=== PATIENT | male | born 1970 | race Caucasian/White ===

== ENCOUNTER → 2018-01-21 10:54 | Outpatient (CLI) | payer OTHER, SELFPAY ==
[2018-01-20 09:09] VITALS: BMI 31.8
--- NOTE | 2018-01-21 10:57 | ECHOD_ITS ---
Reason For Study: Chest Pain Procedure This was a 2D Doppler, Color Flow transthoracic echocardiogram. Exam performed in department. Left Ventricle Normal LV size. Left ventricular systolic function is normal. The estimated ejection fraction is 55 %. No evidence for diastolic dysfunction. No regional wall motion abnormalities noted. Right Ventricle Normal RV size. Normal systolic function. Atria Normal left atrium. Normal right atrium. Mitral Valve Normal mitral valve. Trivial eccentric mitral valve insufficiency. Tricuspid Valve Normal tricuspid valve. Mild tricuspid valve insufficiency. Aortic Valve Normal aortic valve. Pulmonic Valve Normal pulmonic valve. Great Vessels Normal aortic root. Pericardium/Pleural No pericardial effusion. MMode/2D Measurements & Calculations LVIDd: 5.0 cm IVSd: 0.80 cm Ao root diam: 3.2 cm LVIDs: 3.1 cm LVPWd: 0.81 cm LA dimension: 3.5 cm RVDd: 4.0 cm FS: 37.0 % LAV(MOD-bp): 55.3 ml LA A4 area: 18.2 cm2 RA A4 area: 14.2 cm2 LAV(MOD-sp2): 56.5 ml LAV(MOD-sp4): 48.9 ml Time Measurements MV dec time: 0.19 sec Doppler Measurements & Calculations MV E max randell: 74.4 cm/sec Lat Peak E' Randell: 11.4 cm/sec Med Peak E' Randell: 11.1 cm/sec MV A max randell: 58.7 cm/sec E/E' lat: 6.5 E/E' med: 6.7 MV E/A: 1.3 MV V2 max: 81.0 cm/sec Ao V2 max: 117.6 cm/sec LV V1 max: 108.1 cm/sec MV max P.6 mmHg Ao max P.5 mmHg LV V1 max P.7 mmHg MV V2 mean: 43.5 cm/sec Ao V2 mean: 78.9 cm/sec LV V1 mean P.0 mmHg MV mean P.92 mmHg Ao mean P.8 mmHg LV V1 mean: 65.1 cm/sec MV V2 VTI: 29.4 cm Ao V2 VTI: 22.5 cm LV V1 VTI: 21.2 cm PA V2 max: 95.3 cm/sec Interpretation Summary Normal LV size. Left ventricular systolic function is normal. The estimated ejection fraction is 55 %. No evidence for diastolic dysfunction. Structurally normal valves. Ordering Physician: John Ross Referring Physician: John Ross Performed By: Flavio Diaz RCS
--- OUTSIDE RECORDS SUMMARY | 2018-03-18 13:21 | XMS RPT_ITS ---
:1970 Author Organization OHIP Support Name Relationship Address Phone FAYE ROSEN Unavailable [address] + [place] [address] ABTUCKER CRISTEL Unavailable [address] + [place] [address] KB41 ALONDRA Unavailable [address] + [place] [address] ABER FAYE Unavailable [address] + [place] [address] JESSIKA CRISTEL Unavailable [address] + [place] [address] KB41 ALONDRA Unavailable [address] + [place] [address] ABER, FAYE Unavailable [address] + [place] [address] ABER CRISTEL Unavailable [address] + [place] [address] KB41 ALONDRA Unavailable [address] + [place] [address] ABER, FAYE Unavailable [address] + [place] [address] ABER CRISTEL Unavailable [address] + [place] [address] KB41 ALONDRA Unavailable [address] + [place] [address] ABER FAYE Unavailable [address] + [place] [address] ABER CRISTEL Unavailable [address] + [place] [address] KB41 ALONDRA Unavailable [address] + [place] [address] ABER, FAYE Unavailable [address] + [place] [address] ABCRISTEL CEBALLOS Unavailable [address] + [place] [address] KB41 ALONDRA Unavailable [address] + [place] [address] ABER, FAYE Unavailable . + [place] [address] S Unavailable Unavailable Unavailable Care Team Providers Name Role Yeison Rocael Castillo Attending Unavailable Primay Care Physicia, No Referring Unavailable Cody, [place] Attending Unavailable Cody, John Referring Unavailable Primay Care Physicia, No Primary Care Unavailable Cody, John Attending Unavailable Primay Care Physicia, No Referring Unavailable Cody, John Attending Unavailable Cody, [place] Referring Unavailable Primay Care Physicia, No Primary Care Unavailable Cody, John Attending Unavailable Cody, [place] Referring Unavailable Primay Care Physicia, No Primary Care Unavailable Cody, John Attending Unavailable Cody, John Referring Unavailable Primay Care Physicia, No Primary Care Unavailable Cody, [place] Consulting Unavailable Cody, [place] Attending Unavailable Cody, John Referring Unavailable Primay Care Physicia, No Primary Care Unavailable Cody, [place] Consulting Unavailable PROBLEMS PROBLEMS DATE TYPE CONDITION / CODE ATTENDING STATUS SOURCE 01/26/2018 Unknown R07.9 - Chest pain, Cody, [place] Active [place] unspecified / Community R07.9(ICD-10) Hospital Repository 01/26/2018 Unknown R06.00 - Dyspnea, Cody, [place] Active [place] unspecified / Community R06.00(ICD-10) Hospital Repository 01/26/2018 Unknown F17.200 - Nicotine Cody, [place] Active [place] dependence, Community unspecified, Hospital uncomplicated / Repository F17.200(ICD-10) PROCEDURES PROCEDURES No Procedure Records FoundRESULTS RESULTS CR - HISTORY AND Observed: 02/09/2018 Status: F Source: [place] PH[facility]ICAL 12:53 PM [facility] REPOSITORY [facility] Cardiac Rehab [address] [place] [address] CR - History AND Physical MR#: [id number] Acct: [id number] Name: CHAS VICKERS Rep #: [id number] : 1970 47 From: Yogi Nguyen 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 NO PREVIOUS HISTORY OF CORONARY DISEASE Interventions with present event:: SCHEDULED BY NURSE TO SEE DR. ROSS AND THEN SENT DOWN FOR ECHO HEART CATH. 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 - Medications Home Medications: Ambulatory Orders Medication Instructions Recorded aspirin 81 mg tablet,delayed 81 mg PO QDAY #30 tab 01/20/18 release atorvastatin 40 mg tablet 40 mg PO QPM #90 tab 01/26/18 - Allergies Allergies/Adverse Reactions: Allergies No Known Allergies Allergy (Verified 02/05/18 13:34) - Sleep Disorder Evaluation Hx of Sleep Apnea: No Do you snore loudly (louder than talking or can be heard through closed doors)?: Yes Do you often feel tired/ fatigued/ sleepy during daytime?: No Has anyone observed you stop breathing during sleep?: Yes History of Hypertension (for STOP score): No STOP Results: Positive Advanced Directives - Advanced Directives Power of Learning Engineer: Yes - Cristel [place]; mother Living Will: Yes Advance Directives Information Provided: Yes Advance Directives on File: No DNR Order?:: No - MOLST See MOLST form: No Past Medical History - Past Medical Illness Medical History: Past Medical History (Last Updated 01/25/18 @ 14:10 by Iris Blakely) Atherosclerosis of coronary artery of [place] heart without angina pectoris (Chronic) I25.10 PCI-OMARI-Mid LAD 2.5 x 12 mm Resolute 01/23/18 Unstable angina (Acute) I20.0 Dyspnea (Acute) R06.00 Nicotine dependence (Chronic) F17.200 - Past Surgical History Surgical History: Past Surgical History (Last Updated 01/25/18 @ 14:10 by Iris Blakely) History of coronary artery stent placement (Resolved) Onset Date: 01/23/18 Z95.5 PCI-OMARI-Mid LAD 2.5 x 12 mm Resolute 01/23/18 History of open reduction and internal fixation (ORIF) procedure Z98.890 left hip Social History - Smoking History Smoking Status: Current every day smoker Years Smokin2000-2018 Packs Smoked per Day: 1 - at times more recently last 3 months 1/4 pack (5-cig) Hx Smoking Cessation Date: 01/25/2018 Hx Tobacco Use: Yes Hx Smoking Exposure: No - Alcohol Use Alcohol Usage: Yes - occasionally; - Substance Abuse Hx Substance Use: No - Occupation Occupation (List type of work in comments):: Employed Hours worked per day:: 11 - 8 hours w / break; up to 11 hours Returned to work on:: 02/05/18 - Hobbies, Recreation, Social Activities Hobbies: Other - Race cars; dirt track. Recreational Activities: I am able to engage in most, but not all activities Social Environment - Status Marital Status: Single - Current Living Arrangements Living Environment:: Spouse - Children How many children do you have?: 0 Do any of your children live nearby?: No - Safety Do you feel safe in your surroundings?: Yes - Assistance Do you need any assistance at home?: none Review of Systems - Review of Systems Hints: Right click = Denies (Slash). Left click = Reports ([place]) Review of Present Symptoms: Reports: Shortness of Breath with Exertion, Appetite - Normal, Appetite - Special Diet - 1800 calories diet; low fat, low cholesterol, no added salt., - - when coughs, feels like his head is going to explode.. Denies: Shortness of Breath at Rest, Angina, Dizziness/Lightheadedness, Fatigue, Heart Arrhythmia/Irregularities, Sleep - Normal, Sexual Changes - Pain Is Patient Pain Free?: Yes Risk Factor Assessment - Chief Complaint Chief Complaint: Patient is a very pleasent 47 yr old male of Dr. Ross who presents to cardiac rehab today following recent angioplasty with stent placement the first of this month. 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 On his way back to [place] he experienced the same discomfort and took a 325mg aspiring with relief. He was seen by Dr. Ross and subsequently had an echo and heart cath done resulting in a coronary stent placement. 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 - Blood Cholesterol/Lipids Total Cholesterol (mg/dL) Goal = less than 200 mg/dL: 208 HDL Cholesterol (mg/dL) Goal = less than 40 mg/dL: 42 LDL Cholesterol (mg/dL) Goal = less than 70 mg/dL: 144 Triglycerides (mg/dL) Goal = less than 150 mg/dL: 108 - Diabetes Nutrition Referral for Diabetes: No - Obesity Height: 6 ft Weight:: 235 lb Weight in Pounds: 235.0 lbs Body Mass Index (BMI): 31.8 Nutritional Referral for Obesity: Yes - Patient could benefit from structured weight loss- cardiac diet guidelines - Physical Inactivity Physical Inactivity: None - Risk Stratification Risk Guidelines: Lowest Risk: Risk Factor for Dyslipidemia, Risk Factor for Diabetes, Risk Factor for Hypertension, Risk Factor for Sedentary Lifestyle, Risk Factor for Depression, Highest Risk: Risk Factor for Smoking, Risk Factor for Obesity - For Smoking Smoking Risk Guidelines: Smoking Low Risk: None or quit greater than 6 months ago. Smoking Moderate Risk: Smoker or quit 6 months or less ago. Smoking High Risk: Smoker - For Dyslipidemia Dyslipidemia Risk Guidelines: Low Risk: Moderate Risk: High Risk: 15-25% fat 25.1-29% fat >/= 30% fat. <7% sat fat 7-9% sat fat >9% sat fat. <150 mg chol 150-299 mg chol >/= 300 mg chol. LDL <100 LDL 100-129 LDL >/= 130. Chol/HDL ratio <5.0 Chol/HDL ratio 5.0-6.0 Chol/HDL ratio >6.0. Triglycerides <100 Triglycerides 100-149 Triglycerides >/= 150 - For Diabetes Mellitus Diabetes Risk Guidelines: Diabetes Low Risk: HgA1c <6.5% and/or FBG <120. Diabetes Moderate Risk: HgA1c 6.6-7.9% and/or FBG 120- 180. Diabetes High Risk: HgA1c >/= 8% and/or FBG >180 - For Obesity/Overweight Obesity/Overweight Risk Guidelines: Obesity Low Risk: BMI <25.0. Obesity Moderate Risk: BMI 25-29.9. Obesity High Risk: BMI >/= 30.0 - For Hypertension Hypertension Risk Guidelines: Hypertension Low Risk: Systolic <120 and Diastolic <80. Hypertension Moderate Risk: Systolic 120-139 and Diastolic 80-89. Hypertension High Risk: Systolic >/= 140 and Diastolic >/= 90 - For Sedentary Lifestyle Sedentary Lifestyle Risk Guidelines: Sedentary Lifestyle Low Risk: >/= 1,500 kcal/week. Sedentary Lifestyle Moderate Risk: 700-1,499 kcal/week. Sedentary Lifestyle High Risk: < 700 kcal/week - For Depression Depression Risk Guidelines: Depression Low Risk: Not clinically depressed. Depression Moderate Risk: Mildly depressed. Depression High Risk: Clinically depressed Motivation - Motivation to Participate On a scale of 1 to 10, how prepared are you to commit to attending program?: 10 What do you see as barriers to successfully being able to complete the program?: none What do you see as the benefits of succesfully completing the program? In other words, what do you hope to get out of participating in the program?: learning more about heart disease Are there issues you are dealing with that will interfere with completing the program?: no Do you have a spouse or signficant other, family or friends who will help support you to complete the program?: yes; parents very supportive. 02/09/18 1051 <Electronically signed by Yogi Nguyen CRT, RCP, JUN> Date Yogi Nguyen CRT, RCP, JUN Outcome assessment reviewed. Exercise plan approved as documented. Treatment plan and goals support patient needs/abilities. Continue with current plan. I certify the patient demonstrates improvement and remains willing and capable of participation. the patient continues to benefit from cardiac rehab services/training. The patient may continue at current intensity, endurance and modality and progress per protocol. 02/09/18 1253 <Electronically signed by John Ross MD> Fabbyigner Signature: Date John Ross MD CC: Signed 12 LEAD ELECTROCARDIOGRAM Observed: 01/28/2018 Status: F Source: [place] 2:52 PM [facility] REPOSITORY [facility] Cardiovascular Services [address] [place] [address] 12 Lead EKG 01/26/18 0453 MR#: [id number] Acct: [id number] Name: CHAS VICKERS Rep #: [id number] : 1970 47 From: Candelario Maya MD Attending Dr: John Ross MD Status: [facility] Ordering Dr: Amber Moy MD Date: 01/26/18 Location: [facility] Sex: M C Admitted: Test Reason : MORNING EKG Blood Pressure : / mmHG Vent. Rate : 060 BPM Atrial Rate : 060 BPM P-R Int : 140 ms QRS Dur : 070 ms QT Int : 418 ms P-R-T Axes : 035 038 002 degrees QTc Int : 418 ms Normal sinus rhythm Normal ECG Confirmed by ZULMA BUCK, CANDELARIO ([id number]), editor producer KATHRYN MCCARTHY ([id number]) on 01/28/2018 2:51:31 PM Referred By: John Ross Confirmed By:CANDELARIO MAYA MD 01/28/18 145 Date Candelario Maya MD CC: No Primary Care Physician; Amber Moy MD; John Ross MD Signed 12 LEAD ELECTROCARDIOGRAM Observed: 01/28/2018 Status: F Source: [place] 2:52 PM [facility] REPOSITORY [facility] Cardiovascular Services [address] [place] [address] 12 Lead EKG 01/25/18 1122 MR#: [id number] Acct: [id number] Name: CHAS VICKERS Rep #: [id number] : 1970 47 From: Candelario Maya MD Attending Dr: Cody BUCK,John Status: DEP SDC Ordering Dr: Amber Moy MD Date: 01/25/18 Location: [facility] Sex: M C Admitted: Test Reason : POST PCI Blood Pressure : / mmHG Vent. Rate : 074 BPM Atrial Rate : 074 BPM P-R Int : 146 ms QRS Dur : 072 ms QT Int : 388 ms P-R-T Axes : 035 029 001 degrees QTc Int : 430 ms Normal sinus rhythm Normal ECG Confirmed by ZULMA BUCK, CANDELARIO ([id number]), editor producer KATHRYN MCCARTHY ([id number]) on 01/28/2018 2:51:47 PM Referred By: John Ross Confirmed By:CANDELARIO MAYA MD 01/28/18 1451 Date Candelario Maya MD CC: No Primary Care Physician; Amber Moy MD; John Ross MD Signed DISCHARGE INSTRUCTION Observed: 01/26/2018 Status: F Source: [place] 7:48 AM [facility] REPOSITORY [facility] Medical Records Department [address] [place] [address] Instructions for Home/Discharge Instructions 01/26/18 0745 MR#: [id number] Acct: [id number] Name: CHAS VICKERS Rep #: [id number] : 1970 47 From: John Ross MD PCP: Care Physician, No Primary Status: REG SDC Discharge Diet: Low fat/ Low Cholesterol Discharge Activity: Return to Normal Activity, May Drive Return to work on:: 01/29/18 May resume sexual activity in: 1 week Call your doctor if your incision/area has: Increased Pain/ Swelling, Increased Redness, Foul Smelling Discharge, Swelling at the incision site Call your doctor if you observe: Fever of 101 or Higher Additional Dressing/Incision Instructions:: Keep the dressing (bandage) on until the next morning. You may then shower, but do not take a tub bath for 5 days after your test. It is normal to have some tenderness and discomfort at the puncture site. Sometimes bruising also occurs. However, if pain, numbness, or coldness occurs below the puncture site (in your leg, toes, arms or fingers) call your doctor at once. You may have a small, marble sized knot at the puncture site. This is normal. Do not rub it. It will go away in 4-6 weeks. Bleeding can occur from the area where the puncture was done. Blood may spurt or drip from the site. If blood spurts, apply pressure right away to stop bleeding and call 911. Although rare, bleeding into the tissue (hematoma) can also occur. If this happens, a large, firm area goose egg under the skin will appear. If any of these occur, lie down as flat as you can and have someone apply firm pressure to the cath site with a gauze pad or a clean washcloth for 10-15 minutes. Call 911 or go to the Emergency Department. Allergies/Adverse Reactions: Allergies No Known Allergies Allergy (Verified 01/20/18 08:19) Medications to take at Discharge aspirin 81 mg tablet,delayed release 81 mg PO QDAY #30 tab 01/20/18 clopidogrel 75 mg tablet 75 mg PO DAILY #30 tab 01/20/18 metoprolol succinate ER 25 mg tablet,extended release 24 hr 25 mg PO DAILY #30 tab 01/20/18 Primary Care Physician: Care Physician,No Primary [Primary Care Provider] - Test Results: Test results from this visit will be discussed in further detail at your follow-up appointment, if applicable. When: heart group mid level 1-2 weeks Proposed Discharge Date: 01/26/18 Cardiac Rehabilitation Info Cardiac Rehabilitation Program Information: Cardiac Rehabilitation is important for patients like you who are recovering from a heart problem. Cardiac rehabilitation programs are recognized as integral to the continued care of the patient with coronary heart disease. The cardiac rehabilitation program is designed to optimize a patient's physical, psychological, and social functioning. Health day care worker work in cardiac rehabilitation programs and assist you with getting the treatments you need to get stronger and healthier - like exercise, healthy eating habits, and medications. Cardiac rehabilitation has been show to help people with heart problems live longer and have better life enjoyment than people who do not go to cardiac rehabilitation. Please contact the Cardiac Rehabilitation Program at [facility] at in two weeks if you have not heard from them. 01/26/18 0748 <Electronically signed by John Ross MD> Date John Ross MD CC: No Primary Care Physician CBC-COMPLETE BLOOD CNT Collected: 01/26/2018 Status: F Source: [facility] NO DIFF 5:45 AM [facility] REPOSITORY TYPE CODE TESTS RESULT OUT OF RANGE REFERENCE UNITS LAB L100.1000 4.4-11.0 K/mm3 Normal WBC 8.3 LAB L100.1200 4.6-6.2 M/mm3 Low RBC 4.49 LAB L100.1300 13.0-16.5 g/dl Normal HGB 14.6 LAB L100.1400 40-54 % Normal HCT 41.7 LAB L100.1500 80-94 fL Normal MCV 92.9 LAB L100.1600 27.0-32.0 pg High MCH 32.5 LAB L100.1700 32-36 g/gl Normal MCHC 35.0 LAB L100.1810 11.6-14.6 % Normal RDW CV 13.0 LAB L100.1820 35.1-43.9 fl Normal RDW SD 43.3 LAB L100.1900 150-450 K/mm3 Normal PLT 250 LAB L100.2000 6.2-12.0 fl Normal MPV 10.3 Performed By: #### L100.0500 #### [facility] [address] [place], [address] BASIC METABOLIC Collected: 01/26/2018 Status: F Source: [place] PROFILE (BMP) 5:45 AM [facility] REPOSITORY TYPE CODE TESTS RESULT OUT OF RANGE REFERENCE UNITS LAB L501.0100 74-106 mg/dL Normal GLU 98 Result Comment: Please note revised GLUCOSE reference range effective 2017. LAB L501.1000 7-18 mg/dL High BUN 22 LAB L501.1100 0.70-1.30 mg/dL Normal CREAT,SERUM 0.98 Result Comment: The validity of the calculated GFR AND GFRAA in patients over 70 years has not been determined. Clinical correlation is essential. LAB L501.1110 >60 mL/min Normal EST GFR 87 Result Comment: Non- GFR Calc LAB L501.1115 >60 mL/min Normal EST GFR - AA 105 Result Comment: GFR Calc LAB L501.1255 ml/min Normal Estimated CRCL 102.28 LAB L501.1300 10-20 RATIO High BUN/CRE 22.4 LAB L501.2200 8.5-10 mg/dL .1 CA Normal 8.9 LAB L501.5300 136-14 mmol/L 5 NA Normal 139 LAB L501.5600 3.5-5. mmol/L 1 K Normal 4.5 LAB L501.5900 98-107 mmol/L CL Normal 106 LAB L501.6100 21.0-3 mmol/L 2.0 CO2 Normal 23.0 LAB L501.6200 5-15 GAP Normal 10 Performed By: #### L500.2500 #### [facility] [address] [place], [address] ACT ACTIVATED CLOTTING Collected: 01/25/2018 Status: F Source: [place] TIME 10:55 AM [facility] REPOSITORY TYPE CODE TESTS RESULT OUT OF RANGE REFERENCE UNITS LAB L9100.0100 74-137 sec High ACTk CLOT 257 TIME Performed By: #### L9100.0100 #### [facility] Point of Care [address] [place] [address] ACT ACTIVATED CLOTTING Collected: 01/25/2018 Status: F Source: [place] TIME 10:38 AM [facility] REPOSITORY TYPE CODE TESTS RESULT OUT OF RANGE REFERENCE UNITS LAB L9100.0100 74-137 sec High ACTk CLOT 285 TIME Performed By: #### L9100.0100 #### [facility] Point of Care [address] [place] [address] ECHOCARDIOGRAM COMPLETE Observed: 01/21/2018 Status: F Source: [place] 3:15 PM [facility] REPOSITORY [facility] Cardiovascular Services [address] [place] [address] Echo Complete 01/21/18 1055 MR#: [id number] Acct: [id number] Name: CHAS VICKERS Rep #: [id number] : 1970 47 From: John Ross MD Attending Dr: Cody BUCK,John Status: REG CLI Ordering Dr: John Ross MD Date: 01/21/18 Location: [facility] Sex: M C Admitted: Reason For Study: Chest Pain Procedure This was a 2D Doppler, Color Flow transthoracic echocardiogram. Exam performed in department. Left Ventricle Normal LV size. Left ventricular systolic function is normal. The estimated ejection fraction is 55 %. No evidence for diastolic dysfunction. No regional wall motion abnormalities noted. Right Ventricle Normal RV size. Normal systolic function. Atria Normal left atrium. Normal right atrium. Mitral Valve Normal mitral valve. Trivial eccentric mitral valve insufficiency. Tricuspid Valve Normal tricuspid valve. Mild tricuspid valve insufficiency. Aortic Valve Normal aortic valve. Pulmonic Valve Normal pulmonic valve. Great Vessels Normal aortic root. Pericardium/Pleural No pericardial effusion. MMode/2D Measurements AND Calculations LVIDd: 5.0 cm IVSd: 0.80 cm Ao root diam: 3.2 cm LVIDs: 3.1 cm LVPWd: 0.81 cm LA dimension: 3.5 cm RVDd: 4.0 cm FS: 37.0 % LAV(MOD-bp): 55.3 ml LA A4 area: 18.2 cm2 RA A4 area: 14.2 cm2 LAV(MOD-sp2): 56.5 ml LAV(MOD-sp4): 48.9 ml Time Measurements MV dec time: 0.19 sec Doppler Measurements AND Calculations MV E max randell: 74.4 cm/sec Lat Peak E' Randell: 11.4 cm/sec Med Peak E' Randell: 11.1 cm/sec MV A max randell: 58.7 cm/sec E/E' lat: 6.5 E/E' med: 6.7 MV E/A: 1.3 MV V2 max: 81.0 cm/sec Ao V2 max: 117.6 cm/sec LV V1 max: 108.1 cm/sec MV max P.6 mmHg Ao max P.5 mmHg LV V1 max P.7 mmHg MV V2 mean: 43.5 cm/sec Ao V2 mean: 78.9 cm/sec LV V1 mean P.0 mmHg MV mean P.92 mmHg Ao mean P.8 mmHg LV V1 mean: 65.1 cm/sec MV V2 VTI: 29.4 cm Ao V2 VTI: 22.5 cm LV V1 VTI: 21.2 cm PA V2 max: 95.3 cm/sec Interpretation Summary Normal LV size. Left ventricular systolic function is normal. The estimated ejection fraction is 55 %. No evidence for diastolic dysfunction. Structurally normal valves. 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 Chest pain for 6 months getting worse past 1.5 months. No known injury. TECHNIQUE: PA and lateral views of the chest. COMPARISON: None. FINDINGS: The lungs are clear and expanded. There is no demonstrated pleural abnormality. Normal size heart. Normal mediastinum and zoë. Normal visualized pulmonary arteries. Normal visualized aortic arch and descending thoracic aorta. Normal visualized thoracic spine. Normal visualized ribs, clavicles, and shoulders. There is no demonstrated abnormality of the visualized soft tissue structures of the upper abdomen. RAD/Chest PA and Lateral IMPRESSION: Normal x-ray examination of the chest. Electronically Signed: Nubia Dacosta MD at 6:36 EST , Service support , CC: No Primary Care Physician; John Ross MD Hydraulic Strainer Operator: Signed CBC W/DIFF, AUTOMATED Collected: 01/20/2018 Status: F Source: [place] 10:30 AM [facility] REPOSITORY TYPE CODE TESTS RESULT OUT OF RANGE REFERENCE UNITS LAB L100.1000 4.4-11.0 K/mm3 Normal WBC 8.9 LAB L100.1200 4.6-6.2 M/mm3 Normal RBC 4.80 LAB L100.1300 13.0-16.5 g/dl Normal HGB 15.5 LAB L100.1400 40-54 % Normal HCT 44.7 LAB L100.1500 80-94 fL Normal MCV 93.1 LAB L100.1600 27.0-32.0 pg High MCH 32.3 LAB L100.1700 32-36 g/gl Normal MCHC 34.7 LAB L100.1810 11.6-14.6 % Normal RDW CV 13.0 LAB L100.1820 35.1-43.9 fl Normal RDW SD 43.8 LAB L100.1900 150-450 K/mm3 Normal PLT 271 LAB L100.2000 6.2-12.0 fl Normal MPV 10.2 LAB L100.2100 47-70 % Normal NEUT% 63.8 LAB L100.2200 19-41 % Normal LY% 27.6 LAB L100.2300 0-10 % Normal MONO% 6.6 LAB L100.2400 0-5 % Normal EO% 1.5 LAB L100.2500 0-1 % Normal BASO% 0.1 LAB L100.2550 0.0-0.9 % Normal IM GRAN % 0.400 Result Comment: IG% - Immature Granulocytes (promyelocytes, myelocytes and metamyelocytes) > 1% indicates that a LEFT SHIFT is Present. LAB L100.2620 2.0-7.7 X10 3/uL Normal Absolute Neut 5.7 LAB L100.2720 0.83-4.51 X10 3/ul Normal Absolute Lymph 2.46 Performed By: #### L100.0100 #### [facility] [place] [address], [address] BASIC METABOLIC Collected: 01/20/2018 Status: F Source: ALBERTO PROFILE (BMP) 10:30 AM [facility] REPOSITORY TYPE CODE TESTS RESULT OUT OF RANGE REFERENCE UNITS LAB L501.0100 74-106 mg/dL Normal GLU 82 Result Comment: Please note revised GLUCOSE reference range effective 2017. LAB L501.1000 7-18 mg/dL Normal BUN 16 LAB L501.1100 0.70-1.30 mg/dL Normal CREAT,SERUM 1.11 Result Comment: The validity of the calculated GFR AND GFRAA in patients over 70 years has not been determined. Clinical correlation is essential. LAB L501.1110 >60 mL/min Normal EST GFR 75 Result Comment: Non- GFR Calc LAB L501.1115 >60 mL/min Normal EST GFR - AA 91 Result Comment: GFR Calc LAB L501.1300 10-20 RATIO Normal BUN/CRE 14.4 LAB L501.2200 8.5-10.1 mg/dL CA Normal 9.1 LAB L501.5300 136-145 mmol/L NA Normal 142 LAB L501.5600 3.5-5.1 mmol/L K Normal 4.3 LAB L501.5900 98-107 mmol/L CL Normal 106 LAB L501.6100 21.0-32.0 mmol/L Normal CO2 29.0 LAB L501.6200 5-15 Normal GAP 7 Performed By: #### L500.2500, L500.3400, L500.4100, L501.9520 #### [facility] [address] [place], [address] LIVER PROFILE Collected: 01/20/2018 Status: F Source: ALBERTO 10:30 AM [facility] REPOSITORY TYPE CODE TESTS RESULT OUT OF RANGE REFERENCE UNITS LAB L501.1500 6.4-8.2 g/dL Normal T PROT 7.4 LAB L501.1800 3.2-5.0 g/dL Normal ALB 3.6 LAB L501.1950 2.2-4.2 g/dL Normal GLOB 3.8 LAB L501.4100 15-37 U/L Normal AST 23 LAB L501.4305 45-117 U/L Normal ALK P 74 LAB L501.4405 16-61 U/L Normal ALT 36 LAB L501.4600 0.20-1.00 mg/dL Normal T BILI 0.40 LAB L501.4700 0.00-0.30 mg/dL Normal D BILI 0.09 Performed By: #### L500.2500, L500.3400, L500.4100, L501.9520 #### [facility] [address] [place], [place], [address] LIPID PROFILE Collected: 01/20/2018 Status: F Source: ALBERTO 10:30 AM [facility] REPOSITORY TYPE CODE TESTS RESULT OUT OF RANGE REFERENCE UNITS LAB L501.4900 200 mg/dL High CHOL 208 Result Comment: <200 mg/dL Desirable 200-240 mg/dL Borderline >240 mg/dL High Risk LAB L501.5000 mg/dL Normal TRIG 108 Result Comment: The drugs N-Acetylcysteine and Metamizole may falsely depress this assay. Serum Triglycerides Reference Interval Normal <150 mg/dL Borderline high 150 - 199 mg/dL High 200 - 499 mg/dL Very High > or = 500 mg/dL LAB L501.6400 mg/dL Normal HDL 42 Result Comment: The drugs N-Acetylcysteine and Metamizole may falsely depress this assay. Reference Range HDL <40 mg/dL Low HDL Cholesterol HDL >or= 60 mg/dL High HDL Cholesterol LAB L501.6500 0-130 mg/dL High LDL 144 LAB L501.6600 5-40 mg/dL Normal VLDL 22 Performed By: #### L500.2500, L500.3400, L500.4100, L501.9520 #### [facility] [address] [place], [place], [id number] THYROID STIM HORMONE Collected: 01/20/2018 Status: F Source: ALBERTO (TSH) 10:30 AM [facility] REPOSITORY TYPE CODE TESTS RESULT OUT OF RANGE REFERENCE UNITS LAB L501.9520 0.358-3.74 uIU/mL Normal TSH 1.63 Performed By: #### L500.2500, L500.3400, L500.4100, L501.9520 #### [facility] [address] [place], [place], [address] CARDIOLOGY VISIT Observed: 01/20/2018 Status: F Source: ALBERTO REPORT 9:43 AM [facility] REPOSITORY [facility] [address] [place] [address] OFFICE VISIT Date of Service: 01/20/18 MR#: [id number] Acct: [id number] Name: CHAS VICKERS Rep #: [id number] : 1970 Provider: John Ross MD Age/Sex: 47/M Location: [facility] Status: Signed HPI HPI Chief Complaint: Initial visit Details: CHAS VICKERS, is a 47 M who presents to the office today for an initial visit. 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 A few days ago he had a significant episode associated with nausea and shortness of breath. He took aspirin and it was eventually relieved. He has had no dizziness or diaphoresis no near syncope or syncope though he has had exertional shortness of breath. He is on no medications though he does use tobacco products. His physical exam today demonstrates clear lung wong regular rate and rhythm no pedal edema his blood pressure is under normal control and his EKG demonstrates normal sinus rhythm with a rate of 72 bpm. Intake Vital Signs01/20/18 Height 6 ft 01/20/18 Weight: 235 lb 01/20/18 Body Mass Index (BMI) 31.8 01/20/18 Blood Pressure 120/80 01/20/18 Respiratory Rate 18 01/20/18 Pulse Rate 72 01/20/18 Pulse Ox 98 Intake Visit Reasons: self ref'd for chest pressure Allergies No Known Allergies Allergy (Verified 01/20/18 08:19) Medications aspirin 81 mg tablet,delayed release 81 mg PO QDAY #30 tab 01/20/18 [Rx Confirmed 01/20/18] clopidogrel 75 mg tablet 75 mg PO DAILY #30 tab 01/20/18 [Rx Confirmed 01/20/18] metoprolol succinate ER 25 mg tablet,extended release 24 hr 25 mg PO DAILY #30 tab 01/20/18 [Rx Confirmed 01/20/18] PFSH Medical History Nicotine dependence (Chronic) Surgical History History of open reduction and internal fixation (ORIF) procedure (Acute) Social History Smoking Status: Current every day smoker tobacco type: cigarettes ROS Const Const: Negative for fatigue, weakness, difficulty sleeping, frequent falls, excessive sweating or headache(s) Eyes Eyes: Negative for loss of peripheral vision, transient loss of vision, blurry vision, tunnel vision or double vision ENT ENT: Negative for headache(s), dizziness, Nosebleed/epistaxis or balance problems Cardio Chest Pain: Yes (New onset mid sternal chest pain) Character: tightness, other (Heaviness) Location: mid sternal Duration: minutes, hours Exacerbation: activity, rest Palpitations: No Edema: None Muscle aches with walking: None Additional Details: Had an episode of chest heaviness while driving his truck, became nauseated and fell asleep. Has had several episodes since last week. Resp Respiratory: Positive for SOB with activity (New onset with ambulation); negative for SOB at rest, SOB orthopnea\SOB lying down, paroxysmal nocturnal dyspnea or Cough GI GI: Negative nausea, heartburn, black,tarry stools or vomiting : Negative for hematuria Musc Musc: Negative for balance problems, muscle aches/ myalgia, muscle weakness or joint pain Skin Skin: Negative non-healing lesions, unusual bruising or rash Neuro Neuro: Negative for weakness, frequent falls, headache(s), blurry vision, double vision, dizziness, lightheadedness, orthostatic symptoms, near syncope, syncope or lack of coordination Diony Hematologic/Lymphatic: Negative for easy bruising or easy bleeding Endo Endo: Negative for fatigue, excessive sweating or increased thirst/drinking Psych Psych: Negative for anxiety or depression Allergy Allergy/Immunology: Negative for hives, Negative for rash Cardiology Exam Const Appearance: cooperative, healthy appearing, well developed, well groomed and no acute distress Nutritional Appearance: well nourished and average body habitus Orientation: alert, awake and oriented x3 Head Head: normal to inspection, normocephalic and atraumatic Ears: hearing grossly normal bilaterally and external ears normal Nose: external nose normal, nasal mucous membranes and turbinates normal, nares normal, septum normal, no nasal discharge Face and Sinus: face symmetric Mouth: oral mucosae normal, tongue normal, oropharynx normal and moist mucous membranes Teeth and gingiva: dentition normal Throat: posterior oropharynx normal, tonsils normal and uvula midline Eyes General: appearance normal, both eyes and all related structures Eyelids: eyelids normal Conjunctivae: conjunctivae normal Pupils: PERRL, normal by confrontation and accommodation normal EOM: EOM intact bilaterally Neck Neck: normal visual inspection, trachea midline and no JVD JVD: +5 Carotids: normal carotid upstroke and bounding pulses Chest Chest inspection: normal inspection of the chest, symmetric chest movement and normal respiratory effort Auscultation: Bilateral: Clear to Auscultation Cardio Palpation: normal PMI Rate: regular rate Rhythm: regular rhythm Heart sounds: S1 normal, S2 normal and normal, physiologic split S2; negative rub, gallop or murmur GI GI: normal to inspection, soft, no hepatosplenomegaly and bowel sounds present Neuro General: alert, awake, oriented x3, no focal sensory deficit, gait normal and moves all extremities Skin Skin: no rashes or lesions noted Extremities Pulses: Normal: Right Femoral Pulse, Left Femoral Pulse, Right Dorsalis Pedis Pulse, Left Dorsalis Pedis Pulse, Right Posterior Tibial Pulse, Left Posterior Tibial Pulse, Right Radial Pulse, Left Radial Pulse Lower Extremity Edema: None: Bilateral Musculoskel Musculoskeletal: No joint tenderness Psych Psychological: normal affect Assessment AND Plan 1. 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 He will be preloaded with clopidogrel and aspirin, and a lipid profile would also be obtained. Low-dose beta-willam would be instituted. Thank you for allowing me to participate in the care of your patient. 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) Coding Level of Care Code Off vis,new,level 4 Diagnoses Chest pain R07.9 Ischemic chest pain type: unstable angina pectoris Coding Level of Care Code Off vis,new,level 4 Diagnoses Chest pain R07.9 Ischemic chest pain type: unstable angina pectoris 01/20/18 0943 <Electronically signed by John Ross MD> Date John Ross MD Cosigner Signature: Date (if applicable) CC: 12 LEAD EKG PERFORMED Observed: 01/20/2018 Status: F Source: ALBERTO BY [facility] 8:53 AM [facility] REPOSITORY [facility] [address] [place] [address] 12 Lead EKG performed by [facility] 01/20/18818 MR#: [id number] Acct: [id number] Name: CHAS VICKERS Rep #: [id number] : 1970 47 From: John Ross MD Attending Dr: John Ross MD Status: DEP AMB Ordering Dr: John Ross MD Date: 01/20/18 Location: [facility] Sex: M C Admitted: [facility]/12 Lead EKG performed by [facility] ECG Report Interpretation Sinus Rhythm WITHIN NORMAL LIMITSElectronically signed on 01/27/2018 at 11:30 by John Rosswood Software Version [id number] 01/27/18 1135 Date John Ross MD CC: No Primary Care Physician Date Dictated: 01/20/18818 Date Transcribed: 01/20/18818 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 Signed ALLERGIES ALLERGIES DATE TYPE / CODE NAME / CODE REACTION SEVERITY SOURCE 02/05/2018 Drug No Known Unknown [facility] Allergy/4160 Allergies/F00 [facility] [address]750(SNOMED [id number](RXNOR Repository CT) M) ENCOUNTERS ENCOUNTERS ADMIT/DISCHARGE ACCOUNT ADMITTING ENCOUNTER LOCATION SOURCE NUMBER CLASS 02/09/2018 [id number] Ambulatory [address] ing:CR Repository 02/05/2018/ [id number] Ambulatory BMS[facility]:[place] [facility] 0 [place] Repository 01/26/2018 [id number] Ambulatory BMSBuilding:[facility] [place] 9 [place] Repository 01/25/2018/ [id number] Ambulatory [place] 8 0 [facility] ing:CLSPRoom: Repository [id number] 01/21/2018 [id number] Ambulatory BMSBuilding:B [place] 4 [place] Repository 01/21/2018 [id number] Ambulatory [place] 9 [facility] ing:[facility] Repository 01/20/2018/ [id number] Ambulatory BMSBuilding:[place] 8 2 [facility] Repository PAYERS PAYERS ENCOUNTER GUARANTOR PAYER SUBSCRIBER SOURCE 02/09/2018 CHAS J Primary CHAS J [place] [id number] S Insurance:MEDICAL BEEDOB: [place] [address], [place] Number: Repository [address]Zsx: 330 [id number] [phone] () Date:[id number] [address]IG: 02/09/2018 Secondary NOT GIVENUNK [place] Insurance:SELF PAY [facility] Number: Effective Repository Date:2018-02-01 02/05/2018 CHAS J Primary CHAS J [place] [id number] S Insurance:MEDICAL BEEDOB: [facility] [id number] Number: Repository [address]Zgl: 330 [id number] [phone] (HP) Date:3455-20-40ET[address] [address]JL: 02/05/2018 Secondary NOT GIVENUNK [place] Insurance:SELF PAY [facility] Number: Effective Repository Date:2018-02-05 01/26/2018 CHAS J Primary CHAS J [place] [id number] S Insurance:MEDICAL BEEDOB: [address], [place] Number: Repository [id number]: 330 [id number] [phone] (HP) Date:1211-96-09RU [address] [address]OY: 01/26/2018 Secondary NOT GIVENUNK [place] Insurance:SELF PAY [facility] Number: Effective Repository Date:2018-01-26 01/25/2018 CHAS J Primary CHAS J [place] [id number] S Insurance:MEDICAL BEEDOB: [facility] [id number] Number: Repository [address]Azt: 330 [id number] [phone] (HP) Date:4771-21-47DD [address] [address]NS: 01/25/2018 Secondary NOT GIVENUNK [place] Insurance:SELF PAY [facility] Number: Effective Repository Date:2018-01-20 01/21/2018 CHAS J Primary CHAS J [place] [id number] S Insurance:MEDICAL BEEDOB: [facility] [id number] Number: Repository [address]Rld: 330 [id number] [phone] (HP) Date:0196-14-84IM [address] [address]NG: 01/21/2018 Secondary NOT GIVENUNK [place] Insurance:SELF PAY [facility] Number: Effective Repository Date:2018-01-21 01/21/2018 CHAS J Primary CHAS J [place] [id number] S Insurance:MEDICAL BEEDOB: [address], [place] Number: Repository [id number]: 330 [id number] [phone] (HP) Date:3228-56-81CW [address] [address]YX: 01/21/2018 Secondary NOT GIVENUNK [place] Insurance:SELF PAY [facility] Number: Effective Repository Date:2018-01-20 01/20/2018 CHAS Melvin Primary CHAS Dom[place] [id number] S Insurance:MEDICAL BEEDOB: [facility] [id number] Number: .Effective Repository [id number]: 330) Date:5873-63-55QY [phone] ( [address], [place] [address]YJ: 01/20/2018 Secondary NOT GIVENUNK [place] Insurance:SELF PAY [facility] Number: Effective Repository Date:2018-01-20
== END ==
PROVIDERS: Referring Provider Internal Medicine Cardiovascular Disease; Visit Provider Internal Medicine Cardiovascular Disease
DX: R07.9 Chest pain, unspecified (principal)
CPT/HCPCS: 93306

== ENCOUNTER 2018-01-25 08:50 | Day surgery (SDC) | payer OTHER, SELFPAY ==
[2018-01-20 09:09] VITALS: BMI 31.8
--- NOTE | 2018-01-20 11:00 | RAD_ITS ---
STUDY: X-RAY CHEST REASON FOR EXAM: Male, 47 years old. Chest pain for 6 months getting worse past 1.5 months. No known injury. TECHNIQUE: PA and lateral views of the chest. COMPARISON: None. FINDINGS: The lungs are clear and expanded. There is no demonstrated pleural abnormality. Normal size heart. Normal mediastinum and zoë. Normal visualized pulmonary arteries. Normal visualized aortic arch and descending thoracic aorta. Normal visualized thoracic spine. Normal visualized ribs, clavicles, and shoulders. There is no demonstrated abnormality of the visualized soft tissue structures of the upper abdomen. RAD/Chest PA and Lateral IMPRESSION: Normal x-ray examination of the chest. Electronically Signed: Nubia Dacosta MD at 6:36 EST , Service support ,
[2018-01-20 11:42] LABS: Absolute Lymphocyte Count 2.46 X10^3/ul (0.83-4.51); Absolute Neutrophil Count 5.7 X10^3/uL (2.0-7.7); Basophil# 0.01 X10^3/uL; Basophil% 0.1 % (0-1); Eosinophil# 0.13 X10^3/uL; Eosinophils% 1.5 % (0-5); Hematocrit 44.7 % (40-54); Hemoglobin 15.5 g/dl (13.0-16.5); Lymphocyte # 2.46 X10^3/ul (4.0); Lymphocyte % 27.6 % (19-41); Mean Corp Hgb Conc 34.7 g/gl (32-36); Mean Corpuscular Hgb 32.3 pg (27.0-32.0); Mean Corpuscular Volume 93.1 fL (80-94); Mean Platelet Vol. 10.2 fl (6.2-12.0); Monocyte# 0.59 X10^3/uL; Monocyte% 6.6 % (0-10); Neutrophil # 5.68 X10^3/uL (2.7-7.7); Neutrophil % 63.8 % (47-70); Platelet Count 271 K/mm3 (150-450); RBC Distribution Width SD 43.8 fl (35.1-43.9); White Blood Count 8.9 K/mm3 (4.4-11.0)
[2018-01-20 11:45] LABS: POSITIVE COUNT NO; POSITIVE DIFFERENTIAL NO; POSITIVE MORPHOLOGY NO
[2018-01-20 12:24] LABS: AST(SGOT) 23 U/L (15-37); Alanine Aminotransfer ALT/SGPT 36 U/L (16-61); Albumin, Serum 3.6 g/dL (3.2-5.0); Alkaline Phosphatase 74 U/L (45-117); Anion Gap 7 (5-15); BUN 16 mg/dL (7-18); BUN/Creat Ratio 14.4 RATIO (10-20); Bilirubin, Direct 0.09 mg/dL (0.00-0.30); Calcium,Total 9.1 mg/dL (8.5-10.1); Chloride 106 mmol/L (98-107); Cholesterol 208 mg/dL (200); Creatinine, Serum 1.11 mg/dL (0.70-1.30); EST Glomerular Filtration Rate 75 mL/min (>60); Est Glom Filt Rate - Afr Amer 91 mL/min (>60); Globulin 3.8 g/dL (2.2-4.2); Glucose 82 mg/dL (74-106); High Density Lipoprotein 42 mg/dL; Potassium 4.3 mmol/L (3.5-5.1); Protein, Total 7.4 g/dL (6.4-8.2); Sodium Level 142 mmol/L (136-145); Thyroid Stim Hormone (TSH) 1.63 uIU/mL (0.358-3.74); Triglycerides 108 mg/dL; Very Low Density Lipoprotein 22 mg/dL (5-40)
[2018-01-22 09:07] VITALS: BMI 31.8
[2018-01-25] VITALS (30 sets, daily range): BP systolic 86–143; BP diastolic 54–97; PULSE 61–90; RESP 12–25; TEMP 36.4–36.9; O2SAT 93–998; BMI 32.1; BMI 31.8
--- NOTE | 2018-01-25 10:45 | CL.D_ITS ---
Patient Name: CHAS VICKERS Study Date: 01/25/2018 Performing: John Ross MD Ht: 72.04 inches 183 cm : 1970 Wt: 235.89 lbs 107 kg Age: 47 Gender: male BSA: 2.29 PROCEDURE(S) PERFORMED [id number] CLINICAL PROFILE AND INDICATIONS Indications: Suspected CAD Heart Failure: None Stress/Imaging Stress/Image Study Performed: No Angina Classification Anginal Classification w/in 2 Weeks: CCS III CAD Presentations: Unstable angina. CONCLUSIONS Mid 75 % LAD RECOMMENDATIONS Referred for immediate PCI DESCRIPTION OF PROCEDURE The patient arrived to the procedure lab. The risks and benefits of the procedure as well as a full d escription of our services here and current unavailability of surgical backup were fully explained to the patient and/or their significant other prior to the catheterization. The Timeout was completed, verifying the correct patient and procedure. The patient's procedural site was prepped and draped in the usual fashion. Local anesthetic was given subcutaneously to right radial region with Lidocaine 2% . Using a modified Seldinger technique, arterial access was obtained via the right radial artery, a 6 Fr sheath was inserted. Right Coronary Artery selective angiography was then performed in multiple v iews using a 5 Fr. 4.0 Pinch catheter. Left Coronary Artery selective angiography was performed in mu ltiple views using a 5 Fr. 4.0 Pinch catheter. Left Ventriculography was performed in ALVAREZ projection using a 5 Fr. Pigtail catheter. LV to AO pullback pressures were then recorded. CORONARY ANGIOGRAPHY DOMINANCE: Right Dominant LEFT HEART ASSESSMENT Left Ventricular Ejection Fraction: by LV Gram 60 % Normal LV wall motion Normal Left Ventricular systolic function LEFT MAIN: Angiographically normal LEFT ANTERIOR DECENDING ARTERY: PROX LAD: Angiographically normal MID LAD: 75 % Stenosis RIGHT CORONARY ARTERY: Mild luminal irregularities COMPLICATIONS PROCEDURE MEDICATIONS Fentanyl 50 mcg IV Versed 1 mg IV Fentanyl 25 mcg IV Versed 1 mg IV Fentanyl 25 mcg IV Oxygen: 2 L/min via nasal cannula Heparin 8000 unit(s) IV 01/25/2018 10:29:59 IV Bolus: .9 NaCl 450ml total 01/25/2018 10:30:35 IV Fluids: .9 NaCl IV started @ 150 ml/hr 01/25/2018 10:31:30 SUMMARY OF HEMODYNAMIC DATA Time AIR REST ECG 09:21:16 AO 83/60 (72) SA 10:05:06 AO 114/75 (92) 10:05:29 LV 134/3, 16 10:14:08 LV 136/3, 21 10:14:14 LV 128/5, 23 10:15:53 LVp 118/4, 21 10:16:00 AOp 143/85 (111) 10:16:05 10:38:42 AIR REST AO 134/93 (111) 10:38:44 Signed By John Ross MD On 01/25/2018 10:44:29 AM John Ross MD
--- NOTE | 2018-01-25 11:00 | EKG12_ITS ---
Test Reason : POST PCI Blood Pressure : / mmHG Vent. Rate : 074 BPM Atrial Rate : 074 BPM P-R Int : 146 ms QRS Dur : 072 ms QT Int : 388 ms P-R-T Axes : 035 029 001 degrees QTc Int : 430 ms Normal sinus rhythm Normal ECG Confirmed by ZULMA BUCK, MARTA ([id number]), fashion editor KATHRYN MCCARTHY ([id number] on 01/28/2018 2:51:47 PM Referred By: John Ross Confirmed By:MARTA MAYA MD
--- NOTE | 2018-01-25 11:06 | CL.I_ITS ---
Patient Name: CHAS VICKERS Study Date: 01/25/2018 Performing: Amber Moy MD Ht: 72.04 inches 183 cm : 1970 Wt: 235.89 lbs 107 kg Age: 47 Gender: male BSA: 2.29 PROCEDURE(S) PERFORMED [id number] W OR WO PTCA, SINGLE CORONARY ARTERY CLINICAL PROFILE AND CO-MORBIDITIES Indications: Suspected CAD Heart Failure: None Stress/Imaging Stress/Image Study Performed: No Angina Classification Anginal Classification w/in 2 Weeks: CCS III CAD Presentations: Unstable angina. CONCLUSIONS Successful DESMid LAD using 2.5x12 mm. Post-dilated using 3.0 mm balloon RECOMMENDATIONS ASA Indefinitley Plavix for at least 12 months Follow up with Dr. Ross INTERVENTION INFORMATION LESION SITE: LAD (Mid) Lesion Complexity: Non-High/Non-C, culprit lesion: Yes Pre Stenosis: 80 % Pre intervention RENAE flow: 3 PROCEDURE: Drug Eluting Stent with post dilatation Post Stenosis: 0 % Post intervention RENAE flow: 3 COMPLICATIONS No Complications PROCEDURE MEDICATIONS Fentanyl 50 mcg IV Versed 1 mg IV Fentanyl 25 mcg IV Versed 1 mg IV Fentanyl 25 mcg IV Oxygen: 2 L/min via nasal cannula Heparin 8000 unit(s) IV 01/25/2018 10:29:59 Heparin 1000 unit(s) IV 01/25/2018 10:59:53 Nitro 200 mcg IC 01/25/2018 10:50:33 Plavix 300 mg PO 01/25/2018 11:00:01 IV Bolus: .9 NaCl 450ml total 01/25/2018 10:30:35 IV Fluids: .9 NaCl IV started @ 150 ml/hr 01/25/2018 10:31:30 SUMMARY OF HEMODYNAMIC DATA Time AIR REST ECG 09:21:16 AO 83/60 (72) SA 10:05:06 AO 114/75 (92) 10:05:29 LV 134/3, 16 10:14:08 LV 136/3, 21 10:14:14 LV 128/5, 23 10:15:53 LVp 118/4, 21 10:16:00 AOp 143/85 (111) 10:16:05 RM AIR REST 10:38:42 AIR REST AO 134/93 (111) 10:38:44 Signed By Amber Moy MD On 01/25/2018 11:05:30 AM Amber Moy MD
[2018-01-25 11:16] LABS: ACT Activated Clotting Time 257 sec (74-137)
[2018-01-25 11:16] LABS: ACT Activated Clotting Time 285 sec (74-137)
[2018-01-25] MEDS: 0.9% Normal Saline 1,000 ML 150 ML IV (11:20)
--- NOTE | 2018-01-25 13:13 | CRPHASE1_ITS ---
Patient Data/Charges Architectural Inspector:: Amber Moy Refer Phase II:: Yes Phase II Referral:: [facility] Risk Factors/Lifestyle Height: 1.83 m Weight:: 106.594 kg BMI: 31.8 Laboratory Values: Cardiac Rehab Phase I Labs Triglycerides 108 mg/dL (-199) 01/20/18 10:30 Cholesterol 208 mg/dL (200) H 01/20/18 10:30 LDL Cholesterol 144 mg/dL (0-130) H 01/20/18 10:30 HDL Cholesterol 42 mg/dL (40-) 01/20/18 10:30 Phase I Education Given On:: [place], Nutrition, Antiplatelet medication, CHF, Smoking cessation, Diabetes - Type I, Diabetes - Type II Issues Affecting Care:: None Knowledge of Condition:: Yes Hospital Course Presenting Symptoms:: angina Cardiac Cath Date:: 01/25/18 Medical/Surgical History Angina:: Yes PTCA:: Yes Discharge/Home/Social Eval Discharge Disposition: Home
--- NOTE | 2018-01-25 13:17 | CRPH1.INSTRU ---
General Education CAD and cardiac anatomy and function:: Patient communicates acknowledgment Explanation of diagnoses and procedures:: Patient communicates acknowledgment Sign/Symptoms of MT:: Patient communicates acknowledgment Antiplatelet therapy: Patient communicates acknowledgment Proper use of NTG-SL: Not instructed Emergency procedures and activation of EMS: Patient communicates acknowledgment Compliance of all prescribed medications: Patient communicates acknowledgment Smoking Patient Nicotine/Smoking Risk Factors Are:: Cigarettes Nicotine/Smoking Response Code:: Patient communicates acknowledgment Dyslipidemia Dyslipidemia Response Code:: Patient communicates acknowledgment Overweight/Obesity Patient Overweight/Obesity Risk Factors Are:: Obesity - > or = 30 Recommendations Include:: Weight loss of 5-10%, Reduced calorie diet, Exercise 5-7 times/week Overweight/Obesity:: Patient communicates acknowledgment Hypertension Hypertension:: Patient communicates acknowledgment Heart Disease Patient Heart Disease Risk Factors Are:: Family history of heart disease < 65 years old Heart Disease Response Code:: Patient communicates acknowledgment Diabetes Diabetes:: Patient communicates acknowledgment Metabolic Syndrome Metabolic Syndrome Response Code:: Patient communicates acknowledgment Sedentary Sedentary Response Code:: Patient communicates acknowledgment
[2018-01-25] MEDS: Atorvastatin Calcium 20 MG Tablet PO (21:10)
[2018-01-26] VITALS (14 sets, daily range): BP systolic 99–137; BP diastolic 48–91; PULSE 57–78; RESP 8–23; TEMP 36.4–36.6; O2SAT 96–99
[2018-01-26 06:02] LABS: Hematocrit 41.7 % (40-54); Hemoglobin 14.6 g/dl (13.0-16.5); Mean Corpuscular Hgb 32.5 pg (27.0-32.0); Mean Corpuscular Volume 92.9 fL (80-94); Mean Platelet Vol. 10.3 fl (6.2-12.0); Platelet Count 250 K/mm3 (150-450); RBC Distribution Width SD 43.3 fl (35.1-43.9); Red Blood Count 4.49 M/mm3 (4.6-6.2); White Blood Count 8.3 K/mm3 (4.4-11.0)
[2018-01-26 06:08] LABS: Scan Indicated on CBC? Y/N NO
[2018-01-26 06:12] LABS: Anion Gap 10 (5-15); BUN 22 mg/dL (7-18); BUN/Creat Ratio 22.4 RATIO (10-20); Calcium,Total 8.9 mg/dL (8.5-10.1); Chloride 106 mmol/L (98-107); Creatinine, Serum 0.98 mg/dL (0.70-1.30); EST Glomerular Filtration Rate 87 mL/min (>60); Est Glom Filt Rate - Afr Amer 105 mL/min (>60); Estimated Creatinine Clearance 102.28 ml/min; Glucose 98 mg/dL (74-106); Potassium 4.5 mmol/L (3.5-5.1); Sodium Level 139 mmol/L (136-145)
--- NOTE | 2018-01-26 07:44 | PN.CARD_ITS ---
Subjectve: Patient seen and evaluated. Says he feels 100% better. Objective: Vital Signs Temp Pulse Resp BP Pulse Ox 97.9 F 61 8 L 110/66 99 01/26/18 06:00 01/26/18 07:36 01/26/18 07:00 01/26/18 07:00 01/26/18 07:00 Oxygen Delivery Method Room Air Weight: 233 lb 11.04 oz Body Mass Index (BMI) 32.1 Intake and Output for Last 24 Hours 01/24/18 01/25/18 01/26/18 23:59 23:59 23:59 Intake Total 1740 / 1740 360 / 360 Balance 1740 / 1740 360 / 360 General: Awake, Alert, Oriented x 3 HEENT: PERRL, EOMI, Sclera Non Icteric Neck: Supple, Good ROM, No Lymph Node Enlargement Lungs: Clear to auscultation Cardiovascular: Regular Rhythm, Normal S1, Normal S2, No Murmurs, No Rubs, No Gallops Vascular: No Carotid Bruits, Normal Femoral Pulses, Normal Radial Pulses, Normal Dorsalis Pedal Pulse, Normal Posterior Tibial Pulses Abdomen: Bowel Sounds Present, Soft, Non Tender, No HSM, No Organomegaly Extremities: No Cyanosis, No Clubbing, No edema Neurological: No Focal Motor or Sensory Deficit Psych/Mental Status: Appropriate 01/26/18 05:45: WBC 8.3, RBC 4.49 L, Hgb 14.6, Hct 41.7, MCV 92.9, MCH 32.5 H, MCHC 35.0, RDW 13.0, RDW Differential 43.3, Plt Count 250, MPV 10.3 01/26/18 05:45: Sodium 139, Potassium 4.5, Chloride 106, Carbon Dioxide 23.0, Anion Gap 10, BUN 22 H, Creatinine 0.98, Est GFR (MDRD) Af Amer 105, Est GFR (MDRD) Non-Af 87, BUN/Creatinine Ratio 22.4 H, Glucose 98, Calcium 8.9 Rhythm: EKG: ECHO: Stress Test: Cardiac Cath: PCI: CT Surgery: Holter monitor: EPS: PPM: CXR: Chest CT Scan: Medical Necessity - Tobacco Use Smoking Status: Current every day smoker Assessment/Plan 1. Coronary artery disease * Patient is status post angioplasty and stenting of the mid left anterior descending artery with a drug-eluting stent. He did very well overnight. He has had no rest discomfort and no EKG changes. Hemoglobin has been stable and creatinine has been stable. * Will recommend discharge today on current medications * We will add high intensity statin Lipitor 40 mg the current regimen * Patient to start cardiac rehabilitation * * Thank you for allowing me to participate in the care of your patient. Please don't hesitate to call if any issues arise
--- NOTE | 2018-01-26 07:45 | PCM.DC.CCA ---
Discharge Diet: Low fat/ Low Cholesterol Discharge Activity: Return to Normal Activity, May Drive Return to work on:: 01/29/18 May resume sexual activity in: 1 week Call your doctor if your incision/area has: Increased Pain/ Swelling, Increased Redness, Foul Smelling Discharge, Swelling at the incision site Call your doctor if you observe: Fever of 101 or Higher Additional Dressing/Incision Instructions:: Keep the dressing (bandage) on until the next morning. You may then shower, but do not take a tub bath for 5 days after your test. It is normal to have some tenderness and discomfort at the puncture site. Sometimes bruising also occurs. However, if pain, numbness, or coldness occurs below the puncture site (in your leg, toes, arms or fingers) call your doctor at once. You may have a small, marble sized knot at the puncture site. This is normal. Do not rub it. It will go away in 4-6 weeks. Bleeding can occur from the area where the puncture was done. Blood may spurt or drip from the site. If blood spurts, apply pressure right away to stop bleeding and call 911. Although rare, bleeding into the tissue (hematoma) can also occur. If this happens, a large, firm area goose egg under the skin will appear. If any of these occur, lie down as flat as you can and have someone apply firm pressure to the cath site with a gauze pad or a clean washcloth for 10-15 minutes. Call 911 or go to the Emergency Department. Allergies/Adverse Reactions: Allergies No Known Allergies Allergy (Verified 01/20/18 08:19) Medications to take at Discharge aspirin 81 mg tablet,delayed release 81 mg PO QDAY #30 tab 01/20/18 clopidogrel 75 mg tablet 75 mg PO DAILY #30 tab 01/20/18 metoprolol succinate ER 25 mg tablet,extended release 24 hr 25 mg PO DAILY #30 tab 01/20/18 Primary Care Physician: Care Physician,No Primary [Primary Care Provider] - Test Results: Test results from this visit will be discussed in further detail at your follow-up appointment, if applicable. When: heart group mid level 1-2 weeks Proposed Discharge Date: 01/26/18 Cardiac Rehabilitation Info Cardiac Rehabilitation Program Information: Cardiac Rehabilitation is important for patients like you who are recovering from a heart problem. Cardiac rehabilitation programs are recognized as integral to the continued care of the patient with coronary heart disease. The cardiac rehabilitation program is designed to optimize a patient's physical, psychological, and social functioning. Health animal care giver work in cardiac rehabilitation programs and assist you with getting the treatments you need to get stronger and healthier - like exercise, healthy eating habits, and medications. Cardiac rehabilitation has been show to help people with heart problems live longer and have better life enjoyment than people who do not go to cardiac rehabilitation. Please contact the Cardiac Rehabilitation Program at [facility] at in two weeks if you have not heard from them.
--- NOTE | 2018-01-26 07:48 | DCINST_ITS ---
Discharge Diet: Low fat/ Low Cholesterol Discharge Activity: Return to Normal Activity, May Drive Return to work on:: 01/29/18 May resume sexual activity in: 1 week Call your doctor if your incision/area has: Increased Pain/ Swelling, Increased Redness, Foul Smelling Discharge, Swelling at the incision site Call your doctor if you observe: Fever of 101 or Higher Additional Dressing/Incision Instructions:: Keep the dressing (bandage) on until the next morning. You may then shower, but do not take a tub bath for 5 days after your test. It is normal to have some tenderness and discomfort at the puncture site. Sometimes bruising also occurs. However, if pain, numbness, or coldness occurs below the puncture site (in your leg, toes, arms or fingers) call your doctor at once. You may have a small, marble sized knot at the puncture site. This is normal. Do not rub it. It will go away in 4-6 weeks. Bleeding can occur from the area where the puncture was done. Blood may spurt or drip from the site. If blood spurts, apply pressure right away to stop bleeding and call 911. Although rare, bleeding into the tissue (hematoma) can also occur. If this happens, a large, firm area goose egg under the skin will appear. If any of these occur, lie down as flat as you can and have someone apply firm pressure to the cath site with a gauze pad or a clean washcloth for 10-15 minutes. Call 911 or go to the Emergency Department. Allergies/Adverse Reactions: Allergies No Known Allergies Allergy (Verified 01/20/18 08:19) Medications to take at Discharge aspirin 81 mg tablet,delayed release 81 mg PO QDAY #30 tab 01/20/18 clopidogrel 75 mg tablet 75 mg PO DAILY #30 tab 01/20/18 metoprolol succinate ER 25 mg tablet,extended release 24 hr 25 mg PO DAILY #30 tab 01/20/18 Primary Care Physician: Care Physician,No Primary [Primary Care Provider] - Test Results: Test results from this visit will be discussed in further detail at your follow- up appointment, if applicable. When: heart group mid level 1-2 weeks Proposed Discharge Date: 01/26/18 Cardiac Rehabilitation Info Cardiac Rehabilitation Program Information: Cardiac Rehabilitation is important for patients like you who are recovering from a heart problem. Cardiac rehabilitation programs are recognized as integral to the continued care of the patient with coronary heart disease. The cardiac rehabilitation program is designed to optimize a patient's physical, psychological, and social functioning. Health care aid work in cardiac rehabilitation programs and assist you with getting the treatments you need to get stronger and healthier - like exercise, healthy eating habits, and medications. Cardiac rehabilitation has been show to help people with heart problems live longer and have better life enjoyment than people who do not go to cardiac rehabilitation. Please contact the Cardiac Rehabilitation Program at [facility] at in two weeks if you have not heard from them.
[2018-01-26] MEDS: Isosorbide Mononitrate 30 MG Tablet PO (08:33)
[2018-01-26] MEDS: Aspirin E.C. 81 MG Tablet PO (08:33)
[2018-01-26] MEDS: Metoprolol(XL)Succ 25 MG Tablet PO (08:33)
[2018-01-26] MEDS: Clopidogrel Bisulfate 75 MG Tablet PO (08:40)
--- NOTE | 2018-01-26 10:00 | EKG12_ITS ---
Test Reason : MORNING EKG Blood Pressure : / mmHG Vent. Rate : 060 BPM Atrial Rate : 060 BPM P-R Int : 140 ms QRS Dur : 070 ms QT Int : 418 ms P-R-T Axes : 035 038 002 degrees QTc Int : 418 ms Normal sinus rhythm Normal ECG Confirmed by ZULMA BUCK, MARTA ([id number]), food editor KATHRYN MCCARTHY ([id number]) on 01/28/2018 2:51:31 PM Referred By: John Ross Confirmed By:MARTA MAYA MD
--- OUTSIDE RECORDS SUMMARY | 2018-03-20 10:56 | XMS RPT_ITS ---
:1970 Author Organization OHIP Support Name Relationship Address Phone FAYE ROSEN Unavailable [address] + [place] [address] ABTUCKER CRISTEL Unavailable [address] + [place] [address] KB41 ALONDRA Unavailable [address] + [place] [address] ABER FAYE Unavailable [address] + [place] [address] JESSIKA CRISTEL Unavailable [address] + [place] [address] KB41 ALONDRA Unavailable [address] + [place] [address] ABER, FAYE Unavailable [address] + [place] [address] ABER CRISTEL Unavailable [address] + [place] [address] KB41 ALONDRA Unavailable [address] + [place] [address] ABER, FAYE Unavailable [address] + [place] [address] ABER CRISTEL Unavailable [address] + [place] [address] KB41 ALONDRA Unavailable [address] + [place] [address] ABER FAYE Unavailable [address] + [place] [address] ABER CRISTEL Unavailable [address] + [place] [address] KB41 ALONDRA Unavailable [address] + [place] [address] ABER, FAYE Unavailable [address] + [place] [address] ABCRISTEL CEBALLOS Unavailable [address] + [place] [address] KB41 ALONDRA Unavailable [address] + [place] [address] ABER, FAYE Unavailable . + [place] [address] S Unavailable Unavailable Unavailable Care Team Providers Name Role Yeison Rocael Castillo Attending Unavailable Primay Care Physicia, No Referring Unavailable Cody, [place] Attending Unavailable Cody, John Referring Unavailable Primay Care Physicia, No Primary Care Unavailable Cody, John Attending Unavailable Primay Care Physicia, No Referring Unavailable Cody, John Attending Unavailable Cody, [place] Referring Unavailable Primay Care Physicia, No Primary Care Unavailable Cody, John Attending Unavailable Cody, [place] Referring Unavailable Primay Care Physicia, No Primary Care Unavailable Cody, John Attending Unavailable Cody, John Referring Unavailable Primay Care Physicia, No Primary Care Unavailable Cody, [place] Consulting Unavailable Cody, [place] Attending Unavailable Cody, John Referring Unavailable Primay Care Physicia, No Primary Care Unavailable Cody, [place] Consulting Unavailable PROBLEMS PROBLEMS DATE TYPE CONDITION / CODE ATTENDING STATUS SOURCE 01/26/2018 Unknown R07.9 - Chest pain, Cody, [place] Active [place] unspecified / Community R07.9(ICD-10) Hospital Repository 01/26/2018 Unknown R06.00 - Dyspnea, Cody, [place] Active [place] unspecified / Community R06.00(ICD-10) Hospital Repository 01/26/2018 Unknown F17.200 - Nicotine Cody, [place] Active [place] dependence, Community unspecified, Hospital uncomplicated / Repository F17.200(ICD-10) PROCEDURES PROCEDURES No Procedure Records FoundRESULTS RESULTS CR - HISTORY AND Observed: 02/09/2018 Status: F Source: [place] PHYSICAL 12:53 PM [facility] REPOSITORY [facility] Cardiac Rehab [address] [place] [address] CR - History AND Physical MR#: [id number] Acct: [id number] Name: CHAS VICKERS Rep #: [id number] : 1970 47 From: Yogi Nguyen STOPER, CLAIMS ADJUSTER CROP, BS PCP: Care Physician, No Primary DOS: [...] Advanced Directives - Advanced Directives Power of Nurse Tech: Yes - Cristel Aber; mother Living Will: Yes Advance Directives Information Provided: Yes Advance Directives on File: No DNR Order?:: No - MOLST See MOLST form: No Past Medical History - Past Medical Illness Medical History: Past Medical History (Last Updated 01/25/18 @ 14:10 by Iris Blakely) Atherosclerosis of coronary artery of [place] heart without angina pectoris (Chronic) I25.10 PCI-OMARI-Mid [...] = Denies (Slash). Left click = Reports ([facility]) Review of Present Symptoms: Reports: Shortness of [...] chest discomfort. 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., Home/Family - [...] 01/28/2018 Status: F Source: [place] 2:52 PM [facility] REPOSITORY [facility] Cardiovascular Services [address] [place] [address] 12 Lead EKG 01/26/18 0453 MR#: [id number] Acct: [id number] Name: CHAS VICKERS Rep #: [id number] : 1970 47 From: Candelario Maya MD Attending Dr: John Ross MD Status: [facility] Ordering Dr: Amber Moy MD Date: 01/26/18 Location: [facility] Sex: M C Admitted: Test Reason [...] Confirmed by ZULMA BUCK, CANDELARIO ([id number]), editor trade journal KATHRYN MCCARTHY (56) on 01/28/2018 2:51:31 PM Referred By: John Ross Confirmed By:CANDELARIO MAYA MD 01/28/18 145 Date Candelario Maya MD CC: No Primary Care Physician; Amber Moy MD; John Ross MD Signed 12 LEAD ELECTROCARDIOGRAM Observed: 01/28/2018 Status: F Source: [place] 2:52 PM [facility] REPOSITORY [facility] Cardiovascular Services [address] [place] [address] 12 Lead EKG 01/25/18 1122 MR#: [id number] Acct: [id number] Name: CHAS VICKERS Rep #: [id number] : 1970 47 From: Candelario Maya MD Attending Dr: [place] BUCK,John Status: DEP SDC Ordering Dr: Amber Moy MD Date: 01/25/18 Location: [facility] Sex: M C Admitted: Test Reason [...] Confirmed by ZULMA BUCK, CANDELARIO ([id number]), editor trade journal KATHRYN MCCARTHY (56) on 01/28/2018 2:51:47 PM Referred By: John Ross Confirmed By:CANDELARIO MAYA MD 01/28/18 1451 Date Candelario Maya MD CC: No Primary Care Physician; Amber Moy MD; John Ross MD Signed DISCHARGE INSTRUCTION Observed: 01/26/2018 Status: F Source: [place] 7:48 AM [facility] REPOSITORY [facility] Medical Records Department [address] [place] [address] Instructions for Home/Discharge Instructions 01/26/18 0745 MR#: [id number] Acct: [id number] Name: CHAS VICKERS Rep #: [id number] : 1970 47 From: John oRss MD PCP: Care Physician, No Primary Status: [...] patient's physical, psychological, and social functioning. Health animal care technician work in cardiac rehabilitation programs and assist you with getting the treatments you need to get stronger and healthier - like exercise, healthy eating habits, and medications. Cardiac rehabilitation has been show to help people with heart problems live longer and have better life enjoyment than people who do not go to cardiac rehabilitation. Please contact the Cardiac Rehabilitation Program at [facility] at in two weeks if you have not heard from them. 01/26/18 0748 <Electronically signed by John Ross MD> Date John Ross MD CC: No Primary Care Physician CBC-COMPLETE BLOOD CNT Collected: 01/26/2018 Status: F Source: [place] NO DIFF 5:45 AM [facility] REPOSITORY TYPE CODE TESTS RESULT OUT OF [...] MPV 10.3 Performed By: #### L100.0500 #### [facility] Laboratory [address] [place], [address] BASIC METABOLIC Collected: 01/26/2018 Status: F Source: [place] PROFILE (BMP) 5:45 AM [facility] REPOSITORY TYPE CODE TESTS RESULT OUT OF [...] Normal 10 Performed By: #### L500.2500 #### [facility] [address] [place], [address] ACT ACTIVATED CLOTTING Collected: 01/25/2018 Status: F Source: [place] TIME 10:55 AM [facility] REPOSITORY TYPE CODE TESTS RESULT OUT OF RANGE REFERENCE UNITS LAB L9100.0100 74-137 sec High ACTk CLOT 257 TIME Performed By: #### L9100.0100 #### [facility] Point of Care [address] [place] [address] ACT ACTIVATED CLOTTING Collected: 01/25/2018 Status: F Source: [place] TIME 10:38 AM [facility] REPOSITORY TYPE CODE TESTS RESULT OUT OF RANGE REFERENCE UNITS LAB L9100.0100 74-137 sec High ACTk CLOT 285 TIME Performed By: #### L9100.0100 #### [facility] Point of Care [address] [place] [address] ECHOCARDIOGRAM COMPLETE Observed: 01/21/2018 Status: F Source: [place] 3:15 PM [facility] REPOSITORY [facility] Cardiovascular Services [address] [place] [address] Echo Complete 01/21/18 1055 MR#: [id number] Acct: [id number] Name: CHAS VICKERS Rep #: [id number] : 1970 47 From: John Ross MD Attending Dr: Cody BUCK,John Status: REG CLI Ordering Dr: John Ross MD Date: 01/21/18 Location: [facility] Sex: M C Admitted: Reason For Study: [...] Date Dictated: 01/21/18 1055 Date Transcribed: 01/21/181514 Websphere Consultant: Signed CHEST PA AND LATERAL Observed: 01/20/2018 Status: F Source: [place] 10:45 AM [facility] REPOSITORY [facility] Imaging Services [address] [place] [address] Chest PA and Lateral MR#: [id number] Acct: [id number] Name: CHAS VICKERS Rep #: [id number] : 1970 M 47 From: Nubia Dacosta MD PCP: Care Physician, No Primary Status: PRE SDC Study: Chest PA and Lateral Date of Exam: 01/20/18 Exam# [id number] Ordering Dr: John Ross MD STUDY: X-RAY [...] No Primary Care Physician; John Ross MD Websphere Consultant: Signed CBC W/DIFF, AUTOMATED Collected: 01/20/2018 Status: F Source: [place] 10:30 AM [facility] REPOSITORY TYPE CODE TESTS RESULT OUT OF [...] Lymph 2.46 Performed By: #### L100.0100 #### [facility] [place], [address] BASIC METABOLIC Collected: 01/20/2018 Status: F Source: [place] PROFILE (BMP) 10:30 AM [facility] REPOSITORY TYPE CODE TESTS RESULT OUT OF [...] By: #### L500.2500, L500.3400, L500.4100, L501.9520 #### [facility] [address] [place], [address] LIVER PROFILE Collected: 01/20/2018 Status: F Source: [place] 10:30 AM [facility] REPOSITORY TYPE CODE TESTS RESULT OUT OF [...] By: #### L500.2500, L500.3400, L500.4100, L501.9520 #### [facility] [address] [place], [place], [address] LIPID PROFILE Collected: 01/20/2018 Status: F Source: [place] 10:30 AM [facility] REPOSITORY TYPE CODE TESTS RESULT OUT OF [...] By: #### L500.2500, L500.3400, L500.4100, L501.9520 #### [facility] [address] [place], [place], [address] THYROID STIM HORMONE Collected: 01/20/2018 Status: F Source: [place] (TSH) 10:30 AM [facility] REPOSITORY TYPE CODE TESTS RESULT OUT OF RANGE REFERENCE UNITS LAB L501.9520 0.358-3.74 uIU/mL Normal TSH 1.63 Performed By: #### L500.2500, L500.3400, L500.4100, L501.9520 #### [facility] [address] [place], [place], [address] CARDIOLOGY VISIT Observed: 01/20/2018 Status: F Source: [place] REPORT 9:43 AM [facility] REPOSITORY [facility] [address] [place] [address] OFFICE VISIT Date of Service: 01/20/18 MR#: [id number] Acct: [id number] Name: CHAS VICKERS Rep #: [id number] : 1970 Provider: John Ross MD Age/Sex: 47/M Location: [facility] Status: Signed HPI HPI Chief Complaint: Initial visit Details: CHAS VICKERS, is a 47 M who presents to the office today for an initial visit. 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) Coding Level of Care Code Off vis,new,level [...] Observed: 01/20/2018 Status: F Source: [place] BY [facility] 8:53 AM [facility] REPOSITORY [facility] [address] [place] [address] 12 Lead EKG performed by [facility] 01/20/18818 MR#: [id number] Acct: [id number] Name: CHAS VICKERS Rep #: [id number] : 1970 47 From: John Ross MD Attending Dr: John Ross MD Status: DEP AMB Ordering Dr: John Ross MD Date: 01/20/18 Location: [facility] Sex: M C Admitted: [facility]/12 Lead EKG performed by [facility] ECG Report Interpretation Sinus Rhythm WITHIN NORMAL LIMITSElectronically signed on 01/27/2018 at 11:30 by John Rosswood Software Version 8610 01/27/18 1135 Date John Ross MD CC: No Primary Care Physician Date Dictated: 01/20/18818 Date Transcribed: 01/20/18818 Websphere Consultant: [place] Signed ALLERGIES ALLERGIES DATE TYPE / CODE NAME / CODE REACTION SEVERITY SOURCE 02/05/2018 Drug No Known Unknown [facility] Allergy/4160 Allergies/[facility](SNOMED 7764975(RXNOR Repository CT) M) ENCOUNTERS ENCOUNTERS ADMIT/DISCHARGE ACCOUNT ADMITTING ENCOUNTER LOCATION SOURCE NUMBER CLASS 02/09/2018 [id number] Ambulatory [address] ing:CR Repository 02/05/2018/ [id number] Ambulatory BMSBuilding:B [place] 8 0 [facility] Repository 01/26/2018 [id number] Ambulatory BMSBuilding:B [place] 9 [place] Repository 01/25/2018/ [id number] Ambulatory [place] 8 0 [facility] ing:CLSPRoom: Repository [id number] 01/21/2018 [id number] Ambulatory BMSBuilding:B [place] 4 [place] Repository 01/21/2018 [id number] Ambulatory [place] 9 [facility] ing:[facility] Repository 01/20/2018/ [id number] Ambulatory BMSBuilding:B [place] 8 2 [facility] Repository PAYERS PAYERS ENCOUNTER GUARANTOR PAYER SUBSCRIBER SOURCE 02/09/2018 CHAS J Primary CHAS J [place] [id number] S Insurance:MEDICAL BEEDOB: [place] [address], [place] Number: Repository [address]Eik: 330 [id number] [phone] () Date:[id number] [address]QW: 02/09/2018 Secondary NOT GIVENUNK [place] Insurance:SELF PAY [facility] Number: Effective Repository Date:2018-02-01 02/05/2018 CHAS J Primary CHAS J [place] [id number] S Insurance:MEDICAL BEEDOB: [facility] 8145-41-[place] Number: Repository [address]Vdh: 330 [id number] [phone] (HP) Date:2027-70-15UK[address] [address]QO: 02/05/2018 Secondary NOT GIVENUNK [place] Insurance:SELF PAY [facility] Number: Effective Repository Date:2018-02-05 01/26/2018 CHAS J Primary CHAS J [place] [id number] S Insurance:MEDICAL BEEDOB: [address], [place] Number: Repository [id number]: 330 [id number] [phone] (HP) Date:5716-37-54QW [address] [address]UE: 01/26/2018 Secondary NOT GIVENUNK [place] Insurance:SELF PAY [facility] Number: Effective Repository Date:2018-01-26 01/25/2018 CHAS J Primary CHAS J [place] [id number] S Insurance:MEDICAL BEEDOB: [facility] 4602-11-[place] Number: Repository [id number]: 330 [id number] [phone] (HP) Date:2977-67-70BE [address] [address]AF: 01/25/2018 Secondary NOT GIVENUNK [place] Insurance:SELF PAY [facility] Number: Effective Repository Date:2018-01-20 01/21/2018 CHAS J Primary CHAS J [place] [id number] S Insurance:MEDICAL BEEDOB: [facility] 2118-02-[place] Number: Repository [id number]: 330 [id number] [phone] (HP) Date:0844-30-88TA [address] [address]EQ: 01/21/2018 Secondary NOT GIVENUNK [place] Insurance:SELF PAY [facility] Number: Effective Repository Date:2018-01-21 01/21/2018 CHAS J Primary CHAS J [place] [id number] S Insurance:MEDICAL BEEDOB: [address], [place] Number: Repository [id number]: 330 [id number] [phone] (HP) Date:2727-70-37VZ [address] [address]TH: 01/21/2018 Secondary NOT GIVENUNK [place] Insurance:SELF PAY [facility] Number: Effective Repository Date:2018-01-20 01/20/2018 CHAS Melvin Primary CHAS [place] [id number] S Insurance:MEDICAL BEEDOB: [facility] [id number] Number: .Effective Repository [address]Kiw: 330) Date:4873-43-33MT [phone] ( [address] [address]BR: 01/20/2018 Secondary NOT GIVENUNK [place] Insurance:SELF PAY [facility] Number: Effective Repository Date:2018-01-20
== END 2018-01-26 07:47 | disposition home or self-care (01) ==
LOC: CLSP 08:55 → ICU 11:25
PROVIDERS: Internal Medicine Cardiovascular Disease; Referring Provider Internal Medicine Cardiovascular Disease; Visit Provider Internal Medicine Cardiovascular Disease
DX: I25.10 Atherosclerotic heart disease of native coronary artery without angina pectoris (principal); F17.200 Nicotine dependence, unspecified, uncomplicated; Z79.82 Long term (current) use of aspirin; R07.9 Chest pain, unspecified
CPT/HCPCS: 36415; 71046; 80048; 80061; 80076; 84443; 85025; 85027; 85347; 92928; 93005; 93458; 99152; 99153; J7030; J7040; Q9967; 90686; C1725; C1769; C1874; C1887; C1894; C9600

== ENCOUNTER → 2018-02-09 09:37 | Outpatient (CLI) | payer OTHER, SELFPAY ==
[2018-01-25 11:31] VITALS: BMI 32.1
[2018-01-25 13:16] VITALS: BMI 31.8
[2018-02-05 13:35] VITALS: BMI 32.1
--- NOTE | 2018-02-09 10:14 | PCM.CR.HP2 ---
CR - History & Physical - General Arrival date:: 02/09/18 Arrival time:: 09:30 Date of Referral:: 01/28/18 Date of CR Evaluation:: 02/09/18 - 11 DAYS POST EVENT Referring Physician: ANITA Primary Diagnosis: UNSTABLE ANGINA, PCI W/CORONARY STENT PLACEMENT - History of Present Cardiac Event Onset Date: Enter Onset Date of cardiac illnesses in Comment field below PTCA or coronary stenting:: Yes - 01/25/2018 Type of Symptoms:: CHEST DISCOMFORT-PAIN OVER THE PAST 6 MONTHS WHICH APPEARED TO OCCUR DURING EXERTION. NO PREVIOUS HISTORY OF CORONARY DISEASE Interventions with present event:: SCHEDULED BY NURSE TO SEE DR. HOWARD AND THEN SENT DOWN FOR ECHO HEART CATH. 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 - Medications Home Medications: Ambulatory Orders Medication Instructions Recorded aspirin 81 mg tablet,delayed 81 mg PO QDAY #30 tab 01/20/18 release atorvastatin 40 mg tablet 40 mg PO QPM #90 tab 01/26/18 clopidogrel 75 mg tablet 75 mg PO DAILY #90 tab 02/05/18 metoprolol succinate ER 25 mg 25 mg PO DAILY #90 tab 02/05/18 tablet,extended release 24 hr - Allergies Allergies/Adverse Reactions: Allergies No Known Allergies Allergy (Verified 02/05/18 13:34) - Sleep Disorder Evaluation Hx of Sleep Apnea: No Do you snore loudly (louder than talking or can be heard through closed doors)?: Yes Do you often feel tired/ fatigued/ sleepy during daytime?: No Has anyone observed you stop breathing during sleep?: Yes History of Hypertension (for STOP score): No STOP Results: Positive Advanced Directives - Advanced Directives Power of Floor Covering Printer: Yes - Cristel Lainez; mother Living Will: Yes Advance Directives Information Provided: Yes Advance Directives on File: No DNR Order?:: No - MOLST See MOLST form: No Past Medical History - Past Medical Illness Medical History: Past Medical History (Last Updated 01/25/18 @ 14:10 by Iris Blakely) Atherosclerosis of coronary artery of [place] heart without angina pectoris (Chronic) I25.10 PCI-OMARI-Mid LAD 2.5 x 12 mm Resolute 01/23/18 Unstable angina (Acute) I20.0 Dyspnea (Acute) R06.00 Nicotine dependence (Chronic) F17.200 - Past Surgical History Surgical History: Past Surgical History (Last Updated 01/25/18 @ 14:10 by Iris Blakely) History of coronary artery stent placement (Resolved) Onset Date: 01/23/18 Z95.5 PCI-OMARI-Mid LAD 2.5 x 12 mm Resolute 01/23/18 History of open reduction and internal fixation (ORIF) procedure Z98.890 left hip Social History - Smoking History Smoking Status: Current every day smoker Years Smokin2000-2018 Packs Smoked per Day: 1 - at times more recently last 3 months 1/4 pack (5-cig) Hx Smoking Cessation Date: 01/25/2018 Hx Tobacco Use: Yes Hx Smoking Exposure: No - Alcohol Use Alcohol Usage: Yes - occasionally; - Substance Abuse Hx Substance Use: No - Occupation Occupation (List type of work in comments):: Employed Hours worked per day:: 11 - 8 hours w 1/2 break; up to 11 hours Returned to work on:: 02/05/18 - Hobbies, Recreation, Social Activities Hobbies: Other - Race cars; dirt track. Recreational Activities: I am able to engage in most, but not all activities Social Environment - Status Marital Status: Single - Current Living Arrangements Living Environment:: Spouse - Children How many children do you have?: 0 Do any of your children live nearby?: No - Safety Do you feel safe in your surroundings?: Yes - Assistance Do you need any assistance at home?: none Review of Systems - Review of Systems Hints: Right click = Denies ([place]ash). Left click = Reports ([place]) Review of Present Symptoms: Reports: Shortness of Breath with Exertion, Appetite - Normal, Appetite - Special Diet - 1800 calories diet; low fat, low cholesterol, no added salt., - - when coughs, feels like his head is going to explode.. Denies: Shortness of Breath at Rest, Angina, Dizziness/Lightheadedness, Fatigue, Heart Arrhythmia/Irregularities, Sleep - Normal, Sexual Changes - Pain Is Patient Pain Free?: Yes Risk Factor Assessment - Chief Complaint Chief Complaint: Patient is a very pleasent 47 yr old male of Dr. Howard who presents to cardiac rehab today following recent angioplasty with stent placement the first of this month. 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 On his way back to [place] he experienced the same discomfort and took a 325mg aspiring with relief. He was seen by Dr. Howard and subsequently had an echo and heart cath done resulting in a coronary stent placement. 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 - Blood Cholesterol/Lipids Total Cholesterol (mg/dL) Goal = less than 200 mg/dL: 208 HDL Cholesterol (mg/dL) Goal = less than 40 mg/dL: 42 LDL Cholesterol (mg/dL) Goal = less than 70 mg/dL: 144 Triglycerides (mg/dL) Goal = less than 150 mg/dL: 108 - Diabetes Nutrition Referral for Diabetes: No - Obesity Height: 6 ft Weight:: 235 lb Weight in Pounds: 235.0 lbs Body Mass Index (BMI): 31.8 Nutritional Referral for Obesity: Yes - Patient could benefit from structured weight loss- cardiac diet guidelines - Physical Inactivity Physical Inactivity: None - Risk Stratification Risk Guidelines: Lowest Risk: Risk Factor for Dyslipidemia, Risk Factor for Diabetes, Risk Factor for Hypertension, Risk Factor for Sedentary Lifestyle, Risk Factor for Depression, Highest Risk: Risk Factor for Smoking, Risk Factor for Obesity - For Smoking Smoking Risk Guidelines: Smoking Low Risk: None or quit greater than 6 months ago. Smoking Moderate Risk: Smoker or quit 6 months or less ago. Smoking High Risk: Smoker - For Dyslipidemia Dyslipidemia Risk Guidelines: Low Risk: Moderate Risk: High Risk: 15-25% fat 25.1-29% fat >/= 30% fat. <7% sat fat 7-9% sat fat >9% sat fat. <150 mg chol 150-299 mg chol >/= 300 mg chol. LDL <100 LDL 100-129 LDL >/= 130. Chol/HDL ratio <5.0 Chol/HDL ratio 5.0-6.0 Chol/HDL ratio >6.0. Triglycerides <100 Triglycerides 100-149 Triglycerides >/= 150 - For Diabetes Mellitus Diabetes Risk Guidelines: Diabetes Low Risk: HgA1c <6.5% and/or FBG <120. Diabetes Moderate Risk: HgA1c 6.6-7.9% and/or FBG 120-180. Diabetes High Risk: HgA1c >/= 8% and/or FBG >180 - For Obesity/Overweight Obesity/Overweight Risk Guidelines: Obesity Low Risk: BMI <25.0. Obesity Moderate Risk: BMI 25-29.9. Obesity High Risk: BMI >/= 30.0 - For Hypertension Hypertension Risk Guidelines: Hypertension Low Risk: Systolic <120 and Diastolic <80. Hypertension Moderate Risk: Systolic 120-139 and Diastolic 80-89. Hypertension High Risk: Systolic >/= 140 and Diastolic >/= 90 - For Sedentary Lifestyle Sedentary Lifestyle Risk Guidelines: Sedentary Lifestyle Low Risk: >/= 1,500 kcal/week. Sedentary Lifestyle Moderate Risk: 700-1,499 kcal/week. Sedentary Lifestyle High Risk: < 700 kcal/week - For Depression Depression Risk Guidelines: Depression Low Risk: Not clinically depressed. Depression Moderate Risk: Mildly depressed. Depression High Risk: Clinically depressed Motivation - Motivation to Participate On a scale of 1 to 10, how prepared are you to commit to attending program?: 10 What do you see as barriers to successfully being able to complete the program?: none What do you see as the benefits of succesfully completing the program? In other words, what do you hope to get out of participating in the program?: learning more about heart disease Are there issues you are dealing with that will interfere with completing the program?: no Do you have a spouse or signficant other, family or friends who will help support you to complete the program?: yes; parents very supportive.
[2018-02-09 10:49] VITALS: BP 118/68; PULSE 66; RESP 14; TEMP 37.1; O2SAT 97; BMI 31.8
--- NOTE | 2018-02-09 11:04 | CR.ITP_ITS ---
General Information - General Information Admitting Diagnosis: PCI W/CORONARY STENT PLACEMENT - Education/Goals Barriers to Learning: None Individual Counseling: Initial Assessment: Nicotine/Smoking, Abnormal Cholesterol Levels, Overweight/Obesity Cardiac Rehabilitation Goals: 1. Maintain the individual as the primary focus of care. 2. To improve the patient's quality of life. 3. Identification of cardiac risk factors and provide cardiac risk factor management. 4. Enhance the psychosocial status of the patient. 5. Reconditioning enough to allow the patient to resume customary activities. 6. Control symptoms of cardiac disease Scale for measuring improvement of personal goals: Enter appropriate number in Comments. 2 = Unchanged. 3 = Slightly Better. 4 = Moderate Improvement. 5 = Met my Goal Personal Goals: Initial Assessment: Quit smoking (participate in smoking cessation, Improve management of stress and emotions, Improve energy level, Improve knowledge of cardiac disease, Improve muscle strength and endurance, Improve diet and eating habits (eat healthier), Control risk factors (learn risk factor modification) Exercise - Initial Assessment - Visit Date of Eval: 02/09/18 Session #:: 0 - Stages of Change Stages of Change:: Action - Exercise Prescription Mode:: Treadmill, Rower, Airdyne Angina with exercise?: No Target Heart Rate:: 121-129 - Hypertension Do any of the following apply?: No Resting Blood Pressure:: 118/66 - Intervention Home Exercise/Activity Goal:: Sitting Time <3 hrs/day - Education Goals:: Warm-up, RPE CLAIRE Scale, S/S, Safe Exercise, Self-Monitoring - Exercise Program Goals Exercise Program Goals: Aerobic Activity >30 min Nutrition - Initial Assessment - Program Goals Nutrition Program Goals: LDL <70. Total Cholesterol <200. HDL >45. Triglycerides <150. HgbA1C <7%. BMI <25 - Visit Date of Assessment:: 02/09/18 - Stages of Change Stages of Change:: Action - Lipids Total Cholesterol (mg/dL) Goal = less than 200 mg/dL: 208 HDL Cholesterol (mg/dL) Goal = less than 45 mg/dL: 42 LDL Cholesterol (mg/dL) Goal = less than 70 mg/dL: 144 Triglycerides (mg/dL) Goal = less than 150 mg/dL: 108 - Diabetes Diabetes:: No Do you monitor your blood sugar at home?: No - Weight Management Height: 6 ft Weight:: 235 lb - Target weight 217 Body Fat %:: 31.8 - Intervention Referral to dietitian:: Yes Referral to Diabetic Clinic:: No Will attend diet classes:: Yes - Education Gave educational materials for:: Healthy eating Tobacco - Initial Assessment - Program Goals Tobacco Program Goals: Complete smoking cessation. Attend education classes. Improve Knowledge Test score - Stage of Change Stages of Change:: Action - Learning Barriers Learning Barriers: Ready to Learn - Family Support Do you have family support?: Yes - Tobacco Use Tobacco Use: Cigarettes How long ago did you quit using tobacco products?: Less than 6 months ago How many cigarettes do you smoke per day?: 0 - hasnt smoked since 01/25/18 Years Smokin - [id number] Do you use smokeless tobacco?: No - Intervention Smoking Cessation Referral:: Yes Individual Education/Counseling:: No Education Schedule Given:: Yes - Education Gave educational material for:: Tobacco triggers, Coronary artery disease, Risk factors, Sexuality, Medical compliance, Cardiac A&P, Angina signs & symptoms Psychosocial - Initial Assess - Target Goals Target Goals: Assess presence or absence of depression. Using a valid screening tool, maximizes coping skills. Positive support system - Stages of Change Stages of Change:: Action - Psychosocial Test Tool Used:: HANDS Depression Questionnaire - Intervention PS - Interventions: Yes Attend Stress Management Classes, No Referral to Mental Health, No Referral to [facility] Case Management, No Referral to Physician, No Uses Stress Management Skills - Education Gave educational materials for:: Coping techniques, Signs & symptoms of depression, Stress management, Relaxation techniques - Patient/Program Goal Preventative Medication(s):: Aspirin, Clopidogrel, Beta willam - Assistive Devices Assistive Devices:: None Fall Risk Assessed:: Yes Patient Health Questionnaire Initial Assessment 1. Little interest or pleasure in doing things: Not at all 2. Feeling down, depressed, or hopeless: Not at all 3. Trouble falling or staying asleep, or sleeping too much: Not at all 4. Feeling tired or having little energy: Not at all 5. Poor appetite or overeating: Not at all 6. Feeling bad about yourself -- or that you are a failure or have let yourself or your family down: Several days 7. Trouble concentrating on things, such as reading the newspaper or watching television: Not at all 8. Moving or speaking so slowly that other people could have noticed. Or the opposite - being so fidgety or restless that you have been moving around a lot more than usual: Not at all 9. Thoughts that you would be better off , or of hurting yourself in some way: Not at all How difficult have these problems made it for you to do your work, take care of things at home, or get along with other people?: Not difficult at all Total Score: 1 BENJAMÍN-Q SV Test - Statements CAD is a disease of the arteries in the heart: False Examples of risk factors for heart disease: I Don't Know Angina is chest pain or discomfort: I Don't Know The benefits of resistance training include: I Don't Know Eating more meat and dairy products: False Anti-platelet medications such as aspirin are important: True The only effective way to manage stress: True An exercise warm-up slowly increases heart rate: I Don't Know Prepared, processed foods usually have high sodium: I Don't Know Depression is common after a heart attack: True The statin medications lower cholesterol: I Don't Know To control blood pressure, lower the amount of sodium: I Don't Know If someone gets chest discomfort during walking: I Don't Know Transfats are partially hydrogenated vegetable oils: I Don't Know Sleep apnea that is not treated increases the risk: I Don't Know To control cholesterol, one should become a vegetarian: I Don't Know Someone knows if he/she is exercising at the right level: I Don't Know Diabetes cannot be prevented with exercise & health eating: I Don't Know Stress is a large risk for heart attack: I Don't Know A diet that can help lower blood pressure is rich in: I Don't Know - Total Score Total Correct Responses: 4 Self-Efficacy Initial Assessment We would like to know how confident you are in doing certain activities. Please select your confidence level for:: Select your confidence level for the following using the scale 1-10 where 1 is not at all confident and 10 is totally confident. Your score is the average of all 6 responses. Fatigue: How confident are you that you can keep the fatigue caused by your disease from interfering with the things you want to do? Select Number: 7 Physical Discomfort or Pain: How confident are you that you can keep the physical discomfort or pain of your disease from interfering with the things you want to do? Select Number: 7 Emotional Distress: How confident are you that you can keep the emotional distress caused by your disease from interfering with the things you want to do? Select Number: 7 Other Symptoms or Health Problems: How confident are you that you can keep other symptoms or health problems from interfering with the things you want to do? Select Number: 7 Different Tasks and Activities: How confident are you that you can do the different tasks and activities needed to manage your health condition so as to reduce your need to see a doctor? Select Number: 8 Medication: How confident are you that you can do things other than just taking medication to reduce how much your illness affects your everyday life? Select Number: 8 Total Score:: 7 Nutrition Survey - Nutrition Survey Instructions Scoring Instructions: Scoring is as follows: Yes = 1 points. No = 0 point. Patient score that is >/=12 is considered to be at potential nutritional risk and could benefit from a referral to a registered dietitian. - Nutrition Survey Initial Have you lost >10 lbs over the past 2 months without trying?: No Are you following a special diet at home for diabetes, low fat, or low salt?: Yes Are you interested in meeting with a dietitian for help understanding your diet?: Yes Do you eat less than 3 meals a day?: No Do you eat fatty meats (stephenson, sausage, ribs, etc), fried foods, desserts, large amounts of salad dressings, margarine, butter, or cheese most days?: No Do you have food allergies? [Enter types in comment field]: No Do you eat in restaurants more than 3 times a week?: Yes Do you season food with salt, seasoning salt, or garlic salt?: No Do you used canned, boxed, frozen meals, or soups, seasoning packets?: No Total Score:: 3
[2018-02-09 11:14] VITALS: BP 118/66
--- OUTSIDE RECORDS SUMMARY | 2018-05-13 16:35 | XMS RPT_ITS ---
:1970 Author Organization OHIP Support Name Relationship Address Phone FAYE ROSEN Unavailable [address] + [place] [address] ABTUCKER CRISTEL Unavailable [address] + [place] [address] KB41 ALONDRA Unavailable [address] + [place] [address] ABER FAYE Unavailable [address] + [place] [address] JESSIKA CRISTEL Unavailable [address] + [place] [address] KB41 ALONDRA Unavailable [address] + [place] [address] ABER, FAYE Unavailable [address] + [place] [address] ABER CRISTEL Unavailable [address] + [place] [address] KB41 ALONDRA Unavailable [address] + [place] [address] ABER, FAYE Unavailable [address] + [place] [address] ABER CRISTEL Unavailable [address] + [place] [address] KB41 ALONDRA Unavailable [address] + [place] [address] ABER FAYE Unavailable [address] + [place] [address] ABER CRISTEL Unavailable [address] + [place] [address] KB41 ALONDRA Unavailable [address] + [place] [address] ABER, FAYE Unavailable [address] + [place] [address] ABER, CRISTEL Unavailable [address] + [place] [address] KB41 ALONDRA Unavailable [address] + [place] [address] ABER, FAYE Unavailable [address] + [place] [address] ABER, CRISTEL Unavailable [address] + [place] [address] KB41 ALONDRA Unavailable [address] + [place] [address] ABER, FAYE Unavailable [address] + [place] [address] ABER, CRISTEL Unavailable [address] + [place] [address] KB41 ALONDRA Unavailable [address] + [place] [address] ABER, FAYE Unavailable [address] + [place] [address] ABER, CRISTEL Unavailable [address] + [place] [address] KB41 ALONDRA Unavailable [address] + [place] [address] ABER, FAYE Unavailable . + [place] [address] S Unavailable Unavailable Unavailable Care Team Providers Name Role Phone Cody, John Attending Unavailable Cody, John Referring Unavailable Primay Care Physicia, No Primary Care Unavailable Cody, John Attending Unavailable Primay Care Physicia, No Referring Unavailable Cody, [place] Attending Unavailable Cody, John Referring Unavailable Primay Care Physicia, No Primary Care Unavailable Cody, John Attending Unavailable Cody, John Referring Unavailable Primay Care Physicia, No Primary Care Unavailable Cody, John Attending Unavailable Cody, [place] Referring Unavailable Primay Care Physicia, No Primary Care Unavailable Cody, John Attending Unavailable Cody, [place] Referring Unavailable Primay Care Physicia, No Primary Care Unavailable Cody, [place] Consulting Unavailable Rocael Castillo Attending Unavailable Primay Care Physicia, No Referring Unavailable Cody, John Attending Unavailable Cody, John Referring Unavailable Primay Care Physicia, No Primary Care Unavailable Cody, [place] Consulting Unavailable Cody, John Attending Unavailable Cody, John Referring Unavailable Primay Care Physicia, No Primary Care Unavailable Cody, John Attending Unavailable Cody, [place] Referring Unavailable PROBLEMS PROBLEMS DATE TYPE CONDITION / CODE ATTENDING STATUS SOURCE 03/12/2018 Unknown Z95.5 - Presence of Cody, [place] Active [place] [facility] angioplasty implant Hospital and graft / Repository Z95.5(ICD-10) 01/26/2018 Unknown R07.9 - Chest pain, Cody, John Active [facility] unspecified / Community R07.9(ICD-10) Hospital Repository 01/26/2018 Unknown R06.00 - Dyspnea, Cody, John Active [facility] unspecified / Community R06.00(ICD-10) Hospital Repository 01/26/2018 Unknown F17.200 - Nicotine Cody, John Active [facility] dependence, Community unspecified, Hospital uncomplicated / Repository F17.200(ICD-10) PROCEDURES PROCEDURES No Procedure Records FoundRESULTS RESULTS CR - HISTORY AND Observed: 02/09/2018 Status: F Source: [facility] PHYSICAL 12:53 PM [facility] REPOSITORY [facility] Cardiac Rehab [address] [place] [address] CR - History AND Physical MR#: [id number] Acct: [id number] Name: CHAS VICKERS Rep #: [id number] : 1970 47 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, 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, BS PCP: Care Physician, No Primary DOS: [...] Advanced Directives - Advanced Directives Power of Hunter Skin Diver: Yes - Cristelfranny Rosen; mother Living Will: Yes Advance Directives Information Provided: Yes Advance Directives on File: No DNR Order?:: No - MOLST See MOLST form: No Past Medical History - Past Medical Illness Medical History: Past Medical History (Last Updated 01/25/18 @ 14:10 by Iris Blakely) Atherosclerosis of coronary artery of [place] heart without angina pectoris (Chronic) I25.10 PCI-OMARI-Mid [...] Smoking Status: Current every day smoker Years Smokin - 0053-0860 Packs Smoked per Day: 1 - at times more recently last 3 months 1/4 pack (5-cig) Hx Smoking Cessation Date: 01/25/2018 Hx Tobacco Use: Yes Hx Smoking Exposure: No - Alcohol Use Alcohol Usage: Yes - occasionally; - Substance Abuse Hx Substance Use: No - Occupation Occupation (List type of work in comments):: Employed Hours worked per day:: 11 - 8 hours w 1/2 break; up to 11 hours Returned to [...] = Denies (Slash). Left click = Reports ([place]) Review of Present Symptoms: Reports: Shortness of [...] chest discomfort. 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 Exercise plan approved as documented. Treatment plan and goals support patient needs/abilities. Continue with current plan. I certify the patient demonstrates improvement and remains willing and capable of participation. the patient continues to benefit from cardiac rehab services/training. The patient may continue at current intensity, endurance and modality and progress per protocol. 02/09/18 1253 <Electronically signed by John Ross MD> Cosigner Signature: Date John Ross MD CC: Signed 12 LEAD ELECTROCARDIOGRAM Observed: 01/28/2018 Status: F Source: [facility] 2:52 PM [facility] REPOSITORY [facility] Cardiovascular Services [address] [place] [address] 12 Lead EKG 01/26/18 0453 MR#: [id number] Acct: [id number] Name: CHAS VICKERS Rep #: [id number] : 1970 47 From: Candelario Maya MD Attending Dr: John Ross MD Status: DEP SDC Ordering Dr: Amber Moy MD Date: 01/26/18 Location: [facility] Sex: M C Admitted: Test Reason [...] Confirmed by ZULMA BUCK, CANDELARIO ([id number]), [place] KATHRYN MCCARTHY (56) on 01/28/2018 2:51:31 PM Referred By: John Ross Confirmed By:CANDELARIO MAYA MD 01/28/18 1451 Date Candelario Maya MD CC: No Primary Care Physician; Amber Moy MD; John Ross MD Signed 12 LEAD ELECTROCARDIOGRAM Observed: 01/28/2018 Status: F Source: RAM[facility] 2:52 PM [facility] REPOSITORY [facility] Cardiovascular Services [address] [place] [address] 12 Lead EKG 01/25/18 1122 MR#: [id number] Acct: [id number] Name: CHAS VICKERS Rep #: [id number] : 1970 47 From: Candelario Maya MD Attending Dr: John Ross MD Status: DEP SDC Ordering Dr: Amber Moy MD Date: 01/25/18 Location: [facility] Sex: M C Admitted: Test Reason : POST PCI Blood Pressure : / mmHG Vent. Rate : 074 BPM Atrial Rate : 074 BPM P-R Int : 146 ms QRS Dur : 072 ms QT Int : 388 ms P-R-T Axes : 035 029 001 degrees QTc Int : 430 ms Normal sinus rhythm Normal ECG Confirmed by ZULMA BUCK, CANDELARIO ([id number]), [place] KATHRYN MCCARTHY (56) on 01/28/2018 2:51:47 PM Referred By: John Ross Confirmed By:CANDELARIO MAYA MD 01/28/18 1451 Date Candelario Maya MD CC: No Primary Care Physician; Amber Moy MD; John Ross MD Signed DISCHARGE INSTRUCTION Observed: 01/26/2018 Status: F Source: [facility] 7:48 AM [facility] REPOSITORY [facility] Medical Records Department [address] [place] [address] [place] [address] Instructions for Home/Discharge Instructions 01/26/18 0745 MR#: [id number] Acct: [id number] Name: CHAS VICKERS Rep #: [id number] : 1970 47 From: John Ross MD [...] patient's physical, psychological, and social functioning. Health rn wound care work in cardiac rehabilitation programs and assist you with getting the treatments you need to get stronger and healthier - like exercise, healthy eating habits, and medications. Cardiac rehabilitation has been show to help people with heart problems live longer and have better life enjoyment than people who do not go to cardiac rehabilitation. Please contact the Cardiac Rehabilitation Program at [facility] at in two weeks if you have not heard from them. 01/26/18 0748 <Electronically signed by John Ross MD> Date John Ross MD CC: No Primary Care Physician CBC-COMPLETE BLOOD CNT Collected: 01/26/2018 Status: F Source: [facility] NO DIFF 5:45 AM [facility] REPOSITORY TYPE CODE TESTS RESULT OUT [...] MPV 10.3 Performed By: #### L100.0500 #### [facility] Laboratory [facility] [place], [address] BASIC METABOLIC Collected: 01/26/2018 Status: F Source: [facility] PROFILE (BMP) 5:45 AM [facility] REPOSITORY TYPE CODE TESTS RESULT OUT [...] Normal 10 Performed By: #### L500.2500 #### [facility] Laboratory [address] [place], [address] ACT ACTIVATED CLOTTING Collected: 01/25/2018 Status: F Source: [facility] TIME 10:55 AM [facility] REPOSITORY TYPE CODE TESTS RESULT OUT OF RANGE REFERENCE UNITS LAB L9100.0100 74-137 sec High ACTk CLOT 257 TIME Performed By: #### L9100.0100 #### [facility] Laboratory Point of Care [address] [place] [address] ACT ACTIVATED CLOTTING Collected: 01/25/2018 Status: F Source: [facility] TIME 10:38 AM [facility] REPOSITORY TYPE CODE TESTS RESULT OUT OF RANGE REFERENCE UNITS LAB L9100.0100 74-137 sec High ACTk CLOT 285 TIME Performed By: #### L9100.0100 #### [facility] Laboratory Point of Care [address] [place] [address] ECHOCARDIOGRAM COMPLETE Observed: 01/21/2018 Status: F Source: [place] 3:15 PM [facility] REPOSITORY [facility] Cardiovascular Services [address] [place] [address] Echo Complete 01/21/18 1055 MR#: [id number] Acct: [id number] Name: CHAS VICKERS Rep #: [id number] : 1970 47 From: John Ross MD Attending Dr: Cody BUCK,John Status: REG CLI Ordering Dr: John Ross MD Date: 01/21/18 Location: [facility] Sex: M C Admitted: Reason [...] E' Randell: 11.1 cm/sec MV A max ranedll: 58.7 cm/sec E/E' lat: 6.5 E/E' med: [...] Date Dictated: 01/21/18 1055 Date Transcribed: 01/21/181514 Sheet Metal Duct Installer: Signed CHEST PA AND LATERAL Observed: 01/20/2018 Status: F Source: [place] 10:45 AM [facility] REPOSITORY [facility] Imaging Services [address] [place], [place] [address] [address] Chest PA and Lateral MR#: [id number] Acct: [id number] Name: CHAS VICKERS Rep #: [id number] : 1970 M 47 From: Nubia Dacosta MD PCP: Care Physician, No Primary Status: [facility] Study: Chest PA and Lateral Date of Exam: 01/20/18 Exam# [id number] Ordering Dr: John Ross MD STUDY: X-RAY [...] No Primary Care Physician; John Ross MD Sheet Metal Duct Installer: Signed CBC W/DIFF, AUTOMATED Collected: 01/20/2018 Status: F Source: [place] 10:30 AM [facility] REPOSITORY TYPE CODE TESTS RESULT OUT [...] Lymph 2.46 Performed By: #### L100.0100 #### [facility] [address] [place], [place], [address] BASIC METABOLIC Collected: 01/20/2018 Status: F Source: [facility] PROFILE ([facility]) 10:30 AM [facility] REPOSITORY TYPE CODE TESTS RESULT OUT [...] By: #### L500.2500, L500.3400, L500.4100, L501.9520 #### [facility] Laboratory [address] [place], [address] LIVER PROFILE Collected: 01/20/2018 Status: F Source: [facility] 10:30 AM [facility] REPOSITORY TYPE CODE TESTS RESULT OUT [...] By: #### L500.2500, L500.3400, L500.4100, L501.9520 #### [facility] [address] [place], [address] LIPID PROFILE Collected: 01/20/2018 Status: F Source: [facility] 10:30 AM [facility] REPOSITORY TYPE CODE TESTS RESULT OUT [...] By: #### L500.2500, L500.3400, L500.4100, L501.9520 #### [facility] Laboratory [address] [place], [address] THYROID STIM HORMONE Collected: 01/20/2018 Status: F Source: [facility] ([facility]SH) 10:30 AM [facility] REPOSITORY TYPE CODE TESTS RESULT OUT OF RANGE REFERENCE UNITS LAB L501.9520 0.358-3.74 uIU/mL Normal TSH 1.63 Performed By: #### L500.2500, L500.3400, L500.4100, L501.9520 #### [facility] Laboratory [address] [place], [address] CARDIOLOGY VISIT Observed: 01/20/2018 Status: F Source: [facility] REPORT 9:43 AM [facility] REPOSITORY [facility] [address] [place] [address] OFFICE VISIT Date of Service: 01/20/18 MR#: [id number] Acct: [id number] Name: CHAS VICKERS Rep #: [id number] : 1970 Provider: John Ross MD Age/Sex: 47/M Location: [facility] Status: Signed HPI HPI Chief Complaint: Initial visit Details: CHAS VICKERS, is a 47 M who presents to the office today for an initial visit. 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) Coding Level of Care Code Off vis,new,level [...] PERFORMED Observed: 01/20/2018 Status: F Source: [place] ANAYA 8:53 AM [facility] REPOSITORY [address] [place] [address] 12 Lead EKG performed by JACLYN 01/20/18818 MR#: [id number] Acct: [id number] Name: CHAS VICKERS Rep #: [id number] : 1970 47 From: John Ross MD Attending Dr: Cody BUCK,John Status: DEP AMB Ordering Dr: John Ross MD Date: 01/20/18 Location: [facility] Sex: M C Admitted: [facility]/12 Lead EKG performed by [facility] ECG Report Interpretation Sinus Rhythm WITHIN NORMAL LIMITSElectronically signed on 01/27/2018 at 11:30 by John Ross [employer] Version 8610 01/27/18 1135 Date John Ross MD CC: No Primary Care Physician Date Dictated: 01/20/18818 Date Transcribed: 01/20/18818 Sheet Metal Duct Installer: [place] Signed ALLERGIES ALLERGIES DATE TYPE / CODE NAME / CODE REACTION SEVERITY SOURCE 02/05/2018 Drug No Known Unknown [place] [facility] Allergy/4160 Allergies/F00 Hospital 12239(SNOMED 5077258(RXNOR Repository CT) M) ENCOUNTERS ENCOUNTERS ADMIT/DISCHARGE ACCOUNT ADMITTING ENCOUNTER LOCATION SOURCE NUMBER CLASS 03/12/2018 [id number] Amb[place] [facility] ing:CR Repository 02/22/2018/ [id number] Ambulatory [place] 8 1 [facility] ing:CR Repository 02/09/2018 [id number] Amb[place] [facility] ing:CR Repository 02/05/2018/ [id number] Ambulatory BMSBuilding:B [place] 8 0 [facility] Repository 01/26/2018 [id number] Ambulatory BMSBuilding:B [place] 9 MS.[facility] Repository 01/25/2018/ [id number] Ambulatory [place] 8 0 [facility] ing:CLSPRoom: Repository [id number] 01/25/2018 [id number] Ambulatory BMSBuilding:W [place] 1 [facility] Repository 01/21/2018 [id number] Ambulatory BMSBuilding:B [place] 4 MS.CF.[facility] Repository 01/21/2018 [id number] Amb[place] [facility] ing:[facility]S Repository 01/20/2018/ [id number] Ambulatory BMSBuilding:B [place] 8 2 [facility] Repository PAYERS PAYERS ENCOUNTER GUARANTOR PAYER SUBSCRIBER SOURCE 03/12/2018 CHAS J Primary CHAS J [place] [id number] S Insurance:MEDICAL BEEDOB: [address] Number: Repository [id number]: 330 [id number] [phone] () Date:[id number] [address]VO: 03/12/2018 Secondary NOT GIVENUNK [place] Insurance:SELF PAY [facility] Number: Effective Repository Date:2018-02-23 02/22/2018 CHAS J Primary CHAS J [place] [id number] S Insurance:MEDICAL BEEDOB: [address] Number: Repository [address]Loc: 330 [id number] [phone] () Date:0295-03-70Q[address] [address]BD: 02/22/2018 Secondary NOT GIVENUNK [place] Insurance:SELF PAY [facility] Number: Effective Repository Date:2018-02-09 02/09/2018 CHAS J Primary CHAS J [place] [id number] S Insurance:MEDICAL BEEDOB: [address] Number: Repository [id number]: 330 [id number] [phone] () Date:[id number] [address]VG: 02/09/2018 Secondary NOT GIVENUNK [place] Insurance:SELF PAY [facility] Number: Effective Repository Date:2018-02-01 02/05/2018 CHAS J Primary CHAS J [place] [id number] S Insurance:MEDICAL BEEDOB: [address], [place] Number: Repository [address]Hpa: 330 [id number] [phone] (HP) Date:1082-74-95WO [address] [address]IG: 02/05/2018 Secondary NOT GIVENUNK [place] Insurance:SELF PAY [facility] Number: Effective Repository Date:2018-02-05 01/26/2018 CHAS J Primary CHAS J [place] [id number] S Insurance:MEDICAL BEEDOB: [facility] [place] Number: Repository [address]Gmm: 330 [id number] [phone] () Date:6615-83-08ZH [address] [address]NK: 01/26/2018 Secondary NOT GIVENUNK [place] Insurance:SELF PAY [facility] Number: Effective Repository Date:2018-01-26 01/25/2018 CHAS J Primary CHAS J [place] [id number] S Insurance:MEDICAL BEEDOB: [place] [address]-03-[address], [place] Number: Repository [address]Hwy: 330 [id number] [phone] () Date:0587-49-75YA [address] [address]IM: 01/25/2018 Secondary NOT GIVENUNK [place] Insurance:SELF PAY [facility] Number: Effective Repository Date:2018-01-20 01/25/2018 CHAS J Primary CHAS J [place] [id number] S Insurance:MEDICAL BEEDOB: [address], [place] Number: Repository [address]Udy: 330 [id number] [phone] (HP) Date:7903-73-54VC [address] [address]TY: 01/25/2018 Secondary NOT GIVENUNK [place] Insurance:SELF PAY [facility] Number: Effective Repository Date:2018-01-25 01/21/2018 CHAS J Primary CHAS J [place] [id number] S Insurance:MEDICAL BEEDOB: [facility] 2797[place] Number: Repository [address]Xkv: 330 [id number] [phone] (HP) Date:6234-72-39DZ [address] [address]FI: 01/21/2018 Secondary NOT GIVENUNK [place] Insurance:SELF PAY [facility] Number: Effective Repository Date:2018-01-21 01/21/2018 CHAS J Primary CHAS J [place] [id number] S Insurance:MEDICAL BEEDOB: [facility] 0312[place] Number: Repository [address]Auj: 330 [id number] [phone] (HP) Date:9028-31-93FA [address] [address]AQ: 01/21/2018 Secondary NOT GIVENUNK [place] Insurance:SELF PAY [facility] Number: Effective Repository Date:2018-01-20 01/20/2018 CHAS J Primary CHAS J [place] [id number] S Insurance:MEDICAL BEEDOB: [facility] 6914[place]72-[place] Number: .Effective Repository [address]Dnd: 330) Date:6206-27-13[phone] (HP) [address] [place] [address]BV: 01/20/2018 Secondary NOT GIVENUNK [place] Insurance:SELF PAY [facility] Number: Effective Repository Date:2018-01-20
== END ==
PROVIDERS: Referring Provider Internal Medicine Cardiovascular Disease; Visit Provider Internal Medicine Cardiovascular Disease
DX: I25.119 Atherosclerotic heart disease of native coronary artery with unspecified angina pectoris (principal); R06.00 Dyspnea, unspecified

== ENCOUNTER 2018-02-22 06:30 | Outpatient (RCR) | payer OTHER, SELFPAY ==
[2018-01-25 13:16] VITALS: BMI 31.8
[2018-02-09 10:49] VITALS: BMI 31.8
== END 2018-02-22 23:59 ==
LOC: CR 06:30
PROVIDERS: Referring Provider Internal Medicine Cardiovascular Disease; Visit Provider Internal Medicine Cardiovascular Disease
DX: I25.110 Atherosclerotic heart disease of native coronary artery with unstable angina pectoris (principal); Z95.5 Presence of coronary angioplasty implant and graft; R06.00 Dyspnea, unspecified; F17.200 Nicotine dependence, unspecified, uncomplicated
CPT/HCPCS: 93798

== ENCOUNTER 2018-03-24 06:30 | Outpatient (RCR) | payer OTHER, SELFPAY ==
[2018-01-25 13:16] VITALS: BMI 31.8
[2018-02-09 10:49] VITALS: BMI 31.8
--- NOTE | 2018-03-12 13:20 | CR.ITP_ITS ---
General Information - General Information Admitting Diagnosis: PCI with stenting - Education/Goals Cardiac Rehabilitation Goals: 1. Maintain the individual as the primary focus of care. 2. To improve the patient's quality of life. 3. Identification of cardiac risk factors and provide cardiac risk factor management. 4. Enhance the psychosocial status of the patient. 5. Reconditioning enough to allow the patient to resume customary activities. 6. Control symptoms of cardiac disease Scale for measuring improvement of personal goals: Enter appropriate number in Comments. 2 = Unchanged. 3 = Slightly Better. 4 = Moderate Improvement. 5 = Met my Goal Exercise - 30-day Assessment - Visit Date of Eval: 03/12/18 Session #:: 11 - Stages of Change Stages of Change:: Action - Exercise Prescription Mode:: Treadmill, Rower, Airdyne Frequency (x/week): 3 Duration:: 30-45 METs - Progression: 0.5-1 MET as tolerated: 5.1 Target Heart Rate:: 129-138 Max HR 134 - Hypertension Resting Blood Pressure:: 112/64 Peak Exercise Blood Pressure:: 148/74 - Education Goals:: Warm-up, RPE CLAIRE Scale, S/S, Safe Exercise, Self-Monitoring - Exercise Program Goals Exercise Program Goals: Aerobic Activity >30 min, B/P <130/80 Nutrition - Initial Assessment - Program Goals Nutrition Program Goals: LDL <70. Total Cholesterol <200. HDL >45. Triglycerides <150. HgbA1C <7%. BMI <25 - Diabetes Do you monitor your blood sugar at home?: No Nutrition - 30-Day Assessment - Program Goals Nutrition Program Goals: LDL <70. Total Cholesterol <200. HDL >45. Triglycerides <150. HgbA1C <7%. BMI <25 - Visit Date of Eval: 03/12/18 - Stages of Change Stages of Change:: Action - Weight Management Weight:: 105.233 kg - Intervention Referral to dietitian:: Yes Referral to Diabetic Clinic:: No Will attend diet classes:: Yes - Education Attended class for:: Signs & symptoms of hypoglycemia, Signs & symptoms of hyperglycemia, Relate diabetes to coronary artery disease, Healthy eating Tobacco - Initial Assessment - Program Goals Tobacco Program Goals: Complete smoking cessation. Attend education classes. Improve Knowledge Test score - Learning Barriers Learning Barriers: Ready to Learn Tobacco - 30-Day Assessment - Program Goals Tobacco Program Goals: Complete smoking cessation. Attend education classes. Improve Knowledge Test score - Stage of Change Stages of Change:: Action - Learning Barriers Learning Barriers: Participates in education - Family Support Do you have family support?: Yes - Tobacco Use Tobacco Use: Non-smoker Date quit:: 01/25/18 Do you use smokeless tobacco?: No - Intervention Smoking Cessation Referral:: Yes Individual Education/Counseling:: No Education Schedule Given:: Yes - Education Attended class for:: Tobacco triggers, Coronary artery disease, Risk factors, Sexuality, Medical compliance, Cardiac A&P, Angina signs & symptoms Psychosocial - Initial Assess - Target Goals Target Goals: Assess presence or absence of depression. Using a valid screening tool, maximizes coping skills. Positive support system - Psychosocial Test Tool Used:: HANDS Depression Questionnaire - Assistive Devices Fall Risk Assessed:: Yes Psychosocial - 30-Day Assess - Target Goals Target Goals: Assess presence or absence of depression. Using a valid screening tool, maximizes coping skills. Positive support system - Stages of Change Stages of Change:: Action - Psychosocial Test Tool Used:: HANDS Depression Questionnaire - Intervention PS - Interventions: Yes Attend Stress Management Classes, Yes Uses Stress Management Skills, No Referral to Mental Health, No Referral to [facility] Case Management, No Referral to Physician - Education Attended classes for:: Coping techniques, Signs & symptoms of depression, Stress management, Relaxation techniques - Assistive Devices Assistive Devices:: None Fall Risk Assessed:: Yes Patient Health Questionnaire 30-Day Re-eval Assessment 1. Little interest or pleasure in doing things: Not at all 2. Feeling down, depressed, or hopeless: Not at all 3. Trouble falling or staying asleep, or sleeping too much: Not at all 4. Feeling tired or having little energy: Not at all 5. Poor appetite or overeating: Not at all 6. Feeling bad about yourself -- or that you are a failure or have let yourself or your family down: Several days 7. Trouble concentrating on things, such as reading the newspaper or watching television: Not at all 8. Moving or speaking so slowly that other people could have noticed. Or the opposite - being so fidgety or restless that you have been moving around a lot more than usual: Not at all 9. Thoughts that you would be better off , or of hurting yourself in some way: Not at all How difficult have these problems made it for you to do your work, take care of things at home, or get along with other people?: Not difficult at all Total Score: 1 Self-Efficacy 30-Day Re-eval Assessment We would like to know how confident you are in doing certain activities. Please select your confidence level for:: Select your confidence level for the following using the scale 1-10 where 1 is not at all confident and 10 is totally confident. Your score is the average of all 6 responses. Fatigue: How confident are you that you can keep the fatigue caused by your disease from interfering with the things you want to do? Select Number: 7 Physical Discomfort or Pain: How confident are you that you can keep the physical discomfort or pain of your disease from interfering with the things you want to do? Select Number: 7 Emotional Distress: How confident are you that you can keep the emotional distress caused by your disease from interfering with the things you want to do? Select Number: 7 Other Symptoms or Health Problems: How confident are you that you can keep other symptoms or health problems from interfering with the things you want to do? Select Number: 7 Different Tasks and Activities: How confident are you that you can do the different tasks and activities needed to manage your health condition so as to reduce your need to see a doctor? Select Number: 8 Medication: How confident are you that you can do things other than just taking medication to reduce how much your illness affects your everyday life? Select Number: 8 Total Score:: 7
[2018-03-12 13:21] VITALS: BP 112/64; BP 148/74
== END 2018-03-25 23:59 ==
LOC: CR 06:30
PROVIDERS: Referring Provider Internal Medicine Cardiovascular Disease; Visit Provider Internal Medicine Cardiovascular Disease
DX: I25.10 Atherosclerotic heart disease of native coronary artery without angina pectoris (principal); R06.00 Dyspnea, unspecified; F17.200 Nicotine dependence, unspecified, uncomplicated; Z95.5 Presence of coronary angioplasty implant and graft
CPT/HCPCS: 93798

== ENCOUNTER 2018-04-19 06:30 | Outpatient (RCR) | payer OTHER, SELFPAY ==
[2018-01-25 13:16] VITALS: BMI 31.8
[2018-02-09 10:49] VITALS: BMI 31.8
[2018-03-26 01:34] VITALS: BP 112/64; BP 148/74
--- NOTE | 2018-04-12 11:37 | CR.ITP_ITS ---
General Information - General Information Admitting Diagnosis: PCI w/stenting - Education/Goals Cardiac Rehabilitation Goals: 1. Maintain the individual as the primary focus of care. 2. To improve the patient's quality of life. 3. Identification of cardiac risk factors and provide cardiac risk factor management. 4. Enhance the psychosocial status of the patient. 5. Reconditioning enough to allow the patient to resume customary activities. 6. Control symptoms of cardiac disease Scale for measuring improvement of personal goals: Enter appropriate number in Comments. 2 = Unchanged. 3 = Slightly Better. 4 = Moderate Improvement. 5 = Met my Goal Exercise - 60-Day Assessment - Visit Date of Eval: 04/12/18 Session #:: 23 - Stages of Change Stages of Change:: Action - Exercise Prescription Mode:: Treadmill, Rower, Airdyne Frequency (x/week): 3 Duration:: 30-45 METs: 6 Target Heart Rate:: 129-138 Max HR 122 - Hypertension Resting Blood Pressure:: 122/84 Peak Exercise Blood Pressure:: 148/84 - Intervention Home Exercise/Activity Goal:: Sitting Time <3 hrs/day - Education Goals:: Warm-up, RPE CLAIRE Scale, S/S, Safe Exercise, Self-Monitoring - Exercise Program Goals Exercise Program Goals: Aerobic Activity >30 min, B/P <130/80 Nutrition - Initial Assessment - Program Goals Nutrition Program Goals: LDL <70. Total Cholesterol <200. HDL >45. Triglycerides <150. HgbA1C <7%. BMI <25 - Diabetes Do you monitor your blood sugar at home?: No Nutrition - 60-Day Assessment - Program Goals Nutrition Program Goals: LDL <70. Total Cholesterol <200. HDL >45. Triglycerides <150. HgbA1C <7%. BMI <25 - Visit Date of Eval: 04/12/18 - Stages of Change Stages of Change:: Action - Lipids Has the patient seen the dietitian?: No - Intervention Referral to dietitian:: Yes Referral to Diabetic Clinic:: No Will attend diet classes:: Yes - Education Attended class for:: Signs & symptoms of hypoglycemia, Signs & symptoms of hyperglycemia, Relate diabetes to coronary artery disease, Healthy eating Tobacco - Initial Assessment - Program Goals Tobacco Program Goals: Complete smoking cessation. Attend education classes. Improve Knowledge Test score - Learning Barriers Learning Barriers: Ready to Learn Tobacco - 60-Day Assessment - Program Goals Tobacco Program Goals: Complete smoking cessation. Attend education classes. Improve Knowledge Test score - Stage of Change Stages of Change:: Action - Learning Barriers Learning Barriers: Participates in education - Family Support Do you have family support?: Yes - Tobacco Use Tobacco Use: Non-smoker Do you use smokeless tobacco?: No - Intervention Education Schedule Given:: Yes - Education Attended class for:: Tobacco triggers, Coronary artery disease, Risk factors, Sexuality, Medical compliance, Cardiac A&P, Angina signs & symptoms Psychosocial - Initial Assess - Target Goals Target Goals: Assess presence or absence of depression. Using a valid screening tool, maximizes coping skills. Positive support system - Psychosocial Test Tool Used:: HANDS Depression Questionnaire - Assistive Devices Fall Risk Assessed:: Yes Psychosocial - 60-Day Assess - Target Goals Target Goals: Assess presence or absence of depression. Using a valid screening tool, maximizes coping skills. Positive support system - Stages of Change Stages of Change:: Action - Psychosocial Test Tool Used:: HANDS Depression Questionnaire - Intervention PS - Interventions: Yes Attend Stress Management Classes, Yes Uses Stress Management Skills, No Referral to Mental Health, No Referral to [facility] Case Management, No Referral to Physician - Education Attended classes for:: Coping techniques, Signs & symptoms of depression, Stress management, Relaxation techniques - Assistive Devices Assistive Devices:: None Fall Risk Assessed:: Yes Patient Health Questionnaire 60-Day Re-eval Assessment 1. Little interest or pleasure in doing things: Not at all 2. Feeling down, depressed, or hopeless: Not at all 3. Trouble falling or staying asleep, or sleeping too much: Not at all 4. Feeling tired or having little energy: Not at all 5. Poor appetite or overeating: Not at all 6. Feeling bad about yourself -- or that you are a failure or have let yourself or your family down: Not at all 7. Trouble concentrating on things, such as reading the newspaper or watching television: Not at all 8. Moving or speaking so slowly that other people could have noticed. Or the opposite - being so fidgety or restless that you have been moving around a lot more than usual: Not at all 9. Thoughts that you would be better off , or of hurting yourself in some way: Not at all How difficult have these problems made it for you to do your work, take care of things at home, or get along with other people?: Not difficult at all Total Score: 0 Self-Efficacy 60-Day Re-eval Assessment We would like to know how confident you are in doing certain activities. Please select your confidence level for:: Select your confidence level for the followin g using the scale 1-10 where 1 is not at all confident and 10 is totally confident. Your score is the average of all 6 responses. Fatigue: How confident are you that you can keep the fatigue caused by your disease from interfering with the things you want to do? Select Number: 7 Physical Discomfort or Pain: How confident are you that you can keep the physical discomfort or pain of your disease from interfering with the things you want to do? Select Number: 7 Emotional Distress: How confident are you that you can keep the emotional distress caused by your disease from interfering with the things you want to do? Select Number: 7 Other Symptoms or Health Problems: How confident are you that you can keep other symptoms or health problems from interfering with the things you want to do? Select Number: 7 Different Tasks and Activities: How confident are you that you can do the different tasks and activities needed to manage your health condition so as to reduce your need to see a doctor? Select Number: 8 Medication: How confident are you that you can do things other than just taking medication to reduce how much your illness affects your everyday life? Select Number: 8 Total Score:: 7
[2018-04-12 11:39] VITALS: BP 122/84; BP 148/84
== END 2018-04-22 23:59 ==
LOC: CR 06:30
PROVIDERS: Referring Provider Internal Medicine Cardiovascular Disease; Visit Provider Internal Medicine Cardiovascular Disease
DX: I25.110 Atherosclerotic heart disease of native coronary artery with unstable angina pectoris (principal); Z95.5 Presence of coronary angioplasty implant and graft; R06.00 Dyspnea, unspecified; F17.200 Nicotine dependence, unspecified, uncomplicated
CPT/HCPCS: 93798

== ENCOUNTER → 2018-05-07 07:36 | Outpatient (CLI) | payer OTHER, SELFPAY ==
[2018-01-25 13:16] VITALS: BMI 31.8
[2018-05-06 14:34] VITALS: BMI 31.7
[2018-05-07 09:48] LABS: AST(SGOT) 22 U/L (15-37); Alanine Aminotransfer ALT/SGPT 36 U/L (16-61); Albumin, Serum 3.7 g/dL (3.2-5.0); Alkaline Phosphatase 86 U/L (45-117); Bilirubin, Direct 0.14 mg/dL (0.00-0.30); Cholesterol 118 mg/dL (200); Globulin 3.7 g/dL (2.2-4.2); High Density Lipoprotein 35 mg/dL; Protein, Total 7.4 g/dL (6.4-8.2); Triglycerides 87 mg/dL; Very Low Density Lipoprotein 17 mg/dL (5-40)
== END ==
PROVIDERS: Referring Provider Nurse Practitioner Family; Visit Provider Nurse Practitioner Family
DX: E78.2 Mixed hyperlipidemia (principal)
CPT/HCPCS: 36415; 80061; 80076

== ENCOUNTER 2018-05-19 06:30 | Outpatient (RCR) | payer OTHER, SELFPAY ==
[2018-01-25 13:16] VITALS: BMI 31.8
[2018-02-09 10:49] VITALS: BMI 31.8
[2018-04-23 01:14] VITALS: BP 122/84; BP 148/84
--- NOTE | 2018-05-10 13:12 | PCM.CR.ITP ---
General Information - General Information Admitting Diagnosis: PCI W/stenting - Education/Goals Barriers to Learning: None Cardiac Rehabilitation Goals: 1. Maintain the individual as the primary focus of care. 2. To improve the patient's quality of life. 3. Identification of cardiac risk factors and provide cardiac risk factor management. 4. Enhance the psychosocial status of the patient. 5. Reconditioning enough to allow the patient to resume customary activities. 6. Control symptoms of cardiac disease Scale for measuring improvement of personal goals: Enter appropriate number in Comments. 2 = Unchanged. 3 = Slightly Better. 4 = Moderate Improvement. 5 = Met my Goal Exercise - 90-Day Assessment - Visit Date of Eval: 05/10/18 Session #:: 35 - Stages of Change Stages of Change:: Action - Physician Prescribed Exercise Modalities: Treadmill, Rower, Airdyne Frequency (days/week): 3 Duration (Minutes):: 30-45 Intensity: 60-80% age predicted maximum heart rate reserve METs - Progression: 0.5-1.0 MET, RPE 11-14 WEEK: 6 Target Heart Rate:: 129-138 Max HR 129 - Hypertension Resting Blood Pressure:: 110/68 Peak Exercise Blood Pressure:: 150/100 - Intervention Home Exercise/Activity Goal:: Sitting Time <3 hrs/day - Education Goals:: Warm-up, RPE CLAIRE Scale, S/S, Safe Exercise, Self-Monitoring - Exercise Program Goals Exercise Program Goals: Aerobic Activity >30 min, B/P <130/80 Nutrition - Initial Assessment - Program Goals Nutrition Program Goals: LDL <70. Total Cholesterol <200. HDL >45. Triglycerides <150. HgbA1C <7%. BMI <25 - Diabetes Do you monitor your blood sugar at home?: No Nutrition - 90-Day Assessment - Program Goals Nutrition Program Goals: LDL <70. Total Cholesterol <200. HDL >45. Triglycerides <150. HgbA1C <7%. BMI <25 - Visit Date of Eval: 05/10/18 - Stages of Change Stages of Change:: Action - Lipids Has the patient seen the dietitian?: No - Intervention Referral to dietitian:: Yes Referral to Diabetic Clinic:: No Will attend diet classes:: Yes - Education Attended class for:: Signs & symptoms of hypoglycemia, Signs & symptoms of hyperglycemia, Relate diabetes to coronary artery disease, Healthy eating Tobacco - Initial Assessment - Program Goals Tobacco Program Goals: Complete smoking cessation. Attend education classes. Improve Knowledge Test score - Learning Barriers Learning Barriers: Ready to Learn Tobacco - 90-Day Assessment - Program Goals Tobacco Program Goals: Complete smoking cessation. Attend education classes. Improve Knowledge Test score - Stage of Change Stages of Change:: Action - Learning Barriers Learning Barriers: Participates in education - Family Support Do you have family support?: Yes - Tobacco Use Tobacco Use: Non-smoker - Intervention Smoking Cessation Referral:: No Individual Education/Counseling:: No Education Schedule Given:: Yes - Education Attended class for:: Tobacco triggers, Coronary artery disease, Risk factors, Sexuality, Medical compliance, Cardiac A&P, Angina signs & symptoms Psychosocial - Initial Assess - Target Goals Target Goals: Assess presence or absence of depression. Using a valid screening tool, maximizes coping skills. Positive support system - Psychosocial Test Tool Used:: HANDS Depression Questionnaire - Assistive Devices Fall Risk Assessed:: Yes Psychosocial - 90-Day Assess - Target Goals Target Goals: Assess presence or absence of depression. Using a valid screening tool, maximizes coping skills. Positive support system - Stages of Change Stages of Change:: Action - Psychosocial Test Tool Used:: HANDS Depression Questionnaire - Intervention PS - Interventions: Yes Attend Stress Management Classes, Yes Uses Stress Management Skills, No Referral to Mental Health, No Referral to [facility] Case Management, No Referral to Physician - Education Attended classes for:: Coping techniques, Signs & symptoms of depression, Stress management, Relaxation techniques - Assistive Devices Assistive Devices:: None Fall Risk Assessed:: Yes Patient Health Questionnaire 90-Day Re-eval Assessment 1. Little interest or pleasure in doing things: Not at all 2. Feeling down, depressed, or hopeless: Not at all 3. Trouble falling or staying asleep, or sleeping too much: Not at all 4. Feeling tired or having little energy: Not at all 5. Poor appetite or overeating: Not at all 6. Feeling bad about yourself -- or that you are a failure or have let yourself or your family down: Not at all 7. Trouble concentrating on things, such as reading the newspaper or watching television: Not at all 8. Moving or speaking so slowly that other people could have noticed. Or the opposite - being so fidgety or restless that you have been moving around a lot more than usual: Not at all 9. Thoughts that you would be better off , or of hurting yourself in some way: Not at all How difficult have these problems made it for you to do your work, take care of things at home, or get along with other people?: Not difficult at all Total Score: 0 Self-Efficacy 90-Day Re-eval Assessment We would like to know how confident you are in doing certain activities. Please select your confidence level for:: Select your confidence level for the following using the scale 1-10 where 1 is not at all confident and 10 is totally confident. Your score is the average of all 6 responses. Fatigue: How confident are you that you can keep the fatigue caused by your disease from interfering with the things you want to do? Select Number: 7 Physical Discomfort or Pain: How confident are you that you can keep the physical discomfort or pain of your disease from interfering with the things you want to do? Select Number: 7 Emotional Distress: How confident are you that you can keep the emotional distress caused by your disease from interfering with the things you want to do? Select Number: 7 Other Symptoms or Health Problems: How confident are you that you can keep other symptoms or health problems from interfering with the things you want to do? Select Number: 7 Different Tasks and Activities: How confident are you that you can do the different tasks and activities needed to manage your health condition so as to reduce your need to see a doctor? Select Number: 8 Medication: How confident are you that you can do things other than just taking medication to reduce how much your illness affects your everyday life? Select Number: 8 Total Score:: 7
[2018-05-10 13:18] VITALS: BP 110/68; BP 150/100
== END 2018-05-23 23:59 ==
LOC: CR 06:30
PROVIDERS: Referring Provider Internal Medicine Cardiovascular Disease; Visit Provider Internal Medicine Cardiovascular Disease
DX: I25.110 Atherosclerotic heart disease of native coronary artery with unstable angina pectoris (principal); Z95.5 Presence of coronary angioplasty implant and graft; R06.00 Dyspnea, unspecified; F17.200 Nicotine dependence, unspecified, uncomplicated
CPT/HCPCS: 93798

== ENCOUNTER 2018-11-05 05:48 | Day surgery (SDC) | payer OTHER, SELFPAY ==
[2018-01-25 13:16] VITALS: BMI 31.8
--- NOTE | 2018-11-04 03:29 | HP_ITS ---
HPI HPI History of Present Illness Surgical H&P: Yes Details: CHAS VICKERS, is a 48 M who presents to the office today for a cardiovascular outpatient follow-up. He has a history of coronary artery disease status post OMARI to LAD in January 2018. He also has a history of tobacco abuse. He tells me that he has recently started experiencing the chest burning again his exertional level of exercise is much diminished. He experiences this on a daily basis and it goes away when he rests. He has not taken any nitroglycerin recently.. Pt. denies symptoms of CHF, palpitations, lightheadedness, dizziness, near syncope, or syncopal episodes. Pt. denies edema or claudication issues. Pt. denies orthopnea, or PND. He has been compliant with his medications. 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 His physical exam today demonstrates clear lung wong regular rate and rhythm and no pedal edema. Intake Vital Signs 11/04/18 Body Mass Index (BMI) 31.7 11/04/18 Height 6 ft 11/04/18 Weight: 234 lb 11/04/18 Body Mass Index (BMI) 31.7 11/04/18 Blood Pressure 139/94 H 11/04/18 Respiratory Rate 18 11/04/18 Pulse Rate 78 11/04/18 Pulse Ox 98 Intake Visit Reasons: 6 M FU Allergies No Known Allergies Allergy (Verified 02/05/18 13:34) Medications albuterol sulfate HFA 90 mcg/actuation aerosol inhaler 2 puff INHALATION Q6H PRN #18 g 05/06/18 [Rx Confirmed 11/04/18] metoprolol succinate ER 25 mg tablet,extended release 24 hr 12.5 mg PO DAILY #45 tab 05/06/18 [Rx Confirmed 11/04/18] aspirin 81 mg tablet,delayed release 81 mg PO QDAY #90 tab 05/07/18 [Rx Confirmed 11/04/18] atorvastatin 40 mg tablet 40 mg PO QPM #90 tab 05/07/18 [Rx Confirmed 11/04/18] clopidogrel 75 mg tablet 75 mg PO DAILY #90 tab 05/07/18 [Rx Confirmed 11/04/18] PFSH Medical History Atherosclerosis of coronary artery of hoh heart without angina pectoris (Chronic) Nicotine dependence (Chronic) IBS (irritable bowel syndrome) (Chronic) Obesity (Chronic) Dyspnea (Resolved) Unstable angina (Resolved) Surgical History History of coronary artery stent placement (Resolved 01/23/18) History of open reduction and internal fixation (ORIF) procedure (Resolved) Social History (Updated 11/04/18 @ 15:30 by John Ross MD) Smoking Status: Current every day smoker tobacco type: cigarettes ROS Const Const: Positive for other (Admits to 3 smoking cigareetes a day); negative for fatigue, weakness, headache(s), frequent falls, difficulty sleeping or excessive sweating Eyes Eyes: Negative for loss of peripheral vision, transient loss of vision, blurry vision, double vision or tunnel vision ENT ENT: Negative for headache(s), dizziness, Nosebleed/epistaxis or balance problems Cardio Chest Pain: Yes Frequency: daily Character: other (burning) Onset: exercise Location: mid sternal Duration: minutes Exacerbation: activity Relieving: rest Recurrence: activity Palpitations: No Edema: None Muscle aches with walking: None Additional Details: Becomes nauseated and SOB with chest burning. Says it reminds him of when his stent was placed. Resp Respiratory: Positive for SOB with activity; negative for SOB at rest, SOB orthopnea\SOB lying down, Cough or paroxysmal nocturnal dyspnea GI GI: Negative nausea, vomiting, heartburn or black,tarry stools : Negative for hematuria Musc Musc: Negative for muscle aches/ myalgia, muscle weakness, joint pain or balance problems Skin Skin: Negative non-healing lesions, rash or unusual bruising Neuro Neuro: Negative for dizziness, lightheadedness, near syncope, syncope, orthostatic symptoms, frequent falls, headache(s), weakness, blurry vision, double vision or lack of coordination Diony Hematologic/Lymphatic: Negative for easy bleeding or easy bruising Endo Endo: Negative for fatigue, excessive sweating or increased thirst/drinking Psych Psych: Negative for anxiety or depression Allergy Allergy/Immunology: Negative for hives, Negative for rash Cardiology Exam Const Appearance: cooperative, healthy appearing, no acute distress, well developed and well groomed Nutritional Appearance: average body habitus and well nourished Orientation: alert, awake and oriented x3 Head Head: normal to inspection, normocephalic and atraumatic Ears: hearing grossly normal bilaterally and external ears normal Nose: external nose normal, nares normal, nasal mucous membranes and turbinates normal, septum normal, no nasal discharge Face and Sinus: face symmetric Mouth: oral mucosae normal, tongue normal, oropharynx normal and moist mucous membranes Teeth and gingiva: dentition normal Throat: posterior oropharynx normal, tonsils normal and uvula midline Eyes General: appearance normal, both eyes and all related structures Eyelids: eyelids normal Conjunctivae: conjunctivae normal Pupils: PERRL, normal by confrontation and accommodation normal EOM: EOM intact bilaterally Neck Neck: normal visual inspection, trachea midline and no JVD JVD: +5 Carotids: normal carotid upstroke and bounding pulses Chest Chest inspection: normal inspection of the chest, symmetric chest movement and normal respiratory effort Auscultation: Bilateral: Clear to Auscultation Cardio Palpation: normal PMI Rate: regular rate Rhythm: regular rhythm Heart sounds: S1 normal, S2 normal and normal, physiologic split S2; negative rub, gallop or murmur GI GI: normal to inspection, soft, no hepatosplenomegaly and bowel sounds present Neuro General: alert, awake, oriented x3, gait normal, moves all extremities and no focal sensory deficit Skin Skin: no rashes or lesions noted Extremities Pulses: Normal: Right Femoral Pulse, Left Femoral Pulse, Right Dorsalis Pedis Pulse, Left Dorsalis Pedis Pulse, Right Posterior Tibial Pulse, Left Posterior Tibial Pulse, Right Radial Pulse, Left Radial Pulse Lower Extremity Edema: None: Bilateral Musculoskel Musculoskeletal: No joint tenderness Psych Psychological: normal affect Assessment & Plan 1. Atherosclerotic heart disease hoh coronary artery w/angina pectoris I25.119 Plan He does have a history of atherosclerotic cardiovascular disease and currently appears to have accelerating angina. Though he has been compliant with his medications he has unfortunately continued to use tobacco products. My recommendation at this time would be for us to proceed with a left heart catheterization. The risk benefits and alternatives have been explained to him he understands and agrees to proceed. He previously did have a 2.5?12 resolute drug-eluting stent placed in the mid left anterior descending artery. Orders Orders: Left Heart Cath/COR/LV Percut Today Basic Metabolic Profile (BMP) Today CBC W/Diff, Automated Today 2. Cigarette nicotine dependence without complication F17.210 Plan This has been strongly emphasized. He promises to do a better job with this. Thank you for allowing me to participate in the care of your patient. Please don't hesitate to call if any issues arise Plan Detail Other Orders Orders: 12 Lead EKG performed by BMS Today F17.200, I25.10, Z95.5 Follow Up 3 Months (corporate planner) Coding Level of Care Code Off vis,est,level 4 Diagnoses Atherosclerotic heart disease hoh coronary artery w/angina pectoris I25.119 Cigarette nicotine dependence without complication F17.210 ??Nicotine product type: cigarettes ??Substance use status: uncomplicated Coding Level of Care Code Off vis,est,level 4 Diagnoses Atherosclerotic heart disease hoh coronary artery w/angina pectoris I25.119 Cigarette nicotine dependence without complication F17.210 ??Nicotine product type: cigarettes ??Substance use status: uncomplicated Supplemental Info Supplemental Information Labs LDL Cholesterol 66 mg/dL (0-130) 05/07/18 HDL Cholesterol 35 mg/dL (40-) L 05/07/18 Triglycerides 87 mg/dL (-199) 05/07/18 VLDL Cholesterol 17 mg/dL (5-40) 05/07/18 Diagnostics Electrocardiogram 01/26/18 Cardiac Catheterization 01/25/18 Chest X-Ray 01/20/18 11/04/18 1530 <Electronically signed by John Ellis> Date _ John Ross MD
[2018-11-04 15:20] VITALS: BMI 31.7
[2018-11-04 15:32] VITALS: BMI 31.7
--- NOTE | 2018-11-04 15:45 | RAD_ITS ---
HISTORY: CAD, STENTS, UNSTABLE ANGINA ADDITIONAL HISTORY: None provided. COMPARISON: 01/20/2018 TECHNIQUE: Frontal and lateral chest radiographs. Number of images including paperwork: 2 FINDINGS: LUNGS AND PLEURA: No consolidation, mass or pleural effusion. CARDIAC SILHOUETTE: Unremarkable. MEDIASTINUM AND BERNARD: Unremarkable. UPPER ABDOMEN: Unremarkable. SKELETON AND SOFT TISSUES: No acute findings. Degenerative changes. OTHER DEVICES AND HARDWARE: None. RAD/Chest PA and Lateral IMPRESSION: No acute cardiopulmonary abnormality. at 0702 Reported and signed by: Lisa Nicole MD Electronically Signed: Lisa Nicole MD at 7:01 EDT Tel , Service support ,
[2018-11-05] VITALS (26 sets, daily range): BP systolic 100–152; BP diastolic 41–106; PULSE 55–90; RESP 13–23; TEMP 36.3–36.7; O2SAT 58–99; BMI 32.1
[2018-11-05 06:19] LABS: Absolute Lymphocyte Count 2.79 X10^3/uL (0.83-4.51); Absolute Neutrophil Count 4.3 X10^3/uL (2.0-7.7); Eosinophil# 0.16 X10^3/uL; Hematocrit 42.4 % (40-54); Hemoglobin 14.3 g/dL (13.0-16.5); Lymphocyte # 2.79 X10^3/ul (4.0); Lymphocyte % 35.2 % (19-41); Mean Corp Hgb Conc 33.7 g/dL (32-36); Mean Corpuscular Hgb 31.6 pg (27.0-32.0); Mean Corpuscular Volume 93.6 fL (80-94); Mean Platelet Vol. 9.9 fl (6.2-12.0); Monocyte# 0.65 X10^3/uL; Monocyte% 8.2 % (0-10); NRBC Flagged by Analyzer 0 % (0-5); Neutrophil # 4.29 X10^3/uL (2.7-7.7); Neutrophil % 54.1 % (47-70); Platelet Count 259 K/mm3 (150-450); RBC Distribution Width CV 12.4 % (11.6-14.6); RBC Distribution Width SD 43.1 fl (35.1-43.9); Red Blood Count 4.53 M/mm3 (4.6-6.2); White Blood Count 7.9 K/mm3 (4.4-11.0)
[2018-11-05 06:31] LABS: Anion Gap 6 (5-15); BUN 18 mg/dL (7-18); Calcium,Total 8.7 mg/dL (8.5-10.1); Chloride 110 mmol/L (98-107); EST Glomerular Filtration Rate 85 mL/min (>60); Est Glom Filt Rate - Afr Amer 103 mL/min (>60); Estimated Creatinine Clearance 99.16 ml/min; Glucose 95 mg/dL (74-106); Potassium 3.9 mmol/L (3.5-5.1); Sodium Level 142 mmol/L (136-145)
[2018-11-05 06:51] LABS: AST(SGOT) 22 U/L (15-37); Alanine Aminotransfer ALT/SGPT 33 U/L (16-61); Albumin, Serum 3.2 g/dL (3.2-5.0); Alkaline Phosphatase 91 U/L (45-117); Bilirubin, Direct 0.06 mg/dL (0.00-0.30); Cholesterol 127 mg/dL (200); Globulin 3.6 g/dL (2.2-4.2); High Density Lipoprotein 42 mg/dL; Protein, Total 6.8 g/dL (6.4-8.2); Triglycerides 98 mg/dL; Very Low Density Lipoprotein 20 mg/dL (5-40)
--- NOTE | 2018-11-05 08:29 | CL.D_ITS ---
Patient Name: CHAS VICKERS Study Date: 11/05/2018 Performing: John Ross MD Ht: 72.04 inches 183 cm : 1970 Wt: 233.69 lbs 106 kg Age: 48 Gender: male BSA: 2.28 PROCEDURE(S) PERFORMED NE17-KQC/COR/LV CLINICAL PROFILE AND INDICATIONS Indications: New Onset Angina <= 2 months Heart Failure: None Stress/Imaging Stress/Image Study Performed: No Angina Classification Anginal Classification w/in 2 Weeks: CCS III CAD Presentations: Unstable angina. CONCLUSIONS High-grade in-stent stenosis noted in the left anterior descending artery. RECOMMENDATIONS Referred for immediate PCI DESCRIPTION OF PROCEDURE The patient arrived to the procedure lab. The risks and benefits of the procedure as well as a full d escription of our services here and current unavailability of surgical backup were fully explained to the patient and/or their significant other prior to the catheterization. The Timeout was completed, verifying the correct patient and procedure. The patient's procedural site was prepped and draped in the usual fashion. Local anesthetic was given subcutaneously to right radial region with Lidocaine 2% . Using a modified Seldinger technique, arterial access was obtained via the right radial artery, a 6 Fr sheath was inserted. Right Coronary Artery selective angiography was then performed in multiple v iews using a 5 Fr. 4.0 [place] catheter. Left Coronary Artery selective angiography was performed in mu ltiple views using a 5 Fr. 4.0 G[place]on catheter. Left Ventriculography was performed in ALVAREZ projection using a 5 Fr. Pigtail catheter. LV to AO pullback pressures were then recorded. CORONARY ANGIOGRAPHY DOMINANCE: Right Dominant LEFT HEART ASSESSMENT Left Ventricular Ejection Fraction: by LV Gram 60 % Normal Left Ventricular systolic function LEFT MAIN: Angiographically normal LEFT ANTERIOR DESCENDING ARTERY: MID LAD: Previously placed stent has an instent 95 % restenosis CIRCUMFLEX ARTERY: No significant disease noted RIGHT CORONARY ARTERY: Mild luminal irregularities COMPLICATIONS PROCEDURE MEDICATIONS Versed 1 mg IV Fentanyl 50 mcg IV Oxygen: 2 L/min via nasal cannula Heparin diluted in 23cc Heparinized saline. Patient given 10cc IA of this solution. 11/05/2018 08:09: 55 Heparin 6000 unit(s) IV 11/05/2018 08:26:35 Verapamil 2.5mg, Ntg 100mcgs, 2000 units of Heparin diluted in 23cc Heparinized saline. Patient give n 10cc IA of this solution. 11/05/2018 08:09:55 SUMMARY OF HEMODYNAMIC DATA Time AIR REST ECG 07:01:32 AO 111/78 (93) SA 08:11:10 LV 99/7, 12 08:18:23 LV 103/7, 12 08:18:29 LV 103/9, 14 08:19:12 LVp 111/11, 15 08:19:18 AOp 115/79 (97) 08:19:23 Signed By John Ross MD On 11/05/2018 08:28:41 John Ross MD
--- NOTE | 2018-11-05 09:30 | EKG12_ITS ---
Test Reason : AM EKG Blood Pressure : / mmHG Vent. Rate : 052 BPM Atrial Rate : 052 BPM P-R Int : 132 ms QRS Dur : 074 ms QT Int : 428 ms P-R-T Axes : 016 036 001 degrees QTc Int : 398 ms Sinus bradycardia Otherwise normal ECG Confirmed by ZULMA BUCK, MARTA ([id number]), newspaper managing editor LORENZO MUÑIZ ([id number]) on 11/10/2018 2:35:05 PM Referred By: John Ross Confirmed By:MARTA MAYA MD
[2018-11-05] MEDS: 0.9% Normal Saline 1,000 ML 60 ML IV (09:54)
--- NOTE | 2018-11-05 10:00 | EKG12_ITS ---
Test Reason : POST STENT Blood Pressure : / mmHG Vent. Rate : 054 BPM Atrial Rate : 054 BPM P-R Int : 130 ms QRS Dur : 076 ms QT Int : 418 ms P-R-T Axes : 030 024 -07 degrees QTc Int : 396 ms Sinus bradycardia Low Volage QRS (Limb Leads) Confirmed by ZULMA BUCK, MARTA ([id number]), loan expeditor LORENZO MUÑIZ ([id number]) on 11/10/2018 2:35:41 PM Referred By: John Ross Confirmed By:MARTA MAYA MD
--- NOTE | 2018-11-05 10:14 | CRPHASE1_ITS ---
Patient Communication Former Patient:: Phase I, Phase II - Former Ph I and Ph II CR pt at [facility] recently. PHII Cardiac Rehab Discussed with Patient:: Yes Risk Factors/Lifestyle Laboratory Values: Cardiac Rehab Phase I Labs Triglycerides 98 mg/dL (-199) 11/05/18 06:00 Cholesterol 127 mg/dL (200) 11/05/18 06:00 LDL Cholesterol 65 mg/dL (0-130) 11/05/18 06:00 HDL Cholesterol 42 mg/dL (40-) 11/05/18 06:00 Cardiac Rehabilitation Info Cardiac Rehabilitation Program Information: Cardiac Rehabilitation is important for patients like you who are recovering from a heart problem. Cardiac rehabilitation programs are recognized as integral to the continued care of the patient with coronary heart disease. The cardiac rehabilitation program is designed to optimize a patient's physical, psychological, and social functioning. Health auto care center manager work in cardiac rehabilitation programs and assist you with getting the treatments you need to get stronger and healthier - like exercise, healthy eating habits, and medications. Cardiac rehabilitation has been show to help people with heart problems live longer and have better life enjoyment than people who do not go to cardiac rehabilitation. Please contact the Cardiac Rehabilitation Program at [facility] at in two weeks if you have not heard from them.
--- NOTE | 2018-11-05 10:20 | CRPH1.INSTRU ---
General Education CAD and cardiac anatomy and function:: Patient communicates acknowledgment - Pt recent former PH I and PH II CR pt at [facility]
[2018-11-05] MEDS: Metoprolol(XL)Succ 25 MG Tablet 12.5 MG PO (11:15)
--- NOTE | 2018-11-05 16:48 | PCM.DC.CCA ---
Discharge Diet: Low fat/ Low Cholesterol Discharge Activity: Return to Normal Activity May shower in (days): 1 - No tub baths for 5 days May resume sexual activity in: 1-2 weeks Lifting Restrictions: Do not lift anything greater than 10 pounds for 3 days Call your doctor if your incision/area has: Continuous Slow Oozing, Sudden Increased Bleeding, Increased Pain/ Swelling, Increased Redness, Foul Smelling Discharge, Swelling at the incision site Call your doctor if you observe: Fever of 101 or Higher, Shortness of breath, Chest pain Remove Dressing in (days):: 1 Cleanse incision/area with: Soap & Water Additional Instructions: He will continue with Aspirin and Plavix therapy. If anyone asks you to stop your Plavix therapy please call the [facility] office at [phone]. You are scheduled for an office appointment Dr. Ross on November 19, 2018 at 1:45. If you have any questions or concerns please call the [facility] Office. Allergies/Adverse Reactions: Allergies No Known Allergies Allergy (Verified 02/05/18 13:34) Medications to take at Discharge albuterol sulfate HFA 90 mcg/actuation aerosol inhaler 2 puff INHALATION Q6H PRN #18 g 05/06/18 metoprolol succinate ER 25 mg tablet,extended release 24 hr 12.5 mg PO DAILY #45 tab 05/06/18 aspirin 81 mg tablet,delayed release 81 mg PO QDAY #90 tab 05/07/18 atorvastatin 40 mg tablet 40 mg PO QPM #90 tab 05/07/18 clopidogrel 75 mg tablet 75 mg PO DAILY #90 tab 05/07/18 Orders to be completed after discharge: Phase II, Outpatient Cardiac Rehab Location: None Selected Primary Care Physician: Care Physician,No Primary [Primary Care Provider] - Test Results: Test results from this visit will be discussed in further detail at your follow-up appointment, if applicable. Please Follow Up With: Dr. Ross When: 11/19/2018 at 1:45 Cardiac Rehabilitation Info Cardiac Rehabilitation Program Information: Cardiac Rehabilitation is important for patients like you who are recovering from a heart problem. Cardiac rehabilitation programs are recognized as integral to the continued care of the patient with coronary heart disease. The cardiac rehabilitation program is designed to optimize a patient's physical, psychological, and social functioning. Health manager intensive care unit work in cardiac rehabilitation programs and assist you with getting the treatments you need to get stronger and healthier - like exercise, healthy eating habits, and medications. Cardiac rehabilitation has been show to help people with heart problems live longer and have better life enjoyment than people who do not go to cardiac rehabilitation. Please contact the Cardiac Rehabilitation Program at [facility] at in two weeks if you have not heard from them.
--- NOTE | 2018-11-05 16:54 | PCM.PN.BLA ---
Progress Note Patient is not discharged on an KELLIE inhibitor or ARB due to lower blood pressure readings. This will be assessed on an outpatient basis.
[2018-11-05] MEDS: Atorvastatin Calcium 40 MG Tablet PO (21:17)
[2018-11-06] VITALS (13 sets, daily range): BP systolic 94–139; BP diastolic 40–102; PULSE 56–77; RESP 11–20; TEMP 36.4–36.7; O2SAT 94–98
[2018-11-06 05:18] LABS: Hematocrit 42.7 % (40-54); Hemoglobin 14.6 g/dL (13.0-16.5); Mean Corp Hgb Conc 34.2 g/dL (32-36); Mean Corpuscular Hgb 32.3 pg (27.0-32.0); Mean Corpuscular Volume 94.5 fL (80-94); Mean Platelet Vol. 9.6 fl (6.2-12.0); Platelet Count 225 K/mm3 (150-450); RBC Distribution Width CV 12.2 % (11.6-14.6); RBC Distribution Width SD 42.5 fl (35.1-43.9); Red Blood Count 4.52 M/mm3 (4.6-6.2); White Blood Count 9.3 K/mm3 (4.4-11.0)
[2018-11-06 05:34] LABS: ALB/GLOB Ratio 0.9 RATIO (0.9-2.4); AST(SGOT) 21 U/L (15-37); Alanine Aminotransfer ALT/SGPT 32 U/L (16-61); Albumin, Serum 3.1 g/dL (3.2-5.0); Alkaline Phosphatase 81 U/L (45-117); Anion Gap 6 (5-15); BUN 16 mg/dL (7-18); BUN/Creat Ratio 16.4 RATIO (10-20); Calcium,Total 8.7 mg/dL (8.5-10.1); Chloride 107 mmol/L (98-107); Creatinine, Serum 0.98 mg/dL (0.70-1.30); EST Glomerular Filtration Rate 87 mL/min (>60); Est Glom Filt Rate - Afr Amer 105 mL/min (>60); Estimated Creatinine Clearance 101.18 ml/min; Globulin 3.5 g/dL (2.2-4.2); Glucose 100 mg/dL (74-106); Potassium 4.1 mmol/L (3.5-5.1); Protein, Total 6.6 g/dL (6.4-8.2); Sodium Level 141 mmol/L (136-145)
[2018-11-06] MEDS: Metoprolol(XL)Succ 25 MG Tablet 12.5 MG PO (09:00)
[2018-11-06] MEDS: Aspirin E.C. 81 MG Tablet PO (09:00)
[2018-11-06] MEDS: Clopidogrel Bisulfate 75 MG Tablet PO (09:00)
--- NOTE | 2018-11-18 09:58 | CL.I_ITS ---
Patient Name: CHAS VICKERS Study Date: 11/05/2018 Performing: Tanisha Ornelas MD Ht: 72.05 inches 183 cm : 1970 Wt: 233.69 lbs 106 kg Age: 48 Gender: male BSA: 2.28 PROCEDURE(S) PERFORMED [id number] W OR WO PTCA, SINGLE CORONARY ARTERY [id number], EACH ADD'L CORONARY ART, SAME MAJOR CLINICAL PROFILE AND CO-MORBIDITIES Indications: New Onset Angina <= 2 months Heart Failure: None Stress/Imaging Stress/Image Study Performed: No Angina Classification Anginal Classification w/in 2 Weeks: CCS III CAD Presentations: Unstable angina. CONCLUSIONS Successful PTCA/OMARI of LAD/D2 bifurcation with OMARI to LAD and PTCA alone of D2 RECOMMENDATIONS Follow up with Dr. Cody NICHOLS Indefinitley Routine post interventional care Plavix for at least 12 months DESCRIPTION OF PROCEDURE The patient arrived to the procedure lab. The risks and benefits of the procedure as well as a full d escription of our services here and current unavailability of surgical backup were fully explained to the patient and/or their significant other prior to the catheterization. The Timeout was completed, verifying the correct patient and procedure. The patient's procedural site was prepped and draped in the usual fashion. Local anesthetic was given subcutaneously to right radial region with Lidocaine 2% Using a modified Seldinger technique,arterial access was obtained via the right radial artery, a 6Fr sheath was inserted. Right Coronary Artery selective angiography was then performed in multiple view s using a 5 Fr. 4.0 [place] catheter. Left Coronary Artery selective angiography was performed in multi ple views using a 5 Fr. 4.0 [place] catheter. Left Ventriculography was performed in ALVAREZ projection usi ng a 5 Fr. Pigtail catheter. LV to AO pullback pressures were then recorded.The images were reviewed and options discussed. A decision was then made to proceed with an Intervention, IVUS o r other adjunct procedure. XB 3.0 Guide catheter was inserted and engaged into the LCA. BMW Guide wire was advanced to the L AD. emerge 2.50 x8 Balloon catheter was inserted. PTCA balloon inflated at 6 atms for 7 secs. PTCA ba lloon inflated at 6 atms for 8 secs. Angiogram performed post balloon dilatation. Whisper Guide wire was inserted as a sridevi wire Emerge 1.20x8 Balloon catheter was inserted. PTCA balloon inflated at 12 atms for 16 secs. PTCA balloon inflated at 12 atms for 40 secs. Elunir 2.5x12 Drug Eluting stent was inserted. Angiogram performed post stent deployment. Emerge 1.50x8 Balloon catheter was inserted. PT CA balloon inflated at 10 atms for 12 secs. PTCA balloon inflated at 10 atms for 10 secs. PTCA balloo n inflated at 10 atms for 6 secs. Angiogram performed post balloon dilatation. The arterial sheath was pulled and a TR Band was applied for hemostasis w/ 10ml air INTERVENTION INFORMATION LESION SITE: LAD (Mid) Lesion Complexity: High/C, chronic total occlusion: No, lesion at bifurcation: Yes, thrombus present: No, lesion length: 5 mm, culprit lesion: Yes, Previously treated lesion: Yes, In-stent restenosis: Y es, Timeframe of previous treatment: 6-12 months, Previously treated with a stent: Yes Stent Type: wi th OMARI Pre Stenosis: 95 % Pre intervention RENAE flow: 3 PROCEDURE: Drug Eluting Stent with pre dilatation. Post Stenosis: 0 % Post intervention RENAE flow: 3 Lesion Devices: Cordis 6 Fr XB3.0 100cm Guide Catheter Terry Sci EMERGE MR 2.50x08 BALLOON Cardinal Elunir OMARI RX 2.5x12 LESION SITE: 2nd Diagonal (Ostial) Lesion Complexity: High/C, chronic total occlusion: No, lesion at bifurcation: Yes, thrombus present: No, lesion length: 4 mm, culprit lesion: Yes, In-stent restenosis: No Pre Stenosis: 80 % Pre intervention RENAE flow: 3 PROCEDURE: Balloon Angioplasty Post Stenosis: 60 % Post intervention RENAE flow: 3 Lesion Devices: Cordis 6 Fr XB3.0 100cm Guide Catheter Salter .014 HT Whisper MS Straight 190cm Terry Sci EMERGE MR 1.20x08 BALLOON Terry Sci EMERGE MR 1.50x08 BALLOON COMPLICATIONS No Complications PROCEDURE MEDICATIONS Versed 1 mg IV Fentanyl 50 mcg IV Oxygen: 2 L/min via nasal cannula Heparin diluted in 23cc Heparinized saline. Patient given 10cc IA of this solution. 11/05/2018 08:09: 55 Heparin 6000 unit(s) IV 11/05/2018 08:26:35 Nitro 200 mcg IC 11/05/2018 08:40:32 Verapamil 2.5mg, Ntg 100mcgs, 2000 units of Heparin diluted in 23cc Heparinized saline. Patient give n 10cc IA of this solution. 11/05/2018 08:09:55 SUMMARY OF HEMODYNAMIC DATA Time AIR REST ECG 07:01:32 AO 111/78 (93) SA 08:11:10 LV 99/7, 12 08:18:23 LV 103/7, 12 08:18:29 LV 103/9, 14 08:19:12 LVp 111/11, 15 08:19:18 AOp 115/79 (97) 08:19:23 Signed By Tanisha Ornelas MD On 11/05/2018 9:39:27 AM Tanisha Ornelas MD
== END 2018-11-06 10:53 | disposition home or self-care (01) ==
LOC: CLSP 05:50 → ICU 08:34
PROVIDERS: Nurse Practitioner Family; Specialist; Referring Provider Internal Medicine Cardiovascular Disease; Visit Provider Internal Medicine Cardiovascular Disease
DX: I25.119 Atherosclerotic heart disease of native coronary artery with unspecified angina pectoris (principal); T82.855A Stenosis of coronary artery stent, initial encounter; F17.210 Nicotine dependence, cigarettes, uncomplicated; Z95.5 Presence of coronary angioplasty implant and graft; K58.9 Irritable bowel syndrome, unspecified; Z79.82 Long term (current) use of aspirin; Z79.899 Other long term (current) drug therapy
CPT/HCPCS: 36415; 71046; 80048; 80053; 80061; 80076; 85025; 85027; 92921; 92928; 93005; 93458; 99152; 99153; J7040; Q9967; C1725; C1769; C1874; C1887; C1894; C9600

== ENCOUNTER 2019-01-21 19:43 | Emergency (ER) | payer OTHER, SELFPAY ==
[2018-01-25 13:16] VITALS: BMI 31.8
[2018-11-19 13:41] VITALS: BMI 31.7
[2019-01-21 19:44] VITALS: BP 164/87; PULSE 91; RESP 16; TEMP 36.7; O2SAT 96; BMI 32.1
[2019-01-21 20:04] VITALS: BP 105/70; PULSE 88; RESP 25; O2SAT 94
--- NOTE | 2019-01-21 20:21 | EKG12_ITS ---
Test Reason : CP Blood Pressure : / mmHG Vent. Rate : 085 BPM Atrial Rate : 085 BPM P-R Int : 134 ms QRS Dur : 072 ms QT Int : 354 ms P-R-T Axes : 045 048 026 degrees QTc Int : 421 ms Normal sinus rhythm Normal ECG Confirmed by ANITA BUCK, KYLER ([id number]), film editor supervisor KATHRYN MCCARTHY ([id number] on 01/24/2019 11:39:11 AM Referred By: YADIRA Confirmed By:KYLER HOWARD MD
--- NOTE | 2019-01-21 20:25 | RAD_ITS ---
STUDY: X-RAY CHEST REASON FOR EXAM: Male, 48 years old. Chest pain and lightheadedness. TECHNIQUE: 2 views COMPARISON: Prior chest radiograph of November 04, 2018 FINDINGS: The lungs are clear and expanded. There is no demonstrated pleural abnormality. Normal size heart. Normal mediastinum and zoë. Normal visualized pulmonary arteries. Normal visualized aortic arch and descending thoracic aorta. Mild degenerative changes of the thoracic spine. Normal visualized ribs, clavicles, and shoulders. There is no demonstrated abnormality of the visualized soft tissue structures of the upper abdomen. RAD/Chest PA and Lateral IMPRESSION: No acute cardiopulmonary findings or changes. Electronically Signed: Beti Sibley MD at 20:58 EST , Service support ,
--- NOTE | 2019-01-21 20:29 | ED.DCSUM_ITS ---
- ER Visit Summary Date of Service: 01/21/19 Chief Complaint: Chest pain History of Present Illness: The patient is a 48 M who presents with chest pain that is been waxing and waning throughout the day today. Patient describes the pain as a pressure. Patient states the pain is different than the pain he had prior to his stents. Patient states the pain is over the substernal area. Patient states nothing makes it better or worse. Patient admits to some nausea and shortness of breath with the pain. Patient also admits to some lightheadedness and states he felt like he might pass out. Patient admits to some palpitations where he felt like his heart was beating hard. Patient denies any diaphoresis. Patient denies any cough. Patient denies any fevers or chills. Patient denies any heartburn or reflux. Physical Examination: Vital signs are stable. Patient is afebrile. Patient is in no acute distress. Oral mucosa is pink and moist. Neck is supple. Trachea is midline. There is no JVD. Heart was regular rate and rhythm. Lungs are clear and equal bilaterally. Abdomen is soft and nontender. Remedies are intact. There is no calf tenderness or edema. Cranial nerves II through XII are intact. There are no focal motor or sensory deficits noted. Test Results: EKG showed a normal sinus rhythm with a rate of 85. There are no acute ST or T wave changes. CBC shows slight leukocytosis of 11.1. Basic metabolic profile and troponin were within normal limits. PA and lateral chest x-ray was obtained and was normal. This was interpreted by the radiologist and myself. Emergency Department Course and Treatment: Patient was given aspirin here. Patient states his pain has been intermittent. Patient states his pain is different than the pain he had prior to his cardiac stents. Patient has a HEART score of 3. Patient was advised that this is low risk for acute cardiac event. Patient was instructed to follow-up with his primary care physician in 3 to 5 days. Patient understood and was agreeable with the plan. Patient was instructed return if worse in any way especially if he had the burning sensation that he had similar to his stent placement. Disposition: Discharge home Impression: Chest pain This note was generated with [employer] dictation software. It may contain incorrect words, spelling, and punctuation that were not noted in review of the chart prior to signing ED Disposition - Plan for ED Patient: Disposition: Home or Assisted Living Diagnosis: Chest pain Instructions: CHEST PAIN, Uncertain Cause Referrals: Care Physician,No Primary [Primary Care Provider] -
[2019-01-21] MEDS: Aspirin 81 MG TAB.CHEW 324 MG PO (20:32)
[2019-01-21 20:54] LABS: Absolute Lymphocyte Count 2.74 X10^3/uL (0.83-4.51); Absolute Neutrophil Count 7.3 X10^3/uL (2.0-7.7); Basophil# 0.02 X10^3/uL; Basophil% 0.2 % (0-1); Eosinophil# 0.14 X10^3/uL; Eosinophils% 1.3 % (0-5); Hematocrit 41.3 % (40-54); Hemoglobin 14.5 g/dL (13.0-16.5); Lymphocyte # 2.74 X10^3/ul (4.0); Lymphocyte % 24.7 % (19-41); Mean Corp Hgb Conc 35.1 g/dL (32-36); Mean Corpuscular Hgb 32.9 pg (27.0-32.0); Mean Corpuscular Volume 93.7 fL (80-94); Mean Platelet Vol. 10.2 fl (6.2-12.0); Monocyte# 0.89 X10^3/uL; NRBC Flagged by Analyzer 0 % (0-5); Neutrophil # 7.27 X10^3/uL (2.7-7.7); Neutrophil % 65.3 % (47-70); Platelet Count 270 K/mm3 (150-450); RBC Distribution Width CV 12.3 % (11.6-14.6); RBC Distribution Width SD 42.7 fl (35.1-43.9); Red Blood Count 4.41 M/mm3 (4.6-6.2); White Blood Count 11.1 K/mm3 (4.4-11.0)
[2019-01-21 20:55] LABS: Anion Gap 7 (5-15); BUN 16 mg/dL (7-18); BUN/Creat Ratio 14.7 RATIO (10-20); Chloride 104 mmol/L (98-107); Creatinine, Serum 1.09 mg/dL (0.70-1.30); EST Glomerular Filtration Rate 77 mL/min (>60); Est Glom Filt Rate - Afr Amer 93 mL/min (>60); Estimated Creatinine Clearance 88.27 ml/min; Glucose 137 mg/dL (74-106); Potassium 3.4 mmol/L (3.5-5.1); Sodium Level 141 mmol/L (136-145)
[2019-01-21 21:59] VITALS: BP 101/66; PULSE 78; RESP 19; O2SAT 93
[2019-01-21 22:07] VITALS: BP 101/66; PULSE 85; O2SAT 94
--- NOTE | 2019-01-21 22:09 | ED.RN ---
nitro not given to low bp with systolic in low 100's. dr. huynh aware
== END 2019-01-21 22:09 | disposition home or self-care (01) ==
PROVIDERS: Emergency Provider Emergency Medicine
DX: R07.9 Chest pain, unspecified (principal); I25.10 Atherosclerotic heart disease of native coronary artery without angina pectoris; I10 Essential (primary) hypertension; E78.00 Pure hypercholesterolemia, unspecified; Z82.49 Family history of ischemic heart disease and other diseases of the circulatory system; Z95.5 Presence of coronary angioplasty implant and graft; R42 Dizziness and giddiness; R11.0 Nausea; R06.02 Shortness of breath
CPT/HCPCS: 71046; 80048; 84484; 85025; 93005; 99285; A4216

== ENCOUNTER → 2019-02-04 09:37 | Outpatient (CLI) | payer OTHER, SELFPAY ==
[2018-01-25 13:16] VITALS: BMI 31.8
[2019-02-04 08:27] VITALS: BMI 33.7
== END ==
PROVIDERS: Referring Provider Internal Medicine Cardiovascular Disease; Visit Provider Internal Medicine Cardiovascular Disease
DX: I25.10 Atherosclerotic heart disease of native coronary artery without angina pectoris (principal); R00.2 Palpitations; F17.200 Nicotine dependence, unspecified, uncomplicated; Z95.5 Presence of coronary angioplasty implant and graft
CPT/HCPCS: 93225; 93226

== ENCOUNTER 2019-02-07 07:37 | Day surgery (SDC) | payer OTHER, SELFPAY ==
[2018-01-25 13:16] VITALS: BMI 31.8
[2019-02-04 08:27] VITALS: BMI 33.7
[2019-02-04 10:41] LABS: International Normalized Ratio 1.1; Prothrombin Time (Protime)PT. 13.6 SECONDS (11.7-14.9)
[2019-02-04 11:02] LABS: AST(SGOT) 26 U/L (15-37); Alanine Aminotransfer ALT/SGPT 39 U/L (16-61); Albumin, Serum 3.8 g/dL (3.2-5.0); Alkaline Phosphatase 88 U/L (45-117); Bilirubin, Direct 0.19 mg/dL (0.00-0.30); Cholesterol 129 mg/dL (200); Globulin 3.9 g/dL (2.2-4.2); High Density Lipoprotein 43 mg/dL; Protein, Total 7.7 g/dL (6.4-8.2); Triglycerides 96 mg/dL; Very Low Density Lipoprotein 19 mg/dL (5-40)
[2019-02-07 08:08] VITALS: BMI 31.6
[2019-02-07 08:12] LABS: Anion Gap 4 (5-15); BUN 19 mg/dL (7-18); Calcium,Total 8.7 mg/dL (8.5-10.1); Chloride 105 mmol/L (98-107); Creatinine, Serum 1.12 mg/dL (0.70-1.30); EST Glomerular Filtration Rate 74 mL/min (>60); Est Glom Filt Rate - Afr Amer 90 mL/min (>60); Estimated Creatinine Clearance 88.53 ml/min; Glucose 112 mg/dL (74-106); Potassium 4.1 mmol/L (3.5-5.1); Sodium Level 138 mmol/L (136-145)
--- NOTE | 2019-02-07 09:25 | CL.D_ITS ---
Patient Name: CHAS VICKERS Study Date: 02/07/2019 Performing: John Ross MD Ht: 72.04 inches 183 cm : 1970 Wt: 233.69 lbs 106 kg Age: 48 Gender: male BSA: 2.28 PROCEDURE(S) PERFORMED [id number]/COR/LV CLINICAL PROFILE AND INDICATIONS Indications: Suspected CAD Heart Failure: None Stress/Imaging Stress/Image Study Performed: No CAD Presentations: Stable angina. CONCLUSIONS No obstructive CAD; previously placed stent patent RECOMMENDATIONS Medical therapy DESCRIPTION OF PROCEDURE The patient arrived to the procedure lab. The risks and benefits of the procedure as well as a full d escription of our services here and current unavailability of surgical backup were fully explained to the patient and/or their significant other prior to the catheterization. The Timeout was completed, verifying the correct patient and procedure. The patient's procedural site was prepped and draped in the usual fashion. Local anesthetic was given subcutaneously to right groin region with Lidocaine 2%. Using a modified Seldinger technique, arterial access was obtained via the right femoral artery, a 5 Fr sheath was inserted. Left Coronary Artery selective angiography was performed in multiple views u sing a 5 Fr. JL4 catheter. Right Coronary Artery selective angiography was then performed in multiple views using a 5 Fr. 3DRC (Laron) catheter. Left Ventriculography was performed in ALVAREZ projection using a 5 Fr. Pigtail catheter. LV to AO pullback pressures were then recorded.Contrast was injected through the sheath and the Right Iliac and Femoral artery were assessed for possible coleen sure device.The arterial sheath was pulled and a Mynx closure device was deployed for hemostasis CORONARY ANGIOGRAPHY DOMINANCE: Right Dominant LEFT HEART ASSESSMENT Left Ventricular Ejection Fraction: by LV Gram 60 % Normal LV wall motion Normal Left Ventricular systolic function LEFT MAIN: Angiographically normal LEFT ANTERIOR DESCENDING ARTERY: MID LAD: Previously placed stent is patent CIRCUMFLEX ARTERY: Angiographically normal RIGHT CORONARY ARTERY: No significant disease noted COMPLICATIONS No Complications PROCEDURE MEDICATIONS Versed 1 mg IV Oxygen: 2 L/min via nasal cannula SUMMARY OF HEMODYNAMIC DATA Time AIR REST ECG 08:13:21 AO 101/69 (84) SA 09:01:49 LV 106/3, 10 09:08:03 LV 103/3, 10 09:08:09 LV 113/8, 16 09:09:00 LVp 114/8, 16 09:09:03 AOp 0/0 (47) 09:09:08 Signed By John Ross MD On 02/07/2019 09:24:34 John Ross MD
== END 2019-02-07 12:30 | disposition home or self-care (01) ==
PROVIDERS: Physician Assistant Medical; Referring Provider Internal Medicine Cardiovascular Disease; Visit Provider Internal Medicine Cardiovascular Disease
DX: R07.9 Chest pain, unspecified (principal); I25.10 Atherosclerotic heart disease of native coronary artery without angina pectoris; K58.9 Irritable bowel syndrome, unspecified; Z95.5 Presence of coronary angioplasty implant and graft; F17.210 Nicotine dependence, cigarettes, uncomplicated; R53.83 Other fatigue
CPT/HCPCS: 36415; 80048; 80061; 80076; 85610; 85730; 93458; 99152; C1760; J7040; Q9967; C1769

== ENCOUNTER 2019-02-08 21:12 | Emergency (ER) | payer OTHER, SELFPAY ==
[2018-01-25 13:16] VITALS: BMI 31.8
[2019-02-07 08:08] VITALS: BMI 31.6
[2019-02-08 21:13] VITALS: BP 151/71; PULSE 87; RESP 15; TEMP 36.2; O2SAT 96; BMI 34.1
--- NOTE | 2019-02-08 21:29 | CT_ITS ---
STUDY: CT ABDOMEN AND PELVIS WITH CONTRAST REASON FOR EXAM: Male, 48 years old. Heart catheter yesterday, swelling at the axial axis site RADIATION DOSAGE (If Supplied By Facility): CTDIvol = ( 21.55 ) mGy, DLP = ( 1810.38 ) mGycm TECHNIQUE: Transaxial images were obtained from the dome of the diaphragm to the symphysis pubis without oral contrast. IV 100mL Isovue-370 was administered. Sagittal and coronal images were reconstructed. Individualized dose optimization techniques were used for this CT. COMPARISON: 08/14/2016 FINDINGS: The visualized lung bases are unremarkable. The visualized portions of the heart are within normal limits. Normal liver. The gallbladder is contracted. Normal spleen. Normal pancreas. Normal bilateral adrenal glands. Normal right kidney. Normal left kidney. Normal visualized stomach. Normal small intestine. Normal colon. The appendix is visualized and appears normal. Normal abdominal aorta. Normal inferior vena cava. Normal variant circumaortic left renal vein. Poorly distended and evaluated urinary bladder. Mild soft tissue stranding in the right inguinal region but no discrete focal fluid collection or active extravasation. There operative changes of the left posterior acetabulum. CT/Abdomen/Pelvis W IV Cont ONLY IMPRESSION: 1. No retroperitoneal hematoma. 2. Mild stranding of the right inguinal region. No active extravasation. Electronically Signed: Slade Bear MD (Brooks) at 22:20 EST , Service support ,
--- NOTE | 2019-02-08 21:45 | ED.VIS.GEN ---
History of Present Illness Chief Complaint: Wound Check Informant: Patient Onset: Today Context: Gradual Onset Timing: Continuous Current Severity: Mild Maximum Severity: Mild Narrative: The patient presents to the emergency department with groin pain. The patient had outpatient cardiac cath done yesterday. He states today, he noted some bruising and a palpable lump in his groin. He denies any fevers or chills. He states that he called Dr. Paez who referred him to the emergency department. He said no chest pain or shortness of breath. He is otherwise been in his normal state of health. Prior similar symptoms: Yes Recent Illness/Hospitalization: No Past Medical History - Allergies and Home Meds Allergies/Adverse Reactions: Allergies No Known Allergies Allergy (Verified 02/08/19 21:12) Primary Care Physician: Care Physician,No Primary [Primary Care Provider] - Prior records reviewed: Yes Past Medical History: - - Cardiovascular disease, hypertension Smoking Status: Current every day smoker Review of Systems General: Denies: Chills, Fever, Sweats Eyes: Denies: Visual changes - bilaterally, Diplopia ENT: Denies: Rhinorrhea, Sore throat Cardiovascular: Denies: Chest pain, Palpitations Respiratory: Denies: Dyspnea, Cough, Dyspnea on exertion Gastrointestinal: Denies: Abdominal pain, Nausea, Vomiting, Diarrhea, Melena, Hematochezia Genitourinary: Denies: Dysuria, Hematuria, Frequency Musculoskeletal: Denies: Back pain, Extremity Pain Skin: Denies: Rash, Wounds Neurological: Denies: Headache, Weakness, Numbness Physical Exam Vital Signs/Narrative: Vital Signs Temp Pulse Resp BP Pulse Ox 02/08/19 21:13 97.2 F L 87 15 151/71 H 96 Inital Vital Signs reviewed: Yes General: Well nourished, Well developed, No Acute Distress Head: Normocephalic, Atraumatic Eyes: Perrl, EOMI ENT: Moist mucous membranes, No rhinorrhea Neck: Supple, Nontender Cardiovascular: Regular rate, Regular rhythm, No murmurs Respiratory: No distress, CTA bilaterally, Chest nontender Abdomen: Soft, Nontender, Nondistended, Normal bowel sounds Back: Nontender, Normal Inspection Extremities: No edema, Tenderness - Tenderness in the right groin. No thrill. No bruit. Pulses normal. Small hematoma. Skin: Normal color, No rash Neurological: Alert, Oriented x3, Cranial nerves II-XII grossly intact, Normal Strength, Normal Sensation Psychological: Normal affect, Normal Mood Diagnostic/Tx/Re-eval Clinical Impression(s) from Imaging Studies Abdomen/Pelvis CT 02/08/19 21:29 IMPRESSION: 1. No retroperitoneal hematoma. 2. Mild stranding of the right inguinal region. No active extravasation. Electronically Signed: Slade Bear MD (Brooks) at 22:20 EST , Service support , Abnormal Lab Results 02/08/19 02/08/19 21:39 21:39 WBC 7.9 RBC 4.22 L Hgb 13.7 Hct 40.1 MCV 95.0 H MCH 32.5 H MCHC 34.2 RDW Std Deviation 42.9 RDW Coeff of Tennille 12.5 Plt Count 245 MPV 9.8 Immature Gran % (Auto) 0.400 Neut % (Auto) 55.6 Lymph % (Auto) 34.4 [place] % (Auto) 7.3 Eos % (Auto) 2.0 Baso % (Auto) 0.3 Absolute Neuts (auto) 4.4 Absolute Lymphs (auto) 2.70 Nucleated RBC % 0 Sodium 141 Potassium 3.9 Chloride 109 H Carbon Dioxide 28.0 Anion Gap 4 L BUN 21 H Creatinine 1.09 Estim Creat Clear Calc 88.27 Est GFR (MDRD) Af Amer 93 Est GFR (MDRD) Non-Af 77 BUN/Creatinine Ratio 19.3 Glucose 158 H Calcium 8.8 - Medical Decision Making Patient symptoms do seem consistent with a contusion or small hematoma after his procedure. However, given his history I did obtain imaging. There is no evidence of retroperitoneal hematoma. His pulses are normal. I do not suspect vascular compromise. I did discuss the patient with Dr. Paez who had spoken to the patient earlier today. He will continue his outpatient follow-up and take it easy for couple days. He will be discharged home. Impression 1. Post cath hematoma ED Disposition - Plan for ED Patient: Instructions: POST OP WOUND CHECK, General Referrals: Care Physician,No Primary [Primary Care Provider] -
[2019-02-08 21:48] LABS: Absolute Neutrophil Count 4.4 X10^3/uL (2.0-7.7); Basophil# 0.02 X10^3/uL; Basophil% 0.3 % (0-1); Eosinophil# 0.16 X10^3/uL; Hematocrit 40.1 % (40-54); Hemoglobin 13.7 g/dL (13.0-16.5); Lymphocyte % 34.4 % (19-41); Mean Corp Hgb Conc 34.2 g/dL (32-36); Mean Corpuscular Hgb 32.5 pg (27.0-32.0); Mean Platelet Vol. 9.8 fl (6.2-12.0); Monocyte# 0.57 X10^3/uL; Monocyte% 7.3 % (0-10); NRBC Flagged by Analyzer 0 % (0-5); Neutrophil # 4.37 X10^3/uL (2.7-7.7); Neutrophil % 55.6 % (47-70); Platelet Count 245 K/mm3 (150-450); RBC Distribution Width CV 12.5 % (11.6-14.6); RBC Distribution Width SD 42.9 fl (35.1-43.9); Red Blood Count 4.22 M/mm3 (4.6-6.2); White Blood Count 7.9 K/mm3 (4.4-11.0)
[2019-02-08 22:02] LABS: Anion Gap 4 (5-15); BUN 21 mg/dL (7-18); BUN/Creat Ratio 19.3 RATIO (10-20); Calcium,Total 8.8 mg/dL (8.5-10.1); Chloride 109 mmol/L (98-107); Creatinine, Serum 1.09 mg/dL (0.70-1.30); EST Glomerular Filtration Rate 77 mL/min (>60); Est Glom Filt Rate - Afr Amer 93 mL/min (>60); Estimated Creatinine Clearance 88.27 ml/min; Glucose 158 mg/dL (74-106); Potassium 3.9 mmol/L (3.5-5.1); Sodium Level 141 mmol/L (136-145)
[2019-02-08 22:37] VITALS: PULSE 79; RESP 16; O2SAT 98
== END 2019-02-08 22:37 | disposition home or self-care (01) ==
PROVIDERS: Emergency Provider Emergency Medicine
DX: K66.1 Hemoperitoneum (principal); I10 Essential (primary) hypertension; I25.10 Atherosclerotic heart disease of native coronary artery without angina pectoris; F17.200 Nicotine dependence, unspecified, uncomplicated
CPT/HCPCS: 74177; 80048; 85025; 99284; Q9967; A4216

== ENCOUNTER → 2019-08-04 06:58 | Outpatient (CLI) | payer OTHER, SELFPAY ==
[2018-01-25 13:16] VITALS: BMI 31.8
[2019-08-02 17:07] VITALS: BMI 33.5
--- NOTE | 2019-08-04 12:42 | STRESSREP ---
Stress Test Report Exercise myocardial perfusion stress test. 49-year-old man with a history of previous angioplasty and stenting of the left anterior descending artery. Stress protocol: Resting EKG demonstrates normal sinus rhythm with a rate of 67 bpm T wave inversions noted in lead III. The patient exercised according to the regular Darwin protocol for a total duration of 9 minutes and 45 seconds. The maximum heart rate attained was 148 bpm which was 86% of maximum predicted heart rate the maximum workload was 11.3 metabolic equivalents. The patient maintained sinus rhythm throughout the recording. The test was terminated due to the target heart rate being achieved and dyspnea. The resting blood pressure was 128/78 with a peak blood pressure 172/88 mmHg. The peak blood pressure 172/88. No clinical angina was noted. Myocardial perfusion protocol. 15.0 mCi of technetium 99m sestamibi was injected at rest. The patient exercised according to the Darwin protocol at peak exercise 45.0 mCi of technetium 99m sestamibi was injected stress images were obtained stress and rest images were reconstructed and compared in the short axis vertical long horizontal long axis. Gated images were also obtained Perfusion SPECT analysis: Review of the stress images demonstrate normal uptake of tracer noted in all areas of the myocardium the resting images similar demonstrate normal uptake of tracer noted in all areas of the myocardium. No reversibility is noted to suggest ischemia no previous infarct is noted. Gated SPECT analysis: The gated ejection fraction is 53%. Conclusion: Normal exercise myocardial perfusion stress test at a high workload. Preserved ejection fraction. Excellent functional capacity. No clinical angina.
== END ==
PROVIDERS: Referring Provider Internal Medicine Cardiovascular Disease; Visit Provider Internal Medicine Cardiovascular Disease
DX: R07.9 Chest pain, unspecified (principal); R06.00 Dyspnea, unspecified; F17.200 Nicotine dependence, unspecified, uncomplicated; I25.10 Atherosclerotic heart disease of native coronary artery without angina pectoris; Z95.5 Presence of coronary angioplasty implant and graft
CPT/HCPCS: 78452; 93017; A9500

== ENCOUNTER → 2020-03-16 07:13 | Outpatient (CLI) | payer OTHER, SELFPAY ==
[2018-01-25 13:16] VITALS: BMI 31.8
[2020-02-06 08:29] VITALS: BMI 34.7
--- NOTE | 2020-03-16 07:31 | MRI_ITS ---
STUDY: MRI BRAIN WITH AND WITHOUT CONTRAST (ATTENTION INTERNAL AUDITORY CANALS - I.A.C.''s) REASON FOR EXAM: Male, 49 years old. Hearing loss TECHNIQUE: Standardized multiplanar fat and water weighted pulse sequences were obtained. IV 21ml Dotarem was administered for the contrast portion of the examination. COMPARISON: CT to FINDINGS: Normal bilateral temporal bones. Normal bilateral internal auditory canals. There is no demonstrated intracanalicular or cisternal vestibular schwannoma (acoustic neuroma). There is no enhancement of the bilateral VIIth or VIIIth cranial nerves. Normal bilateral cochlea, vestibules and semicircular canals. Normal size of the ventricles and extra-axial spaces for the patient''s age. Normal white matter tracts of the supratentorial brain. There is no evidence for recent intracranial ischemia or other cause of cytotoxic edema on diffusion weighted imaging (DWI). Normal bilateral basal ganglia. Normal thalami. Normal flow voids within the major intracranial circulation suggesting patency by spin echo criteria. Normal venous enhancement. There is no enhancing intra-axial or extra-axial abnormality. There is no extra-axial fluid accumulation. Normal sella turcica, pituitary gland, infundibular stalk, optic chiasm and hypothalamus. Normal tectal plate and pineal gland. Normal midbrain, farzaneh and medulla. Normal cerebellum. Normal basal cisterns. No demonstrated orbital abnormality, within the constraints of a routine brain study. Mucosal thickening of the left maxillary sinus with an air-fluid level consistent with acute on chronic sinusitis. Normal calvarium and skull base. Normal visualized soft tissue structures. Normal visualized upper cervical spine. MRI/Brain W/WO Contrast IMPRESSION: Normal unenhanced and enhanced MRI of the bilateral internal auditory canals (I.A.C''s). Electronically Signed: Roland Ly MD at 10:59 EST Tel , Service support ,
== END ==
PROVIDERS: Referring Provider Otolaryngology; Visit Provider Otolaryngology
DX: H91.92 Unspecified hearing loss, left ear (principal)
CPT/HCPCS: 70553; A9575

== ENCOUNTER → 2020-03-26 14:44 | Outpatient (CLI) | payer OTHER, SELFPAY ==
[2018-01-25 13:16] VITALS: BMI 31.8
[2020-02-06 08:29] VITALS: BMI 34.7
[2020-03-29 12:07] LABS: QNTFERON TB Mitogen Value > 10.00 IU/mL (.); QNTFERON TB Nil Value 0.02 IU/mL (.); QNTFERON TB1+ Ag Value 0.03 IU/mL (.); QNTFERON TB2+ Ag Value 0.02 IU/mL (.)
[2020-03-29 20:39] LABS: QNTIFERON TB Positive Criteria Negative (Negative)
== END ==
PROVIDERS: Referring Provider Internal Medicine Rheumatology; Visit Provider Internal Medicine Rheumatology
DX: M06.4 Inflammatory polyarthropathy (principal); I25.10 Atherosclerotic heart disease of native coronary artery without angina pectoris; K58.9 Irritable bowel syndrome, unspecified; E78.5 Hyperlipidemia, unspecified; N32.81 Overactive bladder; K21.9 Gastro-esophageal reflux disease without esophagitis
CPT/HCPCS: 36415; 86480

== ENCOUNTER → 2020-04-05 10:28 | Outpatient (CLI) | payer OTHER, SELFPAY ==
[2018-01-25 13:16] VITALS: BMI 31.8
[2020-02-06 08:29] VITALS: BMI 34.7
[2020-04-05 12:42] LABS: Erythrocyte Sedimentation Rate 23 mm/hr (0-20)
[2020-04-05 12:50] LABS: Absolute Lymphocyte Count 3.28 X10^3/uL (0.83-4.51); Absolute Neutrophil Count 8.5 X10^3/uL (2.0-7.7); Basophil# 0.05 X10^3/uL; Basophil% 0.4 % (0-1); Eosinophil# 0.07 X10^3/uL; Eosinophils% 0.5 % (0-5); Hematocrit 46.3 % (40-54); Hemoglobin 15.7 g/dL (13.0-16.5); Lymphocyte # 3.28 X10^3/ul (4.0); Lymphocyte % 25.4 % (19-41); Mean Corp Hgb Conc 33.9 g/dL (32-36); Mean Corpuscular Hgb 31.8 pg (27.0-32.0); Mean Corpuscular Volume 93.9 fL (80-94); Mean Platelet Vol. 10.3 fl (6.2-12.0); Monocyte# 0.89 X10^3/uL; Monocyte% 6.9 % (0-10); NRBC Flagged by Analyzer 0 % (0-5); Neutrophil # 8.49 X10^3/uL (2.7-7.7); Neutrophil % 65.8 % (47-70); Platelet Count 284 K/mm3 (150-450); RBC Distribution Width CV 12.9 % (11.6-14.6); RBC Distribution Width SD 44.6 fl (35.1-43.9); Red Blood Count 4.93 M/mm3 (4.6-6.2); White Blood Count 12.9 K/mm3 (4.4-11.0)
[2020-04-05 12:51] LABS: AST(SGOT) 17 U/L (15-37); Alanine Aminotransfer ALT/SGPT 38 U/L (16-61); Albumin, Serum 3.8 g/dL (3.2-5.0); Alkaline Phosphatase 105 U/L (45-117); Anion Gap 4 (5-15); BUN 22 mg/dL (7-18); BUN/Creat Ratio 21.4 RATIO (10-20); Calcium,Total 9.3 mg/dL (8.5-10.1); Chloride 106 mmol/L (98-107); Creatinine, Serum 1.03 mg/dL (0.70-1.30); EST Glomerular Filtration Rate 81 mL/min (>60); Est Glom Filt Rate - Afr Amer 98 mL/min (>60); Globulin 3.9 g/dL (2.2-4.2); Glucose 92 mg/dL (74-106); Potassium 4.1 mmol/L (3.5-5.1); Protein, Total 7.7 g/dL (6.4-8.2); Rheumatoid Factor < 10.0 IU/mL (<15); Sodium Level 137 mmol/L (136-145)
[2020-04-05 13:27] LABS: Hepatitis B Surface Antibody Non-Reactive; Hepatitis B Surface Antigen Non-Reactive (Nonreactive); Hepatitis C Antibody Non-Reactive (Nonreactive)
[2020-04-06 13:47] LABS: ANTINUCLEAR ANTIBODIES DIRECT Negative (Negative)
[2020-04-07 11:48] LABS: CCP IgG Antibodies 49 units (0-19)
== END ==
PROVIDERS: Referring Provider Internal Medicine Rheumatology; Visit Provider Internal Medicine Rheumatology
DX: M06.4 Inflammatory polyarthropathy (principal); I25.10 Atherosclerotic heart disease of native coronary artery without angina pectoris; K58.9 Irritable bowel syndrome, unspecified; E78.5 Hyperlipidemia, unspecified; N32.81 Overactive bladder; K21.9 Gastro-esophageal reflux disease without esophagitis
CPT/HCPCS: 36415; 80053; 85025; 85652; 86038; 86140; 86200; 86431; 86706; 86803; 87340

== ENCOUNTER → 2020-06-06 16:49 | Outpatient (CLI) | payer OTHER, SELFPAY ==
[2018-01-25 13:16] VITALS: BMI 31.8
[2020-02-06 08:29] VITALS: BMI 34.7
[2020-06-06 17:56] LABS: Absolute Lymphocyte Count 2.97 X10^3/uL (0.83-4.51); Absolute Neutrophil Count 8.7 X10^3/uL (2.0-7.7); Basophil# 0.02 X10^3/uL; Basophil% 0.2 % (0-1); Eosinophil# 0.09 X10^3/uL; Eosinophils% 0.7 % (0-5); Hematocrit 42.2 % (40-54); Hemoglobin 14.1 g/dL (13.0-16.5); Lymphocyte # 2.97 X10^3/ul (0.83-4.51); Lymphocyte % 23.4 % (19-41); Mean Corp Hgb Conc 33.4 g/dL (32-36); Mean Corpuscular Hgb 31.8 pg (27.0-32.0); Mean Corpuscular Volume 95.3 fL (80-94); Mean Platelet Vol. 10.2 fl (6.2-12.0); Monocyte# 0.77 X10^3/uL; Monocyte% 6.1 % (0-10); NRBC Flagged by Analyzer 0 % (0-5); Neutrophil # 8.68 X10^3/uL (2.7-7.7); Neutrophil % 68.3 % (47-70); Platelet Count 278 K/mm3 (150-450); RBC Distribution Width CV 13.4 % (11.6-14.6); RBC Distribution Width SD 47.3 fl (35.1-43.9); Red Blood Count 4.43 M/mm3 (4.6-6.2); White Blood Count 12.7 K/mm3 (4.4-11.0)
[2020-06-06 18:43] LABS: AST(SGOT) 16 U/L (15-37); Alanine Aminotransfer ALT/SGPT 39 U/L (16-61); Albumin, Serum 3.5 g/dL (3.2-5.0); Alkaline Phosphatase 91 U/L (45-117); Anion Gap 5 (5-15); BUN 15 mg/dL (7-18); BUN/Creat Ratio 13.4 RATIO (10-20); Calcium,Total 8.9 mg/dL (8.5-10.1); Chloride 107 mmol/L (98-107); Creatinine, Serum 1.12 mg/dL (0.70-1.30); EST Glomerular Filtration Rate 74 mL/min (>60); Est Glom Filt Rate - Afr Amer 89 mL/min (>60); Globulin 3.4 g/dL (2.2-4.2); Glucose 160 mg/dL (74-106); Potassium 3.6 mmol/L (3.5-5.1); Protein, Total 6.9 g/dL (6.4-8.2); Sodium Level 139 mmol/L (136-145)
== END ==
PROVIDERS: Referring Provider Internal Medicine Rheumatology; Visit Provider Internal Medicine Rheumatology
DX: M06.09 Rheumatoid arthritis without rheumatoid factor, multiple sites (principal); Z79.899 Other long term (current) drug therapy; I25.10 Atherosclerotic heart disease of native coronary artery without angina pectoris; K58.9 Irritable bowel syndrome, unspecified; E78.5 Hyperlipidemia, unspecified; N32.81 Overactive bladder; K21.9 Gastro-esophageal reflux disease without esophagitis
CPT/HCPCS: 36415; 80053; 85025

== ENCOUNTER → 2020-08-07 16:07 | Outpatient (CLI) | payer OTHER, SELFPAY ==
[2018-01-25 13:16] VITALS: BMI 31.8
[2020-02-06 08:29] VITALS: BMI 34.7
[2020-08-07 17:53] LABS: Absolute Lymphocyte Count 1.91 X10^3/uL (0.83-4.51); Absolute Neutrophil Count 8.2 X10^3/uL (2.0-7.7); Basophil# 0.01 X10^3/uL; Basophil% 0.1 % (0-1); Eosinophil# 0.05 X10^3/uL; Eosinophils% 0.5 % (0-5); Hematocrit 39.5 % (40-54); Hemoglobin 13.6 g/dL (13.0-16.5); Lymphocyte # 1.91 X10^3/ul (0.83-4.51); Lymphocyte % 17.9 % (19-41); Mean Corp Hgb Conc 34.4 g/dL (32-36); Mean Corpuscular Volume 95.9 fL (80-94); Mean Platelet Vol. 10.5 fl (6.2-12.0); Monocyte# 0.48 X10^3/uL; Monocyte% 4.5 % (0-10); NRBC Flagged by Analyzer 0 % (0-5); Neutrophil # 8.15 X10^3/uL (2.7-7.7); Neutrophil % 76.5 % (47-70); Platelet Count 267 K/mm3 (150-450); RBC Distribution Width CV 12.9 % (11.6-14.6); RBC Distribution Width SD 45.1 fl (35.1-43.9); Red Blood Count 4.12 M/mm3 (4.6-6.2); White Blood Count 10.7 K/mm3 (4.4-11.0)
[2020-08-07 18:15] LABS: AST(SGOT) 21 U/L (15-37); Alanine Aminotransfer ALT/SGPT 39 U/L (16-61); Albumin, Serum 3.5 g/dL (3.2-5.0); Alkaline Phosphatase 94 U/L (45-117); Anion Gap 6 (5-15); BUN 18 mg/dL (7-18); BUN/Creat Ratio 14.2 RATIO (10-20); Calcium,Total 8.9 mg/dL (8.5-10.1); Chloride 106 mmol/L (98-107); Creatinine, Serum 1.27 mg/dL (0.70-1.30); EST Glomerular Filtration Rate 64 mL/min (>60); Est Glom Filt Rate - Afr Amer 77 mL/min (>60); Globulin 3.5 g/dL (2.2-4.2); Glucose 163 mg/dL (74-106); Potassium 3.9 mmol/L (3.5-5.1); Sodium Level 138 mmol/L (136-145)
[2020-08-10 03:07] LABS: QNTFERON TB Mitogen Value > 10.00 IU/mL (.); QNTFERON TB Nil Value 0 IU/mL (.); QNTFERON TB1+ Ag Value 0 IU/mL (.); QNTFERON TB2+ Ag Value 0 IU/mL (.)
[2020-08-10 08:02] LABS: QNTIFERON TB Positive Criteria Negative (Negative)
== END ==
PROVIDERS: Referring Provider Internal Medicine Rheumatology; Visit Provider Internal Medicine Rheumatology
DX: M06.09 Rheumatoid arthritis without rheumatoid factor, multiple sites (principal); Z79.899 Other long term (current) drug therapy; I25.10 Atherosclerotic heart disease of native coronary artery without angina pectoris; K58.9 Irritable bowel syndrome, unspecified; E78.5 Hyperlipidemia, unspecified; N32.81 Overactive bladder; K21.9 Gastro-esophageal reflux disease without esophagitis
CPT/HCPCS: 36415; 80053; 85025; 86480

== ENCOUNTER → 2020-08-14 11:47 | Outpatient (CLI) | payer OTHER, SELFPAY ==
[2018-01-25 13:16] VITALS: BMI 31.8
[2020-02-06 08:29] VITALS: BMI 34.7
--- NOTE | 2020-08-14 11:50 | RAD_ITS ---
STUDY: X-RAY CHEST REASON FOR EXAM: Male, 50 years old. PAIN/ MEDS TECHNIQUE: 2 views COMPARISON: January 12 2019. FINDINGS: The lungs are clear and expanded. There is no demonstrated pleural abnormality. Normal size heart. Normal mediastinum and zoë. Normal visualized pulmonary arteries. Normal visualized aortic arch and descending thoracic aorta. Normal visualized thoracic spine. Normal visualized ribs, clavicles, and shoulders. There is no demonstrated abnormality of the visualized soft tissue structures of the upper abdomen. RAD/Chest PA and Lateral IMPRESSION: Normal x-ray examination of the chest. Unchanged since December 2018. Electronically Signed: Esequiel Goodwin, at 8:42 EDT Tel , Service support ,
== END ==
PROVIDERS: Referring Provider Internal Medicine Rheumatology; Visit Provider Internal Medicine Rheumatology
DX: M06.09 Rheumatoid arthritis without rheumatoid factor, multiple sites (principal); Z79.899 Other long term (current) drug therapy; I25.10 Atherosclerotic heart disease of native coronary artery without angina pectoris; K58.9 Irritable bowel syndrome, unspecified; E78.5 Hyperlipidemia, unspecified; N32.81 Overactive bladder; K21.9 Gastro-esophageal reflux disease without esophagitis
CPT/HCPCS: 71046

== ENCOUNTER → 2020-10-03 16:33 | Outpatient (CLI) | payer OTHER, SELFPAY ==
[2018-01-25 13:16] VITALS: BMI 31.8
[2020-09-24 17:15] VITALS: BMI 33.6
[2020-10-03 17:45] LABS: Absolute Lymphocyte Count 2.98 X10^3/uL (0.83-4.51); Absolute Neutrophil Count 5.3 X10^3/uL (2.0-7.7); Basophil# 0.02 X10^3/uL; Basophil% 0.2 % (0-1); Eosinophil# 0.17 X10^3/uL; Eosinophils% 1.9 % (0-5); Hematocrit 41.1 % (40-54); Hemoglobin 14.3 g/dL (13.0-16.5); Lymphocyte # 2.98 X10^3/ul (0.83-4.51); Lymphocyte % 32.8 % (19-41); Mean Corp Hgb Conc 34.8 g/dL (32-36); Mean Corpuscular Hgb 33.5 pg (27.0-32.0); Mean Corpuscular Volume 96.3 fL (80-94); Mean Platelet Vol. 10.4 fl (6.2-12.0); Monocyte# 0.61 X10^3/uL; Monocyte% 6.7 % (0-10); NRBC Flagged by Analyzer 0 % (0-5); Neutrophil # 5.26 X10^3/uL (2.7-7.7); Neutrophil % 57.8 % (47-70); Platelet Count 269 K/mm3 (150-450); RBC Distribution Width CV 12.5 % (11.6-14.6); RBC Distribution Width SD 44.4 fl (35.1-43.9); Red Blood Count 4.27 M/mm3 (4.6-6.2); White Blood Count 9.1 K/mm3 (4.4-11.0)
[2020-10-03 18:18] LABS: ALB/GLOB Ratio 1.1 RATIO (0.9-2.4); AST(SGOT) 22 U/L (15-37); Alanine Aminotransfer ALT/SGPT 49 U/L (16-61); Albumin, Serum 3.7 g/dL (3.2-5.0); Alkaline Phosphatase 68 U/L (45-117); Anion Gap 7 (5-15); BUN 18 mg/dL (7-18); BUN/Creat Ratio 16.7 RATIO (10-20); Chloride 103 mmol/L (98-107); Creatinine, Serum 1.08 mg/dL (0.70-1.30); EST Glomerular Filtration Rate 77 mL/min (>60); Est Glom Filt Rate - Afr Amer 93 mL/min (>60); Globulin 3.4 g/dL (2.2-4.2); Glucose 96 mg/dL (74-106); Potassium 3.7 mmol/L (3.5-5.1); Protein, Total 7.1 g/dL (6.4-8.2); Sodium Level 138 mmol/L (136-145)
== END ==
PROVIDERS: Referring Provider Internal Medicine Rheumatology; Visit Provider Internal Medicine Rheumatology
DX: M06.09 Rheumatoid arthritis without rheumatoid factor, multiple sites (principal); Z79.899 Other long term (current) drug therapy; I25.10 Atherosclerotic heart disease of native coronary artery without angina pectoris; K58.9 Irritable bowel syndrome, unspecified; E78.5 Hyperlipidemia, unspecified; N32.81 Overactive bladder; K21.9 Gastro-esophageal reflux disease without esophagitis
CPT/HCPCS: 36415; 80053; 85025

== ENCOUNTER → 2020-12-04 15:34 | Outpatient (CLI) | payer OTHER, SELFPAY ==
[2018-01-25 13:16] VITALS: BMI 31.8
[2020-12-04 17:54] LABS: Absolute Lymphocyte Count 2.21 X10^3/uL (0.83-4.51); Absolute Neutrophil Count 1.9 X10^3/uL (2.0-7.7); Basophil# 0.01 X10^3/uL; Basophil% 0.2 % (0-1); Eosinophil# 0.12 X10^3/uL; Eosinophils% 2.5 % (0-5); Hematocrit 41.9 % (40-54); Hemoglobin 14.8 g/dL (13.0-16.5); Lymphocyte # 2.21 X10^3/ul (0.83-4.51); Lymphocyte % 46.3 % (19-41); Mean Corp Hgb Conc 35.3 g/dL (32-36); Mean Corpuscular Hgb 33.5 pg (27.0-32.0); Mean Corpuscular Volume 94.8 fL (80-94); Mean Platelet Vol. 10.4 fl (6.2-12.0); Monocyte# 0.57 X10^3/uL; Monocyte% 11.9 % (0-10); NRBC Flagged by Analyzer 0 % (0-5); Neutrophil # 1.85 X10^3/uL (2.7-7.7); Neutrophil % 38.9 % (47-70); Platelet Count 196 K/mm3 (150-450); RBC Distribution Width CV 12.8 % (11.6-14.6); RBC Distribution Width SD 44.4 fl (35.1-43.9); Red Blood Count 4.42 M/mm3 (4.6-6.2); White Blood Count 4.8 K/mm3 (4.4-11.0)
[2020-12-04 18:11] LABS: AST(SGOT) 31 U/L (15-37); Alanine Aminotransfer ALT/SGPT 52 U/L (16-61); Albumin, Serum 3.6 g/dL (3.2-5.0); Alkaline Phosphatase 72 U/L (45-117); Anion Gap 7 (5-15); BUN 15 mg/dL (7-18); BUN/Creat Ratio 14.7 RATIO (10-20); Chloride 106 mmol/L (98-107); Creatinine, Serum 1.02 mg/dL (0.70-1.30); EST Glomerular Filtration Rate 82 mL/min (>60); Est Glom Filt Rate - Afr Amer 99 mL/min (>60); Globulin 3.7 g/dL (2.2-4.2); Glucose 75 mg/dL (74-106); Potassium 3.7 mmol/L (3.5-5.1); Protein, Total 7.3 g/dL (6.4-8.2); Sodium Level 141 mmol/L (136-145)
== END ==
PROVIDERS: Referring Provider Internal Medicine Rheumatology; Visit Provider Internal Medicine Rheumatology
DX: M06.09 Rheumatoid arthritis without rheumatoid factor, multiple sites (principal); Z79.899 Other long term (current) drug therapy; I25.10 Atherosclerotic heart disease of native coronary artery without angina pectoris; K58.9 Irritable bowel syndrome, unspecified; E78.5 Hyperlipidemia, unspecified; N32.81 Overactive bladder; K21.9 Gastro-esophageal reflux disease without esophagitis
CPT/HCPCS: 36415; 80053; 85025

== ENCOUNTER → 2021-02-21 10:20 | Outpatient (CLI) | payer OTHER, SELFPAY ==
[2018-01-25 13:16] VITALS: BMI 31.8
--- NOTE | 2021-02-21 10:22 | CDU_ITS ---
Reason For Study: Family history carotid artery stenosis, CAD Rt. Velocities/BP Lt. Velocities/BP Prox CCA 113.8/33.4 cm/sec. Prox CCA 137.5/38.9 cm/sec. Mid CCA 110.1/37.1 cm/sec. Mid CCA 124.7/42.6 cm/sec. Dist CCA 91.9/31.6 cm/sec. Dist CCA 112/44.4 cm/sec. Prox ICA 63/24.9 cm/sec. Prox ICA 102.8/37.1 cm/sec. Mid ICA 91.2/39.7 cm/sec. Mid ICA 106.5/53.5 cm/sec. Dist ICA 103.5/45.8 cm/sec. Dist ICA 75.3/39.7 cm/sec. Rt. ICA/CCA = 0.9. Lt. ICA/CCA = 0.9. Prox ECA 171.8/38 cm/sec. Prox ECA 148.5/31.6 cm/sec. Rt. Vert. 33.4/13.3 cm/sec. Lt. Vert. 35.2/17.7 cm/sec. Right Extracranial There is homogeneous, smooth atherosclerotic plaque noted in the right common carotid artery. There is homogeneous, smooth atherosclerotic plaque noted in the right internal carotid artery. There is intimal thickening but no significant atherosclerotic plaque noted in the right external carotid artery. Antegrade flow is noted in the right vertebral artery. Left Extracranial There is homogeneous, smooth atherosclerotic plaque noted in the left common carotid artery. There is heterogeneous, smooth atherosclerotic plaque noted in the left internal carotid artery. There is intimal thickening but no significant atherosclerotic plaque noted in the left external carotid artery. Antegrade flow is noted in the left vertebral artery. Procedure Carotid Duplex 98433. This is a Carotid Duplex examination using B-mode, color flow and specral Doppler. Exam performed in department. VL/Carotid Duplex Ultrasound Interpretation Summary Minimal smooth plaque at the proximal right internal carotid artery with less t muller 50% stenosis Less than 50% stenosis right external carotid artery Minimal calcific plaque at the proximal left internal carotid artery with less than 50% stenosis Less than 50% stenosis left external carotid artery Patent and antegrade vertebral arteries bilaterally Ordering Physician: Rocael Castillo Performed By: Cassidy Hamm RVT
[2021-02-21 13:02] LABS: AST(SGOT) 29 U/L (15-37); Alanine Aminotransfer ALT/SGPT 49 U/L (16-61); Albumin, Serum 3.8 g/dL (3.2-5.0); Alkaline Phosphatase 70 U/L (45-117); Bilirubin, Direct 0.12 mg/dL (0.00-0.30); Cholesterol 142 mg/dL (200); Globulin 3.5 g/dL (2.2-4.2); High Density Lipoprotein 37 mg/dL; Protein, Total 7.3 g/dL (6.4-8.2); Triglycerides 82 mg/dL; Very Low Density Lipoprotein 16 mg/dL (5-40)
== END ==
PROVIDERS: Referring Provider Nurse Practitioner Family; Visit Provider Nurse Practitioner Family
DX: I65.22 Occlusion and stenosis of left carotid artery (principal); I25.10 Atherosclerotic heart disease of native coronary artery without angina pectoris; Z95.5 Presence of coronary angioplasty implant and graft
CPT/HCPCS: 36415; 80061; 80076; 93880

== ENCOUNTER 2021-04-10 07:18 | Outpatient (CLI) | payer OTHER, SELFPAY ==
[2018-01-25 13:16] VITALS: BMI 31.8
[2021-04-10 10:33] LABS: Absolute Lymphocyte Count 2.38 X10^3/uL (0.83-4.51); Absolute Neutrophil Count 4.3 X10^3/uL (2.0-7.7); Basophil# 0.01 X10^3/uL; Basophil% 0.1 % (0-1); Eosinophils% 2.6 % (0-5); Hemoglobin 14.6 g/dL (13.0-16.5); Lymphocyte # 2.38 X10^3/ul (0.83-4.51); Lymphocyte % 31.1 % (19-41); Mean Corpuscular Hgb 32.7 pg (27.0-32.0); Mean Corpuscular Volume 96.2 fL (80-94); Mean Platelet Vol. 10.5 fl (6.2-12.0); Monocyte# 0.74 X10^3/uL; Monocyte% 9.7 % (0-10); NRBC Flagged by Analyzer 0 % (0-5); Neutrophil # 4.31 X10^3/uL (2.7-7.7); Neutrophil % 56.2 % (47-70); Platelet Count 239 K/mm3 (150-450); RBC Distribution Width CV 12.3 % (11.6-14.6); RBC Distribution Width SD 43.9 fl (35.1-43.9); Red Blood Count 4.47 M/mm3 (4.6-6.2); White Blood Count 7.7 K/mm3 (4.4-11.0)
[2021-04-10 10:56] LABS: ALB/GLOB Ratio 1.1 RATIO (0.9-2.4); AST(SGOT) 21 U/L (15-37); Alanine Aminotransfer ALT/SGPT 38 U/L (16-61); Albumin, Serum 3.5 g/dL (3.2-5.0); Alkaline Phosphatase 68 U/L (45-117); Anion Gap 8 (5-15); BUN 17 mg/dL (7-18); BUN/Creat Ratio 15.9 RATIO (10-20); Calcium,Total 8.9 mg/dL (8.5-10.1); Chloride 104 mmol/L (98-107); Creatinine, Serum 1.07 mg/dL (0.70-1.30); EST Glomerular Filtration Rate 78 mL/min (>60); Est Glom Filt Rate - Afr Amer 94 mL/min (>60); Globulin 3.2 g/dL (2.2-4.2); Glucose 157 mg/dL (74-106); Potassium 3.5 mmol/L (3.5-5.1); Protein, Total 6.7 g/dL (6.4-8.2); Sodium Level 138 mmol/L (136-145)
== END 2021-04-10 23:59 | disposition home or self-care (01) ==
LOC: MTLAB 07:19
PROVIDERS: Referring Provider Internal Medicine Rheumatology; Visit Provider Internal Medicine Rheumatology
DX: I25.10 Atherosclerotic heart disease of native coronary artery without angina pectoris (principal); K58.9 Irritable bowel syndrome, unspecified; E78.5 Hyperlipidemia, unspecified; N32.81 Overactive bladder; K21.9 Gastro-esophageal reflux disease without esophagitis; Z79.899 Other long term (current) drug therapy
CPT/HCPCS: 36415; 80053; 85025

== ENCOUNTER 2021-05-09 07:05 | Outpatient (CLI) | payer OTHER, SELFPAY ==
[2018-01-25 13:16] VITALS: BMI 31.8
[2021-05-09 08:35] LABS: AST(SGOT) 20 U/L (15-37); Alanine Aminotransfer ALT/SGPT 36 U/L (16-61); Albumin, Serum 3.6 g/dL (3.2-5.0); Alkaline Phosphatase 73 U/L (45-117); Bilirubin, Direct 0.12 mg/dL (0.00-0.30); Cholesterol 148 mg/dL (200); Globulin 3.4 g/dL (2.2-4.2); High Density Lipoprotein 37 mg/dL; Triglycerides 121 mg/dL; Very Low Density Lipoprotein 24 mg/dL (5-40)
== END 2021-05-09 23:59 | disposition home or self-care (01) ==
LOC: LAB 07:06
PROVIDERS: Visit Provider Nurse Practitioner Family
DX: E78.00 Pure hypercholesterolemia, unspecified (principal); I25.10 Atherosclerotic heart disease of native coronary artery without angina pectoris
CPT/HCPCS: 36415; 80061; 80076

== ENCOUNTER → 2021-07-03 | Outpatient (CLI) | payer OTHER, SELFPAY ==
[2018-01-25 13:16] VITALS: BMI 31.8
[2021-07-03 10:13] LABS: Absolute Lymphocyte Count 2.29 X10^3/uL (0.83-4.51); Absolute Neutrophil Count 4.7 X10^3/uL (2.0-7.7); Basophil# 0.02 X10^3/uL; Basophil% 0.3 % (0-1); Eosinophil# 0.16 X10^3/uL; Hematocrit 43.9 % (40-54); Hemoglobin 15.3 g/dL (13.0-16.5); Lymphocyte # 2.29 X10^3/ul (0.83-4.51); Lymphocyte % 29.1 % (19-41); Mean Corp Hgb Conc 34.9 g/dL (32-36); Mean Corpuscular Hgb 33.5 pg (27.0-32.0); Mean Corpuscular Volume 96.1 fL (80-94); Mean Platelet Vol. 10.1 fl (6.2-12.0); Monocyte# 0.69 X10^3/uL; Monocyte% 8.8 % (0-10); NRBC Flagged by Analyzer 0 % (0-5); Neutrophil # 4.67 X10^3/uL (2.7-7.7); Neutrophil % 59.4 % (47-70); Platelet Count 253 K/mm3 (150-450); RBC Distribution Width CV 12.5 % (11.6-14.6); RBC Distribution Width SD 44.1 fl (35.1-43.9); Red Blood Count 4.57 M/mm3 (4.6-6.2); White Blood Count 7.9 K/mm3 (4.4-11.0)
[2021-07-03 10:28] LABS: AST(SGOT) 26 U/L (15-37); Alanine Aminotransfer ALT/SGPT 40 U/L (16-61); Albumin, Serum 3.6 g/dL (3.2-5.0); Alkaline Phosphatase 68 U/L (45-117); Anion Gap 4 (5-15); BUN 19 mg/dL (7-18); Calcium,Total 9.4 mg/dL (8.5-10.1); Chloride 106 mmol/L (98-107); Creatinine, Serum 1.19 mg/dL (0.70-1.30); EST Glomerular Filtration Rate 69 mL/min (>60); Est Glom Filt Rate - Afr Amer 83 mL/min (>60); Globulin 3.5 g/dL (2.2-4.2); Glucose 170 mg/dL (74-106); Potassium 4.2 mmol/L (3.5-5.1); Protein, Total 7.1 g/dL (6.4-8.2); Sodium Level 137 mmol/L (136-145)
== END | disposition home or self-care (01) ==
LOC: MTLAB 09:04
PROVIDERS: PCP Family Medicine; Referring Provider Internal Medicine Rheumatology; Visit Provider Internal Medicine Rheumatology
DX: M06.00 Rheumatoid arthritis without rheumatoid factor, unspecified site (principal); Z79.899 Other long term (current) drug therapy; I25.10 Atherosclerotic heart disease of native coronary artery without angina pectoris; K58.9 Irritable bowel syndrome, unspecified; E78.5 Hyperlipidemia, unspecified; N32.81 Overactive bladder; K21.9 Gastro-esophageal reflux disease without esophagitis
CPT/HCPCS: 36415; 80053; 85025

== ENCOUNTER 2021-09-16 08:06 | Outpatient (RCR) | payer OTHER, SELFPAY ==
[2018-01-25 13:16] VITALS: BMI 31.8
--- NOTE | 2021-09-16 09:45 | HP.PTEVAL_ITS ---
Patient's Visit Information CHAS VICKERS is a 51 year old M referred to Physical Therapy by Dr. Wili Estevez MD with a diagnosis of Dr Estevez. Date of Evaluation: 09/16/21 Physical Therapist: BAY Gupat - Visit Plan Frequency: 1x/Week Duration: 3 Months Plan: 1X/ week for 12 weeks for smooth pursuit (horizontal and vertical), head movements (horizontal and vertical), VOR habituation, testing and treatment of balance with and without head movements, functional and dynamic balance with HEP. HEP GIVEN: smooth pursuit horizontal and vertical and VOR CX in SITTING - Subjective Pt gets dizzy all the time. On his L ear he feels like someone is standing on his head. He has an MRI on Thu. The Dr thinks that he has some kind of infection because a year ago he had an MRI and there was a pocket of fluid and its getting worse. His L ear is the worst. If he gets stressed or worked up his L ear feels like it gets closed up. His L ear rings all the time. It is a constant dizziness and it is getting worse. standing up from laying down he is dizzy and that lasts about 5 minutes. He will stand up at times and he will fall over. He can not walk fast cause he will get dizzy. He is to the point that he does not want to move his eyes or head especially to the Left. He goes back to see the Dr in 3 months. 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 The sun feels like it is going through the L side. It's not pain, its an intense feeling in there and his vision gets blurry in the sun and even headlights. Pt can not turn his head quick and has to turn his whole body to prevent dizziness. - Pain L side of his head Pain Intensity (Out of 10): 3 Comment: can go up to 8 or 9 - Objective Gait: walks with decrease stride with no head movement (pt has old L hip injury). Had patient walk and turn his head to the R and therapist had to grab the patient to prevent him from falling over and therapist had him grab the wall. Horizontal smooth pursuit: 8 seconds. good tracking but increase dizziness. Vertical smooth pursuit: 15 seconds. good tracking but increase dizziness. Seated horizontal head turns... increase sitting LOB after one turn and pt had to grab mat table to not fall over. Head and eyes move together 20 seconds, 17 seconds, 16 seconds. Head does not want to move as quick as the eyes and very small ROM for rotation of c-spine. Really increases dizziness. Observed pt standing up too quick to grab something off the chair and had LOB and had to grab a hold of something to catch himself. At the end of the session, pt had to stop several times to catch his balance with increase hard veering. Stressed the importance of HEP!! - Balance/Special Test Scores Dizziness Score: 44 - Goals Goal 1:: I HEP Goal Time Frame: 8-12 Weeks Goal 2:: Be able to stand and turn head R and L for 1 min without having dizziness and LOB Goal Time Frame: 8-12 Weeks Goal 3:: Be able to complete VOR CX X 60 seconds in sitting without having to stop due to dizziness and rate dizziness to 1/10 or less Goal Time Frame: 8-12 Weeks Goal 4:: Be able to drive his truck and look out the side mirrors with turning his head instead of his body without having dizziness. - Rehabilitation Potential Rehabilitation Potential: Good - Anticipated Interventions Patient/Client Instruction: Educate patient on: Condition, Plan of Care For the Purpose of:: To increase ROM, To improve nutrient delivery to tissue, To improve muscle performance and motor function, To improve ability to perform ADL's, To increase tolerance to activity/condition/position, To improve performance and independence with ADL's, To decrease level of supervision to perform tasks, To improve ability of physical actions for home/community/work/leisure, To improve gait and locomotor functions, To increase flexibility/ROM, To improve endurance, To improve balance, To improve safety with gait Therapeutic Exercise to Include: Strength training, Balance training, Coordination, Postural training, Flexibilty training, Gait and locomotor training, Neuromotor development, via Neurocom Balance Mas, Active ROM For the Purpose of:: To improve nutrient delivery to tissue, To improve muscle performance and motor function, To improve ability to perform ADL's, To increase tolerance to activity/condition/position, To improve performance and independence with ADL's, To decrease level of supervision to perform tasks, To improve ability of physical actions for home/community/work/leisure, To improve gait and locomotor functions, To improve health of tissue, To increase flexibility/ROM, To improve balance, To improve safety with gait Functional Training to Include: Gait training For the Purpose of:: To improve gait and locomotor functions, To improve safety with gait Thank you for the opportunity to evaluate your patient. For Medicare and Medicare HMO plans, please review the plan of care and approve it. It will need to be FAXED BACK to us at [phone] for Medicare purposes. For Medicare only, by signing this I certify the plan of care. Please let me know if there are questions or concerns regarding this plan of care. Physician Signature: Date:
--- NOTE | 2021-11-11 09:24 | HP.PT.NRP ---
CHAS VICKERS was seen in my office for initial evaluation on 09/16/21. The following Plan of Care was established for this patient: Initial Frequency: 1x/Week Initial Duration: 3 Months Patient/Client Instruction: Educate patient on: Condition, Plan of Care For the Purpose of:: To increase ROM, To improve nutrient delivery to tissue, To improve muscle performance and motor function, To improve ability to perform ADL's, To increase tolerance to activity/condition/position, To improve performance and independence with ADL's, To decrease level of supervision to perform tasks, To improve ability of physical actions for home/community/work/leisure, To improve gait and locomotor functions, To increase flexibility/ROM, To improve endurance, To improve balance, To improve safety with gait Therapeutic Exercise to Include: Strength training, Balance training, Coordination, Postural training, Flexibilty training, Gait and locomotor training, Neuromotor development, via [employer] Balance Mas, Active ROM For the Purpose of:: To improve nutrient delivery to tissue, To improve muscle performance and motor function, To improve ability to perform ADL's, To increase tolerance to activity/condition/position, To improve performance and independence with ADL's, To decrease level of supervision to perform tasks, To improve ability of physical actions for home/community/work/leisure, To improve gait and locomotor functions, To improve health of tissue, To increase flexibility/ROM, To improve balance, To improve safety with gait Functional Training to Include: Gait training For the Purpose of:: To improve gait and locomotor functions, To improve safety with gait This patient was last seen in our office 09/16/21. Pertinent comments regarding their Physical therapy will appear below: [facility] PT as pt no showed for his follow up appointment. At this point I will be discontinuing this patient from physical therapy. I would be happy to see this patient again in the future if found appropriate by the physician. Thank you! Zuleyka Murillo, MPT Balance/Gait/Functional tests - Balance/Special Test Scores Dizziness Score: 44
== END 2021-09-16 19:00 | disposition home or self-care (01) ==
LOC: PT 08:06
PROVIDERS: PCP Family Medicine; Referring Provider Psychiatry & Neurology Neurology; Visit Provider Psychiatry & Neurology Neurology
DX: H81.90 Unspecified disorder of vestibular function, unspecified ear (principal); R42 Dizziness and giddiness
CPT/HCPCS: 97162

== ENCOUNTER → 2021-09-18 | Outpatient (CLI) | payer OTHER, SELFPAY ==
[2018-01-25 13:16] VITALS: BMI 31.8
--- NOTE | 2021-09-18 12:25 | MRI_ITS ---
STUDY: MRI BRAIN WITH AND WITHOUT CONTRAST REASON FOR EXAM: Male, 51 years old. Peripheral vestibulopathy -- Performed with attention to the internal auditory, left greater than right. Pain and tenderness, hearing loss TECHNIQUE: Standardized multiplanar fat and water weighted pulse sequences were obtained. Dotarem 22ml IV was administered for the contrast portion of the examination. Thin images were obtained through the internal auditory canals in axial and coronal planes. COMPARISON: 03/16/2020 FINDINGS: Normal bilateral temporal bones. Normal bilateral internal auditory canals. There is no demonstrated intracanalicular or cisternal vestibular schwannoma (acoustic neuroma). There is no enhancement of the bilateral VIIth or VIIIth cranial nerves. Normal bilateral cochlea, vestibules and semicircular canals. Normal size of the ventricles and extra-axial spaces for the patient''s age. Normal white matter tracts of the supratentorial brain. There is no evidence for recent intracranial ischemia or other cause of cytotoxic edema on diffusion weighted imaging (DWI). Normal bilateral basal ganglia. Normal thalami. There is no extra-axial fluid accumulation. Normal flow voids within the major intracranial circulation suggesting patency by spin echo criteria. Normal venous enhancement. There is no enhancing intra-axial or extra-axial abnormality. Normal sella turcica, pituitary gland, infundibular stalk, optic chiasm and hypothalamus. Normal tectal plate and pineal gland. Normal midbrain, farzaneh and medulla. Normal cerebellum. Normal basal cisterns. Normal bilateral temporal bones. No demonstrated orbital abnormality, within the constraints of a routine brain study. Normal visualized paranasal sinuses. Normal calvarium and skull base. Normal visualized soft tissue structures. Normal visualized upper cervical spine. MRI/Brain W/WO Contrast IMPRESSION: Normal unenhanced and enhanced MRI of the brain. No abnormal finding in either internal auditory canal. Electronically Signed: Candelario Coffman MD at 3:47 EDT ,
[2021-09-18 12:51] LABS: EGFR FINGERSTICK > 60.0000 mL/min (>60)
== END | disposition home or self-care (01) ==
LOC: MRI 12:11
PROVIDERS: PCP Family Medicine; Visit Provider Psychiatry & Neurology Neurology
DX: H81.90 Unspecified disorder of vestibular function, unspecified ear (principal)
CPT/HCPCS: 70553; A9575

== ENCOUNTER → 2021-09-24 | Outpatient (CLI) | payer OTHER, SELFPAY ==
[2018-01-25 13:16] VITALS: BMI 31.8
--- NOTE | 2021-09-24 12:18 | STRESSREP ---
Stress Test Report Exercise mild perfusion stress test. 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 Stress protocol: Resting KG demonstrates normal sinus rhythm with a rate of 60 bpm normal intervals are noted. The patient exercised according to regular Darwin protocol for total duration of 9 minutes completing stage III of the Darwin protocol the maximum heart rate attained was 148 bpm which was 87% of max impacted heart rate the maximum workload was 10.1 metabolic equivalents. At rest there were no ST or T wave changes noted to suggest abnormal flow reserve or ischemia and at peak exercise upsloping ST changes were noted the test was terminated due to dyspnea. The peak blood pressure was 180/74 mmHg which was a good blood pressure response to exercise. Myocardial perfusion protocol. 14.1 mCi of technetium 99m sestamibi was injected at rest. The patient exercised according to regular Darwin protocol and at peak exercise 44.3 mCi of technetium 99m sestamibi was injected stress images were obtained stress and rest images were reconstructed and compared in the short axis vertical long and horizontal long axis. Gated images were also obtained. Perfusion SPECT analysis: Review of the stress images demonstrate normal uptake of tracer noted in all areas of the myocardium. The resting images similarly demonstrate normal uptake of tracer noted in all areas of the myocardium. No areas of reversibility are noted suggest ischemia no previous infarct is noted. Gated SPECT analysis: The gated ejection fraction is over 55%. Conclusion: Normal exercise myocardial perfusion stress test at a high workload. Preserved ejection fraction.
[2021-09-24 12:40] LABS: Absolute Lymphocyte Count 2.09 X10^3/uL (0.83-4.51); Absolute Neutrophil Count 4.6 X10^3/uL (2.0-7.7); Basophil# 0.02 X10^3/uL; Basophil% 0.3 % (0-1); Eosinophils% 2.7 % (0-5); Hematocrit 42.2 % (40-54); Hemoglobin 14.7 g/dL (13.0-16.5); Lymphocyte # 2.09 X10^3/ul (0.83-4.51); Lymphocyte % 28.2 % (19-41); Mean Corp Hgb Conc 34.8 g/dL (32-36); Mean Corpuscular Hgb 33.1 pg (27.0-32.0); Mean Platelet Vol. 10.2 fl (6.2-12.0); Monocyte# 0.46 X10^3/uL; Monocyte% 6.2 % (0-10); NRBC Flagged by Analyzer 0 % (0-5); Neutrophil # 4.62 X10^3/uL (2.7-7.7); Neutrophil % 62.3 % (47-70); Platelet Count 218 K/mm3 (150-450); RBC Distribution Width SD 41.8 fl (35.1-43.9); Red Blood Count 4.44 M/mm3 (4.6-6.2); White Blood Count 7.4 K/mm3 (4.4-11.0)
[2021-09-24 12:51] LABS: ALB/GLOB Ratio 1.1 RATIO (0.9-2.4); AST(SGOT) 21 U/L (15-37); Alanine Aminotransfer ALT/SGPT 36 U/L (16-61); Albumin, Serum 3.5 g/dL (3.2-5.0); Alkaline Phosphatase 64 U/L (45-117); Anion Gap 3 (5-15); BUN 17 mg/dL (7-18); BUN/Creat Ratio 15.3 RATIO (10-20); Calcium,Total 8.9 mg/dL (8.5-10.1); Chloride 106 mmol/L (98-107); Creatinine, Serum 1.11 mg/dL (0.70-1.30); EST Glomerular Filtration Rate 74 mL/min (>60); Est Glom Filt Rate - Afr Amer 90 mL/min (>60); Globulin 3.2 g/dL (2.2-4.2); Glucose 146 mg/dL (74-106); Potassium 4.3 mmol/L (3.5-5.1); Protein, Total 6.7 g/dL (6.4-8.2); Sodium Level 137 mmol/L (136-145)
== END | disposition home or self-care (01) ==
PROVIDERS: PCP Family Medicine; Referring Provider Nurse Practitioner Family; Visit Provider Nurse Practitioner Family
DX: I25.10 Atherosclerotic heart disease of native coronary artery without angina pectoris (principal); M06.00 Rheumatoid arthritis without rheumatoid factor, unspecified site; E78.5 Hyperlipidemia, unspecified; N32.81 Overactive bladder; K21.9 Gastro-esophageal reflux disease without esophagitis; K58.9 Irritable bowel syndrome, unspecified; Z79.899 Other long term (current) drug therapy
CPT/HCPCS: 36415; 78452; 80053; 85025; 93017; A9500; A4216

== ENCOUNTER → 2021-12-11 | Outpatient (CLI) | payer OTHER, SELFPAY ==
[2018-01-25 13:16] VITALS: BMI 31.8
[2021-12-11 12:03] LABS: Hematocrit 42.9 % (40-54); Hemoglobin 14.8 g/dL (13.0-16.5); Mean Corp Hgb Conc 34.5 g/dL (32-36); Mean Corpuscular Hgb 32.3 pg (27.0-32.0); Mean Corpuscular Volume 93.7 fL (80-94); Mean Platelet Vol. 10.5 fl (6.2-12.0); Platelet Count 253 K/mm3 (150-450); RBC Distribution Width CV 12.2 % (11.6-14.6); RBC Distribution Width SD 42.2 fl (35.1-43.9); Red Blood Count 4.58 M/mm3 (4.6-6.2)
[2021-12-11 12:42] LABS: AST(SGOT) 27 U/L (15-37); Alanine Aminotransfer ALT/SGPT 37 U/L (16-61); Albumin, Serum 3.5 g/dL (3.2-5.0); Alkaline Phosphatase 71 U/L (45-117); Bilirubin, Direct 0.12 mg/dL (0.00-0.30); Cholesterol 143 mg/dL (200); Globulin 3.5 g/dL (2.2-4.2); High Density Lipoprotein 38 mg/dL; Triglycerides 105 mg/dL; Very Low Density Lipoprotein 21 mg/dL (5-40)
[2021-12-11 12:43] LABS: Vitamin B12 803 pg/mL (211-911)
[2021-12-11 13:03] LABS: Anion Gap 5 (5-15); BUN 14 mg/dL (7-18); BUN/Creat Ratio 12.5 RATIO (10-20); Calcium,Total 9.4 mg/dL (8.5-10.1); Chloride 106 mmol/L (98-107); Creatinine, Serum 1.12 mg/dL (0.70-1.30); EST Glomerular Filtration Rate 73 mL/min (>60); Est Glom Filt Rate - Afr Amer 89 mL/min (>60); Glucose 177 mg/dL (74-106); Potassium 4.2 mmol/L (3.5-5.1); Sodium Level 137 mmol/L (136-145); Thyroid Stim Hormone (TSH) 1.25 uIU/mL (0.358-3.74)
[2021-12-11 13:31] LABS: Hemoglobin A1c 6.2 % (3.8-5.6)
[2021-12-13 04:07] LABS: Free Kappa Light Chains 20.8 mg/L (3.3-19.4); Free Lambda Light Chains 15.2 mg/L (5.7-26.3)
[2021-12-13 13:08] LABS: Vitamin B1, Thiamine 133.9 nmol/L (66.5-200.0)
== END | disposition home or self-care (01) ==
LOC: BIMLAB 09:41
PROVIDERS: Nurse Practitioner Family; Psychiatry & Neurology Neurology; PCP Family Medicine; Referring Provider Family Medicine; Visit Provider Family Medicine
DX: G62.9 Polyneuropathy, unspecified (principal); R73.9 Hyperglycemia, unspecified; E78.00 Pure hypercholesterolemia, unspecified; I25.10 Atherosclerotic heart disease of native coronary artery without angina pectoris
CPT/HCPCS: 36415; 80048; 80061; 80076; 82607; 82746; 83036; 83883; 84403; 84425; 84443; 85027

== ENCOUNTER → 2022-01-07 | Outpatient (CLI) | payer OTHER, SELFPAY ==
[2018-01-25 13:16] VITALS: BMI 31.8
[2022-01-09 14:09] LABS: Albumin 3.6 g/dL (2.9-4.4); Alpha-1-Globulins 0.3 g/dL (0.0-0.4); Alpha-2-Globulins 0.9 g/dL (0.4-1.0); Gamma Globulin 0.9 g/dL (0.4-1.8); Immunoglobulin A 220 mg/dL (90-386); Immunoglobulin G 841 mg/dL (603-1613); Immunoglobulin M 36 mg/dL (20-172); PROEL- TOTAL PROTEIN 6.8 g/dL (6.0-8.5)
== END | disposition home or self-care (01) ==
LOC: MTLAB 09:14
PROVIDERS: PCP Family Medicine; Referring Provider Psychiatry & Neurology Neurology; Visit Provider Psychiatry & Neurology Neurology
DX: G62.9 Polyneuropathy, unspecified (principal); R73.9 Hyperglycemia, unspecified
CPT/HCPCS: 36415; 82784; 84165; 86334; 86335

== ENCOUNTER → 2022-03-21 | Outpatient (CLI) | payer OTHER, SELFPAY ==
[2018-01-25 13:16] VITALS: BMI 31.8
[2022-03-21 09:57] LABS: Absolute Lymphocyte Count 2.25 X10^3/uL (0.83-4.51); Absolute Neutrophil Count 3.5 X10^3/uL (2.0-7.7); Basophil# 0.02 X10^3/uL; Basophil% 0.3 % (0-1); Eosinophil# 0.12 X10^3/uL; Eosinophils% 1.8 % (0-5); Hematocrit 43.6 % (40-54); Hemoglobin 14.9 g/dL (13.0-16.5); Lymphocyte # 2.25 X10^3/ul (0.83-4.51); Lymphocyte % 33.9 % (19-41); Mean Corp Hgb Conc 34.2 g/dL (32-36); Mean Corpuscular Hgb 32.2 pg (27.0-32.0); Mean Corpuscular Volume 94.2 fL (80-94); Mean Platelet Vol. 9.8 fl (6.2-12.0); Monocyte# 0.71 X10^3/uL; Monocyte% 10.7 % (0-10); NRBC Flagged by Analyzer 0 % (0-5); Neutrophil # 3.52 X10^3/uL (2.7-7.7); Platelet Count 277 K/mm3 (150-450); RBC Distribution Width CV 12.7 % (11.6-14.6); RBC Distribution Width SD 43.7 fl (35.1-43.9); Red Blood Count 4.63 M/mm3 (4.6-6.2); White Blood Count 6.6 K/mm3 (4.4-11.0)
[2022-03-21 10:08] LABS: ALB/GLOB Ratio 0.9 RATIO (0.9-2.4); AST(SGOT) 23 U/L (15-37); Alanine Aminotransfer ALT/SGPT 42 U/L (16-61); Albumin, Serum 3.3 g/dL (3.2-5.0); Alkaline Phosphatase 72 U/L (45-117); Anion Gap 9 (5-15); BUN 21 mg/dL (7-18); BUN/Creat Ratio 20.8 RATIO (10-20); Calcium,Total 8.9 mg/dL (8.5-10.1); Chloride 106 mmol/L (98-107); Creatinine, Serum 1.01 mg/dL (0.70-1.30); EST Glomerular Filtration Rate 83 mL/min (>60); Est Glom Filt Rate - Afr Amer 100 mL/min (>60); Globulin 3.7 g/dL (2.2-4.2); Glucose 87 mg/dL (74-106); Potassium 4.2 mmol/L (3.5-5.1); Sodium Level 139 mmol/L (136-145)
== END | disposition home or self-care (01) ==
LOC: MTLAB 08:09
PROVIDERS: PCP Family Medicine; Referring Provider Internal Medicine Rheumatology; Visit Provider Internal Medicine Rheumatology
DX: M06.09 Rheumatoid arthritis without rheumatoid factor, multiple sites (principal); Z79.899 Other long term (current) drug therapy
CPT/HCPCS: 36415; 80053; 85025

== ENCOUNTER → 2022-05-14 | Outpatient (CLI) | payer OTHER, SELFPAY ==
[2018-01-25 13:16] VITALS: BMI 31.8
[2022-05-14 10:06] LABS: Absolute Lymphocyte Count 2.43 X10^3/uL (0.83-4.51); Absolute Neutrophil Count 4.8 X10^3/uL (2.0-7.7); Basophil# 0.02 X10^3/uL; Basophil% 0.2 % (0-1); Eosinophil# 0.18 X10^3/uL; Eosinophils% 2.2 % (0-5); Hematocrit 45.6 % (40-54); Hemoglobin 15.3 g/dL (13.0-16.5); Lymphocyte # 2.43 X10^3/ul (0.83-4.51); Mean Corp Hgb Conc 33.6 g/dL (32-36); Mean Corpuscular Hgb 32.3 pg (27.0-32.0); Mean Corpuscular Volume 96.2 fL (80-94); Mean Platelet Vol. 10.1 fl (6.2-12.0); Monocyte# 0.63 X10^3/uL; Monocyte% 7.8 % (0-10); NRBC Flagged by Analyzer 0 % (0-5); Neutrophil # 4.82 X10^3/uL (2.7-7.7); Neutrophil % 59.6 % (47-70); Platelet Count 230 K/mm3 (150-450); RBC Distribution Width CV 12.9 % (11.6-14.6); RBC Distribution Width SD 46.2 fl (35.1-43.9); Red Blood Count 4.74 M/mm3 (4.6-6.2); White Blood Count 8.1 K/mm3 (4.4-11.0)
[2022-05-14 10:22] LABS: ALB/GLOB Ratio 1.1 RATIO (0.9-2.4); AST(SGOT) 25 U/L (15-37); Alanine Aminotransfer ALT/SGPT 38 U/L (16-61); Albumin, Serum 3.5 g/dL (3.2-5.0); Alkaline Phosphatase 62 U/L (45-117); Anion Gap 3 (5-15); BUN 19 mg/dL (7-18); BUN/Creat Ratio 17.4 RATIO (10-20); Calcium,Total 9.2 mg/dL (8.5-10.1); Chloride 107 mmol/L (98-107); Creatinine, Serum 1.09 mg/dL (0.70-1.30); EST Glomerular Filtration Rate 76 mL/min (>60); Est Glom Filt Rate - Afr Amer 91 mL/min (>60); Globulin 3.1 g/dL (2.2-4.2); Glucose 104 mg/dL (74-106); Potassium 4.1 mmol/L (3.5-5.1); Protein, Total 6.6 g/dL (6.4-8.2); Sodium Level 138 mmol/L (136-145)
== END | disposition home or self-care (01) ==
LOC: MTLAB 08:21
PROVIDERS: PCP Family Medicine; Referring Provider Internal Medicine Rheumatology; Visit Provider Internal Medicine Rheumatology
DX: M06.09 Rheumatoid arthritis without rheumatoid factor, multiple sites (principal); Z79.899 Other long term (current) drug therapy
CPT/HCPCS: 36415; 80053; 85025

== ENCOUNTER → 2022-07-01 | Outpatient (CLI) | payer OTHER, SELFPAY ==
[2018-01-25 13:16] VITALS: BMI 31.8
[2022-07-01 17:50] LABS: Absolute Lymphocyte Count 3.32 X10^3/uL (0.83-4.51); Absolute Neutrophil Count 5.7 X10^3/uL (2.0-7.7); Basophil# 0.02 X10^3/uL; Basophil% 0.2 % (0-1); Eosinophil# 0.17 X10^3/uL; Eosinophils% 1.7 % (0-5); Hematocrit 44.5 % (40-54); Hemoglobin 14.9 g/dL (13.0-16.5); Lymphocyte # 3.32 X10^3/ul (0.83-4.51); Lymphocyte % 32.9 % (19-41); Mean Corp Hgb Conc 33.5 g/dL (32-36); Mean Corpuscular Hgb 32.4 pg (27.0-32.0); Mean Corpuscular Volume 96.7 fL (80-94); Mean Platelet Vol. 10.1 fl (6.2-12.0); Monocyte# 0.72 X10^3/uL; Monocyte% 7.1 % (0-10); NRBC Flagged by Analyzer 0 % (0-5); Neutrophil # 5.69 X10^3/uL (2.7-7.7); Neutrophil % 56.4 % (47-70); Platelet Count 237 K/mm3 (150-450); RBC Distribution Width CV 12.6 % (11.6-14.6); RBC Distribution Width SD 44.6 fl (35.1-43.9); White Blood Count 10.1 K/mm3 (4.4-11.0)
[2022-07-01 18:15] LABS: ALB/GLOB Ratio 1.1 RATIO (0.9-2.4); AST(SGOT) 22 U/L (15-37); Alanine Aminotransfer ALT/SGPT 33 U/L (16-61); Albumin, Serum 3.6 g/dL (3.2-5.0); Alkaline Phosphatase 73 U/L (45-117); Anion Gap 7 (5-15); BUN 20 mg/dL (7-18); BUN/Creat Ratio 19.6 RATIO (10-20); Chloride 107 mmol/L (98-107); Creatinine, Serum 1.02 mg/dL (0.70-1.30); EST Glomerular Filtration Rate 82 mL/min (>60); Est Glom Filt Rate - Afr Amer 99 mL/min (>60); Globulin 3.4 g/dL (2.2-4.2); Glucose 94 mg/dL (74-106); Sodium Level 138 mmol/L (136-145)
[2022-07-01 18:36] LABS: AST(SGOT) 22 U/L (15-37); Alanine Aminotransfer ALT/SGPT 31 U/L (16-61); Albumin, Serum 3.6 g/dL (3.2-5.0); Alkaline Phosphatase 73 U/L (45-117); Cholesterol 119 mg/dL (200); Globulin 3.3 g/dL (2.2-4.2); High Density Lipoprotein 45 mg/dL; Protein, Total 6.9 g/dL (6.4-8.2); Triglycerides 104 mg/dL; Very Low Density Lipoprotein 21 mg/dL (5-40)
== END | disposition home or self-care (01) ==
LOC: MTLAB 16:33
PROVIDERS: Nurse Practitioner Family; PCP Family Medicine; Referring Provider Internal Medicine Rheumatology; Visit Provider Internal Medicine Rheumatology
DX: M06.09 Rheumatoid arthritis without rheumatoid factor, multiple sites (principal); Z79.899 Other long term (current) drug therapy; E78.00 Pure hypercholesterolemia, unspecified; I25.10 Atherosclerotic heart disease of native coronary artery without angina pectoris
CPT/HCPCS: 36415; 80053; 80061; 80076; 85025

== ENCOUNTER → 2022-09-01 | Outpatient (CLI) | payer OTHER, SELFPAY ==
[2018-01-25 13:16] VITALS: BMI 31.8
[2022-09-01 18:06] LABS: Absolute Lymphocyte Count 3.11 X10^3/uL (0.83-4.51); Absolute Neutrophil Count 5.5 X10^3/uL (2.0-7.7); Basophil# 0.02 X10^3/uL; Basophil% 0.2 % (0-1); Eosinophil# 0.24 X10^3/uL; Eosinophils% 2.5 % (0-5); Hematocrit 43.9 % (40-54); Hemoglobin 14.9 g/dL (13.0-16.5); Lymphocyte # 3.11 X10^3/ul (0.83-4.51); Lymphocyte % 32.6 % (19-41); Mean Corp Hgb Conc 33.9 g/dL (32-36); Mean Corpuscular Hgb 32.5 pg (27.0-32.0); Mean Corpuscular Volume 95.9 fL (80-94); Mean Platelet Vol. 9.9 fl (6.2-12.0); Monocyte# 0.63 X10^3/uL; Monocyte% 6.6 % (0-10); NRBC Flagged by Analyzer 0 % (0-5); Neutrophil % 57.6 % (47-70); Platelet Count 255 K/mm3 (150-450); RBC Distribution Width CV 12.4 % (11.6-14.6); RBC Distribution Width SD 43.8 fl (35.1-43.9); Red Blood Count 4.58 M/mm3 (4.6-6.2); White Blood Count 9.6 K/mm3 (4.4-11.0)
[2022-09-01 18:35] LABS: AST(SGOT) 26 U/L (15-37); Alanine Aminotransfer ALT/SGPT 37 U/L (16-61); Albumin, Serum 3.5 g/dL (3.2-5.0); Alkaline Phosphatase 71 U/L (45-117); Anion Gap 7 (5-15); BUN 24 mg/dL (7-18); BUN/Creat Ratio 22.4 RATIO (10-20); Calcium,Total 9.1 mg/dL (8.5-10.1); Chloride 107 mmol/L (98-107); Creatinine, Serum 1.07 mg/dL (0.70-1.30); EST Glomerular Filtration Rate 77 mL/min (>60); Est Glom Filt Rate - Afr Amer 93 mL/min (>60); Globulin 3.4 g/dL (2.2-4.2); Glucose 115 mg/dL (74-106); Potassium 3.5 mmol/L (3.5-5.1); Protein, Total 6.9 g/dL (6.4-8.2); Sodium Level 138 mmol/L (136-145)
== END | disposition home or self-care (01) ==
LOC: MTLAB 14:18
PROVIDERS: PCP Family Medicine; Referring Provider Internal Medicine Rheumatology; Visit Provider Internal Medicine Rheumatology
DX: M06.09 Rheumatoid arthritis without rheumatoid factor, multiple sites (principal); Z79.899 Other long term (current) drug therapy; I25.10 Atherosclerotic heart disease of native coronary artery without angina pectoris
CPT/HCPCS: 36415; 80053; 85025

== ENCOUNTER → 2022-11-28 | Outpatient (CLI) | payer OTHER, SELFPAY ==
[2018-01-25 13:16] VITALS: BMI 31.8
[2022-11-28 10:15] LABS: Absolute Lymphocyte Count 2.55 X10^3/uL (0.83-4.51); Absolute Neutrophil Count 6.4 X10^3/uL (2.0-7.7); Basophil# 0.03 X10^3/uL; Basophil% 0.3 % (0-1); Eosinophil# 0.19 X10^3/uL; Eosinophils% 1.9 % (0-5); Hematocrit 46.1 % (40-54); Hemoglobin 15.4 g/dL (13.0-16.5); Lymphocyte # 2.55 X10^3/ul (0.83-4.51); Mean Corp Hgb Conc 33.4 g/dL (32-36); Mean Corpuscular Hgb 32.4 pg (27.0-32.0); Mean Corpuscular Volume 97.1 fL (80-94); Monocyte# 0.64 X10^3/uL; Monocyte% 6.5 % (0-10); NRBC Flagged by Analyzer 0 % (0-5); Neutrophil # 6.35 X10^3/uL (2.7-7.7); Neutrophil % 64.8 % (47-70); Platelet Count 238 K/mm3 (150-450); RBC Distribution Width CV 12.6 % (11.6-14.6); RBC Distribution Width SD 44.7 fl (35.1-43.9); Red Blood Count 4.75 M/mm3 (4.6-6.2); White Blood Count 9.8 K/mm3 (4.4-11.0)
[2022-11-28 10:58] LABS: ALB/GLOB Ratio 1.1 RATIO (0.9-2.4); AST(SGOT) 20 U/L (15-37); Alanine Aminotransfer ALT/SGPT 33 U/L (16-61); Albumin, Serum 3.5 g/dL (3.2-5.0); Alkaline Phosphatase 67 U/L (45-117); Anion Gap 5 (5-15); BUN 19 mg/dL (7-18); BUN/Creat Ratio 16.4 RATIO (10-20); Calcium,Total 8.8 mg/dL (8.5-10.1); Chloride 108 mmol/L (98-107); Creatinine, Serum 1.16 mg/dL (0.70-1.30); EST Glomerular Filtration Rate 70 mL/min (>60); Est Glom Filt Rate - Afr Amer 85 mL/min (>60); Globulin 3.2 g/dL (2.2-4.2); Glucose 97 mg/dL (74-106); Potassium 4.1 mmol/L (3.5-5.1); Protein, Total 6.7 g/dL (6.4-8.2); Sodium Level 138 mmol/L (136-145)
== END | disposition home or self-care (01) ==
LOC: MTLAB 08:27
PROVIDERS: PCP Family Medicine; Referring Provider Internal Medicine Rheumatology; Visit Provider Internal Medicine Rheumatology
DX: M06.09 Rheumatoid arthritis without rheumatoid factor, multiple sites (principal); Z79.899 Other long term (current) drug therapy
CPT/HCPCS: 36415; 80053; 85025

== ENCOUNTER → 2023-02-24 | Outpatient (CLI) | payer OTHER, SELFPAY ==
[2018-01-25 13:16] VITALS: BMI 31.8
[2023-02-24 10:23] LABS: Absolute Lymphocyte Count 2.81 X10^3/uL (0.83-4.51); Absolute Neutrophil Count 4.7 X10^3/uL (2.0-7.7); Basophil# 0.05 X10^3/uL; Basophil% 0.6 % (0-1); Eosinophils% 2.4 % (0-5); Hematocrit 47.4 % (40-54); Hemoglobin 15.7 g/dL (13.0-16.5); Lymphocyte # 2.81 X10^3/ul (0.83-4.51); Lymphocyte % 33.1 % (19-41); Mean Corp Hgb Conc 33.1 g/dL (32-36); Mean Corpuscular Hgb 32.1 pg (27.0-32.0); Mean Corpuscular Volume 96.9 fL (80-94); Mean Platelet Vol. 10.3 fl (6.2-12.0); Monocyte# 0.59 X10^3/uL; NRBC Flagged by Analyzer 0 % (0-5); Neutrophil # 4.74 X10^3/uL (2.7-7.7); Neutrophil % 55.8 % (47-70); Platelet Count 241 K/mm3 (150-450); RBC Distribution Width CV 12.6 % (11.6-14.6); RBC Distribution Width SD 45.3 fl (35.1-43.9); Red Blood Count 4.89 M/mm3 (4.6-6.2); White Blood Count 8.5 K/mm3 (4.4-11.0)
[2023-02-24 11:00] LABS: ALB/GLOB Ratio 0.8 RATIO (0.9-2.4); AST(SGOT) 25 U/L (15-37); Alanine Aminotransfer ALT/SGPT 42 U/L (16-61); Albumin, Serum 3.3 g/dL (3.2-5.0); Alkaline Phosphatase 70 U/L (45-117); Anion Gap 8 (5-15); BUN 21 mg/dL (7-18); BUN/Creat Ratio 18.8 RATIO (10-20); Calcium,Total 9.1 mg/dL (8.5-10.1); Chloride 106 mmol/L (98-107); Creatinine, Serum 1.12 mg/dL (0.70-1.30); EST Glomerular Filtration Rate 73 mL/min (>60); Est Glom Filt Rate - Afr Amer 88 mL/min (>60); Glucose 114 mg/dL (74-106); Potassium 3.7 mmol/L (3.5-5.1); Protein, Total 7.3 g/dL (6.4-8.2); Sodium Level 140 mmol/L (136-145)
== END | disposition home or self-care (01) ==
LOC: MTLAB 07:53
PROVIDERS: PCP Family Medicine; Referring Provider Internal Medicine Rheumatology; Visit Provider Internal Medicine Rheumatology
DX: M06.09 Rheumatoid arthritis without rheumatoid factor, multiple sites (principal); Z79.899 Other long term (current) drug therapy
CPT/HCPCS: 36415; 80053; 85025

== ENCOUNTER → 2023-05-26 | Outpatient (CLI) | payer OTHER, SELFPAY ==
[2018-01-25 13:16] VITALS: BMI 31.8
[2023-05-26 17:43] LABS: Absolute Lymphocyte Count 2.94 X10^3/uL (0.83-4.51); Basophil# 0.02 X10^3/uL; Basophil% 0.2 % (0-1); Eosinophil# 0.09 X10^3/uL; Eosinophils% 0.8 % (0-5); Hematocrit 43.9 % (40-54); Lymphocyte # 2.94 X10^3/ul (0.83-4.51); Lymphocyte % 26.9 % (19-41); Mean Corp Hgb Conc 34.2 g/dL (32-36); Mean Corpuscular Hgb 32.8 pg (27.0-32.0); Mean Corpuscular Volume 95.9 fL (80-94); Mean Platelet Vol. 9.7 fl (6.2-12.0); Monocyte# 0.81 X10^3/uL; Monocyte% 7.4 % (0-10); NRBC Flagged by Analyzer 0 % (0-5); Neutrophil # 6.97 X10^3/uL (2.7-7.7); Neutrophil % 63.9 % (47-70); Platelet Count 304 K/mm3 (150-450); RBC Distribution Width CV 12.5 % (11.6-14.6); RBC Distribution Width SD 44.3 fl (35.1-43.9); Red Blood Count 4.58 M/mm3 (4.6-6.2); White Blood Count 10.9 K/mm3 (4.4-11.0)
[2023-05-26 18:08] LABS: ALB/GLOB Ratio 0.9 RATIO (0.9-2.4); AST(SGOT) 20 U/L (15-37); Alanine Aminotransfer ALT/SGPT 31 U/L (16-61); Albumin, Serum 3.5 g/dL (3.2-5.0); Alkaline Phosphatase 73 U/L (45-117); Anion Gap 5 (5-15); BUN 23 mg/dL (7-18); BUN/Creat Ratio 16.9 RATIO (10-20); Calcium,Total 9.6 mg/dL (8.5-10.1); Chloride 105 mmol/L (98-107); Creatinine, Serum 1.36 mg/dL (0.70-1.30); EST Glomerular Filtration Rate 58 mL/min (>60); Est Glom Filt Rate - Afr Amer 71 mL/min (>60); Globulin 3.7 g/dL (2.2-4.2); Glucose 102 mg/dL (74-106); Potassium 3.8 mmol/L (3.5-5.1); Protein, Total 7.2 g/dL (6.4-8.2); Sodium Level 139 mmol/L (136-145)
== END | disposition home or self-care (01) ==
LOC: MTLAB 15:42
PROVIDERS: PCP Family Medicine; Referring Provider Internal Medicine Rheumatology; Visit Provider Internal Medicine Rheumatology
DX: M06.09 Rheumatoid arthritis without rheumatoid factor, multiple sites (principal); Z79.899 Other long term (current) drug therapy
CPT/HCPCS: 36415; 80053; 85025

== ENCOUNTER → 2023-08-10 | Outpatient (CLI) | payer OTHER, SELFPAY ==
[2018-01-25 13:16] VITALS: BMI 31.8
[2023-08-10 18:32] LABS: Absolute Lymphocyte Count 3.56 X10^3/uL (0.83-4.51); Absolute Neutrophil Count 4.4 X10^3/uL (2.0-7.7); Basophil# 0.03 X10^3/uL; Basophil% 0.3 % (0-1); Eosinophil# 0.26 X10^3/uL; Eosinophils% 2.9 % (0-5); Hematocrit 44.6 % (40-54); Hemoglobin 14.9 g/dL (13.0-16.5); Lymphocyte # 3.56 X10^3/ul (0.83-4.51); Lymphocyte % 39.6 % (19-41); Mean Corp Hgb Conc 33.4 g/dL (32-36); Mean Corpuscular Hgb 31.6 pg (27.0-32.0); Mean Corpuscular Volume 94.5 fL (80-94); Mean Platelet Vol. 9.9 fl (6.2-12.0); Monocyte# 0.76 X10^3/uL; Monocyte% 8.5 % (0-10); NRBC Flagged by Analyzer 0 % (0-5); Neutrophil # 4.35 X10^3/uL (2.7-7.7); Neutrophil % 48.4 % (47-70); Platelet Count 278 K/mm3 (150-450); RBC Distribution Width CV 12.5 % (11.6-14.6); RBC Distribution Width SD 43.6 fl (35.1-43.9); Red Blood Count 4.72 M/mm3 (4.6-6.2)
[2023-08-10 19:19] LABS: ALB/GLOB Ratio 1.1 RATIO (0.9-2.4); AST(SGOT) 28 U/L (15-37); Alanine Aminotransfer ALT/SGPT 38 U/L (16-61); Albumin, Serum 3.7 g/dL (3.2-5.0); Alkaline Phosphatase 76 U/L (45-117); Anion Gap 6 (5-15); BUN 28 mg/dL (7-18); Calcium,Total 9.5 mg/dL (8.5-10.1); Chloride 105 mmol/L (98-107); Creatinine, Serum 1.12 mg/dL (0.70-1.30); EST Glomerular Filtration Rate 73 mL/min (>60); Est Glom Filt Rate - Afr Amer 88 mL/min (>60); Globulin 3.4 g/dL (2.2-4.2); Glucose 131 mg/dL (74-106); Potassium 3.8 mmol/L (3.5-5.1); Protein, Total 7.1 g/dL (6.4-8.2); Sodium Level 136 mmol/L (136-145)
== END | disposition home or self-care (01) ==
LOC: MTLAB 16:25
PROVIDERS: PCP Family Medicine; Referring Provider Internal Medicine Rheumatology; Visit Provider Internal Medicine Rheumatology
DX: M06.09 Rheumatoid arthritis without rheumatoid factor, multiple sites (principal); Z79.899 Other long term (current) drug therapy
CPT/HCPCS: 36415; 80053; 85025

== ENCOUNTER → 2023-09-16 | Outpatient (CLI) | payer OTHER, SELFPAY ==
[2018-01-25 13:16] VITALS: BMI 31.8
[2023-09-16 11:44] LABS: Absolute Lymphocyte Count 2.57 X10^3/uL (0.83-4.51); Absolute Neutrophil Count 5.3 X10^3/uL (2.0-7.7); Basophil# 0.02 X10^3/uL; Basophil% 0.2 % (0-1); Eosinophil# 0.18 X10^3/uL; Hematocrit 44.6 % (40-54); Lymphocyte # 2.57 X10^3/ul (0.83-4.51); Lymphocyte % 29.2 % (19-41); Mean Corp Hgb Conc 33.6 g/dL (32-36); Mean Corpuscular Hgb 31.8 pg (27.0-32.0); Mean Corpuscular Volume 94.5 fL (80-94); Mean Platelet Vol. 9.7 fl (6.2-12.0); Monocyte# 0.65 X10^3/uL; Monocyte% 7.4 % (0-10); NRBC Flagged by Analyzer 0 % (0-5); Neutrophil # 5.34 X10^3/uL (2.7-7.7); Neutrophil % 60.7 % (47-70); Platelet Count 271 K/mm3 (150-450); RBC Distribution Width CV 12.5 % (11.6-14.6); RBC Distribution Width SD 43.5 fl (35.1-43.9); Red Blood Count 4.72 M/mm3 (4.6-6.2); White Blood Count 8.8 K/mm3 (4.4-11.0)
[2023-09-16 13:20] LABS: AST(SGOT) 19 U/L (15-37); Alanine Aminotransfer ALT/SGPT 26 U/L (16-61); Albumin, Serum 3.5 g/dL (3.2-5.0); Alkaline Phosphatase 70 U/L (45-117); Anion Gap 9 (5-15); BUN 20 mg/dL (7-18); BUN/Creat Ratio 21.3 RATIO (10-20); Bilirubin, Direct 0.12 mg/dL (0.00-0.30); Calcium,Total 9.4 mg/dL (8.5-10.1); Chloride 105 mmol/L (98-107); Cholesterol 153 mg/dL (200); Creatinine, Serum 0.94 mg/dL (0.70-1.30); EST Glomerular Filtration Rate 89 mL/min (>60); Est Glom Filt Rate - Afr Amer 108 mL/min (>60); Globulin 3.6 g/dL (2.2-4.2); Glucose 110 mg/dL (74-106); High Density Lipoprotein 44 mg/dL; Magnesium 2.1 mg/dL (1.6-2.6); Potassium 4.2 mmol/L (3.5-5.1); Protein, Total 7.1 g/dL (6.4-8.2); Sodium Level 138 mmol/L (136-145); T4 Free Direct 0.82 ng/dL (0.76-1.46); Thyroid Stim Hormone (TSH) 2.02 uIU/mL (0.358-3.74); Triglycerides 142 mg/dL; Very Low Density Lipoprotein 28 mg/dL (5-40)
== END | disposition home or self-care (01) ==
LOC: LAB 10:49
PROVIDERS: PCP Family Medicine; Visit Provider Nurse Practitioner Family
DX: I49.3 Ventricular premature depolarization (principal); E78.00 Pure hypercholesterolemia, unspecified; Z95.5 Presence of coronary angioplasty implant and graft
CPT/HCPCS: 36415; 80053; 80061; 82248; 83735; 84439; 84443; 85025

== ENCOUNTER → 2023-09-30 | Outpatient (CLI) | payer OTHER, SELFPAY ==
[2018-01-25 13:16] VITALS: BMI 31.8
--- NOTE | 2023-09-30 13:42 | STRESSREP ---
Stress Test Report Exercise myocardial perfusion stress test. 53-year-old man with a history of coronary artery disease Stress protocol: Resting EKG demonstrates sinus bradycardia with a rate of 56 bpm resting blood pressure is 138/80 mmHg. The patient exercised according to the regular Darwin protocol for a total duration of 9 minutes attaining a maximum heart rate of 146 bpm which was 87% of maximum predicted heart rate; the maximum workload was 10.1 metabolic equivalents. At rest there were no ST or T wave changes noted to suggest ischemia and at peak exercise upsloping ST changes only were noted which did not meet the criteria for ischemia. No clinical angina was noted the test was terminated due to the target heart rate being achieved/fatigue. The peak blood pressure was 200/88 mmHg. Rate-pressure product was 29,200. Myocardial perfusion protocol. 14.3 mCi of technetium 99m sestamibi was injected at rest. The patient exercised according to regular Darwin protocol for total duration of 9 minutes and at peak exercise 45 mCi of technetium 99m sestamibi was injected stress images were obtained stress and rest images were reconstructed in comparing the short axis vertical long and horizontal long axis. Gated images were also obtained. Perfusion SPECT analysis: Review of the stress images demonstrate normal uptake of tracer noted in all areas of the myocardium. The resting images similarly demonstrate normal uptake of tracer noted in all areas of the myocardium. No areas of reversibility are noted to suggest ischemia no previous infarct was noted. Gated SPECT analysis: The gated ejection fraction is 67%. Conclusion: Normal exercise myocardial perfusion stress test at a high workload Preserved ejection fraction.
== END | disposition home or self-care (01) ==
LOC: CVS 06:43
PROVIDERS: PCP Family Medicine; Referring Provider Nurse Practitioner Family; Visit Provider Nurse Practitioner Family
DX: Z02.89 Encounter for other administrative examinations (principal); I25.10 Atherosclerotic heart disease of native coronary artery without angina pectoris; Z95.5 Presence of coronary angioplasty implant and graft
CPT/HCPCS: 78452; 93017; A9500; A4216

== ENCOUNTER → 2023-11-09 | Outpatient (CLI) | payer OTHER, SELFPAY ==
[2018-01-25 13:16] VITALS: BMI 31.8
[2023-11-09 17:42] LABS: Absolute Lymphocyte Count 3.17 X10^3/uL (0.83-4.51); Basophil# 0.01 X10^3/uL; Basophil% 0.1 % (0-1); Eosinophils% 3.7 % (0-5); Hematocrit 44.2 % (40-54); Hemoglobin 14.9 g/dL (13.0-16.5); Lymphocyte # 3.17 X10^3/ul (0.83-4.51); Lymphocyte % 38.9 % (19-41); Mean Corp Hgb Conc 33.7 g/dL (32-36); Mean Corpuscular Hgb 31.9 pg (27.0-32.0); Mean Corpuscular Volume 94.6 fL (80-94); Mean Platelet Vol. 9.5 fl (6.2-12.0); Monocyte# 0.63 X10^3/uL; Monocyte% 7.7 % (0-10); NRBC Flagged by Analyzer 0 % (0-5); Neutrophil % 49.2 % (47-70); Platelet Count 250 K/mm3 (150-450); RBC Distribution Width CV 12.6 % (11.6-14.6); RBC Distribution Width SD 43.7 fl (35.1-43.9); Red Blood Count 4.67 M/mm3 (4.6-6.2); White Blood Count 8.1 K/mm3 (4.4-11.0)
[2023-11-09 18:27] LABS: ALB/GLOB Ratio 1.1 RATIO (0.9-2.4); AST(SGOT) 15 U/L (15-37); Alanine Aminotransfer ALT/SGPT 21 U/L (16-61); Albumin, Serum 3.5 g/dL (3.2-5.0); Alkaline Phosphatase 77 U/L (45-117); Anion Gap 6 (5-15); BUN 25 mg/dL (7-18); BUN/Creat Ratio 23.8 RATIO (10-20); Calcium,Total 9.2 mg/dL (8.5-10.1); Chloride 106 mmol/L (98-107); Creatinine, Serum 1.05 mg/dL (0.70-1.30); EST Glomerular Filtration Rate 78 mL/min (>60); Est Glom Filt Rate - Afr Amer 95 mL/min (>60); Globulin 3.3 g/dL (2.2-4.2); Glucose 151 mg/dL (74-106); Potassium 3.8 mmol/L (3.5-5.1); Protein, Total 6.8 g/dL (6.4-8.2); Sodium Level 138 mmol/L (136-145)
== END | disposition home or self-care (01) ==
PROVIDERS: PCP Family Medicine; Referring Provider Internal Medicine Rheumatology; Visit Provider Internal Medicine Rheumatology
DX: M06.09 Rheumatoid arthritis without rheumatoid factor, multiple sites (principal); Z79.899 Other long term (current) drug therapy
CPT/HCPCS: 36415; 80053; 85025

== ENCOUNTER → 2024-02-04 | Outpatient (CLI) | payer OTHER, SELFPAY ==
[2018-01-25 13:16] VITALS: BMI 31.8
[2024-02-04 15:26] LABS: Absolute Lymphocyte Count 3.15 X10^3/uL (0.83-4.51); Absolute Neutrophil Count 5.4 X10^3/uL (2.0-7.7); Basophil# 0.02 X10^3/uL; Basophil% 0.2 % (0-1); Eosinophil# 0.24 X10^3/uL; Eosinophils% 2.5 % (0-5); Hemoglobin 14.3 g/dL (13.0-16.5); Lymphocyte # 3.15 X10^3/ul (0.83-4.51); Lymphocyte % 32.8 % (19-41); Mean Corp Hgb Conc 33.3 g/dL (32-36); Mean Corpuscular Hgb 31.7 pg (27.0-32.0); Mean Corpuscular Volume 95.3 fL (80-94); Mean Platelet Vol. 10.2 fl (6.2-12.0); Monocyte# 0.69 X10^3/uL; Monocyte% 7.2 % (0-10); NRBC Flagged by Analyzer 0 % (0-5); Neutrophil # 5.44 X10^3/uL (2.7-7.7); Neutrophil % 56.7 % (47-70); Platelet Count 270 K/mm3 (150-450); RBC Distribution Width CV 12.7 % (11.6-14.6); RBC Distribution Width SD 44.9 fl (35.1-43.9); Red Blood Count 4.51 M/mm3 (4.6-6.2); White Blood Count 9.6 K/mm3 (4.4-11.0)
[2024-02-04 15:51] LABS: AST(SGOT) 15 U/L (15-37); Alanine Aminotransfer ALT/SGPT 28 U/L (16-61); Albumin, Serum 3.5 g/dL (3.2-5.0); Alkaline Phosphatase 76 U/L (45-117); Anion Gap 7 (5-15); BUN 20 mg/dL (7-18); BUN/Creat Ratio 20.2 RATIO (10-20); Calcium,Total 9.4 mg/dL (8.5-10.1); Chloride 105 mmol/L (98-107); Creatinine, Serum 0.99 mg/dL (0.70-1.30); EST Glomerular Filtration Rate 84 mL/min (>60); Est Glom Filt Rate - Afr Amer 102 mL/min (>60); Globulin 3.5 g/dL (2.2-4.2); Glucose 132 mg/dL (74-106); Potassium 3.9 mmol/L (3.5-5.1); Sodium Level 136 mmol/L (136-145)
== END | disposition home or self-care (01) ==
LOC: MTLAB 13:06
PROVIDERS: PCP Family Medicine; Referring Provider Internal Medicine Rheumatology; Visit Provider Internal Medicine Rheumatology
DX: M06.09 Rheumatoid arthritis without rheumatoid factor, multiple sites (principal); Z79.899 Other long term (current) drug therapy
CPT/HCPCS: 36415; 80053; 85025

== ENCOUNTER → 2024-05-02 | Outpatient (CLI) | payer OTHER, SELFPAY ==
[2018-01-25 13:16] VITALS: BMI 31.8
[2024-05-02 11:14] LABS: Absolute Lymphocyte Count 2.57 X10^3/uL (0.83-4.51); Absolute Neutrophil Count 4.5 X10^3/uL (2.0-7.7); Basophil# 0.03 X10^3/uL; Basophil% 0.4 % (0-1); Eosinophil# 0.17 X10^3/uL; Eosinophils% 2.1 % (0-5); Hematocrit 45.6 % (40-54); Hemoglobin 15.9 g/dL (13.0-16.5); Lymphocyte # 2.57 X10^3/ul (0.83-4.51); Lymphocyte % 32.4 % (19-41); Mean Corp Hgb Conc 34.9 g/dL (32-36); Mean Corpuscular Hgb 32.5 pg (27.0-32.0); Mean Corpuscular Volume 93.3 fL (80-94); Mean Platelet Vol. 10.7 fl (6.2-12.0); Monocyte# 0.61 X10^3/uL; Monocyte% 7.7 % (0-10); NRBC Flagged by Analyzer 0 % (0-5); Neutrophil # 4.51 X10^3/uL (2.7-7.7); Neutrophil % 56.9 % (47-70); Platelet Count 241 K/mm3 (150-450); RBC Distribution Width CV 12.4 % (11.6-14.6); RBC Distribution Width SD 42.6 fl (35.1-43.9); Red Blood Count 4.89 M/mm3 (4.6-6.2); White Blood Count 7.9 K/mm3 (4.4-11.0)
[2024-05-02 11:56] LABS: ALB/GLOB Ratio 1.4 RATIO (0.9-2.4); AST(SGOT) 25 U/L (<=37); Alanine Aminotransfer ALT/SGPT 23 U/L (<=46); Albumin, Serum 4.3 g/dL (3.5-5.0); Alkaline Phosphatase 67 U/L (40-129); Anion Gap 14 (5-15); BUN 23 mg/dL (4-19); BUN/Creat Ratio 22.5 RATIO (10-20); Calcium,Total 9.7 mg/dL (7.6-11.0); Carbon Dioxide 22.4 mmol/L (21.0-32.0); Chloride 102 mmol/L (98-108); Creatinine, Serum 1.03 mg/dL (0.70-1.20); EST Glomerular Filtration Rate 87 (>60); Globulin 3.1 g/dL (2.2-4.2); Glucose 106 mg/dL (70-99); Potassium 4.4 mmol/L (3.3-5.1); Protein, Total 7.3 g/dL (5.9-8.4); Sodium Level 138 mmol/L (133-145); Total Bilirubin 0.43 mg/dL (0.00-1.30)
[2024-05-02 12:52] LABS: Cholesterol 145 mg/dL (<=200); High Density Lipoprotein 44 mg/dL; Low Density Lipoprotein Calc. 84 mg/dL; Triglycerides 85 mg/dL; Very Low Density Lipoprotein 17 mg/dL (5-40); cholesterol:hdl ratio screen 3.33
[2024-05-02 15:01] LABS: Bilirubin, Direct 0.19 mg/dL (0.00-0.30)
== END | disposition home or self-care (01) ==
LOC: MTLAB 08:08
PROVIDERS: PCP Family Medicine; Referring Provider Nurse Practitioner Family; Visit Provider Nurse Practitioner Family
DX: M06.09 Rheumatoid arthritis without rheumatoid factor, multiple sites (principal); Z79.899 Other long term (current) drug therapy; E78.2 Mixed hyperlipidemia; Z95.5 Presence of coronary angioplasty implant and graft
CPT/HCPCS: 36415; 80053; 80061; 82248; 85025

== ENCOUNTER → 2024-07-22 | Outpatient (CLI) | payer OTHER, SELFPAY ==
[2018-01-25 13:16] VITALS: BMI 31.8
[2024-07-22 10:55] LABS: Absolute Lymphocyte Count 2.46 X10^3/uL (0.83-4.51); Absolute Neutrophil Count 5.4 X10^3/uL (2.0-7.7); Basophil# 0.02 X10^3/uL; Basophil% 0.2 % (0-1); Eosinophil# 0.31 X10^3/uL; Eosinophils% 3.5 % (0-5); Hematocrit 42.2 % (40-54); Hemoglobin 14.3 g/dL (13.0-16.5); Lymphocyte # 2.46 X10^3/ul (0.83-4.51); Lymphocyte % 27.8 % (19-41); Mean Corp Hgb Conc 33.9 g/dL (32-36); Mean Corpuscular Hgb 32.1 pg (27.0-32.0); Mean Corpuscular Volume 94.8 fL (80-94); Mean Platelet Vol. 10.1 fl (6.2-12.0); Monocyte# 0.63 X10^3/uL; Monocyte% 7.1 % (0-10); NRBC Flagged by Analyzer 0 % (0-5); Neutrophil % 61.1 % (47-70); Platelet Count 250 K/mm3 (150-450); RBC Distribution Width CV 12.9 % (11.6-14.6); RBC Distribution Width SD 45.1 fl (35.1-43.9); Red Blood Count 4.45 M/mm3 (4.6-6.2); White Blood Count 8.9 K/mm3 (4.4-11.0)
[2024-07-22 11:21] LABS: ALB/GLOB Ratio 1.4 RATIO (0.9-2.4); AST(SGOT) 24 U/L (<=37); Alanine Aminotransfer ALT/SGPT 23 U/L (<=46); Albumin, Serum 3.9 g/dL (3.5-5.0); Alkaline Phosphatase 67 U/L (40-129); Anion Gap 10 (5-15); BUN 16 mg/dL (4-19); BUN/Creat Ratio 14.8 RATIO (10-20); Calcium,Total 9.2 mg/dL (7.6-11.0); Carbon Dioxide 22.6 mmol/L (21.0-32.0); Chloride 102 mmol/L (98-108); Creatinine, Serum 1.07 mg/dL (0.70-1.20); EST Glomerular Filtration Rate 82 (>60); Globulin 2.7 g/dL (2.2-4.2); Glucose 130 mg/dL (70-99); Protein, Total 6.6 g/dL (5.9-8.4); Sodium Level 134 mmol/L (133-145); Total Bilirubin 0.41 mg/dL (0.00-1.30)
== END | disposition home or self-care (01) ==
LOC: MTLAB 08:34
PROVIDERS: PCP Family Medicine; Referring Provider Internal Medicine Rheumatology; Visit Provider Internal Medicine Rheumatology
DX: M06.09 Rheumatoid arthritis without rheumatoid factor, multiple sites (principal); Z79.899 Other long term (current) drug therapy
CPT/HCPCS: 36415; 80053; 85025

== ENCOUNTER → 2024-09-06 | Outpatient (CLI) | payer OTHER, SELFPAY ==
[2024-09-01 16:04] VITALS: BMI 31.8
== END | disposition home or self-care (01) ==
LOC: MTLAB 08:47
PROVIDERS: PCP Family Medicine; Referring Provider Psychiatry & Neurology Neurology; Visit Provider Psychiatry & Neurology Neurology
DX: R73.03 Prediabetes (principal)
CPT/HCPCS: 36415; 83036

== ENCOUNTER → 2024-10-17 | Outpatient (CLI) | payer OTHER, SELFPAY ==
[2024-09-01 16:04] VITALS: BMI 31.8
[2024-10-17 10:59] LABS: Hematocrit 43.6 % (40-54); Hemoglobin 15.2 g/dL (13.0-16.5); Immature Granulocytes Count 0.020 X10^3/uL (0.0-0.0); Mean Corp Hgb Conc 34.9 g/dL (32-36); Mean Corpuscular Volume 94.0 fL (80-94); Mean Platelet Vol. 10.2 fl (6.2-12.0); NRBC Flagged by Analyzer 0 % (0-5); Platelet Count 235 K/mm3 (150-450); RBC Distribution Width CV 12.7 % (11.6-14.6); RBC Distribution Width SD 44.0 fl (35.1-43.9); Red Blood Count 4.64 M/mm3 (4.6-6.2); White Blood Count 7.6 K/mm3 (4.4-11.0)
[2024-10-17 11:27] LABS: AST(SGOT) 26 U/L (<=37); Alanine Aminotransfer ALT/SGPT 24 U/L (<=46); Albumin, Serum 4.1 g/dL (3.5-5.0); Alkaline Phosphatase 66 U/L (40-129); Anion Gap 12 (5-15); BUN 21 mg/dL (4-19); BUN/Creat Ratio 19.6 RATIO (10-20); Calcium,Total 9.4 mg/dL (7.6-11.0); Carbon Dioxide 23.4 mmol/L (21.0-32.0); Chloride 102 mmol/L (98-108); Globulin 2.8 g/dL (2.2-4.2); Glucose 89 mg/dL (70-99); Potassium 4.1 mmol/L (3.3-5.1)
== END | disposition home or self-care (01) ==
LOC: MTLAB 08:44
PROVIDERS: PCP Family Medicine; Referring Provider Internal Medicine Rheumatology; Visit Provider Internal Medicine Rheumatology
DX: M06.09 Rheumatoid arthritis without rheumatoid factor, multiple sites (principal); Z79.899 Other long term (current) drug therapy
CPT/HCPCS: 36415; 80053; 85025

== ENCOUNTER → 2025-01-11 | Outpatient (CLI) | payer OTHER, SELFPAY ==
[2024-09-01 16:04] VITALS: BMI 31.8
--- OUTSIDE RECORDS SUMMARY | 2025-01-11 07:48 | XMS RPT_ITS | CCD ---
Author Organization [facility] Care Team Providers Care Cast Associate Name Role Phone Care Physician, No Primary Primary Care Provider Unavailable Care Physician, No Primary Referring Provider Un available Roof TIRE VULCANIZER, TIRE VULCANIZER-C Rocael H Attending Provider Dr. Jose Camarillo Attending Provider Roof TIRE VULCANIZER, TIRE VULCANIZER-C Rocael H Referring Provider Care Physician, No Primary Primary Care Provider Unavailable Care Physician, No Primary Referring Provider Un available Roof TIRE VULCANIZER, TIRE VULCANIZER-C Rocael H Attending Provider Dr. Alfred Gonzalez Attending Provider Care Physician, No Primary Primary Care Provider Unavailable Care Physician, No Primary Referring Provider Un available Dr. Wili Estevez Attending Provider Dr. Alfred Gonzalez Primary Care Provider [phone] Dr. Alfred Gonzalez Referring Provider ADEN Barr Attending Provider Roof TIRE VULCANIZER, TIRE VULCANIZER-C Rocael H Referring Provider Roof TIRE VULCANIZER, TIRE VULCANIZER-C Rocael H Other Provider Dr. Swati Burris Other Provider Dr. John Ross Attending Provider Care Physician, No Primary Referring Provider Un available Dr. Alfred Gonzalez Attending Provider [phone] Dr. Alfred Gonzalez Primary Care Provider Dr. Alfred Gonzalez Referring Provider Monroe MARTINS PA Niko Hassan Attending Provider Roof TIRE VULCANIZER, TIRE VULCANIZER-C Rocael H Referring Provider Roof TIRE VULCANIZER, TIRE VULCANIZER-C Rocael Eaton Other Provider Dr. Swati Burris Other Provider Dr. John Ross Attending Provider Care Physician, No Primary Referring Provider Un available Dr. Alfred Gonzalez Attending Provider Dr. Wili Estevez Attending Provider Dr. Alfred Gonzalez Primary Care Provider Dr. Alfred Gonzalez Referring Provider Dr. Jonh Ross Attending Provider Dr. Alfred Gonzalez Primary Care Provider Dr. Alfred Gonzalez Referring Provider Dr. John Ross Attending Provider Dr. Alfred Gonzalez Primary Care Provider Dr. Wili Estevez Attending Provider Dr. Alfred Gonzalez Primary Care Provider Dr. Alfred Gonzalez Referring Provider Dr. Wili Estevez Attending Provider Dr. Alfred Gonzalez Primary Care Provider Dr. Alfred Gonzalez Referring Provider Dr. Wili Estevez Attending Provider Roof TIRE VULCANIZER, TIRE VULCANIZER-[place] Eaton Attending Provider Dr. Alfred Gonzalez Primary Care Provider Dr. Alfred Gonzalez Referring Provider Roof TIRE VULCANIZER, TIRE VULCANIZER-C Rocael Eaton Attending Provider Dr. Alfred Gonzalez Attending Provider Dr. Alfred Gonzalez DO Primary Care Provider [phone] Dr. Swati Burris MD Attending Provider Dayton BUCK, Dr. Longoria Referring Provider Carlos VICK, Dr. Alfred Diego Referring Provider [phone] Roof TIRE VULCANIZER-C, Rocael Eaton Attending Provider [phone] Jonathan TIRE VULCANIZER-C, Rocael Eaton Referring Provider [phone] Dayton BUCK, Dr. Longoria Other Provider Carlos VICK, Dr. Alfred Diego Primary Care Provider Dayton BUCK, Dr. Longoria Attending Provider Dayton BUCK, Dr. Longoria Referring Provider Carlos VICK, Dr. Alfred Diego Primary Care Provider Carlos VICK, Dr. Alfred Diego Referring Provider [phone] Zenaida BUCK, Dr. Rasheed Attending Provider Zenaida BUCK, Dr. Rasheed Referring Provider Vellanki, Sawti Attending Unavailable Vellanki, Swati Referring Unavailable Brown, Alfred R Primary Care Unavailable Vellanki, Swati Attending Unavailable Vellanki, Swati Referring Unavailable Brown, Alfred R Primary Care Unavailable Brown, Alfred R Referring Unavailable Brown, Alfred R Primary Care Unavailable Roof TIRE VULCANIZER, Rocael Eaton Attending Unavailable Brown, Alfred R Referring Unavailable Brown, Alfred R Primary Care Unavailable Wili Estevez Attending Unavailable Brown, Alfred R Primary Care Unavailable Vellanki, Swati Referring Unavailable Velabner, Swati Attending Unavailable Carlos, Alfred R Primary Care Unavailable Wili Estevez Attending Unavailable Wili Esteevz Referring Unavailable Vellanki, Swati Attending Unavailable Vellanki, Swati Referring Unavailable Brown, Alfred R Primary Care Unavailable Roof TIRE VULCANIZER, Rocael Eaton Referring Unavailable Vellanki, Swati Consulting Unavailable Brown, Alfred R Primary Care Unavailable Roof TIRE VULCANIZER, Rocael Eaton Attending Unavailable Medications Current Medications Medication Drug Class(es) Dates Sig (Normalized) Sig (Original) 1 ml etanercept 50 mg/ml prefilled syringe (17 sources) Tumor Necrosis Factor Alvino Start: 08-16-2020 Etanercept (Enbrel) 50 mg/mL (1 mL) syringe Active 50 mg SC EVERY WEEK August 16, 2020 12:00am folic acid 1 mg oral tablet (17 sources) Start: 08-16-2020 take 1 tablet by mouth once daily Folic Acid 1 mg tablet Active 1 mg PO DAILY August 16, 2020 12:00am leucovorin 15 mg oral tablet (20 sources) Folate Analog Start: 04-12-2024 take 1 tablet by mouth every week Leucovorin Calcium 15 mg tablet Active 15 mg PO EVERY WEEK April 12, 2024 1:00am Start: 05-13-2021 End: 12-11-2021 take 1 tablet by mouth every week Leucovorin Calcium 15 mg tablet Discontinued 15 mg PO EVERY WEEK May 13, 2021 12:00am December 11, 2021 9:14am meclizine hydrochloride 25 mg oral tablet (20 sources) Antiemetic Start: 09-06-2024 take 1 tablet by mouth once daily Meclizine 25 mg tablet Active 25 mg PO daily 90 September 06, 2024 8:28am dizziness Start: 06-26-2022 End: 09-06-2024 take 1 tablet by mouth three times daily as needed for dizziness Meclizine 25 mg tablet Discontinued 25 mg PO THREE TIMES A DAY as needed for dizziness 90 November 06, 2022 8:58am September 06, 2024 8:29am Start: 01-07-2022 End: 06-26-2022 take 1 tablet by mouth once daily Meclizine 25 mg tablet Discontinued 25 mg PO DAILY 30 January 07, 2022 10:12am June 26, 2022 9:04am dizziness Start: 09-03-2021 End: 01-07-2022 take 1 tablet by mouth twice daily Meclizine 25 mg tablet Discontinued 25 mg PO TWICE A DAY 60 September 03, 2021 12:00am January 07, 2022 10:13am dizziness nitroglycerin 0.4 mg sublingual tablet (20 sources) Nitrate Vasodilator Start: 02-04-2019 End: 02-12-2021 Nitroglycerin 0.4 mg tablet, sublingual Active 0.4 mg SL every 5 to 15 minutes as needed for chest pain 17 05February 12, 2021 10:43am until response; do not exceed 3 doses per episode Start: 02-04-2019 End: 02-12-2021 Nitroglycerin Active 0.4 MG SL every 5 to 15 minutes February 12, 2021 10:43am until response; do not exceed 3 doses per episode predniSONE 10 mg oral tablet (20 sources) Start: 09-16-2023 take 1 tablet by mouth once daily as needed Prednisone 10 mg tablet Active 10 mg PO daily as needed September 16, 2023 12:00am Start: 08-16-2020 End: 05-13-2021 Prednisone 10 mg tablet Disc ontinued 5 mg PO .PRN February 12, 2021 10:42am May 13, 2021 8:39am Arthritis Start: 08-16-2020 End: 05-13-2021 Prednisone Discontinued 5 MG PO .PRN February 12, 2021 10:42am May 13, 2021 8:39am Completed/Discontinued Medications Medication Drug Class(es) Dates Sig (Normalized) Sig (Original) Albuterol Sulfate (17 sources) beta2-Adrenergic Agonist Start: 05-06-2018 End: 06-07-2019 take 1 puff(s) by inhalation every six hours Albuterol Sulfate (Ventolin Hfa) 90 mcg/actuation HFA aerosol inhaler Discontinued 2 PUFF INHALATION EVERY 6 HOURS May 06, 2018 3:12pm June 07, 2019 9:55am Start: 05-06-2018 End: 06-07-2019 Albuterol Sulfate (Ventolin Hfa) 90 mcg/actuation HFA aerosol inhaler Discontinued 2 NMA INHALATION EVERY 6 HOURS as needed for shortness of breath 18 May 06, 2018 12:00am June 07, 2019 9:55am Start: 05-06-2018 End: 06-07-2019 take 1 puff(s) by inhalation every six hours Albuterol Sulfate (Ventolin Hfa) 90 mcg/actuation HFA aerosol inhaler Discontinued 2 PUFF INHALATION EVERY 6 HOURS May 06, 2018 12:00am June 07, 2019 9:55am aspirin 81 mg delayed release oral tablet (20 sources) Platelet Aggregation Inhibitor, Nonsteroidal Anti-inflammatory Drug Start: 01-20-2018 End: 08-01-2024 take 1 tablet by mouth once daily Aspirin 81 mg tablet,delayed release (DR/EC) Discontinued 81 mg PO DAILY 90 3 August 11, 2023 9:10am August 01, 2024 10:01am atorvastatin 40 mg oral tablet (20 sources) HMG-CoA Reductase Inhibitor Start: 01-26-2018 End: 05-31-2024 take 1 tablet by mouth once daily in the evening Atorvastatin (Lipitor) 40 mg tablet Discontinued 40 mg PO EVERY EVENING 90 3 June 08, 2023 8:10am May 31, 2024 10:24am clopidogrel 75 mg oral tablet (20 sources) [id number] Platelet Inhibitor Start: 01-20-2018 End: 02-10-2023 take 1 tablet by mouth once daily Clopidogrel 75 mg tablet Discontinued 75 mg PO DAILY 90 3 May 27, 2022 11:33am February 10, 2023 2:36pm dicyclomine hydrochloride 10 mg oral capsule (17 sources) Anticholinergic Start: 08-14-2016 End: 01-20-2018 take 2 capsules by mouth three times daily before mealtime Dicyclomine 10 MG capsule Discontinued 20 mg PO THREE TIMES DAILY BEFORE MEALS August 14, 2016 12:00am January 20, 2018 9:19am causess drowsiness Start: 08-14-2016 End: 01-20-2018 take 20 mg by mouth three times daily before mealtime Dicyclomine Discontinued 20 MG PO THREE TIMES DAILY BEFORE MEALS August 14, 2016 12:00am January 20, 2018 9:19am causess drowsiness fluticasone propionate 0.05 mg/actuat metered dose nasal spray (17 sources) Corticosteroid Start: 05-13-2021 End: 04-12-2024 Fluticasone Propionate 50 mcg/actuation spray,suspension Discontinued 2 NMA INTRANASAL DAILY as needed May 13, 2021 12:00am April 12, 2024 3:18pm Start: 05-13-2021 Fluticasone Pr opionate Active 2 SPRAY INTRANASAL DAILY May 13, 2021 12:00am hydroCHLOROthiazide 25 mg oral tablet (20 sources) Thiazide Diuretic Start: 06-26-2022 End: 09-06-2024 take 1 tablet by mouth once daily in the morning Hydrochlorothiazide 25 mg tablet Discontinued 25 mg PO EVERY MORNING 30 November 06, 2022 8:58am September 06, 2024 8:29am 24 hr isosorbide mononitrate 30 mg extended release oral tablet (20 sources) Nitrate Vasodilator Start: 02-04-2019 End: 06-07-2019 take 1 tablet by mouth once daily, then take 1 tablet by mouth every twenty-four hours Isosorbide Mononitrate 30 mg tablet extended release 24 hr Discontinued 30 mg PO DAILY 90 March 07, 2019 9:26am June 07, 2019 9:56am loratadine 10 mg oral tablet (20 sources) Start: 09-03-2021 End: 09-06-2024 take 1 tablet by mouth once daily Loratadine 10 mg tablet Discontinued 10 mg PO DAILY 30 6 November 06, 2022 8:58am September 06, 2024 8:29am losartan potassium 25 mg oral tablet (20 sources) Angiotensin 2 Receptor Alvino Start: 02-12-2021 End: 09-16-2023 take 1 tablet by mouth once daily Losartan 25 mg tablet Discontinued 25 mg PO DAILY 90 3 February 25, 2022 6:02pm September 16, 2023 9:59am On Hold: Possible dizziness 02/10/2023 metFORMIN hydrochloride 500 mg oral tablet (20 sources) Biguanide Start: 12-11-2021 End: 11-06-2022 take 1 tablet by mouth once daily as needed Metformin 500 mg tablet Discontinued 500 mg PO DAILY as needed February 10, 2022 3:13pm November 06, 2022 8:59am Doesn't always take it due to side effects methotrexate 2.5 mg oral tablet (20 sources) Folate Analog Metabolic Inhibitor Start: 09-16-2023 End: 04-12-2024 Methotrexate Sodium 2.5 mg tablet Discontinued 17.5 mg PO as needed September 16, 2023 10:00am April 12, 2024 3:20pm Start: 02-10-2023 End: 09-16-2023 Methotrexate Sodium 2.5 mg t ablet Discontinued mg PO February 10, 2023 1:00am September 16, 2023 10:04am Start: 02-10-2023 Methotrexate S odium Active MG PO February 10, 2023 1:00am Start: 04-16-2020 End: 12-11-2021 take 4 tablets by mouth every week Methotrexate Sodium 2.5 mg tablet Discontinued 10 mg PO EVERY WEEK April 16, 2020 1:00am December 11, 2021 9:14am Start: 04-16-2020 End: 12-11-2021 take 10 mg by mouth every week Methotrexate Sodium Dis continued 10 MG PO EVERY WEEK April 16, 2020 1:00am December 11, 2021 9:14am 24 hr metoprolol succinate 25 mg extended release oral tablet (20 sources) beta-Adrenergic Alvino Start: 05-06-2018 End: 12-11-2021 take 2 tablets by mouth once daily Metoprolol Succinate (Toprol Xl) 25 mg tablet extended release 24 hr Discontinued 12.5 mg PO DAILY 15 April 16, 2020 3:10pm May 13, 2021 9:09am Start: 01-20-2018 End: 05-06-2018 take 1 tablet by mouth once daily Metoprolol Succinate (Toprol Xl) 25 mg tablet extended release 24 hr Discontinued 25 mg PO DAILY 90 February 05, 2018 3:02pm May 06, 2018 3:05pm omeprazole 40 mg delayed release oral capsule (20 sources) Proton Pump Inhibitor Start: 08-02-2019 End: 12-28-2023 take 1 capsule by mouth once daily Omeprazole 40 mg capsule,delayed release(DR/EC) Discontinued 40 mg PO DAILY 90 December 08, 2022 10:04am December 28, 2023 11:25am ondansetron 4 mg oral tablet (9 sources) Serotonin-3 Receptor Antagonist Start: 06-26-2022 End: 11-06-2022 take 1 tablet by mouth three times daily as needed for nausea and vomiting Ondansetron Hcl 4 mg tablet Discontinued 4 mg PO THREE TIMES A DAY as needed for nausea and vomiting 90 June 26, 2022 12:00am November 06, 2022 8:59am potassium chloride 10 meq extended release oral tablet (20 sources) Start: 02-04-2019 End: 05-27-2022 take 1 tablet by mouth once daily Potassium Chloride 10 mEq tablet extended release Discontinued 10 meq PO DAILY 90 May 09, 2021 11:48am May 27, 2022 11:33am wheat dextrin 3000 mg powder for oral solution (17 sources) Start: 08-02-2019 End: 04-12-2024 take 4 [oz_av] by mouth twice daily Wheat Dextrin (Best Fiber) 3 gram/3.5 gram powder Discontinued 1.5 g PO TWICE A DAY August 02, 2019 12:00am April 12, 2024 3:21pm mix into at least 4 oz water or juice before administering Problems Active Problems Problem Classification Problem Date Documented Da te Episodic/Chronic Administrative/social admission (20 sources) Administrative reason for encounter; Translations: [Encounter for other administrative examinations] Episodic Cardiac dysrhythmias (7 sources) Multiple premature ventricular complexes; Translations: [Ventricular premature depolarization] 09-16-2023 Chronic Conditions associated with dizziness or vertigo (14 sources) Meniere's disease; Translations: [Meniere's disease, unspecified ear] 06-26-2022 Chronic Conditions associated with dizziness or vertigo (20 sources) Vertigo; Translations: [Dizziness and giddiness] Episodic Coronary atherosclerosis and other heart disease (20 sources) Preinfarction syndrome; Translations: [Unstable angina] Chronic Diabetes mellitus without complication (20 sources) Hyperglycemia; Translations: [Hyperglycemia, unspecified] Onset: 09-10-2024 Episodic Disorders of lipid metabolism (18 sources) Hyperlipidemia; Translations: [Hyperlipidemia, unspecified] Onset: 04-12-2024 02-10-2022 Chronic Essential hypertension (17 sources) Essential hypertension; Translations: [Essential (primary) hypertension] 02-07-2022 Chronic Malaise and fatigue (16 sources) Fatigue; Translations: [Other fatigue] Episodic Nonspecific chest pain (20 sources) Chest pain; Translations: [Chest pain, unspecified] 02-08-2019 Episodic Osteoarthritis (20 sources) Arthritis; Translations: [Unspecified osteoarthritis, unspecified site] Chronic Comment on above: 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 Other lower respiratory disease (17 sources) Dyspnea; Translations: [Dyspnea, unspecified] 02-08-2019 Episodic Other male genital disorders (16 sources) Male erectile dysfunction, unspecified; Translations: [Erectile dysfunction] Chronic Other nervous system disorders (17 sources) Polyneuropathy; Translations: [Polyneuropathy, unspecified] 02-07-2022 Chronic Other nervous system disorders (4 sources) Polyneuropathy, unspecified; Translations: [Unspecified hereditary and idiopathic peripheral neuropathy] Chronic Rheumatoid arthritis and related disease (1 source) Rheumatoid arthritis without rheumatoid factor, multiple sites; Translations: [Rheumatoid arthritis without rheumatoid factor, multiple sites] Onset: 10-21-2024 Chronic Substance-related disorders (20 sources) Nicotine dependence; Translations: [Nicotine dependence, unspecified, uncomplicated] Chronic Past or Other Problems Problem Classification Problem Date Documented Da te Episodic/Chronic Coronary atherosclerosis and other heart disease (13 sources) Presence of coronary angioplasty implant and graft; Translations: [Percutaneous transluminal coronary angioplasty status] Onset: 11-18-2018 Episodic Results Test Name Value Interpretation Reference Range Facility Absolute lymphocyte countOrd ered By: Swati Burris on 10-17-2024 Lymphocytes Auto (Unsp spec) [#/Vol] 2.60 10*3/uL 0.83-4.51 [facility] Absolute neutrophil countOrd ered By: Swatisantosh Burris on 10-17-2024 Neutrophils (Bld) [#/Vol] 4.2 10*3/uL 2.0-7.7 [facility] Anion gap in Serum or Plasma Ordered By: Swati Burris on 10-17-2024 Anion gap [Moles/Vol] 12 mmol/L 5- [facility] Automated lymphocyte count a s percentage of total leukocytesOrdered By: Swati Burris on 10-17-2024 Lymphocytes/100 WBC Auto (Unsp spec) 34.3 % - [facility] BUN/creatinine ratioOrdered By: Swatisantosh Burris on 10-17-2024 Urea nitrogen/Creatinine [Mass ratio] 19.6 mg/mg 10- [facility] Basophil percentageOrdered B y: Swati Burris on 10-17-2024 Basophils/100 WBC (Bld) 0.3 % 0-1 [facility] Bilirubin, totalOrdered By: Swati Burris on 10-17-2024 Bilirubin [Mass/Vol] 0.51 mg/dL 0.00-1.30 [facility] CBC W/Diff, Automatedon 09-24 Absolute Lymph 2.60 X10 3/uL Normal 0.83-4.51 [facility] Comment on above: Performed By: #### L [id number], L100.0100 #### [facility] [address] [place], [address] Absolute Neut 4.2 X10 3/uL Normal 2.0-7.7 [facility] Comment on above: Performed By: #### L [id number], L100.0100 #### [facility] [address] [place], [address] Basophils/100 WBC (Bld) 0.3 % Normal 0-1 [facility] Comment on above: Performed By: #### L [id number], L100.0100 #### [facility] [address] [place], [address] Eosinophils/100 WBC (Bld) 2.2 % Normal 0-5 [facility] Comment on above: Performed By: #### L [id number], L100.0100 #### [facility] [address] [place], [address] Erythrocyte distribution width (RBC) [Ratio] 12.7 % Normal 11.6-14.6 [facility] Comment on above: Performed By: #### L [id number], L100.0100 #### [facility] [address] [place], [address] Hematocrit (Bld) [Volume fraction] 43.6 % Normal 40-54 [facility] Comment on above: Performed By: #### L [id number], L100.0100 #### [facility] [address] [place], [address] Hemoglobin (Bld) [Mass/Vol] 15.2 g/dL Normal 13.0-16.5 [facility] Comment on above: Performed By: #### L [id number], L100.0100 #### [facility] [address] [place], [address] IG% 0.300 Normal 0.0-0.9 [facility] Comment on above: Result Comment: IG% - Immature Granulocytes (promyelocytes, myelocytes and metamyelocytes) > 1% indicates that a LEFT SHIFT is Present. Performed By: #### L [id number], L100.0100 #### [facility] [address] [place], [address] Lymphocytes/100 WBC (Bld) 34.3 % Normal 19-41 [facility] Comment on above: Performed By: #### L [id number], L100.0100 #### [facility] [address] [place], [address] MCH (RBC) [Entitic mass] 32.8 pg High 27.0-32.0 [facility] Comment on above: Performed By: #### L [id number], L100.0100 #### [facility] [address] [place], [address] MCHC (RBC) [Mass/Vol] 34.9 g/dL Normal 32-36 [facility] Comment on above: Performed By: #### L [id number], L100.0100 #### [facility] [address] [place], [address] MCV (RBC) [Entitic vol] 94.0 fL Normal 80-94 [facility] Comment on above: Performed By: #### L [id number], L100.0100 #### [facility] [address] [place], [address] Monocytes/100 WBC (Bld) 7.1 % Normal 0-10 [facility] Comment on above: Performed By: #### L [id number], L100.0100 #### [facility] [address] [place], [address] Neutrophils/100 WBC (Bld) 55.8 % Normal 47-70 [facility] Comment on above: Performed By: #### L [id number], L100.0100 #### [facility] [address] [place], [address] Nucleated RBC (Bld) [#/Vol] 0 10*3/uL Normal 0-5 [facility] Comment on above: Performed By: #### L [id number], L100.0100 #### [facility] [address] [place], [address] Platelet mean volume (Bld) [Entitic vol] 10.2 fL Normal 6.2-12.0 [facility] Comment on above: Performed By: #### L [id number], L100.0100 #### [facility] [address] [place], [address] Platelets (Bld) [#/Vol] 235 10*3/uL Normal 150-450 [facility] Comment on above: Performed By: #### L [id number], L100.0100 #### [facility] [address] [place], [address] RBC (Bld) [#/Vol] 4.64 10*6/uL Normal 4.6-6.2 [facility] Comment on above: Performed By: #### L [id number], L100.0100 #### [facility] [address] [place], [address] RDW SD 44.0 fl High 35.1-43.9 [facility] Comment on above: Performed By: #### L [id number], L100.0100 #### [facility] [address] [place], [address] WBC (Bld) [#/Vol] 7.6 10*3/uL Normal 4.4-11.0 [facility] Comment on above: Performed By: #### L [id number], L100.0100 #### [facility] [address] [place], [address] Carbon dioxide, total [Moles /volume] in Central venous bloodOrdered By: Swati Burris on 10-17-2024 CO2 [Moles/Vol] 23.4 mmol/L 21.0-32.0 [facility] Chloride assayOrdered By: Aden Burris on 10-17-2024 Chloride [Moles/Vol] 102 mmol/L 98-108 [facility] Comprehensive Metabolic Prof ilon 10-17-2024 Albumin [Mass/Vol] 4.1 g/dL Normal 3.5-5.0 [facility] Comment on above: Performed By: #### L [id number], L100.0100 #### [facility] [address] [place], [address] Albumin/Globulin [Mass ratio] 1.5 {ratio} Normal 0.9-2.4 [facility] Comment on above: Performed By: #### L [id number], L100.0100 #### [facility] [address] [place], [address] ALK PHOS 66 U/L Normal 40-129 [facility] Comment on above: Performed By: #### L [id number], L100.0100 #### [facility] [address] [place], [address] ALT [Catalytic activity/Vol] 24 U/L Normal <=46 [facility] Comment on above: Performed By: #### L [id number], L100.0100 #### [facility] [address] [place], [address] AST [Catalytic activity/Vol] 26 U/L Normal <=37 [facility] Comment on above: Performed By: #### L [id number], L100.0100 #### [facility] [address] [place], [address] Bilirubin [Mass/Vol] 0.51 mg/dL Normal 0.00-1.30 [facility] Comment on above: Performed By: #### L [id number], L100.0100 #### [facility] [address] [place], [address] BUN/CRE 19.6 RATIO Normal 10-20 [facility] Comment on above: Performed By: #### L 500.4050, L100.0100 #### [facility] [address] [place], [address] Calcium [Mass/Vol] 9.4 mg/dL Normal 7.6-11.0 [facility] Comment on above: Performed By: #### L 500.4050, L100.0100 #### [facility] [address] [place], [address] Chloride [Moles/Vol] 102 mmol/L Normal 98-108 [facility] Comment on above: Performed By: #### L 500.4050, L100.0100 #### [facility] [address] [place], [address] CO2 [Moles/Vol] 23.4 mmol/L Normal 21.0-32.0 [facility] Comment on above: Performed By: #### L 500.4050, L100.0100 #### [facility] [address] [place], [address] Creatinine [Mass/Vol] 1.05 mg/dL Normal 0.70-1.20 [facility] Comment on above: Performed By: #### L 500.4050, L100.0100 #### [facility] [address] [place], [address] GAP 12 Normal 5-15 [facility] Comment on above: Performed By: #### L 500.4050, L100.0100 #### [facility] [address] [place], [address] GFR/1.73 sq M.predicted among non-blacks MDRD (S/P/Bld) [Vol rate/Area] 84 mL/min/{1.73_m2} Normal >60 [facility] Comment on above: Result Comment: mL/m in/1.73m2 CKD-EPI Creatinine Equation (2020) Performed By: #### L 500.4050, L100.0100 #### [facility] [address] [place], [address] Globulin (S) [Mass/Vol] 2.8 g/dL Normal 2.2-4.2 [facility] Comment on above: Performed By: #### L 500.4050, L100.0100 #### [facility] [address] [place], [address] Glucose [Mass/Vol] 89 mg/dL Normal 70-99 [facility] Comment on above: Performed By: #### L 500.4050, L100.0100 #### [facility] [address] [place], [address] Potassium [Moles/Vol] 4.1 mmol/L Normal 3.3-5.1 [facility] Comment on above: Performed By: #### L 500.4050, L100.0100 #### [facility] [address] [place], [address] Sodium [Moles/Vol] 138 mmol/L Normal 133-145 [facility] Comment on above: Performed By: #### L 500.4050, L100.0100 #### [facility] [address] [place], [address] T PROT 6.9 g/dL Normal 5.9-8.4 [facility] Comment on above: Performed By: #### L 500.4050, L100.0100 #### [facility] [address] [place], [address] Urea nitrogen [Mass/Vol] 21 mg/dL High 4-19 [facility] Comment on above: Performed By: #### L 500.4050, L100.0100 #### [facility] [address] [place], [address] Eosinophil percentageOrdered By: Swati Burris on 10-17-2024 Eosinophils/100 WBC (Bld) 2.2 % 0-5 [facility] Erythrocyte distribution wid th ratioOrdered By: Swati Burris on 10-17-2024 Erythrocyte distribution width (RBC) [Ratio] 12.7 % 11.6-14.6 [facility] Erythrocyte distribution wid th standard deviationOrdered By: Swati Burris on 10-17-2024 Erythrocyte distribution width (RBC) [Ratio] 44.0 fl High 35.1-43.9 [facility] Glomerular filtration rate ( GFR) estimation/1.73 sq m using serum, plasma, or whole bOrdered By: Swati Burris on 10-17-2024 GFR/1.73 sq M.predicted among non-blacks MDRD (S/P/Bld) [Vol rate/Area] 84 mL/min/{1.73_m2} >60 [facility] Comment on above: mL/min/1.73m2 CKD-EP I Creatinine Equation (2020) Hematocrit Auto (Bld) [Volum e fraction]Ordered By: Swati Burris on 10-17-2024 Hematocrit (Bld) [Volume fraction] 43.6 % 40-54 [facility] Hemoglobin measurementOrdere d By: Swati Burris on 10-17-2024 Hemoglobin (Bld) [Mass/Vol] 15.2 g/dL 13.0-16.5 [facility] Immature granulocytes/100 WB C Auto (Bld)Ordered By: Swati Burris on 10-17-2024 Immature granulocytes/100 WBC (Bld) 0.300 % 0.0-0.9 [facility] Comment on above: IG% - Immature Granu locytes (promyelocytes, myelocytes and metamyelocytes) > 1% indicates that a LEFT SHIFT is Present. Laboratory - Chemistry and C hemistry - challengeOrdered By: Swati Burris on 10-17-2024 AST [Catalytic activity/Vol] 26 U/L <38 [facility] MCV (mean corpuscular volume ) determinationOrdered By: Swati Burris 10-17-2024 MCV (RBC) [Entitic vol] 94.0 fL 80-94 [facility] Mean corpuscular hemoglobin (MCH) determinationOrdered By: Swati Burris 10-17-2024 MCH (RBC) [Entitic mass] 32.8 pg High 27.0-32.0 [facility] Mean corpuscular hemoglobin concentration (MCHC) determinationOrdered By: Swati Burris on 10-17-2024 MCHC (RBC) [Mass/Vol] 34.9 g/dL 32-36 [facility] Mean platelet volume determi nationOrdered By: Swati Burris on 10-17-2024 Platelet mean volume (Bld) [Entitic vol] 10.2 fL 6.2-12.0 [facility] Monocyte percentageOrdered B y: Swati Burris on 10-17-2024 Monocytes/100 WBC (Bld) 7.1 % 0-10 [facility] Neutrophil percentageOrdered By: Swati Burris on 10-17-2024 Neutrophils/100 WBC (Bld) 55.8 % 47-70 [facility] Nucleated red blood cell per centageOrdered By: Swati Burris on 10-17-2024 Nucleated RBC/100 WBC (Bld) [Ratio] 0 % 0-5 [facility] Platelet countOrdered By: Aden Burris on 10-17-2024 Platelets (Bld) [#/Vol] 235 10*3/uL 150-450 [facility] Potassium measurement (mass/ volume)Ordered By: Swati Burris on 10-17-2024 Potassium (Unsp spec) [Mass/Vol] 4.1 mmol/L 3.3-5.1 [facility] RBC Auto (Bld) [#/Vol]Ordere d By: Swati Burris on 10-17-2024 RBC (Bld) [#/Vol] 4.64 10*6/uL 4.6-6.2 [facility] Serum creatinine measurement (mass/volume)Ordered By: Swati Burris on 10-17-2024 Creatinine [Mass/Vol] 1.05 mg/dL 0.70-1.20 [facility] Serum globulin measurementOr dered By: Swati Burris on 10-17-2024 Globulin (S) [Mass/Vol] 2.8 g/dL 2.2-4.2 [facility] Serum glucose measurement (m ass/volume)Ordered By: Swati Burris on 10-17-2024 Glucose [Mass/Vol] 89 mg/dL 70-99 [facility] Serum or plasma alanine niño otransferase (ALT) measurementOrdered By: Swati Burris on 10-17-2024 ALT [Catalytic activity/Vol] 24 U/L <47 [facility] Serum or plasma albumin shade urement (mass/volume)Ordered By: Swati Burris on 10-17-2024 Albumin [Mass/Vol] 4.1 g/dL 3.5-5.0 [facility] Serum or plasma albumin/glob ulin mass ratioOrdered By: Swati Burris on 10-17-2024 Albumin/Globulin [Mass ratio] 1.5 {ratio} 0.9-2.4 [facility] Serum or plasma alkaline trevor sphatase measurementOrdered By: Swati Burris on 10-17-2024 ALP [Catalytic activity/Vol] 66 U/L 40-129 [facility] Serum or plasma calcium shade urement (mass/volume)Ordered By: Swati Burris on 10-17-2024 Calcium [Mass/Vol] 9.4 mg/dL 7.6-11.0 [facility] Serum or plasma urea nitroge n measurement (mass/volume)Ordered By: Swati Burris on 10-17-2024 Urea nitrogen [Mass/Vol] 21 mg/dL High 4-19 [facility] Sodium levelOrdered By: Amarilis Burris on 10-17-2024 Sodium [Moles/Vol] 138 mmol/L 133-145 [facility] Total proteinOrdered By: Adilene Burris on 10-17-2024 Protein [Mass/Vol] 6.9 g/dL 5.9-8.4 [facility] White blood cell (WBC) count Ordered By: Swati Burris on 10-17-2024 WBC (Bld) [#/Vol] 7.6 10*3/uL 4.4-11.0 [facility] Hemoglobin A1con 09-06-2024 HbA1c (Bld) [Mass fraction] 6.0 % High <=5.6 [facility] Comment on above: Result Comment: Norm al < 5.7 % Prediabetic 5.7 - 6.4 % Diabetic >or= 6.5 % Please note range changes. Performed By: #### L 500.4050, L100.0100 #### [facility] [address], [address] Hemoglobin A1c percentageOrd ered By: Wili Estevez on 09-06-2024 HbA1c (Bld) [Mass fraction] 6.0 % High <5.7 [facility] Comment on above: Normal < 5.7 % Predi abetic 5.7 - 6.4 % Diabetic >or= 6.5 % Please note range changes. Neurology Visit Reporton Neurology Visit Report [facility] [address], [address] [place], [place] [address] OFFICE VISIT Date of Service: 09/06/24 MR#: [id number] Acct: [id number] Name: CHAS VICKERS Rep #: [id number] : 1970 Provider: Dr. Wili currie MD Age/Sex: 54/M Location: [facility]. Status: Signed HPI HPI Chief Complaint: Details: Interim History: Chas returns for follow-up visit. He has a history of hypertension, borderline diabetes mellitus, hyperlipidemia, rheumatoid arthritis, coronary artery disease status post coronary artery stent placements in 2017 and 2018 and squamous cell skin cancer status post excision. He began having dizziness in 2019. His dizziness had been episodic and occurred about twice per week then increased in frequency beginning around January 2021 to once or twice per day. He described the dizziness as vertigo and disequilibrium. He has had a feeling of transient left ear pressure pain which, at times, also has a sharp component that radiates over the left side of the calvarium with his episodes of dizziness. His episodes lasted 5 to 10 minutes each. These episodes are commonly triggered by head movement or body position change. He was evaluated by an ENT specialist and a head MRI in February 2020 revealed left maxillary sinusitis. He was treated with fluticasone; this was not of benefit. He has chronic left-sided hearing loss (this does not fluctuate). He has had bilateral tinnitus that has been present since around 2006 (this fluctuates in intensity and is more prominent on the left side). He was exposed to loud automotive noses in the past. In 2021, he had vestibular rehabilitation (and is now performing exercises on his own) and started meclizine and loratadine and with these treatments, his dizziness subsided for a period of time however in 2022, he had an increase of his vertigo/disequilibrium and at one point his vertigo/disequilibrium was nearly continuous. Meclizine dosing was switched to a scheduled dose of 25 mg 3 times daily and hydrochlorothiazide 25 mg every morning was initiated in June 2022 and his dizziness subsequently gradually subsided. He then he reduced his dose of meclizine to 25 mg daily and his symptoms were well-controlled until he ran out of meclizine and hydrochlorothiazide earlier in 2024. He has now had recurrence of his disequilibrium, left ear pressure type sensation and tinnitus. He has tolerated hydrochlorothiazide and meclizine well. He had some nausea in the past; this has subsided and he did not feel the need to try ondansetron. He stated that his dizziness is worsened with barometric pressure changes that he noticed when when [place]. He has taken a potassium supplement. He has intermittent clear nasal discharge. Loratadine is been of benefit. He has a history of neck pain and arthritic pain in the shoulders, knees, hips, hands and feet. He had a left hip fracture in 1999 for which he underwent surgical repair and has since had a left limp. His joint pain symptoms diminished significantly following treatment with Enbrel and methotrexate for his rheumatoid arthritis. He previously reported that he snorted night and did not feel well rested but later reported that he felt well rested when he awakens in the morning. He stated that a sleep study performed in years past did not reveal sleep apnea (an official report is presently not available). Physical Exam: Neuro: The patient is awake and alert and responds appropriately; speech is fluent; EOMI; no nystagmus Heart: Regular rate and rhythm HEENT: Tympanic membranes are clear Supplemental Info EKG (01/21/2019): Normal sinus rhythm. Normal EKG. Head MRI (03/16/2020): FINDINGS: Normal bilateral temporal bones. Normal bilateral internal auditory canals. There is no demonstrated intracanalicular or cisternal vestibular schwannoma (acoustic neuroma). There is no enhancement of the bilateral VIIth or VIIIth cranial nerves. Normal bilateral cochlea, vestibules and semicircular canals. Normal size of the ventricles and extra-axial spaces for the patient''s age. Normal white matter tracts of the supratentorial brain. There is no evidence for recent intracranial ischemia or other cause of cytotoxic edema on diffusion weighted imaging (DWI). Normal bilateral basal ganglia. Normal thalami. Normal flow voids within the major intracranial circulation suggesting patency by spin echo criteria. Normal venous enhancement. There is no enhancing intra-axial or extra-axial abnormality. There is no extra-axial fluid accumulation. Normal sella turcica, pituitary gland, infundibular stalk, optic chiasm and hypothalamus. Normal tectal plate and pineal gland. Normal midbrain, farzaneh and medulla. Normal cerebellum. Normal basal cisterns. No demonstrated orbital abnormality, within the constraints of a routine brain study. Mucosal thickeni (more content not included)... Normal [facility] Absolute lymphocyte countOrd ered By: Swatisantosh Burris on 07-22-2024 Lymphocytes Auto (Unsp spec) [#/Vol] 2.46 10*3/uL 0.83-4.51 [facility] Absolute neutrophil countOrd ered By: [facility] on 07-22-2024 Neutrophils (Bld) [#/Vol] 5.4 10*3/uL 2.0-7.7 [facility] Anion gap in Serum or Plasma Ordered By: Swati Burris on 07-22-2024 Anion gap [Moles/Vol] 10 mmol/L 5-15 [facility] Automated lymphocyte count a s percentage of total leukocytesOrdered By: Swati Burris on 07-22-2024 Lymphocytes/100 WBC Auto (Unsp spec) 27.8 % 19-41 [facility] BUN/creatinine ratioOrdered By: [facility] on 07-22-2024 Urea nitrogen/Creatinine [Mass ratio] 14.8 mg/mg 10-20 [facility] Basophil percentageOrdered B y: Swati Burris on 07-22-2024 Basophils/100 WBC (Bld) 0.2 % 0-1 [facility] Bilirubin, totalOrdered By: Swatisantosh Burris on 07-22-2024 Bilirubin [Mass/Vol] 0.41 mg/dL 0.00-1.30 [facility] CBC W/Diff, Automatedon 05-3 0-2024 Absolute Lymph 2.46 X10 3/uL Normal 0.83-4.51 [facility] Comment on above: Performed By: #### L 100.0100, L500.4050 #### [facility] [address] [place], [address] Absolute Neut 5.4 X10 3/uL Normal 2.0-7.7 [facility] Comment on above: Performed By: #### L 100.0100, L500.4050 #### [facility] [address] [place], [address] Basophils/100 WBC (Bld) 0.2 % Normal 0-1 [facility] Comment on above: Performed By: #### L 100.0100, L500.4050 #### [facility] [address] [place], [address] Eosinophils/100 WBC (Bld) 3.5 % Normal 0-5 [facility] Comment on above: Performed By: #### L 100.0100, L500.4050 #### [facility] [address] [place], [address] Erythrocyte distribution width (RBC) [Ratio] 12.9 % Normal 11.6-14.6 [facility] Comment on above: Performed By: #### L 100.0100, L500.4050 #### [facility] [address] [place], [address] Hematocrit (Bld) [Volume fraction] 42.2 % Normal 40-54 [facility] Comment on above: Performed By: #### L 100.0100, L500.4050 #### [facility] [address] [place], [address] Hemoglobin (Bld) [Mass/Vol] 14.3 g/dL Normal 13.0-16.5 [facility] Comment on above: Performed By: #### L 100.0100, L500.4050 #### [facility] [address] [place], [address] IG% 0.300 Normal 0.0-0.9 [facility] Comment on above: Result Comment: IG% - Immature Granulocytes (promyelocytes, myelocytes and metamyelocytes) > 1% indicates that a LEFT SHIFT is Present. Performed By: #### L 100.0100, L500.4050 #### [facility] [address] [place], [address] Lymphocytes/100 WBC (Bld) 27.8 % Normal 19-41 [facility] Comment on above: Performed By: #### L 100.0100, L500.4050 #### [facility] [address] [place], [address] MCH (RBC) [Entitic mass] 32.1 pg High 27.0-32.0 [facility] Comment on above: Performed By: #### L 100.0100, L500.4050 #### [facility] [address] [place], [address] MCHC (RBC) [Mass/Vol] 33.9 g/dL Normal 32-36 [facility] Comment on above: Performed By: #### L 100.0100, L500.4050 #### [facility] [address] [place], [address] MCV (RBC) [Entitic vol] 94.8 fL High 80-94 [facility] Comment on above: Performed By: #### L 100.0100, L500.4050 #### [facility] [address] [place], [address] Monocytes/100 WBC (Bld) 7.1 % Normal 0-10 [facility] Comment on above: Performed By: #### L 100.0100, L500.4050 #### [facility] [address] [place], [address] Neutrophils/100 WBC (Bld) 61.1 % Normal 47-70 [facility] Comment on above: Performed By: #### L 100.0100, L500.4050 #### [facility] [address] [place], [address] Nucleated RBC (Bld) [#/Vol] 0 10*3/uL Normal 0-5 [facility] Comment on above: Performed By: #### L 100.0100, L500.4050 #### [facility] [address] [place], [address] Platelet mean volume (Bld) [Entitic vol] 10.1 fL Normal 6.2-12.0 [facility] Comment on above: Performed By: #### L 100.0100, L500.4050 #### [facility] [address] [place], [address] Platelets (Bld) [#/Vol] 250 10*3/uL Normal 150-450 [facility] Comment on above: Performed By: #### L 100.0100, L500.4050 #### [facility] [address] [place], [address] RBC (Bld) [#/Vol] 4.45 10*6/uL Low 4.6-6.2 [facility] Comment on above: Performed By: #### L 100.0100, L500.4050 #### [facility] [address] [place], [address] RDW SD 45.1 fl High 35.1-43.9 [facility] Comment on above: Performed By: #### L 100.0100, L500.4050 #### [facility] [address] [place], [address] WBC (Bld) [#/Vol] 8.9 10*3/uL Normal 4.4-11.0 [facility] Comment on above: Performed By: #### L 100.0100, L500.4050 #### [facility] [address] [place], [address] Carbon dioxide, total [Moles /volume] in Central venous bloodOrdered By: Swati Burris on 07-22-2024 CO2 [Moles/Vol] 22.6 mmol/L 21.0-32.0 [facility] Chloride assayOrdered By: Aden Burris on 07-22-2024 Chloride [Moles/Vol] 102 mmol/L 98-108 [facility] Comprehensive Metabolic Prof ilon 07-22-2024 Albumin [Mass/Vol] 3.9 g/dL Normal 3.5-5.0 [facility] Comment on above: Performed By: #### L 100.0100, L500.4050 #### [facility] [address] [place], [address] Albumin/Globulin [Mass ratio] 1.4 {ratio} Normal 0.9-2.4 [facility] Comment on above: Performed By: #### L 100.0100, L500.4050 #### [facility] [address] [place], [address] ALK PHOS 67 U/L Normal 40-129 [facility] Comment on above: Performed By: #### L 100.0100, L500.4050 #### [facility] [address] [place], [address] ALT [Catalytic activity/Vol] 23 U/L Normal <=46 [facility] Comment on above: Performed By: #### L 100.0100, L500.4050 #### [facility] [address] [place], [address] AST [Catalytic activity/Vol] 24 U/L Normal <=37 [facility] Comment on above: Performed By: #### L 100.0100, L500.4050 #### [facility] [address] [place], [address] Bilirubin [Mass/Vol] 0.41 mg/dL Normal 0.00-1.30 [facility] Comment on above: Performed By: #### L 100.0100, L500.4050 #### [facility] [address] [place], [address] BUN/CRE 14.8 RATIO Normal 10-20 [facility] Comment on above: Performed By: #### L 100.0100, L500.4050 #### [facility] [address] [place], [address] Calcium [Mass/Vol] 9.2 mg/dL Normal 7.6-11.0 [facility] Comment on above: Performed By: #### L 100.0100, L500.4050 #### [facility] [address] [place], [address] Chloride [Moles/Vol] 102 mmol/L Normal 98-108 [facility] Comment on above: Performed By: #### L 100.0100, L500.4050 #### [facility] [address] [place], [address] CO2 [Moles/Vol] 22.6 mmol/L Normal 21.0-32.0 [facility] Comment on above: Performed By: #### L 100.0100, L500.4050 #### [facility] [address] [place], [address] Creatinine [Mass/Vol] 1.07 mg/dL Normal 0.70-1.20 [facility] Comment on above: Performed By: #### L 100.0100, L500.4050 #### [facility] [address] [place], [address] GAP 10 Normal 5-15 [facility] Comment on above: Performed By: #### L 100.0100, L500.4050 #### [facility] [address] [place], [address] GFR/1.73 sq M.predicted among non-blacks MDRD (S/P/Bld) [Vol rate/Area] 82 mL/min/{1.73_m2} Normal >60 [facility] Comment on above: Result Comment: mL/m in/1.73m2 CKD-EPI Creatinine Equation (2020) Performed By: #### L 100.0100, L500.4050 #### [facility] [address] [place], [address] Globulin (S) [Mass/Vol] 2.7 g/dL Normal 2.2-4.2 [facility] Comment on above: Performed By: #### L 100.0100, L500.4050 #### [facility] [address] [place], [address] Glucose [Mass/Vol] 130 mg/dL High 70-99 [facility] Comment on above: Performed By: #### L 100.0100, L500.4050 #### [facility] [address] [place], [address] Potassium [Moles/Vol] 4.0 mmol/L Normal 3.3-5.1 [facility] Comment on above: Performed By: #### L 100.0100, L500.4050 #### [facility] [address] [place], [address] Sodium [Moles/Vol] 134 mmol/L Normal 133-145 [facility] Comment on above: Performed By: #### L 100.0100, L500.4050 #### [facility] [address] [place], [address] T PROT 6.6 g/dL Normal 5.9-8.4 [facility] Comment on above: Performed By: #### L 100.0100, L500.4050 #### [facility] [address] [place], [place], [id number] Urea nitrogen [Mass/Vol] 16 mg/dL Normal 4-19 [facility] Comment on above: Performed By: #### L 100.0100, L500.4050 #### [facility] [address] [place], [address] Eosinophil percentageOrdered By: Swati Burris on 07-22-2024 Eosinophils/100 WBC (Bld) 3.5 % 0-5 [facility] Erythrocyte distribution wid th ratioOrdered By: Swati Burris on 07-22-2024 Erythrocyte distribution width (RBC) [Ratio] 12.9 % 11.6-14.6 [facility] Erythrocyte distribution wid th standard deviationOrdered By: Swati Burris on 07-22-2024 Erythrocyte distribution width (RBC) [Ratio] 45.1 fl High 35.1-43.9 [facility] Glomerular filtration rate ( GFR) estimation/1.73 sq m using serum, plasma, or whole bOrdered By: Swati Burris on 07-22-2024 GFR/1.73 sq M.predicted among non-blacks MDRD (S/P/Bld) [Vol rate/Area] 82 mL/min/{1.73_m2} >60 [facility] Comment on above: mL/min/1.73m2 CKD-EP I Creatinine Equation (2020) Hematocrit Auto (Bld) [Volum e fraction]Ordered By: Swati Burris on 07-22-2024 Hematocrit (Bld) [Volume fraction] 42.2 % 40-54 [facility] Hemoglobin measurementOrdere d By: Swati Burris on 07-22-2024 Hemoglobin (Bld) [Mass/Vol] 14.3 g/dL 13.0-16.5 [facility] Immature granulocytes/100 WB C Auto (Bld)Ordered By: Swati Burris on 07-22-2024 Immature granulocytes/100 WBC (Bld) 0.300 % 0.0-0.9 [facility] Comment on above: IG% - Immature Granu locytes (promyelocytes, myelocytes and metamyelocytes) > 1% indicates that a LEFT SHIFT is Present. Laboratory - Chemistry and C hemistry - challengeOrdered By: Swati Burris on 07-22-2024 AST [Catalytic activity/Vol] 24 U/L <38 [facility] MCV (mean corpuscular volume ) determinationOrdered By: Swati Burris on 07-22-2024 MCV (RBC) [Entitic vol] 94.8 fL High 80-94 [facility] Mean corpuscular hemoglobin (MCH) determinationOrdered By: Swati Burris on 07-22-2024 MCH (RBC) [Entitic mass] 32.1 pg High 27.0-32.0 [facility] Mean corpuscular hemoglobin concentration (MCHC) determinationOrdered By: Swati Burris on 07-22-2024 MCHC (RBC) [Mass/Vol] 33.9 g/dL 32-36 [facility] Mean platelet volume determi nationOrdered By: Swati Burris on 07-22-2024 Platelet mean volume (Bld) [Entitic vol] 10.1 fL 6.2-12.0 [facility] Monocyte percentageOrdered B y: Swati Burris on 07-22-2024 Monocytes/100 WBC (Bld) 7.1 % 0-10 [facility] Neutrophil percentageOrdered By: Swati Burris on 07-22-2024 Neutrophils/100 WBC (Bld) 61.1 % 47-70 [facility] Nucleated red blood cell per centageOrdered By: Swati Burris on 07-22-2024 Nucleated RBC/100 WBC (Bld) [Ratio] 0 % 0-5 [facility] Platelet countOrdered By: Aden Burris on 07-22-2024 Platelets (Bld) [#/Vol] 250 10*3/uL 150-450 [facility] Potassium measurement (mass/ volume)Ordered By: Swati Burris on 07-22-2024 Potassium (Unsp spec) [Mass/Vol] 4.0 mmol/L 3.3-5.1 [facility] RBC Auto (Bld) [#/Vol]Ordere d By: Swati Burris on 07-22-2024 RBC (Bld) [#/Vol] 4.45 10*6/uL Low 4.6-6.2 [facility] Serum creatinine measurement (mass/volume)Ordered By: Swati Burris on 07-22-2024 Creatinine [Mass/Vol] 1.07 mg/dL 0.70-1.20 [facility] Serum globulin measurementOr dered By: Swati Burris on 07-22-2024 Globulin (S) [Mass/Vol] 2.7 g/dL 2.2-4.2 [facility] Serum glucose measurement (m ass/volume)Ordered By: Swati Burris on 07-22-2024 Glucose [Mass/Vol] 130 mg/dL High 70-99 [facility] Serum or plasma alanine nioñ otransferase (ALT) measurementOrdered By: Swati Burris on 07-22-2024 ALT [Catalytic activity/Vol] 23 U/L <47 [facility] Serum or plasma albumin shade urement (mass/volume)Ordered By: Swati Burris on 07-22-2024 Albumin [Mass/Vol] 3.9 g/dL 3.5-5.0 [facility] Serum or plasma albumin/glob ulin mass ratioOrdered By: Swati Burris on 07-22-2024 Albumin/Globulin [Mass ratio] 1.4 {ratio} 0.9-2.4 [facility] Serum or plasma alkaline trevor sphatase measurementOrdered By: Swati Burris on 07-22-2024 ALP [Catalytic activity/Vol] 67 U/L 40-129 [facility] Serum or plasma calcium shade urement (mass/volume)Ordered By: Swati Burris on 07-22-2024 Calcium [Mass/Vol] 9.2 mg/dL 7.6-11.0 [facility] Serum or plasma urea nitroge n measurement (mass/volume)Ordered By: Swati Burris on 07-22-2024 Urea nitrogen [Mass/Vol] 16 mg/dL 4-19 [facility] Sodium levelOrdered By: Amarilis Burris on 05-30-2025 Sodium [Moles/Vol] 134 mmol/L 133-145 [facility] Total proteinOrdered By: Adilene Burris on 07-22-2024 Protein [Mass/Vol] 6.6 g/dL 5.9-8.4 [facility] White blood cell (WBC) count Ordered By: Swati Burris on 07-22-2024 WBC (Bld) [#/Vol] 8.9 10*3/uL 4.4-11.0 [facility] Absolute lymphocyte countOrd ered By: Rocael Castillo on 05-02-2024 Lymphocytes Auto (Unsp spec) [#/Vol] 2.57 10*3/uL 0.83-4.51 [facility] Absolute neutrophil countOrd ered By: Rocael Castillo on 05-02-2024 Neutrophils (Bld) [#/Vol] 4.5 10*3/uL 2.0-7.7 [facility] Anion gap in Serum or Plasma Ordered By: Rocael Castillo on 05-02-2024 Anion gap [Moles/Vol] 14 mmol/L 5-15 [facility] Automated lymphocyte count a s percentage of total leukocytesOrdered By: Rocael Castillo on 05-02-2024 Lymphocytes/100 WBC Auto (Unsp spec) 32.4 % 19-41 [facility] BUN/creatinine ratioOrdered By: Rocael Castillo on 05-02-2024 Urea nitrogen/Creatinine [Mass ratio] 22.5 mg/mg High 10- [facility] Basophil percentageOrdered B y: Rocael Castillo on 05-02-2024 Basophils/100 WBC (Bld) 0.4 % 0-1 [facility] Bilirubin directOrdered By: Rocael Castillo on 05-02-2024 Bilirubin.direct [Mass/Vol] 0.19 mg/dL 0.00-0.30 [facility] Bilirubin, Directon 05-03-19 25 Bilirubin.direct [Mass/Vol] 0.19 mg/dL Normal 0.00-0.30 [facility] Comment on above: Order Comment: ADD B JAZ Performed By: #### L 500.4050, L100.0100, L500.4100, [id number] #### [facility] [place], [address] Bilirubin, totalOrdered By: Rocael Castillo on 05-02-2024 Bilirubin [Mass/Vol] 0.43 mg/dL 0.00-1.30 [facility] CBC W/Diff, Automatedon 04-23 Absolute Lymph 2.57 X10 3/uL Normal 0.83-4.51 [facility] Comment on above: Order Comment: DR. Kyle SOTO GETS RESULTS FROM CMP AND CBCD DR. CASTILLO GETS RESULTS FROM LIVER LIPID Performed By: #### L 500.4050, L100.0100, L500.4100, [id number] #### [facility] [address] [place], [address] Absolute Neut 4.5 X10 3/uL Normal 2.0-7.7 [facility] Comment on above: Order Comment: DR. Kyle SOTO GETS RESULTS FROM CMP AND CBCD DR. CASTILLO GETS RESULTS FROM LIVER LIPID Performed By: #### L 500.4050, L100.0100, L500.4100, [id number] #### [facility] [address] [place], [address] Basophils/100 WBC (Bld) 0.4 % Normal 0-1 [facility] Comment on above: Order Comment: DR. Kyle SOTO GETS RESULTS FROM CMP AND CBCD DR. CASTILLO GETS RESULTS FROM LIVER LIPID Performed By: #### L 500.4050, L100.0100, L500.4100, [id number] #### [facility] [address] [place], [address] Eosinophils/100 WBC (Bld) 2.1 % Normal 0-5 [facility] Comment on above: Order Comment: DR. Kyle SOTO GETS RESULTS FROM CMP AND CBCD DR. CASTILLO GETS RESULTS FROM LIVER LIPID Performed By: #### L 500.4050, L100.0100, L500.4100, [id number] #### [facility] [address] [place], [address] Erythrocyte distribution width (RBC) [Ratio] 12.4 % Normal 11.6-14.6 [facility] Comment on above: Order Comment: DR. Kyle SOTO GETS RESULTS FROM CMP AND CBCD DR. CASTILLO GETS RESULTS FROM LIVER LIPID Performed By: #### L 500.4050, L100.0100, L500.4100, [id number] #### [facility] [address] [place], [address] Hematocrit (Bld) [Volume fraction] 45.6 % Normal 40-54 [facility] Comment on above: Order Comment: DR. Kyle SOTO GETS RESULTS FROM CMP AND CBCD DR. CASTILLO GETS RESULTS FROM LIVER LIPID Performed By: #### L 500.4050, L100.0100, L500.4100, [id number] #### [facility] [address] [place], [address] Hemoglobin (Bld) [Mass/Vol] 15.9 g/dL Normal 13.0-16.5 [facility] Comment on above: Order Comment: DR. Kyle SOTO GETS RESULTS FROM CMP AND CBCD DR. CASTILLO GETS RESULTS FROM LIVER LIPID Performed By: #### L 500.4050, L100.0100, L500.4100, [id number] #### [facility] [address] [place], [address] IG% 0.500 Normal 0.0-0.9 [facility] Comment on above: Order Comment: DR. Kyle SOTO GETS RESULTS FROM CMP AND CBCD DR. CASTILLO GETS RESULTS FROM LIVER LIPID Result Comment: IG% - Immature Granulocytes (promyelocytes, myelocytes and metamyelocytes) > 1% indicates that a LEFT SHIFT is Present. Performed By: #### L 500.4050, L100.0100, L500.4100, [id number] #### [facility] [address] [place], [address] Lymphocytes/100 WBC (Bld) 32.4 % Normal 19-41 [facility] Comment on above: Order Comment: DR. Kyle SOTO GETS RESULTS FROM CMP AND CBCD DR. CASTILLO GETS RESULTS FROM LIVER LIPID Performed By: #### L 500.4050, L100.0100, L500.4100, [id number] #### [facility] [address] [place], [address] MCH (RBC) [Entitic mass] 32.5 pg High 27.0-32.0 [facility] Comment on above: Order Comment: DR. Kyle SOTO GETS RESULTS FROM CMP AND CBCD DR. CASTILLO GETS RESULTS FROM LIVER LIPID Performed By: #### L 500.4050, L100.0100, L500.4100, [id number] #### [facility] [address] [place], [address] MCHC (RBC) [Mass/Vol] 34.9 g/dL Normal 32-36 [facility] Comment on above: Order Comment: DR. Kyle SOTO GETS RESULTS FROM CMP AND CBCD DR. CASTILLO GETS RESULTS FROM LIVER LIPID Performed By: #### L 500.4050, L100.0100, L500.4100, [id number] #### [facility] [address] [place], [address] MCV (RBC) [Entitic vol] 93.3 fL Normal 80-94 [facility] Comment on above: Order Comment: DR. Kyle SOTO GETS RESULTS FROM CMP AND CBCD DR. CASTILOL GETS RESULTS FROM LIVER LIPID Performed By: #### L 500.4050, L100.0100, L500.4100, [id number] #### [facility] [address] [place], [address] Monocytes/100 WBC (Bld) 7.7 % Normal 0-10 [facility] Comment on above: Order Comment: DR. Kyle SOTO GETS RESULTS FROM CMP AND CBCD DR. CASTILLO GETS RESULTS FROM LIVER LIPID Performed By: #### L 500.4050, L100.0100, L500.4100, [id number] #### [facility] [address] [place], [address] Neutrophils/100 WBC (Bld) 56.9 % Normal 47-70 [facility] Comment on above: Order Comment: DR. Kyle SOTO GETS RESULTS FROM CMP AND CBCD DR. CASTILLO GETS RESULTS FROM LIVER LIPID Performed By: #### L 500.4050, L100.0100, L500.4100, [id number] #### [facility] [address] [place], [address] Nucleated RBC (Bld) [#/Vol] 0 10*3/uL Normal 0-5 [facility] Comment on above: Order Comment: DR. Kyle SOTO GETS RESULTS FROM CMP AND CBCD DR. CASTILLO GETS RESULTS FROM LIVER LIPID Performed By: #### L 500.4050, L100.0100, L500.4100, [id number] #### [facility] [address] [place], [address] Platelet mean volume (Bld) [Entitic vol] 10.7 fL Normal 6.2-12.0 [facility] Comment on above: Order Comment: DR. Kyle SOTO GETS RESULTS FROM CMP AND CBCD DR. CASTILLO GETS RESULTS FROM LIVER LIPID Performed By: #### L 500.4050, L100.0100, L500.4100, [id number] #### [facility] [address] [place], [address] Platelets (Bld) [#/Vol] 241 10*3/uL Normal 150-450 [facility] Comment on above: Order Comment: DR. Kyle SOTO GETS RESULTS FROM CMP AND CBCD DR. CASTILLO GETS RESULTS FROM LIVER LIPID Performed By: #### L 500.4050, L100.0100, L500.4100, [id number] #### [facility] [address] [place], [address] RBC (Bld) [#/Vol] 4.89 10*6/uL Normal 4.6-6.2 [facility] Comment on above: Order Comment: DR. Kyle SOTO GETS RESULTS FROM CMP AND CBCD DR. CASTILLO GETS RESULTS FROM LIVER LIPID Performed By: #### L 500.4050, L100.0100, L500.4100, [id number] #### [facility] [address] [place], [address] RDW SD 42.6 fl Normal 35.1-43.9 [facility] Comment on above: Order Comment: DR. Kyle SOTO GETS RESULTS FROM CMP AND CBCD DR. CASTILLO GETS RESULTS FROM LIVER LIPID Performed By: #### L 500.4050, L100.0100, L500.4100, [id number] #### [facility] [address] [place], [address] WBC (Bld) [#/Vol] 7.9 10*3/uL Normal 4.4-11.0 [facility] Comment on above: Order Comment: DR. Kyle SOTO GETS RESULTS FROM CMP AND CBCD DR. CASTILLO GETS RESULTS FROM LIVER LIPID Performed By: #### L 500.4050, L100.0100, L500.4100, [id number] #### [facility] [address] [place], [address] Calculated very low density lipoprotein (VLDL) cholesterol measurementOrdered By: Rocael Castillo on 05-02-2024 Calculated very low density lipoprotein (VLDL) cholesterol measurement 17 mg/dL 5-40 [facility] VLDL Cholesterol 17 mg/dL 5-40 [facility] Carbon dioxide, total [Moles /volume] in Central venous bloodOrdered By: Rocael Castillo on 05-02-2024 CO2 [Moles/Vol] 22.4 mmol/L 21.0-32.0 [facility] Chloride assayOrdered By: Jennifer Castillo on 05-02-2024 Chloride [Moles/Vol] 102 mmol/L 98-108 [facility] Comprehensive Metabolic Prof ilon 05-02-2024 Albumin [Mass/Vol] 4.3 g/dL Normal 3.5-5.0 [facility] Comment on above: Performed By: #### L 500.4050, L100.0100, L500.4100, [id number] #### [facility] [address] [place], [address] Albumin/Globulin [Mass ratio] 1.4 {ratio} Normal 0.9-2.4 [facility] Comment on above: Performed By: #### L 500.4050, L100.0100, L500.4100, [id number] #### [facility] [address] [place], [address] ALK PHOS 67 U/L Normal 40-129 [facility] Comment on above: Performed By: #### L 500.4050, L100.0100, L500.4100, [id number] #### [facility] [address] [place], [address] ALT [Catalytic activity/Vol] 23 U/L Normal <=46 [facility] Comment on above: Performed By: #### L 500.4050, L100.0100, L500.4100, [id number] #### [facility] [address] [place], [address] AST [Catalytic activity/Vol] 25 U/L Normal <=37 [facility] Comment on above: Performed By: #### L 500.4050, L100.0100, L500.4100, [id number] #### [facility] [address] [place], [address] Bilirubin [Mass/Vol] 0.43 mg/dL Normal 0.00-1.30 [facility] Comment on above: Performed By: #### L 500.4050, L100.0100, L500.4100, [id number] #### [facility] [address] [place], [address] BUN/CRE 22.5 RATIO High 10-20 [facility] Comment on above: Performed By: #### L 500.4050, L100.0100, L500.4100, [id number] #### [facility] [address] [place], [address] Calcium [Mass/Vol] 9.7 mg/dL Normal 7.6-11.0 [facility] Comment on above: Performed By: #### L 500.4050, L100.0100, L500.4100, [id number] #### [facility] [address] [place], [address] Chloride [Moles/Vol] 102 mmol/L Normal 98-108 [facility] Comment on above: Performed By: #### L 500.4050, L100.0100, L500.4100, [id number] #### [facility] [address] [place], [address] CO2 [Moles/Vol] 22.4 mmol/L Normal 21.0-32.0 [facility] Comment on above: Performed By: #### L 500.4050, L100.0100, L500.4100, [id number] #### [facility] [address] [place], [address] Creatinine [Mass/Vol] 1.03 mg/dL Normal 0.70-1.20 [facility] Comment on above: Performed By: #### L 500.4050, L100.0100, L500.4100, [id number] #### [facility] [address] [place], [address] GAP 14 Normal 5-15 [facility] Comment on above: Performed By: #### L 500.4050, L100.0100, L500.4100, [id number] #### [facility] [address] [place], [address] GFR/1.73 sq M.predicted among non-blacks MDRD (S/P/Bld) [Vol rate/Area] 87 mL/min/{1.73_m2} Normal >60 [facility] Comment on above: Result Comment: mL/m in/1.73m2 CKD-EPI Creatinine Equation (2020) Performed By: #### L 500.4050, L100.0100, L500.4100, [id number] #### [facility] [address] [place], [address] Globulin (S) [Mass/Vol] 3.1 g/dL Normal 2.2-4.2 [facility] Comment on above: Performed By: #### L 500.4050, L100.0100, L500.4100, [id number] #### [facility] [address] [place], [address] Glucose [Mass/Vol] 106 mg/dL High 70-99 [facility] Comment on above: Performed By: #### L 500.4050, L100.0100, L500.4100, [id number] #### [facility] [address] [place], [address] Potassium [Moles/Vol] 4.4 mmol/L Normal 3.3-5.1 [facility] Comment on above: Performed By: #### L 500.4050, L100.0100, L500.4100, [id number] #### [facility] [address] [place], [address] Sodium [Moles/Vol] 138 mmol/L Normal 133-145 [facility] Comment on above: Performed By: #### L 500.4050, L100.0100, L500.4100, [id number] #### [facility] [address] [place], [place], [id number] T PROT 7.3 g/dL Normal 5.9-8.4 [facility] Comment on above: Performed By: #### L 500.4050, L100.0100, L500.4100, [id number] #### [facility] [address] [place], [address] Urea nitrogen [Mass/Vol] 23 mg/dL High 4-19 [facility] Comment on above: Performed By: #### L 500.4050, L100.0100, L500.4100, [id number] #### [facility] [address] [place], [place], [id number] Eosinophil percentageOrdered By: Rocael Castillo on 05-02-2024 Eosinophils/100 WBC (Bld) 2.1 % 0-5 [facility] Erythrocyte distribution wid th ratioOrdered By: Rocael Castillo on 05-02-2024 Erythrocyte distribution width (RBC) [Ratio] 12.4 % 11.6-14.6 [facility] Erythrocyte distribution wid th standard deviationOrdered By: Rocael Castillo on 05-02-2024 Erythrocyte distribution width (RBC) [Entitic vol] 42.6 fL 35.1-43.9 [facility] Erythrocyte distribution width (RBC) [Ratio] 42.6 fl 35.1-43.9 [facility] GFR/1.73 sq M.predicted annika g non-blacks MDRD (S/P/Bld) [Vol rate/Area]Ordered By: Rocael Castillo on 05-02-2024 Estimated GFR (MDRD) Non-Af Amer 87 >60 [facility] Comment on above: mL/min/1.73m2 CKD-EP I Creatinine Equation (2020) Glomerular filtration rate ( GFR) estimation/1.73 sq m using serum, plasma, or whole bOrdered By: Rocael Castillo on 05-02-2024 GFR/1.73 sq M.predicted among non-blacks MDRD (S/P/Bld) [Vol rate/Area] 87 mL/min/{1.73_m2} >60 [facility] Comment on above: mL/min/1.73m2 CKD-EP I Creatinine Equation (2020) Hematocrit Auto (Bld) [Volum e fraction]Ordered By: Rocael Castillo on 05-02-2024 Hematocrit (Bld) [Volume fraction] 45.6 % 40-54 [facility] Hemoglobin measurementOrdere d By: Rocael Castillo on 05-02-2024 Hemoglobin (Bld) [Mass/Vol] 15.9 g/dL 13.0-16.5 [facility] Immature granulocytes/100 WB C Auto (Bld)Ordered By: Rocael Castillo on 05-02-2024 Immature granulocytes/100 WBC (Bld) 0.500 % 0.0-0.9 [facility] Comment on above: IG% - Immature Granu locytes (promyelocytes, myelocytes and metamyelocytes) > 1% indicates that a LEFT SHIFT is Present. LDL calc ser/plasOrdered By: Rocael Castillo on 05-02-2024 Cholesterol in LDL [Mass/Vol] 84 mg/dL [facility] Comment on above: Yukvfvqosx=747-236 m g/dL & Higher Syen=506 mg/dL or greater LDL Cholesterol, Calculated 84 mg/dL [facility] Comment on above: Lposdczokh=370-011 m g/dL & Higher Wkle=927 mg/dL or greater Laboratory - Chemistry and C hemistry - challengeOrdered By: Rocael Castillo on 05-02-2024 AST [Catalytic activity/Vol] 25 U/L <38 [facility] Lipid Profileon 05-02-2024 CHOL:HDL 3.33 Normal [facility] Comment on above: Performed By: #### L 500.4050, L100.0100, L500.4100, L501.4700 #### [facility] [address] [place], [place], [id number] Cholesterol [Mass/Vol] 145 mg/dL Normal <=200 [facility] Comment on above: Result Comment: Chol esterol level, Desirable <200 mg/dL Borderline high cholesterol 200-239 mg/dL High cholesterol >=240 mg/dL Recommendations of the NCEP Adult Treatment Panel for the following risk-cutoff thresholds for the [place] population. Performed By: #### L 500.4050, L100.0100, L500.4100, L501.4700 #### [facility] [address] [place], [address] Cholesterol in HDL [Mass/Vol] 44 mg/dL Normal [facility] Comment on above: Result Comment: Disha onal Cholesterol Education Program (NCEP) guidelines: <40 mg/dL: Low HDL-cholesterol (major risk factor for CHD) >= 60 mg/dL: High HDL-cholesterol (negative risk factor for CHD) HDL-cholesterol is affected by a number of factors, e.g. smoking, exercise, hormones, sex and age. Performed By: #### L 500.4050, L100.0100, L500.4100, L501.4700 #### [facility] [address] [place], [address] Cholesterol in LDL [Mass/Vol] 84 mg/dL Normal [facility] Comment on above: Result Comment: Bord jmttez=740-805 mg/dL Higher Pbtm=257 mg/dL or greater Performed By: #### L 500.4050, L100.0100, L500.4100, L501.4700 #### [facility] [address] [place], [address] Cholesterol in VLDL [Mass/Vol] 17 mg/dL Normal 5-40 [facility] Comment on above: Performed By: #### L 500.4050, L100.0100, L500.4100, L501.4700 #### [facility] [address] [place], [address] Triglyceride [Mass/Vol] 85 mg/dL Normal [facility] Comment on above: Result Comment: The drugs N-Acetylcysteine and Metamizole may falsely depress this assay. Normal range: <150 mg/dL Borderline High: 150-199 mg/dL High: 200-499 mg/dL Very High: >500 mg/dL Performed By: #### L 500.4050, L100.0100, L500.4100, L501.4700 #### [facility] [address] [place], [address] Lymphocytes Auto (Unsp spec) [#/Vol]Ordered By: Rocael Castillo on 05-02-2024 Lymphocytes (Bld) [#/Vol] 2.57 10*3/uL 0.83-4.5 1 [facility] Lymphocytes/100 WBC Auto (Un sp spec)Ordered By: Rocael Castillo on 05-02-2024 Lymphocytes/100 WBC (Bld) 32.4 % 19-41 [facility] MCV (mean corpuscular volume ) determinationOrdered By: Rocael Castillo on 05-02-2024 MCV (RBC) [Entitic vol] 93.3 fL 80-94 [facility] Mean corpuscular hemoglobin (MCH) determinationOrdered By: Rocael Castillo on 05-02-2024 MCH (RBC) [Entitic mass] 32.5 pg High 27.0-32.0 [facility] Mean corpuscular hemoglobin concentration (MCHC) determinationOrdered By: Rocael Castillo on 05-02-2024 MCHC (RBC) [Mass/Vol] 34.9 g/dL 32-36 [facility] Mean platelet volume determi nationOrdered By: Rocael Castillo on 05-02-2024 Platelet mean volume (Bld) [Entitic vol] 10.7 fL 6.2-12.0 [facility] Monocyte percentageOrdered B y: Rocael Castillo on 05-02-2024 Monocytes/100 WBC (Bld) 7.7 % 0-10 [facility] Neutrophil percentageOrdered By: Rocael Castillo on 05-02-2024 Neutrophils/100 WBC (Bld) 56.9 % 47-70 [facility] Nucleated red blood cell per centageOrdered By: Rocael Castillo on 05-02-2024 Nucleated RBC/100 WBC (Bld) [Ratio] 0 % 0-5 [facility] Platelet countOrdered By: Jennifer Castillo on 05-02-2024 Platelets (Bld) [#/Vol] 241 10*3/uL 150-450 [facility] Potassium (Unsp spec) [Mass/ Vol]Ordered By: Rocael Castillo on 05-02-2024 Potassium [Moles/Vol] 4.4 mmol/L 3.3-5.1 [facility] Potassium measurement (mass/ volume)Ordered By: Rocael Castillo on 05-02-2024 Potassium (Unsp spec) [Mass/Vol] 4.4 mmol/L 3.3-5.1 [facility] RBC Auto (Bld) [#/Vol]Ordere d By: Rocael Castillo on 05-02-2024 RBC (Bld) [#/Vol] 4.89 10*6/uL 4.6-6.2 [facility] Screening total cholesterol/ high density lipoprotein (HDL) cholesterol ratioOrdered By: Rocael Castillo on 05-02-2024 Cholesterol.total/Cholest ashwini in HDL [Mass ratio] 3.33 {ratio} [facility] Serum creatinine measurement (mass/volume)Ordered By: Rocael Castillo on 05-02-2024 Creatinine [Mass/Vol] 1.03 mg/dL 0.70-1.20 [facility] Serum globulin measurementOr dered By: Rocael Castillo on 05-02-2024 Globulin (S) [Mass/Vol] 3.1 g/dL 2.2-4.2 [facility] Serum glucose measurement (m ass/volume)Ordered By: Rocael Castillo on 05-02-2024 Glucose [Mass/Vol] 106 mg/dL High 70-99 [facility] Serum or plasma alanine niño otransferase (ALT) measurementOrdered By: Rocael Castillo on 05-02-2024 ALT [Catalytic activity/Vol] 23 U/L <47 [facility] Serum or plasma albumin shade urement (mass/volume)Ordered By: Rocael Castillo on 05-02-2024 Albumin [Mass/Vol] 4.3 g/dL 3.5-5.0 [facility] Serum or plasma albumin/glob ulin mass ratioOrdered By: Rocael Castillo on 05-02-2024 Albumin/Globulin [Mass ratio] 1.4 {ratio} 0.9-2.4 [facility] Serum or plasma alkaline trevor sphatase measurementOrdered By: Rocael Castillo on 05-02-2024 ALP [Catalytic activity/Vol] 67 U/L 40-129 [facility] Serum or plasma calcium shade urement (mass/volume)Ordered By: Rocael Castillo on 05-02-2024 Calcium [Mass/Vol] 9.7 mg/dL 7.6-11.0 [facility] Serum or plasma cholesterol in HDL measurement (mass/volume)Ordered By: Rocael Castillo on 05-02-2024 Cholesterol in HDL [Mass/Vol] 44 mg/dL >40 [facility] Comment on above: National Cholesterol Education Program (NCEP) guidelines:<40 mg/dL: Low HDL-cholesterol (major risk factor for CHD)>= 60 mg/dL: High HDL-cholesterol (negative risk factor for CHD)HDL-cholesterol is affected by a number of factors, e.g. smoking, exercise, hormones, sex and age. Serum or plasma cholesterol measurement (mass/volume)Ordered By: Rocael Castillo on 05-02-2024 Cholesterol [Mass/Vol] 145 mg/dL <201 [facility] Comment on above: Cholesterol level, D esirable <200 mg/dLBorderline high cholesterol 200-239 mg/dLHigh cholesterol >=240 mg/dLRecommendations of the NCEP Adult Treatment Panel for the following risk-cutoff thresholds for the [place] population. Serum or plasma urea nitroge n measurement (mass/volume)Ordered By: Rocael Castillo on 05-02-2024 Urea nitrogen [Mass/Vol] 23 mg/dL High 4-19 [facility] Sodium levelOrdered By: Rocael Castillo on 05-02-2024 Sodium [Moles/Vol] 138 mmol/L 133-145 [facility] Total proteinOrdered By: Bruce Castillo on 05-02-2024 Protein [Mass/Vol] 7.3 g/dL 5.9-8.4 [facility] Triglycerides measurementOrd ered By: Rocael Castillo on 05-02-2024 Triglyceride [Mass/Vol] 85 mg/dL <199 [facility] Comment on above: The drugs N-Acetylcy steine and Metamizole may falsely depress this assay. Normal range: <150 mg/dLBorderline High: 150-199 mg/dLHigh: 200-499 mg/dLVery High: >500 mg/dL White blood cell (WBC) count Ordered By: Rocael Castillo on 05-02-2024 WBC (Bld) [#/Vol] 7.9 10*3/uL 4.4-11.0 [facility] Cardiology Visit Reporton Cardiology Visit Report [facility] [address] [place] [address] OFFICE VISIT Date of Service: 04/12/24 MR#: [id number] Acct: [id number] Name: CHAS VICKERS Rep #: [id number] : 1970 Provider: PRASHANT stark Age/Sex: 53/M Location: [facility] Status: Signed HPI HPI History of Present Illness Details: CHAS VICKERS, is a 53 M who is here today for an outpatient cardiovascular visit. He has a history of coronary artery disease status post OMARI to LAD in January 2018. He also has a history of tobacco abuse. He had presented to see us in the beginning of October 2018 with chest discomfort again and it was felt that he likely had a restenosis. He underwent a cardiac catheterization on 11/05/2018 and he had a high-grade in-stent stenosis of the left anterior descending artery for which he underwent angioplasty and stenting with a drug-eluting stent to the LAD and PCI to the second diagonal branch. In January 2019, he presented with chest discomfort and underwent a repeat cardiac catheterization which demonstrated patency of the previously placed stent. His beta-alvino is disc continue on account of fatigue and bradycardia. He acknowledges mid sternal burning sensation. This is relieved with burping. He also notes this to be improved when he eats small frequent meals. He denies lower extremity edema. He acknowledges palpitations that he describes as thumping. He denies shortness of breath with activity, shortness of breath at rest, or orthopnea. He denies lightheadedness, dizziness, near syncope, or syncope. He state occasional fatigue and occasional weakness. Intake Vital Signs 02/10/23 13:09 09/16/23 09:51 04/12/24 14:11 Height 6 ft 6 ft 6 ft Weight: 234 lb BMI 31.7 BP 136/70 H Blood Pressure Location Lt brachial Position Sitting Respiration 16 Pulse 67 Pulse Source NIBP Intake Visit Reasons: 1 Y [employer] Specialist Required: No Is patient in pain?: No Allergies No Known Allergies Allergy (Verified 09/16/23 09:58) Medications ???Medication ???Instructions ???Recorded ???Confirmed ???Type etanercept 50 mg/mL (1 mL) 50 mg subcut QWEEK 08/16/20 History subcutaneous syringe (Enbrel) folic acid 1 mg tablet 1 mg PO DAILY 08/16/20 09/16/23 Hi story nitroglycerin 0.4 mg sublingual 0.4 mg sublingual Q5-15M PRN chest 02/12/21 09/16/23 Rx tablet pain #25 tabs potassium chloride 10 mEq 10 meq PO DAILY #90 tabs 05/27/22 09/16/23 Rx tablet,extended release hydrochlorothiazide 25 mg tablet 25 mg PO QAM #30 tabs 11/06/22 Rx loratadine 10 mg tablet 10 mg PO DAILY #30 tabs 11/06/22 0 09/16/23 Rx meclizine 25 mg tablet 25 mg PO TID PRN dizziness #90 tab s 11/06/22 04/12/24 Rx atorvastatin 40 mg tablet (Lipitor) 40 mg PO QPM #90 tabs 06/08/23 04/12/24 Rx aspirin 81 mg tablet,delayed 81 mg PO DAILY #90 tabs 08/11/23 0 04/12/24 Rx release prednisone 10 mg tablet 10 mg PO QDAY PRN 09/16/23 5 History omeprazole 40 mg capsule,delayed 40 mg PO DAILY #90 caps 12/28/23 Rx release leucovorin calcium 15 mg tablet 15 mg PO QWEEK 04/12/24 04/12/24 H istory Ejection fraction %: 55 Have you fallen in the past year?: Yes (Trip and fall) [facility] Medical History 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) Hematuria Essential (primary) hypertension Polyneuropathy Peripheral vestibulopathy Rheumatoid arthritis Heart disease Hearing problem Skin cancer Bone fracture History of back problems Alcohol abuse Vertigo Arthritis IBS (irritable bowel syndrome) Obesity Atherosclerosis of coronary artery of [place] heart without angina pectoris Unstable angina Dyspnea Nicotine dependence Surgical History History of left heart catheterization (02/07/19) History of coronary artery stent placement (11/18/18) History of open reduction and internal fixation (ORIF) procedure Family History Mother Fibromyalgia Arthritis Osteoporosis Social History Smoking Status: Light Smoker (<10/day) Tobacco: How many years used: 12 second hand exposure: Yes alcohol intake: never substance use type: does not use caffeine: No what type of physical activity do you participate in: none seatbelt use: always ROS Const Const: Positive for fatigue (Occasionally) and weakness (Occasionally) Eyes Eyes: Negative for change in vision ENT ENT: Negative for dizziness or balance problems Cardio Chest Pain: Yes (Burning type pain mid sternal, relieved by burping.) Relieving: eating (Needs small frequent meals) Palpitations: Yes feels like its: (more content not included)... Normal [facility] Absolute neutrophil countOrd ered By: Swati Burris on 02-04-2024 Neutrophils (Bld) [#/Vol] 5.4 10*3/uL 2.0-7.7 [facility] Albumin to globulin ratioOrd ered By: Swati Burris on 02-04-2024 Albumin/Globulin [Mass ratio] 1.0 {ratio} 0.9-2.4 [facility] Basophil percentageOrdered B y: Swati Burris on 02-04-2024 Basophils/100 WBC (Bld) 0.2 % 0-1 [facility] Bilirubin, totalOrdered By: Swati Burris on 02-04-2024 Bilirubin [Mass/Vol] 0.20 mg/dL 0.20-1.00 [facility] Comment on above: For patients on eltr ombopag therapy, use of Dimension [place] TBIL is not recommended. Blood urea nitrogen (BUN)/cr eatinine ratioOrdered By: Swati Burris on 02-04-2024 Urea nitrogen/Creatinine [Mass ratio] 20.2 mg/mg High 10-20 [facility] CBC W/Diff, Automatedon 01-23 Absolute Lymph 3.15 X10 3/uL Normal 0.83-4.51 [facility] Comment on above: Performed By: #### L 500.4050, L100.0100 #### [facility] [place], [address] Absolute Neut 5.4 X10 3/uL Normal 2.0-7.7 [facility] Comment on above: Performed By: #### L 500.4050, L100.0100 #### [facility] [address] [place], [address] Basophils/100 WBC (Bld) 0.2 % Normal 0-1 [facility] Comment on above: Performed By: #### L 500.4050, L100.0100 #### [facility] [address] [place], [address] Eosinophils/100 WBC (Bld) 2.5 % Normal 0-5 [facility] Comment on above: Performed By: #### L 500.4050, L100.0100 #### [facility] [address] [place], [address] Erythrocyte distribution width (RBC) [Ratio] 12.7 % Normal 11.6-14.6 [facility] Comment on above: Performed By: #### L 500.4050, L100.0100 #### [facility] [address] [place], [address] Hematocrit (Bld) [Volume fraction] 43.0 % Normal 40-54 [facility] Comment on above: Performed By: #### L 500.4050, L100.0100 #### [facility] [address] [place], [address] Hemoglobin (Bld) [Mass/Vol] 14.3 g/dL Normal 13.0-16.5 [facility] Comment on above: Performed By: #### L 500.4050, L100.0100 #### [facility] [address] [place], [address] IG% 0.600 Normal 0.0-0.9 [facility] Comment on above: Result Comment: IG% - Immature Granulocytes (promyelocytes, myelocytes and metamyelocytes) > 1% indicates that a LEFT SHIFT is Present. Performed By: #### L 500.4050, L100.0100 #### [facility] [address] [place], [address] Lymphocytes/100 WBC (Bld) 32.8 % Normal 19-41 [facility] Comment on above: Performed By: #### L 500.4050, L100.0100 #### [facility] [address] [place], [address] MCH (RBC) [Entitic mass] 31.7 pg Normal 27.0-32.0 [facility] Comment on above: Performed By: #### L 500.4050, L100.0100 #### [facility] [address] [place], [address] MCHC (RBC) [Mass/Vol] 33.3 g/dL Normal 32-36 [facility] Comment on above: Performed By: #### L 500.4050, L100.0100 #### [facility] [address] [place], [address] MCV (RBC) [Entitic vol] 95.3 fL High 80-94 [facility] Comment on above: Performed By: #### L 500.4050, L100.0100 #### [facility] [address] [place], [address] Monocytes/100 WBC (Bld) 7.2 % Normal 0-10 [facility] Comment on above: Performed By: #### L 500.4050, L100.0100 #### [facility] [address] [place], [address] Neutrophils/100 WBC (Bld) 56.7 % Normal 47-70 [facility] Comment on above: Performed By: #### L 500.4050, L100.0100 #### [facility] [address] [place], [address] Nucleated RBC (Bld) [#/Vol] 0 10*3/uL Normal 0-5 [facility] Comment on above: Performed By: #### L 500.4050, L100.0100 #### [facility] [address] [place], [address] Platelet mean volume (Bld) [Entitic vol] 10.2 fL Normal 6.2-12.0 [facility] Comment on above: Performed By: #### L 500.4050, L100.0100 #### [facility] [address] [place], [address] Platelets (Bld) [#/Vol] 270 10*3/uL Normal 150-450 [facility] Comment on above: Performed By: #### L 500.4050, L100.0100 #### [facility] [address] [place], [address] RBC (Bld) [#/Vol] 4.51 10*6/uL Low 4.6-6.2 [facility] Comment on above: Performed By: #### L 500.4050, L100.0100 #### [facility] [address] [place], [address] RDW SD 44.9 fl High 35.1-43.9 [facility] Comment on above: Performed By: #### L 500.4050, L100.0100 #### [facility] [address] [place], [address] WBC (Bld) [#/Vol] 9.6 10*3/uL Normal 4.4-11.0 [facility] Comment on above: Performed By: #### L 500.4050, L100.0100 #### [facility] [address] [place], [address] Carbon dioxide measurementOr dered By: Swati Burris on 02-04-2024 CO2 [Moles/Vol] 25.0 mmol/L 21.0-32.0 [facility] Chloride measurementOrdered By: Swati Burris on 02-04-2024 Chloride [Moles/Vol] 105 mmol/L 98-107 [facility] Comprehensive Metabolic Prof ilon 02-04-2024 Albumin [Mass/Vol] 3.5 g/dL Normal 3.2-5.0 [facility] Comment on above: Performed By: #### L 500.4050, L100.0100 #### [facility] [address] [place], [address] Albumin/Globulin [Mass ratio] 1.0 {ratio} Normal 0.9-2.4 [facility] Comment on above: Performed By: #### L 500.4050, L100.0100 #### [facility] [address] [place], [address] ALK P 76 U/L Normal 45-117 [facility] Comment on above: Performed By: #### L 500.4050, L100.0100 #### [facility] [address] [place], [address] ALT [Catalytic activity/Vol] 28 U/L Normal 16-61 [facility] Comment on above: Performed By: #### L 500.4050, L100.0100 #### [facility] [address] [place], [address] AST [Catalytic activity/Vol] 15 U/L Normal 15-37 [facility] Comment on above: Performed By: #### L 500.4050, L100.0100 #### [facility] [address] [place], [address] Bilirubin [Mass/Vol] 0.20 mg/dL Normal 0.20-1.00 [facility] Comment on above: Result Comment: For patients on eltrombopag therapy, use of Dimension [place] TBIL is not recommended. Performed By: #### L 500.4050, L100.0100 #### [facility] [address] [place], [address] BUN/CRE 20.2 RATIO High 10-20 [facility] Comment on above: Performed By: #### L 500.4050, L100.0100 #### [facility] [address] [place], [address] CA,Total 9.4 mg/dL Normal 8.5-10.1 [facility] Comment on above: Performed By: #### L 500.4050, L100.0100 #### [facility] [address] [place], [address] Chloride [Moles/Vol] 105 mmol/L Normal 98-107 [facility] Comment on above: Performed By: #### L 500.4050, L100.0100 #### [facility] [address] [place], [address] CO2 [Moles/Vol] 25.0 mmol/L Normal 21.0-32.0 [facility] Comment on above: Performed By: #### L 500.4050, L100.0100 #### [facility] [address] [place], [address] Creatinine [Mass/Vol] 0.99 mg/dL Normal 0.70-1.30 [facility] Comment on above: Result Comment: The validity of the calculated GFR GFRAA in patients over 70 years has not been determined. Clinical correlation is essential. Performed By: #### L 500.4050, L100.0100 #### [facility] [address] [place], [address] EST GFR - AA 102 mL/min Normal >60 [facility] Comment on above: Result Comment: Afri can [place] GFR Calc Performed By: #### L 500.4050, L100.0100 #### [facility] [address] [place], [address] GAP 7 Normal 5-15 [facility] Comment on above: Performed By: #### L 500.4050, L100.0100 #### [facility] [address] [place], [address] GFR/1.73 sq M.predicted among non-blacks MDRD (S/P/Bld) [Vol rate/Area] 84 mL/min/{1.73_m2} Normal >60 [facility] Comment on above: Result Comment: Non- GFR Calc Performed By: #### L 500.4050, L100.0100 #### [facility] [address] [place], [address] Globulin (S) [Mass/Vol] 3.5 g/dL Normal 2.2-4.2 [facility] Comment on above: Performed By: #### L 500.4050, L100.0100 #### [facility] [address] [place], [address] Glucose [Mass/Vol] 132 mg/dL High 74-106 [facility] Comment on above: Result Comment: Fast ing Glucose result greater than or equal to 126 mg/dL suggests DIABETES MELLITUS per A.D.A. criteria. Performed By: #### L 500.4050, L100.0100 #### [facility] [address] [place], [address] Potassium [Moles/Vol] 3.9 mmol/L Normal 3.5-5.1 [facility] Comment on above: Performed By: #### L 500.4050, L100.0100 #### [facility] [address] [place], [address] Sodium [Moles/Vol] 136 mmol/L Normal 136-145 [facility] Comment on above: Performed By: #### L 500.4050, L100.0100 #### [facility] [address] [place], [address] T PROT 7.0 g/dL Normal 6.4-8.2 [facility] Comment on above: Performed By: #### L 500.4050, L100.0100 #### [facility] [address] [place], [address] Urea nitrogen [Mass/Vol] 20 mg/dL High 7-18 [facility] Comment on above: Performed By: #### L 500.4050, L100.0100 #### [facility] [address] [place], [address] Eosinophil percentageOrdered By: Swati Burris on 02-04-2024 Eosinophils/100 WBC (Bld) 2.5 % 0-5 [facility] Erythrocyte distribution wid th ratioOrdered By: Swati Burris on 02-04-2024 Erythrocyte distribution width (RBC) [Ratio] 12.7 % 11.6-14.6 [facility] Erythrocyte distribution wid th standard deviationOrdered By: Swati Burris on 02-04-2024 Erythrocyte distribution width (RBC) [Entitic vol] 44.9 fL High 35.1-43.9 [facility] Estimated glomerular filtrat ion rate (GFR) AmericanOrdered By: Swati Burris on 02-04-2024 Estimated GFR (MDRD) Amer 102 mL/min >60 [facility] Comment on above: GFR Calc Glomerular filtration rate ( GFR) estimationOrdered By: Swati Burris on 02-04-2024 Estimated GFR (MDRD) Non-Af Amer 84 mL/min >60 [facility] - [place] Comment on above: Non- GFR Calc Glucose measurementOrdered B y: Swati Burris on 02-04-2024 Glucose [Mass/Vol] 132 mg/dL High 74-106 [facility] Comment on above: Fasting Glucose resu lt greater than or equal to 126 mg/dL suggests DIABETES MELLITUS per A.D.A. criteria. Hematocrit Auto (Bld) [Volum e fraction]Ordered By: Swati Burris on 02-04-2024 Hematocrit (Bld) [Volume fraction] 43.0 % 40-54 [facility] [place] Hemoglobin measurementOrdere d By: Swati Burris on 02-04-2024 Hemoglobin (Bld) [Mass/Vol] 14.3 g/dL 13.0-16.5 [facility] [place] Immature granulocytes/100 WB C Auto (Bld)Ordered By: Swati Burris on 02-04-2024 Immature granulocytes/100 WBC (Bld) 0.600 % 0.0-0.9 [facility] [place] Comment on above: IG% - Immature Granu locytes (promyelocytes, myelocytes and metamyelocytes) > 1% indicates that a LEFT SHIFT is Present. Laboratory - Chemistry and C hemistry - challengeOrdered By: Swati Burris on 02-04-2024 AST [Catalytic activity/Vol] 15 U/L 15-37 [facility] [place] Lymphocytes Auto (Unsp spec) [#/Vol]Ordered By: Swati Burris on 02-04-2024 Lymphocytes (Bld) [#/Vol] 3.15 10*3/uL 0.83-4.5 1 [facility] [place] Lymphocytes/100 WBC Auto (Un sp spec)Ordered By: Swati Burris on 02-04-2024 Lymphocytes/100 WBC (Bld) 32.8 % 19-41 [facility] [place] MCV (mean corpuscular volume ) determinationOrdered By: Swati Burris on 02-04-2024 MCV (RBC) [Entitic vol] 95.3 fL High 80-94 [facility] Mean corpuscular hemoglobin (MCH) determinationOrdered By: Swati Burris on 02-04-2024 MCH (RBC) [Entitic mass] 31.7 pg 27.0-32.0 [facility] [place] Mean corpuscular hemoglobin concentration (MCHC) determinationOrdered By: Swati Burris on 02-04-2024 MCHC (RBC) [Mass/Vol] 33.3 g/dL 32-36 [facility] Mean platelet volume determi nationOrdered By: Swati Burris on 02-04-2024 Platelet mean volume (Bld) [Entitic vol] 10.2 fL 6.2-12.0 [facility] [place] Monocyte percentageOrdered B y: Swati Burris on 02-04-2024 Monocytes/100 WBC (Bld) 7.2 % 0-10 [facility] Neutrophil percentageOrdered By: Swati Burris on 02-04-2024 Neutrophils/100 WBC (Bld) 56.7 % 47-70 [facility] [place] Nucleated red blood cell per centageOrdered By: Swati Burris on 02-04-2024 Nucleated RBC/100 WBC (Bld) [Ratio] 0 % 0-5 [facility] [place] Platelet countOrdered By: Aden Burris on 02-04-2024 Platelets (Bld) [#/Vol] 270 10*3/uL 150-450 [facility] [place] Potassium measurementOrdered By: Swati Burris on 02-04-2024 Potassium [Moles/Vol] 3.9 mmol/L 3.5-5.1 [facility] RBC Auto (Bld) [#/Vol]Ordere d By: Swati Burris on 02-04-2024 RBC (Bld) [#/Vol] 4.51 10*6/uL Low 4.6-6.2 [facility] Serum anion gap measurementO rdered By: Swati Burris on 02-04-2024 Anion gap [Moles/Vol] 7 mmol/L 5-15 [facility] Serum globulin measurementOr dered By: Swati Burris on 02-04-2024 Globulin (S) [Mass/Vol] 3.5 g/dL 2.2-4.2 [facility] Serum or plasma alanine niño otransferase (ALT) measurementOrdered By: Swati Burris on 02-04-2024 ALT [Catalytic activity/Vol] 28 U/L 16-61 [facility] [place] Serum or plasma albumin shade urement (mass/volume)Ordered By: Swati Burris on 02-04-2024 Albumin [Mass/Vol] 3.5 g/dL 3.2-5.0 [facility] Serum or plasma alkaline trevor sphatase measurementOrdered By: Swati Burris on 02-04-2024 ALP [Catalytic activity/Vol] 76 U/L 45-117 [facility] [place] Serum or plasma calcium shade urement (mass/volume)Ordered By: Swati Burris on 02-04-2024 Calcium [Mass/Vol] 9.4 mg/dL 8.5-10.1 [facility] Serum or plasma creatinine m easurement (mass/volume)Ordered By: Swati Burris on 02-04-2024 Creatinine [Mass/Vol] 0.99 mg/dL 0.70-1.30 [facility] Comment on above: The validity of the calculated GFR & GFRAA in patients over 70 years has not been determined. Clinical correlation is essential. Serum or plasma urea nitroge n measurement (mass/volume)Ordered By: Swati Burris on 02-04-2024 Urea nitrogen [Mass/Vol] 20 mg/dL High 7-18 [facility] [place] Sodium levelOrdered By: Amarilis Burris on 02-04-2024 Sodium [Moles/Vol] 136 mmol/L 136-145 [facility] Total proteinOrdered By: Adilene Burris on 02-04-2024 Protein [Mass/Vol] 7.0 g/dL 6.4-8.2 [facility] White blood cell (WBC) count Ordered By: Swati Burris on 02-04-2024 WBC (Bld) [#/Vol] 9.6 10*3/uL 4.4-11.0 [facility] CBC W/Diff, Automatedon 09- Absolute Lymph 3.17 X10 3/uL Normal 0.83-4.51 [facility] [place] Comment on above: Performed By: #### L [id number], L100.0100 #### [facility] [place] Laboratory [address] [place], [address] Absolute Neut 4.0 X10 3/uL Normal 2.0-7.7 [facility] [place] Comment on above: Performed By: #### L [id number], L100.0100 #### [facility] [place] [facility] [address] [place], [address] Basophils/100 WBC (Bld) 0.1 % Normal 0-1 [facility] Comment on above: Performed By: #### L [id number], L100.0100 #### [facility] [place] Laboratory [address] [place], [address] Eosinophils/100 WBC (Bld) 3.7 % Normal 0-5 [facility] [place] Comment on above: Performed By: #### L [id number], L100.0100 #### [facility] [place] Laboratory [address] [place], [address] Erythrocyte distribution width (RBC) [Ratio] 12.6 % Normal 11.6-14.6 [facility] [place] Comment on above: Performed By: #### L [id number], L100.0100 #### [facility] [place] Laboratory [address] [place], [address] Hematocrit (Bld) [Volume fraction] 44.2 % Normal 40-54 [facility] [place] Comment on above: Performed By: #### L [id number], L100.0100 #### [facility] [place] Laboratory [address] [place], [address] Hemoglobin (Bld) [Mass/Vol] 14.9 g/dL Normal 13.0-16.5 [facility] [place] Comment on above: Performed By: #### L [id number], L100.0100 #### [facility] [place] Laboratory [address] [place], [address] IG% 0.400 Normal 0.0-0.9 [facility] [place] Comment on above: Result Comment: IG% - Immature Granulocytes (promyelocytes, myelocytes and metamyelocytes) > 1% indicates that a LEFT SHIFT is Present. Performed By: #### L 500.4050, L100.0100 #### [facility] [place] Laboratory [address] [place], [address] Lymphocytes/100 WBC (Bld) 38.9 % Normal 19-41 [facility] [place] Comment on above: Performed By: #### L [id number], L100.0100 #### [facility] [place] Laboratory [address] [place], [address] MCH (RBC) [Entitic mass] 31.9 pg Normal 27.0-32.0 [facility] [place] Comment on above: Performed By: #### L [id number], L100.0100 #### [facility] [place] Laboratory [address] [place], [address] MCHC (RBC) [Mass/Vol] 33.7 g/dL Normal 32-36 [facility] Comment on above: Performed By: #### L [id number], L100.0100 #### [facility] [place] Laboratory [address] [place], [address] MCV (RBC) [Entitic vol] 94.6 fL High 80-94 [facility] Comment on above: Performed By: #### L [id number], L100.0100 #### [facility] [place] Laboratory [address] [place], [address] Monocytes/100 WBC (Bld) 7.7 % Normal 0-10 [facility] Comment on above: Performed By: #### L [id number], L100.0100 #### [facility] [place] Laboratory [address] [place], [address] Neutrophils/100 WBC (Bld) 49.2 % Normal 47-70 [facility] [place] Comment on above: Performed By: #### L [id number], L100.0100 #### [facility] [place] Laboratory [address] [place], [address] Nucleated RBC (Bld) [#/Vol] 0 10*3/uL Normal 0-5 [facility] [place] Comment on above: Performed By: #### L [id number], L100.0100 #### [facility] [place] Laboratory [address] [place], [address] Platelet mean volume (Bld) [Entitic vol] 9.5 fL Normal 6.2-12.0 [facility] [place] Comment on above: Performed By: #### L [id number], L100.0100 #### [facility] [place] Laboratory [address] [place], [address] Platelets (Bld) [#/Vol] 250 10*3/uL Normal 150-450 [facility] [place] Comment on above: Performed By: #### L [id number], L100.0100 #### [facility] [place] Laboratory [address] [place], [address] RBC (Bld) [#/Vol] 4.67 10*6/uL Normal 4.6-6.2 [facility] Comment on above: Performed By: #### L [id number], L100.0100 #### [facility] [place] Laboratory [address] [place], [address] RDW SD 43.7 fl Normal 35.1-43.9 [facility] [place] Comment on above: Performed By: #### L [id number], L100.0100 #### [facility] [place] Laboratory [address] [place], [address] WBC (Bld) [#/Vol] 8.1 10*3/uL Normal 4.4-11.0 [facility] Comment on above: Performed By: #### L [id number], L100.0100 #### [facility] [place] Laboratory [address] [place], [address] [facility] 11-09-2023 Albumin [Mass/Vol] 3.5 g/dL Normal 3.2-5.0 [facility] Comment on above: Performed By: #### L [id number], L100.0100 #### [facility] [place] Laboratory [address] [place], [address] Albumin/Globulin [Mass ratio] 1.1 {ratio} Normal 0.9-2.4 [facility] [place] Comment on above: Performed By: #### L [id number], L100.0100 #### [facility] [place] Laboratory [address] [place], [address] ALK P 77 U/L Normal 45-117 [facility] [place] Comment on above: Performed By: #### L [id number], L100.0100 #### [facility] [place] Laboratory [address] [place], [address] ALT [Catalytic activity/Vol] 21 U/L Normal 16-61 [facility] [place] Comment on above: Performed By: #### L [id number], L100.0100 #### [facility] [place] Laboratory [address] [place], [address] AST [Catalytic activity/Vol] 15 U/L Normal 15-37 [facility] [place] Comment on above: Performed By: #### L [id number], L100.0100 #### [facility] [place] Laboratory [address] [place], [address] Bilirubin [Mass/Vol] 0.20 mg/dL Normal 0.20-1.00 [facility] Comment on above: Result Comment: For patients on eltrombopag therapy, use of Dimension [place] TBIL is not recommended. Performed By: #### L [id number], L100.0100 #### [facility] [place] Laboratory [address] [place], [address] BUN/CRE 23.8 RATIO High 10-20 [facility] [place] Comment on above: Performed By: #### L [id number], L100.0100 #### [facility] [place] Laboratory [address] [place], [address] CA,Total 9.2 mg/dL Normal 8.5-10.1 [facility] [place] Comment on above: Performed By: #### L [id number], L100.0100 #### [facility] [place] Laboratory [address] [place], [address] Chloride [Moles/Vol] 106 mmol/L Normal 98-107 [facility] Comment on above: Performed By: #### L [id number], L100.0100 #### [facility] [place] Laboratory [address] [place], [address] CO2 [Moles/Vol] 26.0 mmol/L Normal 21.0-32.0 [facility] [place] Comment on above: Performed By: #### L 500.4050, L100.0100 #### [facility] [place] Laboratory [address] [place], [address] Creatinine [Mass/Vol] 1.05 mg/dL Normal 0.70-1.30 [facility] Comment on above: Result Comment: The validity of the calculated GFR GFRAA in patients over 70 years has not been determined. Clinical correlation is essential. Performed By: #### L 500.4050, L100.0100 #### [facility] [place] Laboratory [address] [place], [address] EST GFR - AA 95 mL/min Normal >60 [facility] [place] Comment on above: Result Comment: Afri can [facility] GFR Calc Performed By: #### L [id number], L100.0100 #### [facility] [place] Laboratory [address] [place], [address] GAP 6 Normal 5-15 [facility] [place] Comment on above: Performed By: #### L [id number], L100.0100 #### [facility] [place] Laboratory [address] [place], [address] GFR/1.73 sq M.predicted among non-blacks MDRD (S/P/Bld) [Vol rate/Area] 78 mL/min/{1.73_m2} Normal >60 [facility] Comment on above: Result Comment: Non- GFR Calc Performed By: #### L [id number], L100.0100 #### [facility] [place] Laboratory [address] [place], [address] Globulin (S) [Mass/Vol] 3.3 g/dL Normal 2.2-4.2 [facility] Comment on above: Performed By: #### L [id number], L100.0100 #### [facility] [place] Laboratory [address] [place], [address] Glucose [Mass/Vol] 151 mg/dL High 74-106 [facility] Comment on above: Result Comment: Fast ing Glucose result greater than or equal to 126 mg/dL suggests DIABETES MELLITUS per A.D.A. criteria. Performed By: #### L 500.4050, L100.0100 #### [facility] [place] Laboratory [address] [place], [address] Potassium [Moles/Vol] 3.8 mmol/L Normal 3.5-5.1 [facility] Comment on above: Performed By: #### L [id number], L100.0100 #### [facility] [place] Laboratory [address] [place], [address] Sodium [Moles/Vol] 138 mmol/L Normal 136-145 [facility] Comment on above: Performed By: #### L [id number], L100.0100 #### [facility] [place] Laboratory [address] [place], [address] T PROT 6.8 g/dL Normal 6.4-8.2 [facility] [place] Comment on above: Performed By: #### L [id number], L100.0100 #### [facility] [place] Laboratory [address] [place], [address] Urea nitrogen [Mass/Vol] 25 mg/dL High 7-18 [facility] [place] Comment on above: Performed By: #### L [id number], L100.0100 #### [facility] [place] Laboratory [address] [place], [address] Absolute lymphocyte countOrd ered By: Swati Burris on 05-26-2023 Lymphocytes Auto (Unsp spec) [#/Vol] 2.94 10*3/uL 0.83-4.51 [facility] [place] Automated lymphocyte count a s percentage of total leukocytesOrdered By: Swati Burris on 05-26-2023 Lymphocytes/100 WBC Auto (Unsp spec) 26.9 % 19-41 [facility] [place] Basophil percentageOrdered B y: Swati Burris on 05-26-2023 Basophils/100 WBC (Bld) 0.2 % 0-1 [facility] Bilirubin [Mass/Vol] 0.20 mg/dL 0.20-1.00 [facility] Comment on above: For patients on eltr ombopag therapy, use of Dimension [place] TBIL is not recommended. Chloride [Moles/Vol] 105 mmol/L 98-107 [facility] Eosinophils/100 WBC (Bld) 0.8 % 0-5 [facility] [place] Glucose [Mass/Vol] 102 mg/dL 74-106 [facility] Comment on above: Fasting Glucose resu lt from 100 to 125 mg/dL suggests IMPAIRED HOMEOSTASIS per A.D.A. criteria. Hemoglobin (Bld) [Mass/Vol] 15.0 g/dL 13.0-16.5 [facility] [place] Monocytes/100 WBC (Bld) 7.4 % 0-10 [facility] Neutrophils (Bld) [#/Vol] 7.0 10*3/uL 2.0-7.7 [facility] [place] Neutrophils/100 WBC (Bld) 63.9 % 47-70 [facility] [place] Potassium [Moles/Vol] 3.8 mmol/L 3.5-5.1 [facility] Protein [Mass/Vol] 7.2 g/dL 6.4-8.2 [facility] Sodium [Moles/Vol] 139 mmol/L 136-145 [facility] WBC (Bld) [#/Vol] 10.9 10*3/uL 4.4-11.0 [facility] Determination of erythrocyte mean corpuscular volume (MCV)Ordered By: Swati Burris on 05-26-2023 MCV (RBC) [Entitic vol] 95.9 fL 80-94 [facility] Erythrocyte distribution wid th ratioOrdered By: Swati Burris on 05-26-2023 Erythrocyte distribution width (RBC) [Ratio] 12.5 % 11.6-14.6 [facility] [place] Erythrocyte distribution wid th standard deviationOrdered By: Swati Burris on 05-26-2023 Erythrocyte distribution width (RBC) [Entitic vol] 44.3 fL 35.1-43.9 [facility] Hematocrit Auto (Bld) [Volum e fraction]Ordered By: Swati Burris on 05-26-2023 Hematocrit (Bld) [Volume fraction] 43.9 % 40-54 [facility] [place] Immature granulocytes/100 WB C Auto (Bld)Ordered By: [facility] on 05-26-2023 Immature granulocytes/100 WBC (Bld) 0.800 % 0.0-0.9 [facility] [place] Comment on above: IG% - Immature Granu locytes (promyelocytes, myelocytes and metamyelocytes) > 1% indicates that a LEFT SHIFT is Present. Laboratory - Chemistry and C hemistry - challengeOrdered By: Swatisantosh Burris on 05-26-2023 Albumin/Globulin [Mass ratio] 0.9 {ratio} 0.9-2.4 [facility] [place] ALP [Catalytic activity/Vol] 73 U/L 45-117 [facility] [place] ALT [Catalytic activity/Vol] 31 U/L 16-61 [facility] [place] CO2 [Moles/Vol] 29.0 mmol/L 21.0-32.0 [facility] [place] Globulin (S) [Mass/Vol] 3.7 g/dL 2.2-4.2 [facility] Urea nitrogen/Creatinine [Mass ratio] 16.9 mg/mg 10-20 [facility] [place] Laboratory - Hematology and Cell countsOrdered By: Swatisantosh Burris on 05-26-2023 MCH (RBC) [Entitic mass] 32.8 pg 27.0-32.0 [facility] [place] MCHC (RBC) [Mass/Vol] 34.2 g/dL 32-36 [facility] Nucleated RBC/100 WBC (Bld) [Ratio] 0 % 0-5 [facility] [place] Platelet mean volume (Bld) [Entitic vol] 9.7 fL 6.2-12.0 [facility] [place] Platelets (Bld) [#/Vol] 304 10*3/uL 150-450 [facility] [place] No Panel InformationOrdered By: Swati Burris on 05-26-2023 Estimated GFR (MDRD) Amer 71 mL/min >60 [facility] [place] Comment on above: GFR Calc Estimated GFR (MDRD) Non-Af Amer 58 mL/min >60 [facility] [place] Comment on above: Non- GFR Calc RBC Auto (Bld) [#/Vol]Ordere d By: Swati Burris on 05-26-2023 RBC (Bld) [#/Vol] 4.58 10*6/uL 4.6-6.2 [facility] Serum or plasma calcium shade urement (mass/volume)Ordered By: Swati Burris on 05-26-2023 Calcium [Mass/Vol] 9.6 mg/dL 8.5-10.1 [facility] Serum or plasma creatinine m easurement (mass/volume)Ordered By: Swati Burris on 05-26-2023 Creatinine [Mass/Vol] 1.36 mg/dL 0.70-1.30 [facility] Comment on above: The validity of the calculated GFR & GFRAA in patients over 70 years has not been determined. Clinical correlation is essential. Serum or plasma urea nitroge n measurement (mass/volume)Ordered By: Swati Burris on 05-26-2023 Urea nitrogen [Mass/Vol] 23 mg/dL 7-18 [facility] [place] Thin prep Papanicolaou smear with manual screeningOrdered By: Swati Burris on 05-26-2023 Thin prep Papanicolaou smear with manual screening 3.5 g/dL 3.2-5.0 [facility] [place] Thin prep Papanicolaou smear with manual screening 20 U/L 15-37 [facility] [place] Thin prep Papanicolaou smear with manual screening 5 5-15 [facility] [place] Laboratory - Chemistry and C hemistry - challengeon 04-08-2023 Bilirubin Ql (U) Negative [facility] [place] Glucose Ql (U) Negative [facility] [place] Ketones Ql (U) Trace (5) [facility] [place] pH (U) 6 [pH] [facility] [place] Specific gravity (U) [Rel density] 1.025 [facility] [place] Urobilinogen (U) [Mass/Vol] Negative [facility] [place] Laboratory - Hematology and Cell countson 04-08-2023 Hemoglobin Ql (U) Trace [facility] [place] Laboratory - Specimen inform ationon 04-08-2023 Clarity (U) Clear [facility] [place] Color (U) BRISA [facility] [place] Laboratory - Urinalysison Nitrite Ql (U) Negative [facility] [place] Protein Ql (U) Trace [facility] [place] No Panel Informationon 04-08 Urine Leukocytes Negatve [facility] [place] Urine Non-Hemolyzed Blood [facility] [place] Absolute lymphocyte countOrd ered By: Swati Burris on 02-24-2023 Lymphocytes Auto (Unsp spec) [#/Vol] 2.81 10*3/uL 0.83-4.51 [facility] [place] Basophil percentageOrdered B y: Swati Burris on 02-24-2023 Basophils/100 WBC (Bld) 0.6 % 0-1 [facility] Bilirubin [Mass/Vol] 0.50 mg/dL 0.20-1.00 [facility] Comment on above: For patients on eltr ombopag therapy, use of Dimension [place] TBIL is not recommended. Chloride [Moles/Vol] 106 mmol/L 98-107 [facility] Eosinophils/100 WBC (Bld) 2.4 % 0-5 [facility] [place] Glucose [Mass/Vol] 114 mg/dL 74-106 [facility] Comment on above: Fasting Glucose resu lt from 100 to 125 mg/dL suggests IMPAIRED HOMEOSTASIS per A.D.A. criteria. Neutrophils (Bld) [#/Vol] 4.7 10*3/uL 2.0-7.7 [facility] [place] Neutrophils/100 WBC (Bld) 55.8 % 47-70 [facility] [place] Potassium [Moles/Vol] 3.7 mmol/L 3.5-5.1 [facility] Protein [Mass/Vol] 7.3 g/dL 6.4-8.2 [facility] Sodium [Moles/Vol] 140 mmol/L 136-145 [facility] WBC (Bld) [#/Vol] 8.5 10*3/uL 4.4-11.0 [facility] Blood erythrocytes count (nu mber/volume)Ordered By: Swati Burris on 02-24-2023 RBC (Bld) [#/Vol] 4.89 10*6/uL 4.6-6.2 [facility] Blood hemoglobin measurement (mass/volume)Ordered By: Swati Burris on 02-24-2023 Hemoglobin (Bld) [Mass/Vol] 15.7 g/dL 13.0-16.5 [facility] [place] Blood lymphocytes/100 leukoc ytesOrdered By: Swati Burris on 02-24-2023 Lymphocytes/100 WBC (Bld) 33.1 % 19-41 [facility] [place] Blood monocytes/100 leukocyt esOrdered By: Swati Burris on 02-24-2023 Monocytes/100 WBC (Bld) 7.0 % 0-10 [facility] Blood platelet mean volumeOr dered By: Swati Burris on 02-24-2023 Platelet mean volume (Bld) [Entitic vol] 10.3 fL 6.2-12.0 [facility] [place] Determination of erythrocyte mean corpuscular volume (MCV)Ordered By: Swati Burris on 02-24-2023 MCV (RBC) [Entitic vol] 96.9 fL 80-94 [facility] Hematocrit Auto (Bld) [Volum e fraction]Ordered By: Swati Burris on 02-24-2023 Hematocrit (Bld) [Volume fraction] 47.4 % 40-54 [facility] [place] Laboratory - Chemistry and C hemistry - challengeOrdered By: Swatisantosh Burris on 02-24-2023 ALP [Catalytic activity/Vol] 70 U/L 45-117 [facility] ALT [Catalytic activity/Vol] 42 U/L 16-61 [facility] CO2 [Moles/Vol] 26.0 mmol/L 21.0-32.0 [facility] Globulin (S) [Mass/Vol] 4.0 g/dL 2.2-4.2 [facility] Urea nitrogen/Creatinine [Mass ratio] 18.8 mg/mg 10-20 [facility] Laboratory - Hematology and Cell countsOrdered By: Swati Burris on 02-24-2023 Erythrocyte distribution width (RBC) [Entitic vol] 45.3 fL 35.1-43.9 [facility] Erythrocyte distribution width (RBC) [Ratio] 12.6 % 11.6-14.6 [facility] Immature granulocytes/100 WBC (Bld) 1.100 % 0.0-0.9 [facility] Comment on above: IG% - Immature Granu locytes (promyelocytes, myelocytes and metamyelocytes) > 1% indicates that a LEFT SHIFT is Present. MCH (RBC) [Entitic mass] 32.1 pg 27.0-32.0 [facility] Nucleated RBC/100 WBC (Bld) [Ratio] 0 % 0-5 [facility] MCHC Auto (RBC) [Mass/Vol]Or dered By: Swati Burris on 02-24-2023 MCHC (RBC) [Mass/Vol] 33.1 g/dL 32-36 [facility] No Panel InformationOrdered By: Swati Burris on 02-24-2023 Estimated GFR (MDRD) Amer 88 mL/min >60 [facility] Comment on above: GFR Calc Estimated GFR (MDRD) Non-Af Amer 73 mL/min >60 [facility] Comment on above: Non- GFR Calc Platelets bldOrdered By: Adilene Burris on 02-24-2023 Platelets (Bld) [#/Vol] 241 10*3/uL 150-450 [facility] Serum or plasma albumin shade urement (mass/volume)Ordered By: Swati Burris on 02-24-2023 Albumin [Mass/Vol] 3.3 g/dL 3.2-5.0 [facility] Serum or plasma albumin/glob ulin mass ratioOrdered By: Swati Burris on 02-24-2023 Albumin/Globulin [Mass ratio] 0.8 {ratio} 0.9-2.4 [facility] Serum or plasma calcium shade urement (mass/volume)Ordered By: Swati Burris on 02-24-2023 Calcium [Mass/Vol] 9.1 mg/dL 8.5-10.1 [facility] Serum or plasma creatinine m easurement (mass/volume)Ordered By: Swati Burris on 02-24-2023 Creatinine [Mass/Vol] 1.12 mg/dL 0.70-1.30 [facility] Comment on above: The validity of the calculated GFR & GFRAA in patients over 70 years has not been determined. Clinical correlation is essential. Serum or plasma urea nitroge n measurement (mass/volume)Ordered By: Swati Burris on 02-24-2023 Urea nitrogen [Mass/Vol] 21 mg/dL 7-18 [facility] Thin prep Papanicolaou smear with manual screeningOrdered By: Swati Burris on 02-24-2023 Thin prep Papanicolaou smear with manual screening 25 U/L 15-37 [facility] Thin prep Papanicolaou smear with manual screening 8 5-15 [facility] Absolute lymphocyte countOrd ered By: Swati Burris on 11-28-2022 Lymphocytes Auto (Unsp spec) [#/Vol] 2.55 10*3/uL 0.83-4.51 [facility] Basophil percentageOrdered B y: Swati Burris on 11-28-2022 Basophils/100 WBC (Bld) 0.3 % 0-1 [facility] Bilirubin [Mass/Vol] 0.50 mg/dL 0.20-1.00 [facility] Comment on above: For patients on eltr ombopag therapy, use of Dimension [place] TBIL is not recommended. Chloride [Moles/Vol] 108 mmol/L 98-107 [facility] Eosinophils/100 WBC (Bld) 1.9 % 0-5 [facility] Glucose [Mass/Vol] 97 mg/dL 74-106 [facility] Neutrophils (Bld) [#/Vol] 6.4 10*3/uL 2.0-7.7 [facility] Neutrophils/100 WBC (Bld) 64.8 % 47-70 [facility] Potassium [Moles/Vol] 4.1 mmol/L 3.5-5.1 [facility] Protein [Mass/Vol] 6.7 g/dL 6.4-8.2 [facility] Sodium [Moles/Vol] 138 mmol/L 136-145 [facility] WBC (Bld) [#/Vol] 9.8 10*3/uL 4.4-11.0 [facility] Blood erythrocytes count (nu mber/volume)Ordered By: Swati Burris on 11-28-2022 RBC (Bld) [#/Vol] 4.75 10*6/uL 4.6-6.2 [facility] Blood hemoglobin measurement (mass/volume)Ordered By: Swati Burris on 11-28-2022 Hemoglobin (Bld) [Mass/Vol] 15.4 g/dL 13.0-16.5 [facility] Blood lymphocytes/100 leukoc ytesOrdered By: Swati Burris on 11-28-2022 Lymphocytes/100 WBC (Bld) 26.0 % 19-41 [facility] Blood monocytes/100 leukocyt esOrdered By: Swati Burris on 11-28-2022 Monocytes/100 WBC (Bld) 6.5 % 0-10 [facility] Blood platelet mean volumeOr dered By: Swati Burris on 11-28-2022 Platelet mean volume (Bld) [Entitic vol] 10.0 fL 6.2-12.0 [facility] Determination of erythrocyte mean corpuscular volume (MCV)Ordered By: Swati Burris on 11-28-2022 MCV (RBC) [Entitic vol] 97.1 fL 80-94 [facility] Hematocrit Auto (Bld) [Volum e fraction]Ordered By: Swati Burris on 11-28-2022 Hematocrit (Bld) [Volume fraction] 46.1 % 40-54 [facility] Laboratory - Chemistry and C hemistry - challengeOrdered By: Swati Burris on 11-28-2022 ALP [Catalytic activity/Vol] 67 U/L 45-117 [facility] ALT [Catalytic activity/Vol] 33 U/L 16-61 [facility] CO2 [Moles/Vol] 25.0 mmol/L 21.0-32.0 [facility] Globulin (S) [Mass/Vol] 3.2 g/dL 2.2-4.2 [facility] Urea nitrogen/Creatinine [Mass ratio] 16.4 mg/mg 10-20 [facility] Laboratory - Hematology and Cell countsOrdered By: Swati Burris on 11-28-2022 Erythrocyte distribution width (RBC) [Entitic vol] 44.7 fL 35.1-43.9 [facility] Erythrocyte distribution width (RBC) [Ratio] 12.6 % 11.6-14.6 [facility] Immature granulocytes/100 WBC (Bld) 0.500 % 0.0-0.9 [facility] Comment on above: IG% - Immature Granu locytes (promyelocytes, myelocytes and metamyelocytes) > 1% indicates that a LEFT SHIFT is Present. MCH (RBC) [Entitic mass] 32.4 pg 27.0-32.0 [facility] Nucleated RBC/100 WBC (Bld) [Ratio] 0 % 0-5 [facility] MCHC Auto (RBC) [Mass/Vol]Or dered By: Swati Burris on 11-28-2022 MCHC (RBC) [Mass/Vol] 33.4 g/dL 32-36 [facility] No Panel InformationOrdered By: Swati Burris on 11-28-2022 Estimated GFR (MDRD) Amer 85 mL/min >60 [facility] Comment on above: GFR Calc Estimated GFR (MDRD) Non-Af Amer 70 mL/min >60 [facility] Comment on above: Non- GFR Calc Platelets bldOrdered By: Adilene Burris on 11-28-2022 Platelets (Bld) [#/Vol] 238 10*3/uL 150-450 [facility] Serum or plasma albumin shade urement (mass/volume)Ordered By: Swati Burris on 11-28-2022 Albumin [Mass/Vol] 3.5 g/dL 3.2-5.0 [facility] Serum or plasma albumin/glob ulin mass ratioOrdered By: Swati Burris on 11-28-2022 Albumin/Globulin [Mass ratio] 1.1 {ratio} 0.9-2.4 [facility] Serum or plasma calcium shade urement (mass/volume)Ordered By: Swati Burris on 11-28-2022 Calcium [Mass/Vol] 8.8 mg/dL 8.5-10.1 [facility] Serum or plasma creatinine m easurement (mass/volume)Ordered By: Swati Burris on 11-28-2022 Creatinine [Mass/Vol] 1.16 mg/dL 0.70-1.30 [facility] Comment on above: The validity of the calculated GFR & GFRAA in patients over 70 years has not been determined. Clinical correlation is essential. Serum or plasma urea nitroge n measurement (mass/volume)Ordered By: Swati Burris on 11-28-2022 Urea nitrogen [Mass/Vol] 19 mg/dL 7-18 [facility] Thin prep Papanicolaou smear with manual screeningOrdered By: Swati Burris on 11-28-2022 Thin prep Papanicolaou smear with manual screening 20 U/L 15-37 [facility] Thin prep Papanicolaou smear with manual screening 5 5-15 [facility] Absolute lymphocyte countOrd ered By: Swati Burris on 09-01-2022 Lymphocytes Auto (Unsp spec) [#/Vol] 3.11 10*3/uL 0.83-4.51 [facility] Basophil percentageOrdered B y: Swati Burris on 09-01-2022 Basophils/100 WBC (Bld) 0.2 % 0-1 [facility] Bilirubin [Mass/Vol] 0.40 mg/dL 0.20-1.00 [facility] Comment on above: For patients on eltr ombopag therapy, use of Dimension [place] TBIL is not recommended. Chloride [Moles/Vol] 107 mmol/L 98-107 [facility] Eosinophils/100 WBC (Bld) 2.5 % 0-5 [facility] Glucose [Mass/Vol] 115 mg/dL 74-106 [facility] Comment on above: Fasting Glucose resu lt from 100 to 125 mg/dL suggests IMPAIRED HOMEOSTASIS per A.D.A. criteria. Neutrophils (Bld) [#/Vol] 5.5 10*3/uL 2.0-7.7 [facility] Neutrophils/100 WBC (Bld) 57.6 % 47-70 [facility] Potassium [Moles/Vol] 3.5 mmol/L 3.5-5.1 [facility] Protein [Mass/Vol] 6.9 g/dL 6.4-8.2 [facility] Sodium [Moles/Vol] 138 mmol/L 136-145 [facility] WBC (Bld) [#/Vol] 9.6 10*3/uL 4.4-11.0 [facility] Blood erythrocytes count (nu mber/volume)Ordered By: Swati Burris on 09-01-2022 RBC (Bld) [#/Vol] 4.58 10*6/uL 4.6-6.2 [facility] Blood hemoglobin measurement (mass/volume)Ordered By: Swati Burris on 09-01-2022 Hemoglobin (Bld) [Mass/Vol] 14.9 g/dL 13.0-16.5 [facility] Blood lymphocytes/100 leukoc ytesOrdered By: Swati Burris on 09-01-2022 Lymphocytes/100 WBC (Bld) 32.6 % 19-41 [facility] Blood monocytes/100 leukocyt esOrdered By: Swati Burris on 09-01-2022 Monocytes/100 WBC (Bld) 6.6 % 0-10 [facility] Blood platelet mean volumeOr dered By: Swati Burris on 09-01-2022 Platelet mean volume (Bld) [Entitic vol] 9.9 fL 6.2-12.0 [facility] Determination of erythrocyte mean corpuscular volume (MCV)Ordered By: Swati Burris on 09-01-2022 MCV (RBC) [Entitic vol] 95.9 fL 80-94 [facility] Hematocrit Auto (Bld) [Volum e fraction]Ordered By: Swati Burris on 09-01-2022 Hematocrit (Bld) [Volume fraction] 43.9 % 40-54 [facility] Laboratory - Chemistry and C hemistry - challengeOrdered By: Swati Burris on 09-01-2022 ALP [Catalytic activity/Vol] 71 U/L 45-117 [facility] ALT [Catalytic activity/Vol] 37 U/L 16-61 [facility] CO2 [Moles/Vol] 24.0 mmol/L 21.0-32.0 [facility] Globulin (S) [Mass/Vol] 3.4 g/dL 2.2-4.2 [facility] Urea nitrogen/Creatinine [Mass ratio] 22.4 mg/mg 10-20 [facility] Laboratory - Hematology and Cell countsOrdered By: Swati Burris on 09-01-2022 Erythrocyte distribution width (RBC) [Entitic vol] 43.8 fL 35.1-43.9 [facility] Erythrocyte distribution width (RBC) [Ratio] 12.4 % 11.6-14.6 [facility] Immature granulocytes/100 WBC (Bld) 0.500 % 0.0-0.9 [facility] Comment on above: IG% - Immature Granu locytes (promyelocytes, myelocytes and metamyelocytes) > 1% indicates that a LEFT SHIFT is Present. MCH (RBC) [Entitic mass] 32.5 pg 27.0-32.0 [facility] Nucleated RBC/100 WBC (Bld) [Ratio] 0 % 0-5 [facility] MCHC Auto (RBC) [Mass/Vol]Or dered By: Swati Burris on 09-01-2022 MCHC (RBC) [Mass/Vol] 33.9 g/dL 32-36 [facility] No Panel InformationOrdered By: Swati Burris on 09-01-2022 Estimated GFR (MDRD) Amer 93 mL/min >60 [facility] Comment on above: GFR Calc Estimated GFR (MDRD) Non-Af Amer 77 mL/min >60 [facility] Comment on above: Non- GFR Calc Platelets bldOrdered By: Adilene Burris on 09-01-2022 Platelets (Bld) [#/Vol] 255 10*3/uL 150-450 [facility] Serum or plasma albumin shade urement (mass/volume)Ordered By: Swati Burris on 09-01-2022 Albumin [Mass/Vol] 3.5 g/dL 3.2-5.0 [facility] Serum or plasma albumin/glob ulin mass ratioOrdered By: Swati Burris on 09-01-2022 Albumin/Globulin [Mass ratio] 1.0 {ratio} 0.9-2.4 [facility] Serum or plasma calcium shade urement (mass/volume)Ordered By: Swati Burris on 09-01-2022 Calcium [Mass/Vol] 9.1 mg/dL 8.5-10.1 [facility] Serum or plasma creatinine m easurement (mass/volume)Ordered By: Swati Burris on 09-01-2022 Creatinine [Mass/Vol] 1.07 mg/dL 0.70-1.30 [facility] Comment on above: The validity of the calculated GFR & GFRAA in patients over 70 years has not been determined. Clinical correlation is essential. Serum or plasma urea nitroge n measurement (mass/volume)Ordered By: Swati Burris on 09-01-2022 Urea nitrogen [Mass/Vol] 24 mg/dL 7-18 [facility] Thin prep Papanicolaou smear with manual screeningOrdered By: Swati Burris on 09-01-2022 Thin prep Papanicolaou smear with manual screening 26 U/L 15-37 [facility] Thin prep Papanicolaou smear with manual screening 7 5-15 [facility] Absolute lymphocyte countOrd ered By: Dr. Burris on 07-01-2022 Lymphocytes Auto (Unsp spec) [#/Vol] 3.32 10*3/uL 0.83-4.51 [facility] Basophil percentageOrdered B y: Rocael Castillo on 07-01-2022 Bilirubin [Mass/Vol] 0.20 mg/dL 0.20-1.00 [facility] Comment on above: For patients on eltr ombopag therapy, use of Dimension [place] TBIL is not recommended. Cholesterol [Mass/Vol] 119 mg/dL <200 [facility] Comment on above: <200 mg/dL Desirable 200-240 mg/dL Borderline >240 mg/dL High Risk Protein [Mass/Vol] 6.9 g/dL 6.4-8.2 [facility] Triglyceride [Mass/Vol] 104 mg/dL <199 [facility] Comment on above: The drugs N-Acetylcy steine and Metamizole may falsely depress this assay.Serum Triglycerides Reference Interval Normal <150 mg/dL Borderline high 150 - 199 mg/dL High 200 - 499 mg/dL Very High > or = 500 mg/dL Basophil percentageOrdered B y: Dr. Burris on 07-01-2022 Basophils/100 WBC (Bld) 0.2 % 0-1 [facility] Chloride [Moles/Vol] 107 mmol/L 98-107 [facility] Eosinophils/100 WBC (Bld) 1.7 % 0-5 [facility] Glucose [Mass/Vol] 94 mg/dL 74-106 [facility] Neutrophils (Bld) [#/Vol] 5.7 10*3/uL 2.0-7.7 [facility] Neutrophils/100 WBC (Bld) 56.4 % 47-70 [facility] Potassium [Moles/Vol] 4.0 mmol/L 3.5-5.1 [facility] Sodium [Moles/Vol] 138 mmol/L 136-145 [facility] WBC (Bld) [#/Vol] 10.1 10*3/uL 4.4-11.0 [facility] Blood erythrocytes count (nu mber/volume)Ordered By: Dr. Burris on 07-01-2022 RBC (Bld) [#/Vol] 4.60 10*6/uL 4.6-6.2 [facility] Blood hemoglobin measurement (mass/volume)Ordered By: Dr. Burris on 07-01-2022 Hemoglobin (Bld) [Mass/Vol] 14.9 g/dL 13.0-16.5 [facility] Blood lymphocytes/100 leukoc ytesOrdered By: Dr. Burris on 07-01-2022 Lymphocytes/100 WBC (Bld) 32.9 % 19-41 [facility] Blood monocytes/100 leukocyt esOrdered By: Dr. Burris on 07-01-2022 Monocytes/100 WBC (Bld) 7.1 % 0-10 [facility] Blood platelet mean volumeOr dered By: Dr. Burris on 07-01-2022 Platelet mean volume (Bld) [Entitic vol] 10.1 fL 6.2-12.0 [facility] Determination of erythrocyte mean corpuscular volume (MCV)Ordered By: Dr. Burris on 07-01-2022 MCV (RBC) [Entitic vol] 96.7 fL 80-94 [facility] Direct bilirubinOrdered By: Rocael Castillo on 07-01-2022 Bilirubin.direct [Mass/Vol] 0.10 mg/dL 0.00-0.30 [facility] Hematocrit Auto (Bld) [Volum e fraction]Ordered By: Dr. Burris on 05-09-2023 Hematocrit (Bld) [Volume fraction] 44.5 % 40-54 [facility] Laboratory - Chemistry and C hemistry - challengeOrdered By: Rocael Castillo on 07-01-2022 ALP [Catalytic activity/Vol] 73 U/L 45-117 [facility] ALT [Catalytic activity/Vol] 31 U/L 16-61 [facility] Globulin (S) [Mass/Vol] 3.3 g/dL 2.2-4.2 [facility] Laboratory - Chemistry and C hemistry - challengeOrdered By: Dr. Burris on 07-01-2022 CO2 [Moles/Vol] 24.0 mmol/L 21.0-32.0 [facility] Urea nitrogen/Creatinine [Mass ratio] 19.6 mg/mg 10-20 [facility] Laboratory - Hematology and Cell countsOrdered By: Dr. Burris on 07-01-2022 Erythrocyte distribution width (RBC) [Entitic vol] 44.6 fL 35.1-43.9 [facility] Erythrocyte distribution width (RBC) [Ratio] 12.6 % 11.6-14.6 [facility] Immature granulocytes/100 WBC (Bld) 1.700 % 0.0-0.9 [facility] Comment on above: IG% - Immature Granu locytes (promyelocytes, myelocytes and metamyelocytes) > 1% indicates that a LEFT SHIFT is Present. MCH (RBC) [Entitic mass] 32.4 pg 27.0-32.0 [facility] Nucleated RBC/100 WBC (Bld) [Ratio] 0 % 0-5 [facility] MCHC Auto (RBC) [Mass/Vol]Or dered By: Dr. Burris on 07-01-2022 MCHC (RBC) [Mass/Vol] 33.5 g/dL 32-36 [facility] No Panel InformationOrdered By: Dr. Burris on 07-01-2022 Estimated GFR (MDRD) Amer 99 mL/min >60 [facility] Comment on above: GFR Calc Estimated GFR (MDRD) Non-Af Amer 82 mL/min >60 [facility] Comment on above: Non- GFR Calc Platelets bldOrdered By: Dr. Burris on 07-01-2022 Platelets (Bld) [#/Vol] 237 10*3/uL 150-450 [facility] Serum or plasma albumin shade urement (mass/volume)Ordered By: Rocael Castillo on 07-01-2022 Albumin [Mass/Vol] 3.6 g/dL 3.2-5.0 [facility] Serum or plasma albumin/glob ulin mass ratioOrdered By: Dr. Burris on 07-01-2022 Albumin/Globulin [Mass ratio] 1.1 {ratio} 0.9-2.4 [facility] Serum or plasma calcium shade urement (mass/volume)Ordered By: Dr. Burris on 07-01-2022 Calcium [Mass/Vol] 9.0 mg/dL 8.5-10.1 [facility] Serum or plasma cholesterol in HDL measurement (mass/volume)Ordered By: Rocael Castillo on 07-01-2022 Cholesterol in HDL [Mass/Vol] 45 mg/dL >40 [facility] Comment on above: The drugs N-Acetylcy steine and Metamizole may falsely depress this assay. Reference Range HDL <40 mg/dL Low HDL Cholesterol HDL >or= 60 mg/dL High HDL Cholesterol Serum or plasma cholesterol in VLDL measurement (mass/volume)Ordered By: Rocael Castillo on 07-01-2022 Cholesterol in VLDL [Mass/Vol] 21 mg/dL 5-40 [facility] Serum or plasma creatinine m easurement (mass/volume)Ordered By: Dr. Burris on 07-01-2022 Creatinine [Mass/Vol] 1.02 mg/dL 0.70-1.30 [facility] Comment on above: The validity of the calculated GFR & GFRAA in patients over 70 years has not been determined. Clinical correlation is essential. Serum or plasma low density lipoprotein (LDL) cholesterol measurement (mass/volume)Ordered By: Rocael Castillo on 07-01-2022 Cholesterol in LDL [Mass/Vol] 53 mg/dL 0-130 [facility] Serum or plasma urea nitroge n measurement (mass/volume)Ordered By: Dr. Burris on 07-01-2022 Urea nitrogen [Mass/Vol] 20 mg/dL 7-18 [facility] Thin prep Papanicolaou smear with manual screeningOrdered By: Rocael Castillo on 07-01-2022 Thin prep Papanicolaou smear with manual screening 22 U/L 15-37 [facility] Thin prep Papanicolaou smear with manual screeningOrdered By: Dr. Burris on 07-01-2022 Thin prep Papanicolaou smear with manual screening 7 5-15 [facility] Absolute lymphocyte countOrd ered By: Dr. Burris on 2022 Lymphocytes Auto (Unsp spec) [#/Vol] 2.43 10*3/uL 0.83-4.51 [facility] Basophil percentageOrdered B y: Dr. Burris on 2022 Basophils/100 WBC (Bld) 0.2 % 0-1 [facility] Bilirubin [Mass/Vol] 0.60 mg/dL 0.20-1.00 [facility] Comment on above: For patients on eltr ombopag therapy, use of Dimension [place] TBIL is not recommended. Chloride [Moles/Vol] 107 mmol/L 98-107 [facility] Eosinophils/100 WBC (Bld) 2.2 % 0-5 [facility] Glucose [Mass/Vol] 104 mg/dL 74-106 [facility] Comment on above: Fasting Glucose resu lt from 100 to 125 mg/dL suggests IMPAIRED HOMEOSTASIS per A.D.A. criteria. Neutrophils (Bld) [#/Vol] 4.8 10*3/uL 2.0-7.7 [facility] Neutrophils/100 WBC (Bld) 59.6 % 47-70 [facility] Potassium [Moles/Vol] 4.1 mmol/L 3.5-5.1 [facility] Protein [Mass/Vol] 6.6 g/dL 6.4-8.2 [facility] Sodium [Moles/Vol] 138 mmol/L 136-145 [facility] WBC (Bld) [#/Vol] 8.1 10*3/uL 4.4-11.0 [facility] Blood erythrocytes count (nu mber/volume)Ordered By: Dr. Burris on 2022 RBC (Bld) [#/Vol] 4.74 10*6/uL 4.6-6.2 [facility] Blood hemoglobin measurement (mass/volume)Ordered By: Dr. Burris on 2022 Hemoglobin (Bld) [Mass/Vol] 15.3 g/dL 13.0-16.5 [facility] Blood lymphocytes/100 leukoc ytesOrdered By: Dr. Burris on 2022 Lymphocytes/100 WBC (Bld) 30.0 % 19-41 [facility] Blood monocytes/100 leukocyt esOrdered By: Dr. Burris on 2022 Monocytes/100 WBC (Bld) 7.8 % 0-10 [facility] Blood platelet mean volumeOr dered By: Dr. Burris on 2022 Platelet mean volume (Bld) [Entitic vol] 10.1 fL 6.2-12.0 [facility] Determination of erythrocyte mean corpuscular volume (MCV)Ordered By: Dr. Burris on 2022 MCV (RBC) [Entitic vol] 96.2 fL 80-94 [facility] Hematocrit Auto (Bld) [Volum e fraction]Ordered By: Dr. Burris on 2022 Hematocrit (Bld) [Volume fraction] 45.6 % 40-54 [facility] Laboratory - Chemistry and C hemistry - challengeOrdered By: Dr. Burris on 2022 ALP [Catalytic activity/Vol] 62 U/L 45-117 [facility] ALT [Catalytic activity/Vol] 38 U/L 16-61 [facility] CO2 [Moles/Vol] 28.0 mmol/L 21.0-32.0 [facility] Globulin (S) [Mass/Vol] 3.1 g/dL 2.2-4.2 [facility] Urea nitrogen/Creatinine [Mass ratio] 17.4 mg/mg 10-20 [facility] Laboratory - Hematology and Cell countsOrdered By: Dr. Burris on 2022 Erythrocyte distribution width (RBC) [Entitic vol] 46.2 fL 35.1-43.9 [facility] Erythrocyte distribution width (RBC) [Ratio] 12.9 % 11.6-14.6 [facility] Immature granulocytes/100 WBC (Bld) 0.200 % 0.0-0.9 [facility] Comment on above: IG% - Immature Granu locytes (promyelocytes, myelocytes and metamyelocytes) > 1% indicates that a LEFT SHIFT is Present. MCH (RBC) [Entitic mass] 32.3 pg 27.0-32.0 [facility] Nucleated RBC/100 WBC (Bld) [Ratio] 0 % 0-5 [facility] MCHC Auto (RBC) [Mass/Vol]Or dered By: Dr. Burris on 2022 MCHC (RBC) [Mass/Vol] 33.6 g/dL 32-36 [facility] No Panel InformationOrdered By: Dr. Burris on 2022 Estimated GFR (MDRD) Amer 91 mL/min >60 [facility] Comment on above: GFR Calc Estimated GFR (MDRD) Non-Af Amer 76 mL/min >60 [facility] Comment on above: Non- GFR Calc Platelets bldOrdered By: Dr. Burris on 2022 Platelets (Bld) [#/Vol] 230 10*3/uL 150-450 [facility] Serum or plasma albumin shade urement (mass/volume)Ordered By: Dr. Burris on 2022 Albumin [Mass/Vol] 3.5 g/dL 3.2-5.0 [facility] Serum or plasma albumin/glob ulin mass ratioOrdered By: Dr. Burris on 2022 Albumin/Globulin [Mass ratio] 1.1 {ratio} 0.9-2.4 [facility] Serum or plasma calcium shade urement (mass/volume)Ordered By: Dr. Burris on 2022 Calcium [Mass/Vol] 9.2 mg/dL 8.5-10.1 [facility] Serum or plasma creatinine m easurement (mass/volume)Ordered By: Dr. Burris on 2022 Creatinine [Mass/Vol] 1.09 mg/dL 0.70-1.30 [facility] Comment on above: The validity of the calculated GFR & GFRAA in patients over 70 years has not been determined. Clinical correlation is essential. Serum or plasma urea nitroge n measurement (mass/volume)Ordered By: Dr. Burris on 2022 Urea nitrogen [Mass/Vol] 19 mg/dL 7-18 [facility] Thin prep Papanicolaou smear with manual screeningOrdered By: Dr. Burris on 2022 Thin prep Papanicolaou smear with manual screening 25 U/L 15-37 [facility] Thin prep Papanicolaou smear with manual screening 3 5-15 [facility] Absolute lymphocyte countOrd ered By: Dr. Burris on 03-21-2022 Lymphocytes Auto (Unsp spec) [#/Vol] 2.25 10*3/uL 0.83-4.51 [facility] Basophil percentageOrdered B y: Dr. Burris on 03-21-2022 Basophils/100 WBC (Bld) 0.3 % 0-1 [facility] Bilirubin [Mass/Vol] 0.30 mg/dL 0.20-1.00 [facility] Comment on above: For patients on eltr ombopag therapy, use of Dimension [place] TBIL is not recommended. Chloride [Moles/Vol] 106 mmol/L 98-107 [facility] Eosinophils/100 WBC (Bld) 1.8 % 0-5 [facility] Glucose [Mass/Vol] 87 mg/dL 74-106 [facility] Neutrophils (Bld) [#/Vol] 3.5 10*3/uL 2.0-7.7 [facility] Neutrophils/100 WBC (Bld) 53.0 % 47-70 [facility] Potassium [Moles/Vol] 4.2 mmol/L 3.5-5.1 [facility] Protein [Mass/Vol] 7.0 g/dL 6.4-8.2 [facility] Sodium [Moles/Vol] 139 mmol/L 136-145 [facility] WBC (Bld) [#/Vol] 6.6 10*3/uL 4.4-11.0 [facility] Blood erythrocytes count (nu mber/volume)Ordered By: Dr. Burris on 03-21-2022 RBC (Bld) [#/Vol] 4.63 10*6/uL 4.6-6.2 [facility] Blood hemoglobin measurement (mass/volume)Ordered By: Dr. Burris on 03-21-2022 Hemoglobin (Bld) [Mass/Vol] 14.9 g/dL 13.0-16.5 [facility] Blood lymphocytes/100 leukoc ytesOrdered By: Dr. Burris on 03-21-2022 Lymphocytes/100 WBC (Bld) 33.9 % 19-41 [facility] Blood monocytes/100 leukocyt esOrdered By: Dr. Burris on 03-21-2022 Monocytes/100 WBC (Bld) 10.7 % 0-10 [facility] Blood platelet mean volumeOr dered By: Dr. Burris on 03-21-2022 Platelet mean volume (Bld) [Entitic vol] 9.8 fL 6.2-12.0 [facility] Determination of erythrocyte mean corpuscular volume (MCV)Ordered By: Dr. Burris on 03-21-2022 MCV (RBC) [Entitic vol] 94.2 fL 80-94 [facility] Hematocrit Auto (Bld) [Volum e fraction]Ordered By: Dr. Burris on 03-21-2022 Hematocrit (Bld) [Volume fraction] 43.6 % 40-54 [facility] Laboratory - Chemistry and C hemistry - challengeOrdered By: Dr. Burris on 03-21-2022 ALP [Catalytic activity/Vol] 72 U/L 45-117 [facility] ALT [Catalytic activity/Vol] 42 U/L 16-61 [facility] CO2 [Moles/Vol] 24.0 mmol/L 21.0-32.0 [facility] Globulin (S) [Mass/Vol] 3.7 g/dL 2.2-4.2 [facility] Urea nitrogen/Creatinine [Mass ratio] 20.8 mg/mg 10-20 [facility] Laboratory - Hematology and Cell countsOrdered By: Dr. Burris on 03-21-2022 Erythrocyte distribution width (RBC) [Entitic vol] 43.7 fL 35.1-43.9 [facility] Erythrocyte distribution width (RBC) [Ratio] 12.7 % 11.6-14.6 [facility] Immature granulocytes/100 WBC (Bld) 0.300 % 0.0-0.9 [facility] Comment on above: IG% - Immature Granu locytes (promyelocytes, myelocytes and metamyelocytes) > 1% indicates that a LEFT SHIFT is Present. MCH (RBC) [Entitic mass] 32.2 pg 27.0-32.0 [facility] Nucleated RBC/100 WBC (Bld) [Ratio] 0 % 0-5 [facility] MCHC Auto (RBC) [Mass/Vol]Or dered By: Dr. Burris on 03-21-2022 MCHC (RBC) [Mass/Vol] 34.2 g/dL 32-36 [facility] No Panel InformationOrdered By: Dr. Burris on 03-21-2022 Estimated GFR (MDRD) Amer 100 mL/min >60 [facility] Comment on above: GFR Calc Estimated GFR (MDRD) Non-Af Amer 83 mL/min >60 [facility] Comment on above: Non- GFR Calc Platelets bldOrdered By: Dr. Burris on 03-21-2022 Platelets (Bld) [#/Vol] 277 10*3/uL 150-450 [facility] Serum or plasma albumin shade urement (mass/volume)Ordered By: Dr. Burirs on 03-21-2022 Albumin [Mass/Vol] 3.3 g/dL 3.2-5.0 [facility] Serum or plasma albumin/glob ulin mass ratioOrdered By: Dr. Burris on 03-21-2022 Albumin/Globulin [Mass ratio] 0.9 {ratio} 0.9-2.4 [facility] Serum or plasma calcium shade urement (mass/volume)Ordered By: Dr. Burris on 03-21-2022 Calcium [Mass/Vol] 8.9 mg/dL 8.5-10.1 [facility] Serum or plasma creatinine m easurement (mass/volume)Ordered By: Dr. Burris on 03-21-2022 Creatinine [Mass/Vol] 1.01 mg/dL 0.70-1.30 [facility] Comment on above: The validity of the calculated GFR & GFRAA in patients over 70 years has not been determined. Clinical correlation is essential. Serum or plasma urea nitroge n measurement (mass/volume)Ordered By: Dr. Burris on 03-21-2022 Urea nitrogen [Mass/Vol] 21 mg/dL 7-18 [facility] Thin prep Papanicolaou smear with manual screeningOrdered By: Dr. Burris on 03-21-2022 Thin prep Papanicolaou smear with manual screening 23 U/L 15-37 [facility] Thin prep Papanicolaou smear with manual screening 9 5-15 [facility] Albumin Elph [Mass/Vol]Order ed By: Dr. Estevez on 01-07-2022 Albumin [Mass/Vol] 3.6 g/dL 2.9-4.4 [facility] Basophil percentageOrdered B y: Dr. Estevez on 01-07-2022 Basophil percentage Comment . [facility] Comment on above: No monoclonality det ected.Performed at: [facility] [place] [id number] Director: Rayray Jose PhD, Phone: [phone] Interpretation of serum or p lasma protein pattern by immunofixation (narrative resultOrdered By: Dr. Estevez on 01-07-2022 Protein Fractions Immunofixation [place] [Interp] See comment [facility] Comment on above: Result: Not Observed No Panel InformationOrdered By: Dr. Estevez on 01-07-2022 Addendum Document Comment . [facility] Comment on above: Protein electrophore sis scan will follow via computer,mail, or motorized squad lieutenant delivery. Serum [id number] measu rement by electrophoresisOrdered By: Dr. Estevez on 01-07-2022 Alpha 1 globulin Elph [Mass/Vol] 0.3 g/dL 0.0-0.4 [facility] Alpha 1 globulin Elph [Mass/Vol] 0.9 g/dL 0.4-1.0 [facility] Serum globulin measurement ( mass/volume)Ordered By: Dr. Estevez on 01-07-2022 Globulin (S) [Mass/Vol] 3.2 g/dL 2.2-3.9 [facility] Serum or plasma IgA measurem ent (mass/volume)Ordered By: Dr. Estevez on 01-07-2022 IgA [Mass/Vol] 220 mg/dL 90-386 [facility] Serum or plasma IgG measurem ent (mass/volume)Ordered By: Dr. Estevez on 01-07-2022 IgG [Mass/Vol] 841 mg/dL 603-1613 [facility] Serum or plasma IgM measurem ent (mass/volume)Ordered By: Dr. Estevez on 01-07-2022 IgM [Mass/Vol] 36 mg/dL 20-172 [facility] Serum or plasma beta globuli n measurement by electrophoresis (mass/volume)Ordered By: Dr. Estevez on 01-07-2022 Beta globulin Elph [Mass/Vol] 1.1 g/dL 0.7-1.3 [facility] Serum or plasma gamma globul in measurement by electrophoresis (mass/volume)Ordered By: Dr. Estevez on 01-07-2022 Gamma globulin Elph [Mass/Vol] 0.9 g/dL 0.4-1.8 [facility] Serum or plasma immunoelectr ophoresis interpretation (nominal result)Ordered By: Dr. Estevez on 01-07-2022 Interpretation IEP [Interp] Comment . [facility] Comment on above: No monoclonality det ected. Thin prep Papanicolaou smear with manual screeningOrdered By: Dr. Estevez on 01-07-2022 Thin prep Papanicolaou smear with manual screening 1.2 0.7-1.7 [facility] Total protein bloodOrdered B y: Dr. Estevez on 01-07-2022 Protein [Mass/Vol] 6.8 g/dL 6.0-8.5 [facility] Basophil percentageOrdered B y: Rocael Castillo on 12-11-2021 Bilirubin [Mass/Vol] 0.50 mg/dL 0.20-1.00 [facility] Comment on above: For patients on eltr ombopag therapy, use of Dimension [place] TBIL is not recommended. Cholesterol [Mass/Vol] 143 mg/dL <200 [facility] Comment on above: <200 mg/dL Desirable 200-240 mg/dL Borderline >240 mg/dL High Risk Protein [Mass/Vol] 7.0 g/dL 6.4-8.2 [facility] Triglyceride [Mass/Vol] 105 mg/dL <199 [facility] Comment on above: The drugs N-Acetylcy steine and Metamizole may falsely depress this assay.Serum Triglycerides Reference Interval Normal <150 mg/dL Borderline high 150 - 199 mg/dL High 200 - 499 mg/dL Very High > or = 500 mg/dL Basophil percentageOrdered B y: Dr. Estevez on 12-11-2021 Chloride [Moles/Vol] 106 mmol/L 98-107 [facility] Glucose [Mass/Vol] 177 mg/dL 74-106 [facility] Comment on above: Fasting Glucose resu lt greater than or equal to 126 mg/dL suggests DIABETES MELLITUS per A.D.A. criteria. Potassium [Moles/Vol] 4.2 mmol/L 3.5-5.1 [facility] Sodium [Moles/Vol] 137 mmol/L 136-145 [facility] WBC (Bld) [#/Vol] 8.0 10*3/uL 4.4-11.0 [facility] Basophil percentageOrdered B y: Dr. Gonzalez on 12-11-2021 Testosterone [Mass/Vol] 516.49 ng/dL [facility] Comment on above: CENTRAL 90% REFERENC E RANGES MALE AGE <50 197.44 - 669.58 ng/dL MALE AGE > or = 50 187.72 - 684.19 ng/dL FEMALE AGE <50 8.38 - 35.01 ng/dL FEMALE AGE > or = 50 <7.00 - 35.92 ng/dL Effective as of 09/18/20 Blood erythrocytes count (nu mber/volume)Ordered By: Dr. Estevez on 12-11-2021 RBC (Bld) [#/Vol] 4.58 10*6/uL 4.6-6.2 [facility] Blood hemoglobin measurement (mass/volume)Ordered By: Dr. Estevez on 12-11-2021 Hemoglobin (Bld) [Mass/Vol] 14.8 g/dL 13.0-16.5 [facility] Blood platelet mean volumeOr dered By: Dr. Estevez on 12-11-2021 Platelet mean volume (Bld) [Entitic vol] 10.5 fL 6.2-12.0 [facility] Determination of erythrocyte mean corpuscular volume (MCV)Ordered By: Dr. Estevez on 12-11-2021 MCV (RBC) [Entitic vol] 93.7 fL 80-94 [facility] Direct bilirubinOrdered By: Rocael Castillo on 12-11-2021 Bilirubin.direct [Mass/Vol] 0.12 mg/dL 0.00-0.30 [facility] Hematocrit Auto (Bld) [Volum e fraction]Ordered By: Dr. Estevez on 12-11-2021 Hematocrit (Bld) [Volume fraction] 42.9 % 40-54 [facility] Laboratory - Chemistry and C hemistry - challengeOrdered By: Rocael Castillo on 12-11-2021 ALP [Catalytic activity/Vol] 71 U/L 45-117 [facility] ALT [Catalytic activity/Vol] 37 U/L 16-61 [facility] Globulin (S) [Mass/Vol] 3.5 g/dL 2.2-4.2 [facility] Laboratory - Chemistry and C hemistry - challengeOrdered By: Dr. Estevez on 12-11-2021 CO2 [Moles/Vol] 26.0 mmol/L 21.0-32.0 [facility] Cobalamin (Vitamin B12) [Mass/Vol] 803 pg/mL 211-911 [facility] Urea nitrogen/Creatinine [Mass ratio] 12.5 mg/mg 10-20 [facility] Laboratory - Hematology and Cell countsOrdered By: Dr. Estevez on 12-11-2021 Erythrocyte distribution width (RBC) [Entitic vol] 42.2 fL 35.1-43.9 [facility] Erythrocyte distribution width (RBC) [Ratio] 12.2 % 11.6-14.6 [facility] MCH (RBC) [Entitic mass] 32.3 pg 27.0-32.0 [facility] MCHC Auto (RBC) [Mass/Vol]Or dered By: Dr. Estevez on 12-11-2021 MCHC (RBC) [Mass/Vol] 34.5 g/dL 32-36 [facility] No Panel InformationOrdered By: Dr. Estevez on 12-11-2021 Estimated GFR (MDRD) Amer 89 mL/min >60 [facility] Comment on above: GFR Calc Estimated GFR (MDRD) Non-Af Amer 73 mL/min >60 [facility] Comment on above: Non- GFR Calc Free Lambda Light Chains, Quant 15.2 mg/L 5.7-26.3 [facility] Thyroid Stimulating Hormone (TSH) 1.25 uIU/mL 0.358-3.74 [facility] Whole Blood Vitamin B1 Level 133.9 nmol/L 66.5-200.0 [facility] Comment on above: Performed at: [facility] [address] [id number] Director: Rayray Jose PhD, Phone: [phone] at: - [facility] [address] [id number] Director: Germain Wiggins MD, Phone: [phone] Platelets bldOrdered By: Dr. Estevez on 12-11-2021 Platelets (Bld) [#/Vol] 253 10*3/uL 150-450 [facility] Serum immunoglobulin kappa l ight chains/immunoglobulin lambda light chains mass ratioOrdered By: Dr. Estevez on 12-11-2021 Immunoglobulin light chains.kappa/Immunoglobul in light chains.lambda (S) [Mass ratio] 1.37 0.26-1.65 [facility] Serum or plasma albumin shade urement (mass/volume)Ordered By: Rocael Castillo on 12-11-2021 Albumin [Mass/Vol] 3.5 g/dL 3.2-5.0 [facility] Serum or plasma calcium shade urement (mass/volume)Ordered By: Dr. Estevez on 12-11-2021 Calcium [Mass/Vol] 9.4 mg/dL 8.5-10.1 [facility] Serum or plasma cholesterol in HDL measurement (mass/volume)Ordered By: Rocael Castillo on 12-11-2021 Cholesterol in HDL [Mass/Vol] 38 mg/dL >40 [facility] Comment on above: The drugs N-Acetylcy steine and Metamizole may falsely depress this assay. Reference Range HDL <40 mg/dL Low HDL Cholesterol HDL >or= 60 mg/dL High HDL Cholesterol Serum or plasma cholesterol in VLDL measurement (mass/volume)Ordered By: Rocael Castillo on 10-19-2022 Cholesterol in VLDL [Mass/Vol] 21 mg/dL 5-40 [facility] Serum or plasma creatinine m easurement (mass/volume)Ordered By: Dr. Estevez on 12-11-2021 Creatinine [Mass/Vol] 1.12 mg/dL 0.70-1.30 [facility] Comment on above: The validity of the calculated GFR & GFRAA in patients over 70 years has not been determined. Clinical correlation is essential. Serum or plasma folate measu rement (mass/volume)Ordered By: Dr. Estevez on 12-11-2021 Folate [Mass/Vol] 88.40 ng/mL 3.1-55.4 [facility] Comment on above: Slight Hemolysis, Re sult may be falsely increased. Serum or plasma immunoglobul in kappa light chains measurement (mass/volume)Ordered By: Dr. Estevez on 12-11-2021 Immunoglobulin light chains.kappa [Mass/Vol] 20.8 mg/L 3.3-19.4 [facility] Serum or plasma low density lipoprotein (LDL) cholesterol measurement (mass/volume)Ordered By: Rocael Castillo on 12-11-2021 Cholesterol in LDL [Mass/Vol] 84 mg/dL 0-130 [facility] Serum or plasma urea nitroge n measurement (mass/volume)Ordered By: Dr. Estevez on 12-11-2021 Urea nitrogen [Mass/Vol] 14 mg/dL 7-18 [facility] Thin prep Papanicolaou smear with manual screeningOrdered By: Rocael Castillo on 12-11-2021 Thin prep Papanicolaou smear with manual screening 27 U/L 15-37 [facility] Thin prep Papanicolaou smear with manual screeningOrdered By: Dr. Estevez on 12-11-2021 Thin prep Papanicolaou smear with manual screening 5 5-15 [facility] Whole blood hemoglobin A1c/t otal hemoglobin ratio (mass fraction)Ordered By: Dr. Gonzalez on 12-11-2021 HbA1c (Bld) [Mass fraction] 6.2 % 3.8-5.6 [facility] Comment on above: Normal < 5.7 % Predi abetic 5.7 - 6.4 % Diabetic >or= 6.5 % Please note range changes. Absolute lymphocyte counton 08-02-2022 Lymphocytes Auto (Unsp spec) [#/Vol] 2.09 10*3/uL 0.83-4.51 [facility] Work Phone: Basophil percentageon 2021 Basophils/100 WBC (Bld) 0.3 % 0-1 [facility] Work Phone: Bilirubin [Mass/Vol] 0.60 mg/dL 0.20-1.00 [facility] Work Phone: Comment on above: For patients on eltr ombopag therapy, use of Dimension [place] TBIL is not recommended. Chloride [Moles/Vol] 106 mmol/L 98-107 [facility] Work Phone: Eosinophils/100 WBC (Bld) 2.7 % 0-5 [facility] Work Phone: Glucose [Mass/Vol] 146 mg/dL 74-106 [facility] Work Phone: [phone] Comment on above: Fasting Glucose resu lt greater than or equal to 126 mg/dL suggests DIABETES MELLITUS per A.D.A. criteria. Neutrophils (Bld) [#/Vol] 4.6 10*3/uL 2.0-7.7 [facility] Work Phone: Neutrophils/100 WBC (Bld) 62.3 % 47-70 [facility] Work Phone: Potassium [Moles/Vol] 4.3 mmol/L 3.5-5.1 [facility] Work Phone: Protein [Mass/Vol] 6.7 g/dL 6.4-8.2 [facility] Work Phone: Sodium [Moles/Vol] 137 mmol/L 136-145 [facility] Work Phone: WBC (Bld) [#/Vol] 7.4 10*3/uL 4.4-11.0 [facility] Work Phone: Blood erythrocytes count (nu mber/volume)on 09-24-2021 RBC (Bld) [#/Vol] 4.44 10*6/uL 4.6-6.2 [facility] Work Phone: Blood hemoglobin measurement (mass/volume)on 09-24-2021 Hemoglobin (Bld) [Mass/Vol] 14.7 g/dL 13.0-16.5 [facility] Work Phone: Blood lymphocytes/100 leukoc yteson 09-24-2021 Lymphocytes/100 WBC (Bld) 28.2 % 19-41 [facility] Work Phone: Blood monocytes/100 leukocyt eson 09-24-2021 Monocytes/100 WBC (Bld) 6.2 % 0-10 [facility] Work Phone: Blood platelet mean volumeon 09-24-2021 Platelet mean volume (Bld) [Entitic vol] 10.2 fL 6.2-12.0 [facility] Work Phone: Determination of erythrocyte mean corpuscular volume (MCV)on 09-24-2021 MCV (RBC) [Entitic vol] 95.0 fL 80-94 [facility] Work Phone: Hematocrit Auto (Bld) [Volum e fraction]on 09-24-2021 Hematocrit (Bld) [Volume fraction] 42.2 % 40-54 [facility] Work Phone: Laboratory - Chemistry and C hemistry - challengeon 09-24-2021 ALP [Catalytic activity/Vol] 64 U/L 45-117 [facility] Work Phone: ALT [Catalytic activity/Vol] 36 U/L 16-61 [facility] Work Phone: CO2 [Moles/Vol] 28.0 mmol/L 21.0-32.0 [facility] Work Phone: Globulin (S) [Mass/Vol] 3.2 g/dL 2.2-4.2 [facility] Work Phone: Urea nitrogen/Creatinine [Mass ratio] 15.3 mg/mg 10-20 [facility] Work Phone: Laboratory - Hematology and Cell countson 09-24-2021 Erythrocyte distribution width (RBC) [Entitic vol] 41.8 fL 35.1-43.9 [facility] Work Phone: Erythrocyte distribution width (RBC) [Ratio] 12.0 % 11.6-14.6 [facility] Work Phone: Immature granulocytes/100 WBC (Bld) 0.300 % 0.0-0.9 [facility] Work Phone: Comment on above: IG% - Immature Granu locytes (promyelocytes, myelocytes and metamyelocytes) > 1% indicates that a LEFT SHIFT is Present. MCH (RBC) [Entitic mass] 33.1 pg 27.0-32.0 [facility] Work Phone: Nucleated RBC/100 WBC (Bld) [Ratio] 0 % 0-5 [facility] Work Phone: MCHC Auto (RBC) [Mass/Vol]on 09-24-2021 MCHC (RBC) [Mass/Vol] 34.8 g/dL 32-36 [facility] Work Phone: No Panel Informationon 09-24 Estimated GFR (MDRD) Amer 90 mL/min >60 [facility] Work Phone: Comment on above: GFR Calc Estimated GFR (MDRD) Non-Af Amer 74 mL/min >60 [facility] Work Phone: Comment on above: Non- GFR Calc Platelets bldon 09-24-2021 Platelets (Bld) [#/Vol] 218 10*3/uL 150-450 [facility] Work Phone: Serum or plasma albumin shade urement (mass/volume)on 09-24-2021 Albumin [Mass/Vol] 3.5 g/dL 3.2-5.0 [facility] Work Phone: Serum or plasma albumin/glob ulin mass ratioon 09-24-2021 Albumin/Globulin [Mass ratio] 1.1 {ratio} 0.9-2.4 [facility] Work Phone: Serum or plasma calcium shade urement (mass/volume)on 09-24-2021 Calcium [Mass/Vol] 8.9 mg/dL 8.5-10.1 [facility] Work Phone: Serum or plasma creatinine m easurement (mass/volume)on 09-24-2021 Creatinine [Mass/Vol] 1.11 mg/dL 0.70-1.30 [facility] Work Phone: Comment on above: The validity of the calculated GFR & GFRAA in patients over 70 years has not been determined. Clinical correlation is essential. Serum or plasma urea nitroge n measurement (mass/volume)on 09-24-2021 Urea nitrogen [Mass/Vol] 17 mg/dL 7-18 [facility] Work Phone: Thin prep Papanicolaou smear with manual screeningon 09-24-2021 Thin prep Papanicolaou smear with manual screening 21 U/L 15-37 [facility] Work Phone: Thin prep Papanicolaou smear with manual screening 3 5-15 [facility] Work Phone: Basophil percentageon 2021 Creatinine [Mass/Vol] 1.0 mg/dL 0.70-1.30 [facility] Work Phone: No Panel Informationon 09-18 Bedside Estimated GFR (eGFR) > 60.0000 mL/min >60 [facility] Work Phone: Absolute lymphocyte counton 07-03-2021 Lymphocytes Auto (Unsp spec) [#/Vol] 2.29 10*3/uL 0.83-4.51 [facility] Work Phone: Basophil percentageon 2021 Basophils/100 WBC (Bld) 0.3 % 0-1 [facility] Work Phone: Bilirubin [Mass/Vol] 0.60 mg/dL 0.20-1.00 [facility] Work Phone: Comment on above: For patients on eltr ombopag therapy, use of Dimension [place] TBIL is not recommended. Chloride [Moles/Vol] 106 mmol/L 98-107 [facility] Work Phone: Eosinophils/100 WBC (Bld) 2.0 % 0-5 [facility] Work Phone: Glucose [Mass/Vol] 170 mg/dL 74-106 [facility] Work Phone: Comment on above: Fasting Glucose resu lt greater than or equal to 126 mg/dL suggests DIABETES MELLITUS per A.D.A. criteria. Neutrophils (Bld) [#/Vol] 4.7 10*3/uL 2.0-7.7 [facility] Work Phone: Neutrophils/100 WBC (Bld) 59.4 % 47-70 [facility] Work Phone: [phone] Potassium [Moles/Vol] 4.2 mmol/L 3.5-5.1 [facility] Work Phone: Protein [Mass/Vol] 7.1 g/dL 6.4-8.2 [facility] Work Phone: Sodium [Moles/Vol] 137 mmol/L 136-145 [facility] Work Phone: WBC (Bld) [#/Vol] 7.9 10*3/uL 4.4-11.0 [facility] Work Phone: Blood erythrocytes count (nu mber/volume)on 07-03-2021 RBC (Bld) [#/Vol] 4.57 10*6/uL 4.6-6.2 [facility] Work Phone: Blood hemoglobin measurement (mass/volume)on 07-03-2021 Hemoglobin (Bld) [Mass/Vol] 15.3 g/dL 13.0-16.5 [facility] Work Phone: Blood lymphocytes/100 leukoc yteson 07-03-2021 Lymphocytes/100 WBC (Bld) 29.1 % 19-41 [facility] Work Phone: Blood monocytes/100 leukocyt eson 07-03-2021 Monocytes/100 WBC (Bld) 8.8 % 0-10 [facility] Work Phone: Blood platelet mean volumeon 07-03-2021 Platelet mean volume (Bld) [Entitic vol] 10.1 fL 6.2-12.0 [facility] Work Phone: Determination of erythrocyte mean corpuscular volume (MCV)on 07-03-2021 MCV (RBC) [Entitic vol] 96.1 fL 80-94 [facility] Work Phone: Hematocrit Auto (Bld) [Volum e fraction]on 07-03-2021 Hematocrit (Bld) [Volume fraction] 43.9 % 40-54 [facility] Work Phone: Laboratory - Chemistry and C hemistry - challengeon 07-03-2021 ALP [Catalytic activity/Vol] 68 U/L 45-117 [facility] Work Phone: ALT [Catalytic activity/Vol] 40 U/L 16-61 [facility] Work Phone: CO2 [Moles/Vol] 27.0 mmol/L 21.0-32.0 [facility] Work Phone: Globulin (S) [Mass/Vol] 3.5 g/dL 2.2-4.2 [facility] Work Phone: Urea nitrogen/Creatinine [Mass ratio] 16.0 mg/mg 10-20 [facility] Work Phone: Laboratory - Hematology and Cell countson 07-03-2021 Erythrocyte distribution width (RBC) [Entitic vol] 44.1 fL 35.1-43.9 [facility] Work Phone: Erythrocyte distribution width (RBC) [Ratio] 12.5 % 11.6-14.6 [facility] Work Phone: Immature granulocytes/100 WBC (Bld) 0.400 % 0.0-0.9 [facility] Work Phone: Comment on above: IG% - Immature Granu locytes (promyelocytes, myelocytes and metamyelocytes) > 1% indicates that a LEFT SHIFT is Present. MCH (RBC) [Entitic mass] 33.5 pg 27.0-32.0 [facility] Work Phone: Nucleated RBC/100 WBC (Bld) [Ratio] 0 % 0-5 [facility] Work Phone: MCHC Auto (RBC) [Mass/Vol]on 07-03-2021 MCHC (RBC) [Mass/Vol] 34.9 g/dL 32-36 [facility] Work Phone: No Panel Informationon 07-03 Estimated GFR (MDRD) Amer 83 mL/min >60 [facility] Work Phone: Comment on above: GFR Calc Estimated GFR (MDRD) Non-Af Amer 69 mL/min >60 [facility] Work Phone: Comment on above: Non- GFR Calc Platelets bldon 07-03-2021 Platelets (Bld) [#/Vol] 253 10*3/uL 150-450 [facility] Work Phone: Serum or plasma albumin shade urement (mass/volume)on 07-03-2021 Albumin [Mass/Vol] 3.6 g/dL 3.2-5.0 [facility] Work Phone: Serum or plasma albumin/glob ulin mass ratioon 07-03-2021 Albumin/Globulin [Mass ratio] 1.0 {ratio} 0.9-2.4 [facility] Work Phone: Serum or plasma calcium shade urement (mass/volume)on 07-03-2021 Calcium [Mass/Vol] 9.4 mg/dL 8.5-10.1 [facility] Work Phone: Serum or plasma creatinine m easurement (mass/volume)on 07-03-2021 Creatinine [Mass/Vol] 1.19 mg/dL 0.70-1.30 [facility] Work Phone: Comment on above: The validity of the calculated GFR & GFRAA in patients over 70 years has not been determined. Clinical correlation is essential. Serum or plasma urea nitroge n measurement (mass/volume)on 07-03-2021 Urea nitrogen [Mass/Vol] 19 mg/dL 7-18 [facility] Work Phone: Thin prep Papanicolaou smear with manual screeningon 07-03-2021 Thin prep Papanicolaou smear with manual screening 26 U/L 15-37 [facility] Work Phone: Thin prep Papanicolaou smear with manual screening 4 5-15 [facility] Work Phone: Basophil percentageon 2021 Bilirubin [Mass/Vol] 0.40 mg/dL 0.20-1.00 [facility] Work Phone: Comment on above: For patients on eltr ombopag therapy, use of Dimension [place] TBIL is not recommended. Cholesterol [Mass/Vol] 148 mg/dL <200 [facility] Work Phone: Comment on above: <200 mg/dL Desirable 200-240 mg/dL Borderline >240 mg/dL High Risk Protein [Mass/Vol] 7.0 g/dL 6.4-8.2 [facility] Work Phone: Triglyceride [Mass/Vol] 121 mg/dL [facility] Work Phone: Comment on above: The drugs N-Acetylcy steine and Metamizole may falsely depress this assay.Serum Triglycerides Reference Interval Normal <150 mg/dL Borderline high 150 - 199 mg/dL High 200 - 499 mg/dL Very High > or = 500 mg/dL Direct bilirubinon 2 Bilirubin.direct [Mass/Vol] 0.12 mg/dL 0.00-0.30 [facility] Work Phone: Laboratory - Chemistry and C hemistry - challengeon 05-09-2021 ALP [Catalytic activity/Vol] 73 U/L 45-117 [facility] Work Phone: ALT [Catalytic activity/Vol] 36 U/L 16-61 [facility] Work Phone: Globulin (S) [Mass/Vol] 3.4 g/dL 2.2-4.2 [facility] Work Phone: Serum or plasma albumin shade urement (mass/volume)on 05-09-2021 Albumin [Mass/Vol] 3.6 g/dL 3.2-5.0 [facility] Work Phone: Serum or plasma cholesterol in HDL measurement (mass/volume)on 05-09-2021 Cholesterol in HDL [Mass/Vol] 37 mg/dL [facility] Work Phone: Comment on above: The drugs N-Acetylcy steine and Metamizole may falsely depress this assay. Reference Range HDL <40 mg/dL Low HDL Cholesterol HDL >or= 60 mg/dL High HDL Cholesterol Serum or plasma cholesterol in VLDL measurement (mass/volume)on 05-09-2021 Cholesterol in VLDL [Mass/Vol] 24 mg/dL 5-40 [facility] Work Phone: Serum or plasma low density lipoprotein (LDL) cholesterol measurement (mass/volume)on 05-09-2021 Cholesterol in LDL [Mass/Vol] 87 mg/dL 0-130 [facility] Work Phone: Thin prep Papanicolaou smear with manual screeningon 05-09-2021 Thin prep Papanicolaou smear with manual screening 20 U/L 15-37 [facility] Work Phone: Absolute lymphocyte counton 04-10-2021 Lymphocytes Auto (Unsp spec) [#/Vol] 2.38 10*3/uL 0.83-4.51 [facility] Work Phone: Basophil percentageon 2021 Basophils/100 WBC (Bld) 0.1 % 0-1 [facility] Work Phone: Bilirubin [Mass/Vol] 0.80 mg/dL 0.20-1.00 [facility] Work Phone: Comment on above: For patients on eltr ombopag therapy, use of Dimension [place] TBIL is not recommended. Chloride [Moles/Vol] 104 mmol/L 98-107 [facility] Work Phone: Eosinophils/100 WBC (Bld) 2.6 % 0-5 [facility] Work Phone: Glucose [Mass/Vol] 157 mg/dL 74-106 [facility] Work Phone: Comment on above: Fasting Glucose resu lt greater than or equal to 126 mg/dL suggests DIABETES MELLITUS per A.D.A. criteria. Neutrophils (Bld) [#/Vol] 4.3 10*3/uL 2.0-7.7 [facility] Work Phone: Neutrophils/100 WBC (Bld) 56.2 % 47-70 [facility] Work Phone: Potassium [Moles/Vol] 3.5 mmol/L 3.5-5.1 [facility] Work Phone: [phone] Protein [Mass/Vol] 6.7 g/dL 6.4-8.2 [facility] Work Phone: Sodium [Moles/Vol] 138 mmol/L 136-145 [facility] Work Phone: WBC (Bld) [#/Vol] 7.7 10*3/uL 4.4-11.0 [facility] Work Phone: [phone] Blood erythrocytes count (nu mber/volume)on 04-10-2021 RBC (Bld) [#/Vol] 4.47 10*6/uL 4.6-6.2 [facility] Work Phone: Blood hemoglobin measurement (mass/volume)on 04-10-2021 Hemoglobin (Bld) [Mass/Vol] 14.6 g/dL 13.0-16.5 [facility] Work Phone: Blood lymphocytes/100 leukoc yteson 04-10-2021 Lymphocytes/100 WBC (Bld) 31.1 % 19-41 [facility] Work Phone: Blood monocytes/100 leukocyt eson 04-10-2021 Monocytes/100 WBC (Bld) 9.7 % 0-10 [facility] Work Phone: Blood platelet mean volumeon 04-10-2021 Platelet mean volume (Bld) [Entitic vol] 10.5 fL 6.2-12.0 [facility] Work Phone: Determination of erythrocyte mean corpuscular volume (MCV)on 04-10-2021 MCV (RBC) [Entitic vol] 96.2 fL 80-94 [facility] Work Phone: Hematocrit Auto (Bld) [Volum e fraction]on 04-10-2021 Hematocrit (Bld) [Volume fraction] 43.0 % 40-54 [facility] Work Phone: Laboratory - Chemistry and C hemistry - challengeon 04-10-2021 ALP [Catalytic activity/Vol] 68 U/L 45-117 [facility] Work Phone: ALT [Catalytic activity/Vol] 38 U/L 16-61 [facility] Work Phone: CO2 [Moles/Vol] 26.0 mmol/L 21.0-32.0 [facility] Work Phone: Globulin (S) [Mass/Vol] 3.2 g/dL 2.2-4.2 [facility] Work Phone: Urea nitrogen/Creatinine [Mass ratio] 15.9 mg/mg 10-20 [facility] Work Phone: Laboratory - Hematology and Cell countson 04-10-2021 Erythrocyte distribution width (RBC) [Entitic vol] 43.9 fL 35.1-43.9 [facility] Work Phone: Erythrocyte distribution width (RBC) [Ratio] 12.3 % 11.6-14.6 [facility] Work Phone: Immature granulocytes/100 WBC (Bld) 0.300 % 0.0-0.9 [facility] Work Phone: Comment on above: IG% - Immature Granu locytes (promyelocytes, myelocytes and metamyelocytes) > 1% indicates that a LEFT SHIFT is Present. MCH (RBC) [Entitic mass] 32.7 pg 27.0-32.0 [facility] Work Phone: Nucleated RBC/100 WBC (Bld) [Ratio] 0 % 0-5 [facility] Work Phone: MCHC Auto (RBC) [Mass/Vol]on 04-10-2021 MCHC (RBC) [Mass/Vol] 34.0 g/dL 32-36 [facility] Work Phone: No Panel Informationon 04-10 Estimated GFR (MDRD) Amer 94 mL/min >60 [facility] Work Phone: Comment on above: GFR Calc Estimated GFR (MDRD) Non-Af Amer 78 mL/min >60 [facility] Work Phone: Comment on above: Non- GFR Calc Platelets bldon 04-10-2021 Platelets (Bld) [#/Vol] 239 10*3/uL 150-450 [facility] Work Phone: Serum or plasma albumin shade urement (mass/volume)on 04-10-2021 Albumin [Mass/Vol] 3.5 g/dL 3.2-5.0 [facility] Work Phone: Serum or plasma albumin/glob ulin mass ratioon 04-10-2021 Albumin/Globulin [Mass ratio] 1.1 {ratio} 0.9-2.4 [facility] Work Phone: Serum or plasma calcium shade urement (mass/volume)on 04-10-2021 Calcium [Mass/Vol] 8.9 mg/dL 8.5-10.1 [facility] Work Phone: Serum or plasma creatinine m easurement (mass/volume)on 04-10-2021 Creatinine [Mass/Vol] 1.07 mg/dL 0.70-1.30 [facility] Work Phone: Comment on above: The validity of the calculated GFR & GFRAA in patients over 70 years has not been determined. Clinical correlation is essential. Serum or plasma urea nitroge n measurement (mass/volume)on 04-10-2021 Urea nitrogen [Mass/Vol] 17 mg/dL 7-18 [facility] Work Phone: Thin prep Papanicolaou smear with manual screeningon 04-10-2021 Thin prep Papanicolaou smear with manual screening 21 U/L 15-37 [facility] Work Phone: Thin prep Papanicolaou smear with manual screening 8 5-15 [facility] Work Phone: Basophil percentageon 2020 Bilirubin [Mass/Vol] 0.50 mg/dL 0.20-1.00 [facility] Work Phone: Comment on above: For patients on eltr ombopag therapy, use of Dimension [place] TBIL is not recommended. Cholesterol [Mass/Vol] 142 mg/dL <200 [facility] Work Phone: Comment on above: <200 mg/dL Desirable 200-240 mg/dL Borderline >240 mg/dL High Risk Protein [Mass/Vol] 7.3 g/dL 6.4-8.2 [facility] Work Phone: Triglyceride [Mass/Vol] 82 mg/dL [facility] Work Phone: Comment on above: The drugs N-Acetylcy steine and Metamizole may falsely depress this assay.Serum Triglycerides Reference Interval Normal <150 mg/dL Borderline high 150 - 199 mg/dL High 200 - 499 mg/dL Very High > or = 500 mg/dL Direct bilirubinon Bilirubin.direct [Mass/Vol] 0.12 mg/dL 0.00-0.30 [facility] Work Phone: Laboratory - Chemistry and C hemistry - challengeon 02-21-2021 ALP [Catalytic activity/Vol] 70 U/L 45-117 [facility] Work Phone: ALT [Catalytic activity/Vol] 49 U/L 16-61 [facility] Work Phone: Globulin (S) [Mass/Vol] 3.5 g/dL 2.2-4.2 [facility] Work Phone: Serum or plasma albumin shade urement (mass/volume)on 02-21-2021 Albumin [Mass/Vol] 3.8 g/dL 3.2-5.0 [facility] Work Phone: Serum or plasma cholesterol in HDL measurement (mass/volume)on 02-21-2021 Cholesterol in HDL [Mass/Vol] 37 mg/dL [facility] Work Phone: Comment on above: The drugs N-Acetylcy steine and Metamizole may falsely depress this assay. Reference Range HDL <40 mg/dL Low HDL Cholesterol HDL >or= 60 mg/dL High HDL Cholesterol Serum or plasma cholesterol in VLDL measurement (mass/volume)on 02-21-2021 Cholesterol in VLDL [Mass/Vol] 16 mg/dL 5-40 [facility] Work Phone: Serum or plasma low density lipoprotein (LDL) cholesterol measurement (mass/volume)on 02-21-2021 Cholesterol in LDL [Mass/Vol] 89 mg/dL 0-130 [facility] Work Phone: Thin prep Papanicolaou smear with manual screeningon 02-21-2021 Thin prep Papanicolaou smear with manual screening 29 U/L 15-37 [facility] Work Phone: Vital Signs Date Time Vital Sign Value Performing Clinician Faci vidaly 09-06-2024 08:09-0400 Body height 182.[address] Alfred Gonzalez DO Work Phone: [facility] 09-06-2024 08:09-0400 Body mass index (BMI) [Ratio] 30.4 kg/m2 Dr. Alfred Gonzalez DO Work Phone: [facility] 09-06-2024 08:09-0400 Body temperature 98.2 [degF] Dr. Alfred Gonzalez DO Work Phone: [facility] 09-06-2024 08:09-0400 Body weight 101.[address] Alfred Gonzalez DO Work Phone: [facility] 09-06-2024 08:09-0400 Diastolic blood pressure 75 mm[Hg] Dr. Alfred Gonzalez DO Work Phone: [facility] 09-06-2024 08:09-0400 Heart rate 79 /min Dr. Alfred Gonzalez DO Work Phone: [facility] 09-06-2024 08:09-0400 Respiratory rate 15 /min Dr. Alfred Gonzalez DO Work Phone: [facility] 09-06-2024 08:09-0400 SaO2% (BldA) [Mass fraction] 97 % Dr. Alfred Gonzalez DO Work Phone: [facility] 09-06-2024 08:09-0400 Systolic blood pressure 115 mm[Hg] Dr. Alfred Gonzalez DO Work Phone: [facility] 04-12-2024 14:11-0500 Body height 182.[address] Alfred Gonzalez DO Work Phone: [facility] 04-12-2024 14:11-0500 Body mass index (BMI) [Ratio] 31.7 kg/m2 Dr. Alfred Gonzalez DO Work Phone: [facility] 04-12-2024 14:11-0500 Body weight 106.[address] Alfred Gonzalez DO Work Phone: [facility] 04-12-2024 14:11-0500 Diastolic blood pressure 70 mm[Hg] Dr. Alfred Gonzalez DO Work Phone: [facility] 04-12-2024 14:11-0500 Heart rate 67 /min Dr. Alfred Gonzalez DO Work Phone: [facility] 04-12-2024 14:11-0500 Respiratory rate 16 /min Dr. Alfred Gonzalez DO Work Phone: [facility] 04-12-2024 14:11-0500 Systolic blood pressure 136 mm[Hg] Dr. Alfred Gonzalez DO Work Phone: [facility] 02-10-2023 13:09-0500 Body height 182.[address] Alfred Gonzalez Work Phone: [facility] 02-10-2023 13:09-0500 Body mass index (BMI) [Ratio] 30.2 kg/m2 Dr. Alfred Gonzalez Work Phone: [facility] 02-10-2023 13:09-0500 Body weight 101.[address] Alfred Gonzalez Work Phone: [facility] 02-10-2023 13:09-0500 Diastolic blood pressure 85 mm[Hg] Dr. Alfred Gonzalez Work Phone: [facility] 02-10-2023 13:09-0500 Heart rate 61 /min Dr. Alfred Gonzalez Work Phone: [facility] 02-10-2023 13:09-0500 Respiratory rate 20 /min Dr. Alfred Gonzalez Work Phone: [facility] 02-10-2023 13:09-0500 Systolic blood pressure 125 mm[Hg] Dr. Alfred Gonzalez Work Phone: [facility] 11-06-2022 08:46-0400 Body height 182.[address] Alfred Gonzalez Work Phone: [facility] 11-06-2022 08:46-0400 Body mass index (BMI) [Ratio] 30.5 kg/m2 Dr. Alfred Gonzalez Work Phone: [facility] 11-06-2022 08:46-0400 Body temperature 97.5 [degF] Dr. Alfred Gonzalez Work Phone: [facility] 11-06-2022 08:46-0400 Body weight 102.[address] Alfred Gonzalez Work Phone: [facility] 11-06-2022 08:46-0400 Diastolic blood pressure 62 mm[Hg] Dr. Alfred Gonzalez Work Phone: [facility] 11-06-2022 08:46-0400 Heart rate 77 /min Dr. Alfred Gonzalez Work Phone: [facility] 11-06-2022 08:46-0400 Respiratory rate 18 /min Dr. Alfred Gonzalez Work Phone: [facility] 11-06-2022 08:46-0400 SaO2% (BldA) [Mass fraction] 98 % Dr. Alfred Gonzalez Work Phone: [facility] 11-06-2022 08:46-0400 Systolic blood pressure 126 mm[Hg] Dr. Alfred Gonzalez Work Phone: [facility] 06-26-2022 08:39-0400 Body height 182.[address] Alfred Gonzalez Work Phone: [facility] 06-26-2022 08:39-0400 Body mass index (BMI) [Ratio] 30.1 kg/m2 Dr. Alfred Gonzalez Work Phone: [facility] 06-26-2022 08:39-0400 Body temperature 97.8 [degF] Dr. Alfred Gonzalez Work Phone: [facility] 06-26-2022 08:39-0400 Body weight 100.[address] Alfred Gonzalez Work Phone: [facility] 06-26-2022 08:39-0400 Diastolic blood pressure 80 mm[Hg] Dr. Alfred Gonzalez Work Phone: [facility] 06-26-2022 08:39-0400 Heart rate 79 /min Dr. Alfred Gonzalez Work Phone: [facility] 06-26-2022 08:39-0400 Respiratory rate 17 /min Dr. Alfred Gonzalez Work Phone: [facility] 06-26-2022 08:39-0400 SaO2% (BldA) [Mass fraction] 98 % Dr. Alfred Gonzalez Work Phone: [facility] 06-26-2022 08:39-0400 Systolic blood pressure 118 mm[Hg] Dr. Alfred Gonzalez Work Phone: [facility] 02-10-2022 14:10-0500 Body height 182.88 cm No Primary Care Physician [facility] 02-10-2022 14:10-0500 Body mass index (BMI) [Ratio] 33 kg/m2 No Primary Care Physician [facility] 02-10-2022 14:10-0500 Body weight 110.67 kg No Primary Care Physician [facility] 02-10-2022 14:10-0500 Diastolic blood pressure 62 mm[Hg] No Primary Care Physician [facility] 02-10-2022 14:10-0500 Heart rate 72 /min No Primary Care Physician [facility] 02-10-2022 14:10-0500 Respiratory rate 16 /min No Primary Care Physician [facility] 02-10-2022 14:10-0500 Systolic blood pressure 97 mm[Hg] No Primary Care Physician [facility] 01-07-2022 08:26-0500 Body height 182.[address] Alfred Gonzalez Work Phone: [facility] Work Phone: 01-07-2022 08:26-0500 Body mass index (BMI) [Ratio] 33.4 kg/m2 Dr. Alfred Gonzalez Work Phone: [facility] 01-07-2022 08:26-0500 Body temperature 98.6 [degF] Dr. Alfred Gonzalez Work Phone: [facility] 01-07-2022 08:26-0500 Body weight 111.[address] Alfred Gonzalez Work Phone: [facility] 01-07-2022 08:26-0500 Diastolic blood pressure 84 mm[Hg] Dr. Alfred Gonzalez Work Phone: [facility] 01-07-2022 08:26-0500 Heart rate 88 /min Dr. Alfred Gonzalez Work Phone: [facility] 01-07-2022 08:26-0500 Respiratory rate 17 /min Dr. Alfred Gonzalez Work Phone: [facility] 01-07-2022 08:26-0500 SaO2% (BldA) [Mass fraction] 97 % Dr. Alfred Gonzalez Work Phone: [facility] 01-07-2022 08:26-0500 Systolic blood pressure 122 mm[Hg] Dr. Alfred Gonzalez Work Phone: [facility] 12-11-2021 09:10-0400 Body height 182.[address] Alfred Gonzalez Work Phone: [facility] Work Phone: 12-11-2021 09:10-0400 Body mass index (BMI) [Ratio] 33.7 kg/m2 Dr. Alfred Gonzalez Work Phone: [facility] 12-11-2021 09:10-0400 Body temperature 96.5 [degF] Dr. Alfred Gonzalez Work Phone: [facility] 12-11-2021 09:10-0400 Body weight 112.[address] Alfred Gonzalez Work Phone: [facility] 12-11-2021 09:10-0400 Diastolic blood pressure 82 mm[Hg] Dr. Alfred Gonzalez Work Phone: [facility] 12-11-2021 09:10-0400 Heart rate 54 /min Dr. Alfred Gonzalez Work Phone: [facility] 12-11-2021 09:10-0400 Respiratory rate 16 /min Dr. Alfred Gonzlaez Work Phone: [facility] 12-11-2021 09:10-0400 SaO2% (BldA) [Mass fraction] 94 % Dr. Alfred Gonzalez Work Phone: [facility] 12-11-2021 09:10-0400 Systolic blood pressure 128 mm[Hg] Dr. Alfred Gonzalez Work Phone: [facility] 09-03-2021 09:16-0400 Diastolic blood pressure 100 mm[Hg] No Primary Care Physician [facility] Work Phone: 09-03-2021 09:16-0400 Systolic blood pressure 142 mm[Hg] No Primary Care Physician [facility] Work Phone: 09-03-2021 08:01-0400 Body height 182.88 cm No Primary Care Physician [facility] Work Phone: 09-03-2021 08:01-0400 Body mass index (BMI) [Ratio] 32.6 kg/m2 No Primary Care Physician [facility] Work Phone: 09-03-2021 08:01-0400 Body temperature 98.4 [degF] No Primary Care Physician [facility] Work Phone: 09-03-2021 08:01-0400 Body weight 109.31 kg No Primary Care Physician [facility] Work Phone: 09-03-2021 08:01-0400 Heart rate 71 /min No Primary Care Physician [facility] Work Phone: 09-03-2021 08:01-0400 Respiratory rate 16 /min No Primary Care Physician [facility] Work Phone: 09-03-2021 08:01-0400 SaO2% (BldA) [Mass fraction] 96 % No Primary Care Physician [facility] Work Phone: 06-06-2021 14:24-0400 Body mass index (BMI) [Ratio] 33.9 kg/m2 No Primary Care Physician [facility] Work Phone: 06-06-2021 14:24-0400 Body temperature 95.1 [degF] No Primary Care Physician [facility] Work Phone: 06-06-2021 14:24-0400 Body weight 113.39 kg No Primary Care Physician [facility] Work Phone: 06-06-2021 14:24-0400 Diastolic blood pressure 78 mm[Hg] No Primary Care Physician [facility] Work Phone: 06-06-2021 14:24-0400 Heart rate 74 /min No Primary Care Physician [facility] Work Phone: 06-06-2021 14:24-0400 Respiratory rate 16 /min No Primary Care Physician [facility] Work Phone: 06-06-2021 14:24-0400 SaO2% (BldA) [Mass fraction] 98 % No Primary Care Physician [facility] Work Phone: 06-06-2021 14:24-0400 Systolic blood pressure 124 mm[Hg] No Primary Care Physician [facility] Work Phone: 06-06-2021 14:24-0400 Body height 182.88 cm No Primary Care Physician [facility] Work Phone: 06-06-2021 14:24-0400 Body mass index (BMI) [Ratio] 33.9 kg/m2 No Primary Care Physician [facility] Work Phone: 06-06-2021 14:24-0400 Body temperature 95.1 [degF] No Primary Care Physician [facility] Work Phone: 06-06-2021 14:24-0400 Body weight 113.39 kg No Primary Care Physician [facility] Work Phone: 06-06-2021 14:24-0400 Diastolic blood pressure 78 mm[Hg] No Primary Care Physician [facility] Work Phone: 06-06-2021 14:24-0400 Heart rate 74 /min No Primary Care Physician [facility] Work Phone: 06-06-2021 14:24-0400 Respiratory rate 16 /min No Primary Care Physician [facility] Work Phone: 06-06-2021 14:24-0400 SaO2% (BldA) [Mass fraction] 98 % No Primary Care Physician [facility] Work Phone: 06-06-2021 14:24-0400 Systolic blood pressure 124 mm[Hg] No Primary Care Physician [facility] Work Phone: 05-13-2021 08:32-0400 Body height 182.88 cm No Primary Care Physician [facility] Work Phone: 05-13-2021 08:32-0400 Body mass index (BMI) [Ratio] 33.6 kg/m2 No Primary Care Physician [facility] Work Phone: 05-13-2021 08:32-0400 Body weight 112.49 kg No Primary Care Physician [facility] Work Phone: 05-13-2021 08:32-0400 Diastolic blood pressure 73 mm[Hg] No Primary Care Physician [facility] Work Phone: 05-13-2021 08:32-0400 Heart rate 71 /min No Primary Care Physician [facility] Work Phone: 05-13-2021 08:32-0400 Respiratory rate 16 /min No Primary Care Physician [facility] Work Phone: 05-13-2021 08:32-0400 Systolic blood pressure 118 mm[Hg] No Primary Care Physician [facility] Work Phone: 02-12-2021 07:44-0500 Body weight 114.75 kg No Primary Care Physician [facility] Work Phone: 02-12-2021 07:44-0500 Diastolic blood pressure 88 mm[Hg] No Primary Care Physician [facility] Work Phone: 02-12-2021 07:44-0500 Heart rate 76 /min No Primary Care Physician [facility] Work Phone: 02-12-2021 07:44-0500 Respiratory rate 14 /min No Primary Care Physician [facility] Work Phone: 02-12-2021 07:44-0500 Systolic blood pressure 134 mm[Hg] No Primary Care Physician [facility] Work Phone: 08-16-2020 09:28-0400 Body mass index (BMI) [Ratio] 33.6 kg/m2 No Primary Care Physician [facility] Work Phone: Encounters Encounter Date Encounter Type Care Provider Facility Start: 10-17-2024 End: 10-17-[address] Alfred Gonzalez DO Work Phone: -[facility] [place] Start: 10-17-2024 End: 10-17-[address] Swati Burris MD -[facility] [place] Work Phone: Start: 10-17-2024 End: 10-17-2024 ambulatory Alfred Gonzalez Facility:[facility] Start: 09-06-2024 End: 09-06-[address] Wili Estevez MD -[facility] Work Phone: Start: 09-06-2024 End: 09-06-[address] Alfred Gonzalez DO Work Phone: -[facility] Start: 09-06-2024 End: 09-06-2024 ambulatory Alfred Gonzalez Facility:[facility] Start: 07-22-2024 End: 07-22-[address] Alfred Gonzalez DO Work Phone: [facility] Work Phone: Start: 07-22-2024 End: 07-22-[address] Swati Burris MD -[facility] [place] Work Phone: Start: 07-22-2024 End: 07-22-2024 ambulatory Swati Burris Facility:[facility] Start: 05-02-2024 End: 05-02-[address] Alfred Gonzalez DO Work Phone: [facility] Work Phone: Start: 05-02-2024 End: 05-02-2024 [facility] Start: 05-02-2024 End: 05-02-2024 ambulatory Rocael Castillo NP Facility:[facility] Start: 04-12-2024 End: 04-12-2024 Patient encounter procedure Rocael Castillo TIRE VULCANIZER-C -[facility] Work Phone: Start: 04-12-2024 End: 04-12-2024 ambulatory Alfred Gonzalez Facility:[facility] Start: 02-04-2024 End: 02-04-[address] [facility] Work [facility] Start: 02-04-2024 End: 02-04-[facility] Start: 11-09-2023 End: 11-09-2023 ambulatory [facility] Facility:[facility] Start: 05-26-2023 End: 05-26-[address] Alfred Gonzalez Work Phone: [facility] Work Phone: Start: 05-26-2023 End: 05-26-[address] Alfred Gonzalez Work Phone: [facility] Work Phone: Start: 04-08-2023 Non-patient / Non-visit Dr. Allan Work Phone: [facility] Work Phone: Start: 02-24-2023 End: 02-24-[address] Alfred Gonzalez Work Phone: [facility] Work Phone: Start: 02-24-2023 End: 02-24-[address] Alfred Gonzalez Work Phone: [facility] Work Phone: Start: 02-10-2023 End: 02-10-[address] Alfred Gonzalez Work Phone: [facility] Work Phone: Start: 11-28-2022 End: 11-28-[address] Alfred Gonzalez Work Phone: [facility] Work Phone: Start: 11-28-2022 End: 11-28-[address] Alfred Gonzalez Work Phone: [facility] Work Phone: Start: 11-06-2022 End: 11-06-[address] Alfred Gonzalez Work Phone: [facility] Work Phone: Start: 09-01-2022 End: 09-01-[address] Alfred Gonzalez Work Phone: [facility] Work Phone: Start: 07-01-2022 End: 07-01-[address] Alfred Gonzalez Work Phone: [facility] Work Phone: Start: 07-01-2022 End: 07-01-[address] Alfred Gonzalez Work Phone: [facility] Start: 06-26-2022 End: 06-26-[address] Alfred Gonzalez Work Phone: [facility] Start: 2022 End: [address] Alfred Gonzalez Work Phone: [facility] Work Phone: Start: 2022 End: [address] Alfred Gonzalez Work Phone: [facility] Start: 03-21-2022 End: 03-21-2022 ambulatory No Primary Care Physician [facility] Work Phone: Start: 03-21-2022 End: 03-21-2022 Patient encounter procedure No Primary Care Physician [facility] Start: 02-10-2022 End: 02-10-2022 Patient encounter procedure No Primary Care Physician [facility] Start: 01-07-2022 End: 01-07-[address] Alfred Gonzalez Work Phone: [facility] Work Phone: Start: 01-07-2022 End: 01-07-[address] Alfred Gonzalez Work Phone: [facility] Start: 12-11-2021 End: 12-11-[address] Alfred Gonzalez Work Phone: [facility] Work Phone: Start: 12-11-2021 End: 12-11-[address] Alfred Gonzalez Work Phone: [facility] Start: 09-24-2021 Non-patient / Non-visit No Tessie gamaliel Care Physician [facility] Start: 09-24-2021 End: 09-24-2021 Patient encounter procedure No Primary Care Physician [facility]Cardi[facility] Start: 09-18-2021 End: 09-18-2021 Patient encounter procedure No Primary Care Physician [facility] Start: 09-18-2021 End: 09-18-2021 Patient encounter procedure No Primary Care Physician [facility] Start: 09-16-2021 End: 09-16-[address] Alfred Gonzalez Work Phone: [facility] Work Phone: Start: 09-16-2021 End: 09-16-[address] Alfred Gonzalez Work Phone: [facility] Start: 09-16-2021 Registered Recurring No Primar y Care Physician [facility] Start: 09-03-2021 End: 09-03-2021 Patient encounter procedure No Primary Care Physician [facility] Start: 07-03-2021 End: 07-03-2021 Patient encounter procedure No Primary Care Physician [facility] Start: 06-06-2021 End: 06-06-2021 Patient encounter procedure No Primary Care Physician [facility] Start: 05-13-2021 End: 05-13-2021 Patient encounter procedure No Primary Care Physician [facility] Start: 05-09-2021 End: 05-09-2021 Patient encounter procedure No Primary Care Physician [facility]Laboratory Start: 04-10-2021 End: 04-10-2021 Patient encounter procedure No Primary Care Physician [facility] [place] Start: 02-21-2021 Non-patient / Non-visit No Tessie gamaliel Care Physician [facility] Start: 02-21-2021 Patient encounter procedure No Primary Care Physician [facility] Start: 02-12-2021 End: 02-12-2021 Patient encounter procedure No Primary Care Physician [facility] Procedures Date Procedure Procedure Detail Performing Clinician Start: 09-24-2021 Radionuclide imaging of perfusion of myocardium under exercise stress No Primary Care Physician Start: 09-18-2021 MRI of brain with contrast No Primary Care Physician Start: 11-18-2018 History of placement of stent for coronary artery disease History of coronary artery stent placement Rocael Castillo TIRE VULCANIZERLisaC Comment on above: PCI-OMARI-Mid LAD 2.5 x 12 mm Resolute 01/23/18; OMARI-ISR Mid LAD w/ 2.5 x 12 mm Dwayneungema and POBA-D2 11/18/2018 Plan of Treatment Date Care Activity Detail Author Start: 09-03-2021 Patient referral [facility] Work Phone: Start: 06-06-2021 Patient referral [facility] Work Phone: Start: 05-13-2021 Patient referral [facility] Work Phone: Blood chemistry [facility] Work Phone: Complete blood count [facility] Work Phone: Folate [Mass/volume] in Serum or Plasma [facility] Work Phone: Hemoglobin A1c/Hemog lobin.total in Blood [facility] Work Phone: Hemoglobin A1c/Hemog lobin.total in Blood [facility] [employer] [facility] Work Phone: Patient referral [facility] Work Phone: Thiamine measurement [facility] Work Phone: Thyroid stimulating hormone measurement [facility] Work Phone: Vitamin B12 measurement [facility] Work Phone: Immunizations Immunization Date Immunization Notes Care Provider [facility] 01-26-2018 influenza, injectabl e, quadrivalent, preservative free Dr. Alfred Gonzalez Work Phone: [facility] 01-26-2018 influenza, seasonal, injectable No Primary Care Physician [facility] Payers Date Payer Category Payer Self-pay [id number] 2023 Unknown [id number] Unknown [id number] Unknown [id number] 2.16.8 [id number] Unknown [id number] 2.16.8 [id number] Unknown [id number] 2.16.8 [id number] Unknown [id number] 2.16.8 [id number] Unknown [id number] 2.16.8 [id number] Unknown [id number] 2.16.8 [id number] Unknown [id number] 2.16.8 [id number] Unknown [id number] 2.16.8 [id number] Social History Date Type Detail Facility Start: 05-13-2021 End: 02-10-2023 Tobacco smoking status NHIS Unknown if ever smoked [facility] Start: 02-08-2019 Cigarettes [facility] Start: 1970 Sex Assigned At Male [facility] Start: 09-16-2023 End: 09-01-2024 Tobacco smoking status NHIS Current Light tobacco smoker [facility] Start: 05-12-2024 Sex Male (finding) [facility] Clinical Notes 11-18-2018 to 09-06-2024 Note Date & Type Note Facility 09-06-2024 Evaluation note Diagnosis Onset Date Resolution Prediabetes acute September 06 8:08am M ni re's disease chronic September 062024 8:08am Polyneuropathy inactive September 06, 2024 8:08am [facility] Work Phone: 1(439) 555-311702-18-2025 Evaluation note* Diagnosis Onset Date Resolution Status Admit Date Hyperlipidemia acute March 262024 1:47pm PVC (premature ventricular contraction) acute April 12 1:47pm Essential (primary) hypertension chronic April 12 025 1:47pm History of coronary artery stent placement November 18, 2018 chronic April 122024 1:47pm Nicotine dependence chronic Febru ericka2024 1:47pm [facility] Work Phone: 1(709) 549-759309-01-2022 Evaluation note* Diagnosis Onset Date Resolution Status Arthritis acute Erectile dysfunction acute Fatigue acute Hyperglycemia acute Nicotine dependence chronic History of coronary artery stent placement October 252018 resolved Essential (primary) hypertension acute Hyperlipidemia acute History of coronary artery stent placement October 252018 resolved [facility] Work Phone: [phone]) 268-225509-26-2019 Evaluation note* Diagnosis Onset Date Resolution Status Atherosclerosis of coronary artery of [place] heart without angina pectoris chronic Nicotine dependence chronic History of coronary artery stent placement October 252018 resolved Atherosclerosis of coronary artery of [place] heart without angina pectoris chronic Nicotine dependence chronic History of coronary artery stent placement October 252018 resolved [facility] Work Phone: [phone]) 256-339509-26-2019 Evaluation note* Diagnosis Onset Date Resolution Status Atherosclerosis of coronary artery of [place] heart without angina pectoris chronic Nicotine dependence chronic History of coronary artery stent placement October 252018 resolved Arthritis acute Vertigo acute History of coronary artery stent placement October 252018 resolved [facility] Work Phone: [phone]) 841-823209-26-2019 Evaluation note* Diagnosis Onset Date Resolution Status Arthritis acute Vertigo chronic History of coronary artery stent placement October 252018 resolved Peripheral vestibulopathy ch ronic Polyneuropathy chronic Vertigo chronic Encounter for examination re quired by Department of Transportation (DOT) acute [facility] Work Phone: [phone]) 436-895109-26-2019 Evaluation note* Diagnosis Onset Date Resolution Status Essential (primary) hypertension acute Hyperlipidemia acute History of coronary artery stent placement October 252018 resolved [facility] Work Phone: [phone]) 921-172509-26-2019 Evaluation note* Diagnosis Onset Date Resolution Status Essential (primary) hypertension acute Hyperlipidemia acute Nicotine dependence chronic History of coronary artery stent placement October 252018 resolved [facility] Work Phone: evaluation note* Diagnosis Onset Date Resolution Status Peripheral vestibulopathy ch ronic Polyneuropathy chronic Vertigo chronic Encounter for examination re quired by Department of Transportation (DOT) [facility] Work Phone: evaluation note* Diagnosis Onset Date Resolution Status Peripheral vestibulopathy ch ronic Polyneuropathy chronic Vertigo chronic Encounter for examination re quired by Department of Transportation (DOT) acute Arthritis acute Erectile dysfunction acute Fatigue acute Hyperglycemia acute Nicotine dependence chronic History of coronary artery stent placement October 252018 resolved [facility] Work Phone: evaluation note* Diagnosis Onset Date Resolution Status Encounter for examination re quired by Department of Transportation (DOT) acute Arthritis acute Erectile dysfunction acute Fatigue acute Hyperglycemia acute Nicotine dependence chronic History of coronary artery stent placement October 252018 resolved Peripheral vestibulopathy ch ronic Polyneuropathy chronic Vertigo chronic [facility] Work Phone: Evaluation note* Diagnosis Onset Date Resolution Status 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 Vertigo chronic [facility] Work Phone: Evaluation note* Diagnosis Onset Date Resolution Status M ni re's disease chronic Vertigo chronic [facility] Work Phone: evaluation note* Diagnosis Onset Date Resolution Status M ni re's disease chronic Vertigo chronic Essential (primary) hypertension acute Hyperlipidemia acute Nicotine dependence chronic History of coronary artery stent placement October 252018 resolved [facility] Work Phone: Evaluation noteNo assessment information available [facility] Reason for referral (narrative)No reason for referral information [facility] Work [facility]: Chief Complaint and Reason for Visit Chief Complaint Admit Date 1 Y FU April 12, 2024 1:47pm EORDERS AND VELLANKI ORDER May 02, 2 025 8:06am Reason for Visit Admit Date Hyperlipidemia April 12, 2024 1:47pm PVC (premature ventricular contraction) April 12, 2024 1:47pm Essential (primary) hypertension Februar 2024 1:47pm History of coronary artery stent placeme nt April 12, 2024 1:47pm Nicotine dependence April 12, 2024 1:47pm Chief Complaint 6 M FU FAMILY HX OF CAROTID STENOSIS ARTHRITIS/PAIN EORDERS 3 M FU Reason for Visit Atherosclerosis of c oronary artery of [place] heart without angina pectoris Nicotine dependence History of coronary artery stent placement Atherosclerosis 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- REFFE RED BY CYNTHIA ADAMS & CONSENT PAIN- COPY PCP DIZZINESS AND GIDDINESS VERTIGO/RX HERE DOT PHYSICAL/CRW PVD CAD, DOT PHYSICAL- LABS COPY PCP CAD, DOT PHYSICAL- LABS COPY PCP Reason for Visit Arthritis Vertigo History of coronary artery stent placement Peripheral vestibulopathy Polyneuropathy Vertigo 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) Chief Complaint DIZZINESS AND GIDDIN ESS VERTIGO/RX HERE DOT PHYSICAL/CRW PVD CAD, DOT PHYSICAL- LABS COPY PCP CAD, DOT PHYSICAL- LABS COPY PCP Reason for Visit Peripheral vestibulo syd Polyneuropathy Vertigo 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) Chief Complaint DIZZINESS AND GIDDIN ESS VERTIGO/RX HERE DOT PHYSICAL/CRW PVD CAD, DOT PHYSICAL- LABS COPY PCP CAD, DOT PHYSICAL- LABS COPY PCP 6 M FU Reason for Visit Peripheral vestibulo syd Polyneuropathy Vertigo 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) Arthritis Erectile dysfunction Fatigue Hyperglycemia Nicotine dependence History of coronary artery stent placement Chief Complaint DOT PHYSICAL/CRW PVD CAD, DOT PHYSICAL- LABS COPY PCP CAD, DOT PHYSICAL- LABS COPY PCP 6 M FU 4 M FU EORDER Reason for Visit Encounter for examin ation required by Department of Transportation (DOT) Arthritis Erectile dysfunction Fatigue Hyperglycemia Nicotine dependence History of coronary artery stent placement Peripheral vestibulopathy Polyneuropathy Vertigo Chief Complaint 6 M FU 4 M FU EORDER 9 M FU PAIN- COPY PCP Reason for Visit Arthritis Erectile dysfunction Fatigue Hyperglycemia Nicotine dependence History of coronary artery stent placement Essential (primary) hypertension Hyperlipidemia History of coronary artery stent placement Chief Complaint 9 M FU PAIN- COPY PCP Reason for Visit Essential (primary) hypertension Hyperlipidemia History of coronary artery stent placement Chief Complaint PAIN- COPY PCP 6 M FU PAIN- COPY PCP Reason for Visit M ni re's disease Peripheral vestibulopathy Vertigo Chief Complaint PAIN- COPY PCP 4 month f/u PAIN- COPY PCP Reason for Visit M ni re's disease Vertigo Chief Complaint 4 month f/u PAIN- COPY PCP 1 Y FU PAIN- COPY PCP Reason for Visit M ni re's disease Vertigo Essential (primary) hypertension Hyperlipidemia Nicotine dependence History of coronary artery stent placement Chief Complaint 1 Y FU PAIN- COPY PCP Reason for Visit Essential (primary) hypertension Hyperlipidemia Nicotine dependence History of coronary artery stent placement Chief Complaint Admit Date COPY PCP February 04, 2024 1:05pm 1 Y FU April 12, 2024 1:47pm EORDERS AND VELLANKI ORDER May 02, 025 8:06am Chief Complaint Admit Date FOLLOW UP September 06, 2024 8:08 am Chief Complaint Admit Date FOLLOW UP September 06, 2024 8:08 am EORDER September 06, 2024 8:45 am Reason for Visit Admit Date Prediabetes September 06, 2024 8:08 am M ni re's disease September 06, 2024 8:08 am Polyneuropathy September 06, 2024 8:08 am Chief Complaint Admit Date FOLLOW UP September 06, 2024 8:08 am EORDER September 06, 2024 8:45 am PAIN- COPY PCP October 17, 2024 8: 43am Advance Directives No Advanced Directives Records Found Advance Directive Response Recorded Date/ Time Advance Directives Yes January 9:08am Living Will Yes February 08 10:22pm Power of Microfilm Operator Yes February 08, 2019 10:22pm Advance Directive Response Recorded Date/ Time Advance Directives Yes January 8:08am Living Will Yes February 08 9:22pm Power of Microfilm Operator Yes February 08, 2019 9:22pm Advance Directive Response Recorded Date/ Time Living Will Yes February 08 10:22pm Do you have a Healthcare Power of Microfilm Operator? Yes February 08, 2019 10:22pm Advance Directives Yes January 9:08am Advance Directive Response Recorded Date/ Time Advance Directives Yes September 01 4:04pm Family History No Family History Records Found Relationship Condition Age at Onset Recorded Date/T lisa mother Fibromyalgia Unknown Arthritis Unknown Osteoporosis Unknown Summary Purpose Additional Source Comments Goals (unrecognized section and content) Goals may be documented in a n alternate sectionGoals may be documented in an alternate sectionGoals may be documented in an alternate sectionGoals may be documented in an alternate sectionGoals may be documented in an alternate sectionGoals may be documented in an alternate sectionGoals may be documented in an alternate sectionGoals may be documented in an alternate sectionGoals may be documented in an alternate sectionGoals may be documented in an alternate sectionGoals may be documented in an alternate sectionGoals may be documented in an alternate sectionGoals may be documented in an alternate sectionGoals may be documented in an alternate sectionGoals may be documented in an alternate sectionGoals may be documented in an alternate sectionGoals may be documented in an alternate section Care Teams (unrecognized sec tion and content) Team Status: Active Member Role Status Dates No Primary Care Physician Family Provider Active Dr. Alfred Gonzalez , DO Primary Care Provider Active Team Status: Inactive Member Role Status Dates No Primary Care Physician Referring Provider Active Dr. Alfred Gonzalez , DO Primary Care Provider, Attend ing Provider Active Team Status: Inactive Member Role Status Dates Dr. Alfred Gonzalez , DO Primary Care Provider, Referr ing Provider Active Dr. Wili Estevez MD Attending Provider Active Team Status: Inactive Member Role Status Dates Dr. Alfred Gonzalez , DO Primary Care Provider, Referr ing Provider Active Dr. John Ross MD Attending Provider Active Team Status: Inactive Member Role Status Dates Dr. Alfred Gonzalez , DO Primary Care Pr ovider, Attending Provider, Referring Provider Active Team Status: Inactive Member Role Status Dates Dr. Alfred Gonzalez DO Primary Care Provider Active Dr. Wili Estevez MD Attending Provider, Referring Provider Active Team Status: Inactive Member Role Status Dates Dr. Alfred Gonzalez DO Primary Care Provider Active Dr. Swati Burris MD Attending Provider, Referring Provider Active Team Status: Inactive Member Role Status Dates Dr. Alfred Gonzalez DO Primary Care Provider Active Dr. Wili Estevez MD Attending Provider Active Team Status: Inactive Member Role Status Dates Dr. Alfred Gonzalez DO Primary Care Provider, Referr ing Provider Active Rocael Castillo TIRE VULCANIZER, TIRE VULCANIZER-C Attending Provider Active Team Status: Active Member Role Status Dates Dr. Alfred Gonzalez DO Primary Care Provider, Attend ing Provider Active Team Status: Active Member Role Status Dates Dr. Alfred Gonzalez DO Primary Care Provider Active Team Status: Inactive Member Role Status Dates Dr. Alfred Gonzalez DO Primary Care Provider Active Start: February 04, 2024 End: February 04, 2024 Dr. Swati Burris MD Attending Provider Active Start: February 04, 2024 End: February 04, 2024 Dr. Swati Burris MD Referring Provider Active Start: February 04, 2024 End: February 04, 2024 Team Status: Inactive Member Role Status Dates Dr. Alfred Gonzalez DO Primary Care Provider Active Start: April 12, 2024 End: April 12, 2024 Dr. Alfred Gonzalez DO Referring Provider Active Start: April 12, 2024 End: April 12, 2024 Rocael Castillo TIRE VULCANIZER, TIRE VULCANIZER-C Attending Provider Active S tart: April 12, 2024 End: April 12, 2024 Team Status: Inactive Member Role Status Dates Dr. Alfred Gonzalez DO Primary Care Provider Active Start: May 02, 2024 End: May 02, 2024 Rocael Castillo TIRE VULCANIZER, TIRE VULCANIZER-C Attending Provider Active S tart: May 02, 2024 End: May 02, 2024 Rocael Castillo TIRE VULCANIZER, TIRE VULCANIZER-C Referring Provider Active S tart: May 02, 2024 End: May 02, 2024 Dr. Swati Burris MD Other Provider Active St art: May 02, 2024 End: May 02, 2024 Team Status: Inactive Member Role Status Dates Dr. Alfred Gonzalez DO Primary Care Provider Active Start: July 22, 2024 End: July 22, 2024 Dr. Swati Burris MD Attending Provider Active Start: July 22, 2024 End: July 22, 2024 Dr. Swati Burris MD Referring Provider Active Start: July 22, 2024 End: July 22, 2024 Team Status: Active Member Role/Relationship Status Dates Dr. Alfred Gonzalez DO Primary Care Provider Active Team Status: Inactive Member Role/Relationship Status Dates Dr. Alfred Gonzalez DO Primary Care Provider Active Start: July 22, 2024 End: July 22, 2024 Dr. Swati Burris MD Attending Provider Active Start: July 22, 2024 End: July 22, 2024 Dr. Swati Burris MD Referring Provider Active Start: July 22, 2024 End: July 22, 2024 Team Status: Inactive Member Role/Relationship Status Dates Dr. Alfred Gonzalez DO Primary Care Provider Active Start: September 06, 2024 End: September 06, 2024 Dr. Alfred Gonzalez DO Referring Provider Active Start: September 06, 2024 End: September 06, 2024 Dr. Wili Estevez MD Attending Provider Active Start: September 06, 2024 End: September 06, 2024 Team Status: Inactive Member Role/Relationship Status Dates Dr. Alfred Gonzalez DO Primary Care Provider Active Start: September 06, 2024 End: September 06, 2024 Dr. Wili Estevez MD Attending Provider Active Start: September 06, 2024 End: September 06, 2024 Dr. Wili Estevez MD Referring Provider Active Start: September 06, 2024 End: September 06, 2024 Team Status: Inactive Member Role/Relationship Status Dates Dr. Alfred Gonzalez DO Primary Care Provider Active Start: October 17, 2024 End: October 17, 2024 Dr. Swati Burris MD Attending Provider Active Start: October 17, 2024 End: October 17, 2024 Dr. Swati Burris MD Referring Provider Active Start: October 17, 2024 End: October 17, 2024 (unrecognized sect ion and content) No Status Records Found INFORMATION SOURCE (unrecogn ized section and content) DATE CREATED AUTHOR 10/23/2024 [facility] FOR RECORDS PERTAINING TO PATIENTS WHO ARE OR HAVE BEEN ENROLLED IN A CHEMICAL DEPENDENCY/SUBSTANCEABUSE PROGRAM, SOME INFORMATION MAY BE OMITTED. This clinical summary was aggregated from multiple sources. Caution should be exercised in using it in the provision of clinical care. This summary normalizes information from multiple sources, and as a consequence, information in this document may materially change the coding, format and clinical context of patient data. In addition, data may be omitted in some cases. CLINICAL DECISIONS SHOULD BE BASED ON THE PRIMARY CLINICAL RECORDS. [email or web address] provides no warranty or guarantee of the accuracy or completeness of information in this document.
[2025-01-11 10:20] LABS: Hematocrit 44.6 % (40-54); Hemoglobin 15.3 g/dL (13.0-16.5); Immature Granulocytes Count 0.030 X10^3/uL (0.0-0.0); Mean Corp Hgb Conc 34.3 g/dL (32-36); Mean Corpuscular Volume 95.1 fL (80-94); Mean Platelet Vol. 10.2 fl (6.2-12.0); NRBC Flagged by Analyzer 0 % (0-5); Platelet Count 232 K/mm3 (150-450); RBC Distribution Width CV 12.6 % (11.6-14.6); RBC Distribution Width SD 44.1 fl (35.1-43.9); Red Blood Count 4.69 M/mm3 (4.6-6.2); White Blood Count 7.3 K/mm3 (4.4-11.0)
[2025-01-11 10:36] LABS: AST(SGOT) 21 U/L (<=37); Alanine Aminotransfer ALT/SGPT 20 U/L (<=46); Albumin, Serum 4.0 g/dL (3.5-5.0); Alkaline Phosphatase 58 U/L (40-129); Anion Gap 10 (5-15); BUN 15 mg/dL (4-19); BUN/Creat Ratio 16.8 RATIO (10-20); Calcium,Total 9.2 mg/dL (7.6-11.0); Carbon Dioxide 25.1 mmol/L (21.0-32.0); Chloride 104 mmol/L (98-108); Globulin 2.9 g/dL (2.2-4.2); Glucose 91 mg/dL (70-99); Potassium 4.4 mmol/L (3.3-5.1)
== END | disposition home or self-care (01) ==
LOC: MTLAB 07:34
PROVIDERS: PCP Family Medicine; Referring Provider Internal Medicine Rheumatology; Visit Provider Internal Medicine Rheumatology
DX: M06.09 Rheumatoid arthritis without rheumatoid factor, multiple sites (principal); Z79.899 Other long term (current) drug therapy
CPT/HCPCS: 36415; 80053; 85025